=== PATIENT | male | born 1970 | race Caucasian/White ===

== ENCOUNTER 2023-12-14 10:17 | Emergency (ER) | payer SELFPAY ==
[2023-12-14 10:17] VITALS: BP 124/81; PULSE 118; RESP 18; TEMP 36.6; O2SAT 98; BMI 28.1
--- NOTE | 2023-12-14 11:28 | EDS_ITS ---
HPI <CLARKE Leonard - Last Filed: 12/14/23 13:28> History of Present Illness Chief Complaint: Upper Extremity Injury Narrative Narrative: Patient presenting today with pain to his right scapula/right upper back that he has had for the past 3 weeks. He reports that he had a mechanical fall about 3 weeks ago when he was going up the steps and went to reach for the railing but missed and landed on an outstretched right arm. He saw his PCP after this who obtained an x-ray of his tailbone and right shoulder, both of which were unremarkable. He reports that he has not really been taking anything for his pain, he tried taking Aleve once and has been using Biofreeze intermittently with minimal relief. He reports that his pain is worsened with movement of his upper torso/RUE and improved with rest. [facility] <CLARKE Leonard - Last Filed: 12/14/23 13:28> [facility] Medical History Diabetes Hypertension Home Medications lisinopril 5 mg tablet 5 mg PO DAILY 11/02/16 [History Last Taken 12/13/23] lorazepam 0.5 mg tablet 0.5 mg PO DAILY PRN PRN Anxiety 11/02/16 [History Last Taken Unknown] metformin 500 mg tablet 1,000 mg PO BIDCM 11/02/16 [History Last Taken 12/13/23] Allergy/AdvReac Type Severity Reaction Status Date / Time No Known Allergies Allergy Verified 12/14/23 10:27 Social History Smoking Status: Never smoker ROS <CLARKE Leonard - Last Filed: 12/14/23 13:28> ROS ED Constitutional Constitutional ED: Denies chills or fever(s) Cardiovascular Cardiovascular: Denies chest pain or palpitations Respiratory/Chest Respiratory/Chest: Denies cough or dyspnea Gastrointestinal Gastrointestinal: Denies abdominal pain, nausea or vomiting Musculoskeletal Musculoskeletal: Reports arthralgias and myalgias Integumentary Denies rash Neurologic Neurologic: Denies paresthesias or weakness EXAM <CLARKE Leonard - Last Filed: 12/14/23 13:28> Physical Exam Const Vital Signs: 12/14/23 10:17 Temperature 98 F Temperature Source Temporal Pulse Rate 118 H Respiratory Rate 18 Blood Pressure 124/81 H Blood Pressure Mean 95 Pulse Ox 98 Oxygen Delivery Method Room Air Positive well nourished, well developed and no apparent distress General Appearance ED: well developed HEENT Reports normocephalic and head/scalp atraumatic Mouth ED: Yes moist mucous membranes normal Eyes PERRL and EOMs intact bilaterally Neck full ROM and supple Chest Wall inspection of chest normal Resp normal respiratory effort and clear to auscultation bilaterally Cardio regular rate and regular rhythm GI soft to palpation, non-tender, non-distended and no masses Back/Spine normal ROM and normal to inspection Extremity normal to inspection and full ROM Extremity Narrative: Pain to palpation to the right medial scapular border/right-sided rhomboids Right radial pulse 2+, good capillary refill, sensation intact. Full range of motion to the right shoulder, no pain to palpation to the right shoulder. Neuro oriented x3, CN's II-XII intact bilaterally, moves all extremities, no focal motor deficits and no sensory deficits noted Sensorium / Orientation: awake and alert Motor Exam: strength 5/5 throughout Psych mental status grossly normal and thought process normal Skin no rashes or lesions noted and no wounds [facility] <CLARKE Leonard - Last Filed: 12/14/23 13:28> [facility] Narrative Medical decision making narrative: Patient presenting today with pain along the medial scapular border and right- sided rhomboid muscles. Pain is reproducible to palpation. Patient does not have any pain to his right shoulder, full range of motion to the right shoulder. He already did have imaging of his right shoulder which was unremarkable. He has not really been taking anything for his pain, he would like to have a ibuprofen here. I do think pain is consistent with a muscular strain. 2 view chest x-ray was obtained and is unremarkable. I did recommend alternating Tylenol/ibuprofen for his pain and follow-up with his PCP if no improvement in the next week. He will be discharged home in stable condition and is comfortable with plan. I have personally performed a face to face assessment of the patient and have reviewed the [facility] Note. I performed a substantive portion of the visit including all aspects of the following. My atwood findings include: History is 53-year-old male fell about 3 weeks ago injuring his right posterior shoulder blade area. Had an x-ray done of his shoulder at the [facility] 1 to 2 weeks ago that was negative. He still having pain primarily between his right posterior medial shoulder blade and his upper thoracic spine but not the spine itself. Has full range of motion to his right arm. Exam is [well-appearing 53-year-old male. Vital signs stable afebrile. HEENT exam unremarkable atraumatic. Pupils round reactive light. C-spine, T-spine and L-spine completely nontender. Discomfort but not significant reproducible pain between the medial aspect of his right shoulder blade and the thoracic spine. Is primarily in the soft tissue. There is no ecchymosis or bruising. No bony deformity. Shoulder blade itself at this time is nontender. Lungs clear to auscultation. Heart regular rhythm. Chest wall and ribs nontender. Abdomen soft nontender. Pelvic girdle intact. Moving all 4 extremities. He has full flexion extension internal and external rotation of the right shoulder. He can lift his arm over his head. His rotator cuff mechanism is intact. He is 5 out of 5 can maker strength bilaterally. Dorsi plantarflexion intact. Neurologically he is awake and alert with no focal motor deficits. No reproducible tenderness to his extremities.] Medical Decision Making [x-ray of his anterior posterior chest to be obtained.] Other additions or changes: [None] <Dr. Luis Mensah MD - Last Filed: 12/14/23 22:34> [facility] Narrative Medical decision making narrative: Patient presenting today with pain along the medial scapular border and right- sided rhomboid muscles. Pain is reproducible to palpation. Patient does not have any pain to his right shoulder, full range of motion to the right shoulder. He already did have imaging of his right shoulder which was unremarkable. He has not really been taking anything for his pain, he would like to have a ibuprofen here. I do think pain is consistent with a muscular strain. I have personally performed a face to face assessment of the patient and have reviewed the [facility] Note. I performed a substantive portion of the visit including all aspects of the following. My atwood findings include: History is 53-year-old male fell about 3 weeks ago injuring his right posterior shoulder blade area. Had an x-ray done of his shoulder at the [facility] 1 to 2 weeks ago that was negative. He still having pain primarily between his right posterior medial shoulder blade and his upper thoracic spine but not the spine itself. Has full range of motion to his right arm. Exam is [well-appearing 53-year-old male. Vital signs stable afebrile. HEENT exam unremarkable atraumatic. Pupils round reactive light. C-spine, T-spine and L-spine completely nontender. Discomfort but not significant reproducible pain between the medial aspect of his right shoulder blade and the thoracic spine. Is primarily in the soft tissue. There is no ecchymosis or bruising. No bony deformity. Shoulder blade itself at this time is nontender. Lungs clear to auscultation. Heart regular rhythm. Chest wall and ribs nontender. Abdomen soft nontender. Pelvic girdle intact. Moving all 4 extremities. He has full flexion extension internal and external rotation of the right shoulder. He can lift his arm over his head. His rotator cuff mechanism is intact. He is 5 out of 5 can maker strength bilaterally. Dorsi plantarflexion intact. Neurologically he is awake and alert with no focal motor deficits. No reproducible tenderness to his extremities.] Medical Decision Making [x-ray of his anterior posterior chest to be obtained.] Other additions or changes: [None] History & Record Review Discussion w/independent historian: Patient Discharge Plan Triage Chief Complaint: Upper Extremity Injury ED Midlevel Provider: [place] ED Provider: Luis Mensah Dx/Rx/DC Orders Clinical Impression: Muscle strain of right upper back Instructions: ED Back Sprain/Strain Prescriptions: No Action metformin 500 MG tablet 1,000 mg PO BIDCM lorazepam 0.5 MG tablet 0.5 mg PO DAILY PRN PRN (Reason: Anxiety) lisinopril 5 MG tablet 5 mg PO DAILY Primary Care Provider: Reagan Perdomo PEDIATRIC DENTAL HYGIENIST Referrals: Marcelo Burton MD [Non-Staff] - 5-7 Days Activity Restrictions/Additional Instructions: You can alternate Tylenol and ibuprofen for your pain as needed. Please follow- up with your PCP. Disposition Disposition: Home, Self Care Discharge Date/Time: 12/14/23 13:17
[2023-12-14] MEDS: Ibuprofen 600 MG Tablet PO (11:35)
--- NOTE | 2023-12-14 12:29 | RAD_ITS ---
INDICATION: pain medial to right shoulder blade post fall EXAMINATION/TECHNIQUE: X-RAY - XR Chest 2 Views COMPARISON: FINDINGS: LINES/DEVICES: None. LUNGS: No consolidation, edema or effusion. No pneumothorax. MEDIASTINUM AND CARDIOVASCULAR STRUCTURES: Cardiac silhouette not enlarged. Central airways and mediastinal contour are unremarkable. BONES AND SOFT TISSUES: Unremarkable. RAD/Chest PA and Lateral IMPRESSION: No radiographic evidence of acute cardiopulmonary disease. Electronically Signed: Gómez Johnson MD at 13:20 EDT ,
[2023-12-14 13:15] VITALS: BP 115/72; PULSE 100; RESP 16; TEMP 36.9; O2SAT 99
== END 2023-12-14 13:17 | disposition home or self-care (01) ==
PROVIDERS: Emergency Provider Emergency Medicine; PCP Nurse Practitioner Family; Visit Provider Emergency Medicine
DX: S29.012A Strain of muscle and tendon of back wall of thorax, initial encounter (principal); E11.9 Type 2 diabetes mellitus without complications; W10.9XXA Fall (on) (from) unspecified stairs and steps, initial encounter; I10 Essential (primary) hypertension; Z79.84 Long term (current) use of oral hypoglycemic drugs; Z79.899 Other long term (current) drug therapy
CPT/HCPCS: 71046; 99282

== ENCOUNTER 2025-09-19 14:37 | Inpatient (IN) | payer SELFPAY ==
[2025-09-19 14:39] VITALS: BP 116/68; PULSE 114; RESP 16; TEMP 36.7; O2SAT 100; BMI 27.2
--- NOTE | 2025-09-19 15:04 | CT_ITS ---
PROCEDURE: BRAIN/HEAD WITHOUT CONTRAST 09/19/2025 REASON FOR EXAM: CONFUSION TECHNIQUE: Procedure Code: CTBR Modality: CT Procedure: BRAIN/HEAD WITHOUT CONTRAST Coronal and Sagittal reconstruction series were provided. One or more dose reduction techniques were used (e.g., Automated exposure control, adjustment of the mA and/or kV according to patient size, use of iterative reconstruction technique. COMPARISON: None available. FINDINGS: There is no extra-axial or intra-axial intracranial hemorrhage. No mass effect or midline shift is seen. The ventricles, sulci, and cisterns are normal in size and shape for the patient's age. There is normal hong-white matter differentiation. The posterior fossa is grossly unremarkable. The skull is unremarkable. Visualized paranasal sinuses are clear. The mastoid air cells show normal translucency. CT/Brain/Head without Contrast IMPRESSION: No intracranial hemorrhage. No mass effect or midline shift. Reading [facility]
--- NOTE | 2025-09-19 15:06 | EX.ED.DYSGE1 ---
HPI History of Present Illness Chief Complaint: General Illness Informant: patient Onset/Context/Timing Onset: Month(s) (1) Context: Gradual Onset Timing: Continuous Quality: Weakness Location: Generalized Worsened by: Nothing Relieved by: Nothing Narrative Narrative: Patient presents with polyuria, polydipsia, weakness, dizziness that has been constant for the past month. Patient states it came on gradually. Patient states he has been feeling weak. Patient states he is drinking a lot of water. Patient states he has been urinating more frequently. Sister reports that the patient had a 40 pound weight loss over the last month. Sister states patient has had episodes of confusion as well. Patient admits to some blurry vision. Patient admits to some subjective fevers and chills. Patient denies any dysuria or hematuria. [facility] Medical History Hypertension Diabetes Home Medications ?Medication ?Instructions ?Recorded ?Last Taken ?Type lisinopril 5 mg tablet 5 mg PO DAILY 11/02/16 12/13/23 History lorazepam 0.5 mg tablet 0.5 mg PO DAILY PRN PRN Anxiety 11/02/16 Unknown History metformin 500 mg tablet 1,000 mg PO BIDCM 11/02/16 12/13/23 History Allergy/AdvReac Type Severity Reaction Status Date / Time No Known Allergies Allergy Verified 09/19/25 14:43 Surgical History no surgical history no surgical history Social History Smoking Status: Never smoker ROS ROS ED Constitutional Constitutional ED: Reports chills, fever(s) and subjective Eyes Eyes: Reports blurry vision; Denies diplopia ENT ENT ED: Denies rhinorrhea or sore throat Cardiovascular Cardiovascular: Denies chest pain or palpitations Respiratory/Chest Respiratory/Chest: Reports cough; Denies dyspnea Gastrointestinal Gastrointestinal: Reports constipation, nausea and vomiting Genitourinary Genitourinary ED: Reports urinary frequency; Denies dysuria or hematuria Musculoskeletal Musculoskeletal: Denies back pain or neck pain Integumentary Denies abscess or rash Neurologic Neurologic: Reports weakness; Denies headache(s) Endocrine Endocrinology: Reports polydipsia and polyuria Allergic/Immunologic Allergic/Immunologic ED: Denies mouth swelling or urticaria EXAM Physical Exam Const Vital Signs: 09/19/25 14:39 09/19/25 14:52 09/19/25 16:40 Temperature 98.1 F Temperature Source Oral Pulse Rate 114 H 92 Respiratory Rate 16 16 Respiratory Pattern Normal Blood Pressure 116/68 110/63 Blood Pressure Mean 84 78 Pulse Ox 100 100 Oxygen Delivery Method Room Air 09/19/25 18:08 Temperature Temperature Source Pulse Rate 93 Respiratory Rate 15 Respiratory Pattern Blood Pressure Blood Pressure Mean Pulse Ox 97 Oxygen Delivery Method Room Air Positive well nourished and well developed Constitutional Narrative: BMI is 27.3. General Appearance ED: well developed and NAD HEENT Reports moist mucous membranes Neck supple and no JVD Resp normal respiratory effort and clear to auscultation bilaterally Cardio regular rhythm Rate: tachycardic GI non-tender and non-distended Palpation: soft Extremity normal to inspection General Extremety ED: Negative for edema or tenderness General Extremity: Negative for edema Neuro oriented x3, CN's II-XII intact bilaterally and no sensory deficits noted Sensorium / Orientation: alert Motor Exam: strength 5/5 throughout Psych mental status grossly normal MDM MDM MDM Narrative Medical decision making narrative: Differential diagnosis includes diabetic ketoacidosis, hyperosmolar hyperglycemic nonketotic state, uncontrolled diabetes, dehydration, electrolyte abnormality, occult malignancy, and viral illness. EKG will be obtained to assess for cardiac dysrhythmia and cardiac ischemia. CT scan of the brain will be obtained to assess for intracranial bleeding and mass. Chest x-ray will be obtained to assess for pneumonia and bronchitis. CBC will be obtained to assess for leukocytosis and anemia. Comprehensive metabolic profile will be obtained to assess for hepatic function, renal function, and electrolyte abnormality. Urinalysis will be obtained to assess for urinary tract infection, glucosuria, and hematuria. Lipase will be obtained to assess for pancreatitis. Beta hydroxybutyrate will be obtained to assess for any ketosis. Venous blood gas will be obtained to assess for acidosis. History & Record Review Additional record(s) reviewed:: Prior ED visit Lab Data Attestation: I reviewed the patient's lab results. Lab results narrative: CBC was reviewed. There is a mild anemia with hemoglobin of 12.7 hematocrit 33.9. Platelets are slightly low at 102. Comprehensive metabolic profile was reviewed. BUN was elevated at 51 and creatinine was slightly elevated at 1.66. Glucose was elevated at 495. Sodium was low at 128 and chloride was 89. AST was slightly elevated at 44. ALT was slightly elevated at 56. Alkaline phosphatase was slightly elevated to 63. Total bilirubin was elevated at 2.28. CO2 was normal at 21.7. Anion gap was normal at 17. Lipase was reviewed and was 189. Beta hydroxybutyrate was reviewed and was slightly elevated at 2.8. Urinalysis was reviewed. There is glucosuria of 1000. There is no evidence of urinary tract infection or hematuria. Labs: Laboratory Results - last 24 hr 09/19/25 09/19/25 09/19/25 14:45 15:20 16:21 WBC 9.4 RBC 3.68 L Hgb 12.7 L Hct 33.9 L MCV 92.1 MCH 34.5 H MCHC 37.5 H RDW Std Deviation 45.3 H RDW Coeff of Nelsy 13.3 Plt Count 102 L MPV 11.6 Immature Gran % (Auto) 1.100 H Neut % (Auto) 64.0 Lymph % (Auto) 19.1 [place] % (Auto) 9.3 Eos % (Auto) 5.4 H Baso % (Auto) 1.1 H Absolute Neuts (auto) 6.0 Absolute Lymphs (auto) 1.79 Nucleated RBC % 0 Sodium 128 L Potassium 4.2 Chloride 89 L Carbon Dioxide 21.7 Anion Gap 17 BUN 51 H Creatinine 1.66 H Estim Creat Clear Calc 51.92 Est GFR (MDRD) Non-Af 48 L BUN/Creatinine Ratio 30.8 H Glucose 495 H* Calcium 10.1 Total Bilirubin 2.28 H AST 44 H ALT 56 H Alkaline Phosphatase 263 H Total Protein 7.7 Albumin 3.7 Globulin 4.0 Albumin/Globulin Ratio 0.9 Lipase 189 H b-Hydroxybutyric mmol/L 2.8 H Urine Color Straw Urine Clarity Clear Urine pH 6.0 Ur Specific [place] 1.010 Urine Protein 15 H Urine Glucose (UA) 1000 H Urine Ketones 5 H Urine Occult Blood Negative Urine Nitrite Negative Urine Bilirubin Negative Urine Urobilinogen Normal Ur Leukocyte Esterase Negative Urine RBC 0-5 SEEN Urine WBC 0-5 SEEN Ur Squamous Epith Cells 0-5 SEEN Urine Bacteria RARE Urine Mucus 0 SEEN POC Glucose 419 H 09/19/25 17:59 WBC RBC Hgb Hct MCV MCH MCHC RDW Std Deviation RDW Coeff of Nelsy Plt Count MPV Immature Gran % (Auto) Neut % (Auto) Lymph % (Auto) [place] % (Auto) Eos % (Auto) Baso % (Auto) Absolute Neuts (auto) Absolute Lymphs (auto) Nucleated RBC % Sodium Potassium Chloride Carbon Dioxide Anion Gap BUN Creatinine Estim Creat Clear Calc Est GFR (MDRD) Non-Af BUN/Creatinine Ratio Glucose Calcium Total Bilirubin AST ALT Alkaline Phosphatase Total Protein Albumin Globulin Albumin/Globulin Ratio Lipase b-Hydroxybutyric mmol/L Urine Color Urine Clarity Urine pH Ur Specific [place] Urine Protein Urine Glucose (UA) Urine Ketones Urine Occult Blood Urine Nitrite Urine Bilirubin Urine Urobilinogen Ur Leukocyte Esterase Urine RBC Urine WBC Ur Squamous Epith Cells Urine Bacteria Urine Mucus POC Glucose 380 H ABG Data Attestation: I personally reviewed and interpreted this ABG as follows: Interpretation: Venous blood gas was obtained. pH was 7.42. pCO2 is 33.1. pO2 was 25.5, bicarb 9.4. This was a venous sample. ABG results: ABG 09/19/25 15:34 Specimen Type BRUCE Sample Site Not entered VBG pH 7.42 VBG pO2 26 VBG HCO3 21 L VBG Total CO2 22 L VBG O2 Sat (Calc) 49 L VBG Base Excess -3 L POC Mix VBG pCO2 Pt Tmp 33.1 L O2 Delivery Device Room Air Radiography Chest X-Ray - ED: 2 View, Read by ED Physician, Read by Radiologist and No Acute Disease Diagnostic Testing: Clinical Impression(s) from Imaging Studies Brain CT 09/19/25 15:04 IMPRESSION: No intracranial hemorrhage. No mass effect or midline shift. Reading Location: [facility] Chest X-Ray 09/19/25 15:40 IMPRESSION: No acute cardiopulmonary process. Reading Location: [facility] Abdomen/Pelvis CT 09/19/25 16:41 IMPRESSION: 1. Fecal retention in the colon consistent with constipation. 2. Mild hepatosplenomegaly with splenic varices concerning for portal hypertension. Clinical correlation is recommended. 3. Colonic diverticulosis without acute diverticulitis. Reading Location: [facility] PA and lateral chest x-ray was obtained. There are 2 views. On my independent interpretation, lung kim are clear. There is normal cardiac silhouette. Bony thorax is normal. There is no acute process noted. Radiologist also interpreted the x-ray and agrees. CT scan of the brain was obtained. There is no acute intracranial abnormality. This was interpreted by the radiologist. I also independently reviewed the images and did not see any evidence of intracranial bleeding or mass. PA and lateral chest x-ray was obtained. There are 2 views. On my independent interpretation, lung kim are clear. There is normal cardiac silhouette. Bony thorax is normal. There is no acute process noted. Radiologist also interpreted the x-ray and agrees. EKG Initial EKG: Attestation: I personally reviewed and interpreted this EKG as follows: Interpretation: Sinus Rhythm (With first-degree AV block with a rate of 95) and No Acute Injury Pattern Comments: EKG was obtained. On my independent interpretation, shows a sinus rhythm with a first-degree AV block with a rate of 95. MA interval was 220 ms. QRS interval was normal at 106 ms. QTc interval was normal at 339 ms. [place] was normal. There are no acute ST or T wave changes noted. Prior EKG tracings: not available for review Prior: No Prior Management Discussion w/another healthcare provider: Hospitalist Treatment and Re-Evaluation :: Patient was given IV fluids. Patient was given a dose of subcutaneous insulin. Patient was feeling better on reevaluation. Patient was advised of his findings. I recommended admission to the hospital. Patient is agreeable with this. Case was discussed with the hospitalist. He will evaluate patient and admit the patient to his service. Patient and sister understand and are agreeable with the plan. All questions were answered. Discharge Plan Dx/Rx/DC Orders Clinical Impression: Pancreatitis, Hyperglycemia, Acute kidney injury Disposition Disposition: [facility]
--- NOTE | 2025-09-19 15:15 | EKG12_ITS ---
Test Reason : Blood Pressure : */* mmHG Vent. Rate : 95 BPM Atrial Rate : 95 BPM P-R Int : 220 ms QRS Dur : 106 ms QT Int : 270 ms P-R-T Axes : 52 10 54 degrees QTcB Int : 339 ms Sinus rhythm with 1st degree A-V block Otherwise normal ECG Confirmed by Andrea Jon ([id number]), technical editor ANIRUDH FORRESTER ([id number]) on 09/25/2025 7:15:27 AM Referred By: Confirmed By: Andrea Jon
[2025-09-19 15:19] LABS: Mucous, Urine 0 SEEN /hpf (<or=2+)
[2025-09-19] MEDS: 0.9% Normal Saline (1000mL) 1,000 ML 999 ML IV ×2 (15:22→17:57)
[2025-09-19 15:26] LABS: Color, Urine Straw (Yellow); Glucose, Dipstick 1000 mg/dl (Normal); Ketone-Dipstick 5 mg/dl (Negative); Leukocyte Esterase-Dipstick Negative /ul (Negative); Nitrite-Dipstick Negative (Negative); Occult Blood-Urine Negative /ul (Negative); Protein-Dipstick 15 mg/dl (Negative); Specific Gravity, Urine 1.010 (1.002-1.030); Urine Bilirubin Dipstick Negative (Negative)
[2025-09-19 15:38] LABS: SITE Not entered; VBG BASE EXCESS -3 mmol/L (-1.0-3.5); VBG PO2 26 mmHg (25-40); VBG SO2 49 % (50-70); VBG TCO2 22 mmol/L (23-33)
--- OUTSIDE RECORDS SUMMARY | 2025-09-19 15:38 | XMS RPT_ITS | CCD ---
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 echocardiogram to assess for progression; advised patient to schedule once insurance is active. Reagan Garcia APRN.WATCH REPAIRER RTO in 6 months, sooner i (more content not included)... Normal [facility] Comprehensive metabolic 2000 panelon 07-08-2025 Albumin [Mass/Vol] 4.0 g/dL Normal 3.9-4.9 [facility] Comment on above: Order Comment: Speci men Type: BLOOD SPECIMENOrdering Facility: [facility] Address: [address] [place] [address] Performed By: #### 2 4323-8 ####[facility] LABCLIA [id number] [place] [address] [place] ALP [Catalytic activity/Vol] 97 U/L Normal 38-113 [facility] Comment on above: Order Comment: Speci men Type: BLOOD SPECIMENOrdering Facility: [facility] Address: [address] [place] [address] Performed By: #### 2 4323-8 ####[facility]CL[facility] [id number] [place] [address] [place] ALT [Catalytic activity/Vol] 45 U/L Normal 10-54 [facility] Comment on above: Order Comment: Speci men Type: BLOOD SPECIMENOrdering Facility: [facility] Address: [address] [place] [address] Performed By: #### 2 4323-8 ####[facility]CLIA [id number] [place] [address] [place] Anion gap [Moles/Vol] 14 mmol/L Normal 8-15 [facility] Comment on above: Order Comment: Speci men Type: BLOOD SPECIMENOrdering Facility: [facility] Address: [address] [place] [address] Performed By: #### 2 4323-8 ####[facility]CLIA [id number] [place] [address] [place] AST [Catalytic activity/Vol] 57 U/L High 14-40 [facility] Comment on above: Order Comment: Speci men Type: BLOOD SPECIMENOrdering Facility: [facility] Address: [address] [place] [address] Performed By: #### 2 4323-8 ####[facility]CLIA [id number] [place] [address] [place] Bilirubin [Mass/Vol] 1.9 mg/dL High 0.2-1.3 [facility] Comment on above: Order Comment: Speci men Type: BLOOD SPECIMENOrdering Facility: [facility] Address: [address] [place] [address] Performed By: #### 2 4323-8 ####[facility]CL[facility] [id number] [place] [address] [place] Calcium [Mass/Vol] 10.2 mg/dL Normal 8.5-10.2 [facility] Comment on above: Order Comment: Speci men Type: BLOOD SPECIMENOrdering Facility: [facility] Address: [address] [place] [address] Performed By: #### 2 4323-8 ####[facility]CL[facility] [id number] [place] [address] [place] Chloride [Moles/Vol] 104 mmol/L Normal 98-107 [facility] Comment on above: Order Comment: Speci men Type: BLOOD SPECIMENOrdering Facility: [facility] Address: [address] [place] [address] Performed By: #### 2 4323-8 ####[facility]CL[facility] [id number] [place] [address] [place] CO2 [Moles/Vol] 23 mmol/L Normal 22-30 [facility] Comment on above: Order Comment: Speci men Type: BLOOD SPECIMENOrdering Facility: [facility] Address: [address] [place] [address] Performed By: #### 2 4323-8 ####[facility] [id number] [place] [address] [place] Creatinine [Mass/Vol] 0.96 mg/dL Normal 0.73-1.22 [facility] Comment on above: Order Comment: Speci men Type: BLOOD SPECIMENOrdering Facility: [facility] Address: [address] [place] [address] Performed By: #### 2 4323-8 ####[facility]CL[facility] [id number] [place] [address] [place] eGFRcr SerPlBld CKD-EPI 2020 93 mL/min/1.73m??? Normal >=60 [facility] Comment on above: Order Comment: Speci men Type: BLOOD SPECIMENOrdering Facility: [facility] Address: [address] [place] [address] Result Comment: Flavia mated Glomerular Filtration Rate (eGFR) is calculated using the 2020 CKD-EPI creatinine equation. This equation utilizes serum creatinine, sex, and age as parameters. The creatinine assay has traceable calibration to isotope dilution-mass spectrometry. Refer to KDIGO guidelines for clinical interpretation. In patients with unstable renal function, e.g. those with acute kidney injury, the eGFR may not accurately reflect actual GFR. Performed By: #### 2 4323-8 ####[facility]CL[facility] [id number] [place] [address] [place] Glucose [Mass/Vol] 66 mg/dL Low 74-99 [facility] Comment on above: Order Comment: Speci men Type: BLOOD SPECIMENOrdering Facility: [facility] Address: [address] [place] [address] Result Comment: The [place] Diabetes Association (ADA) provides guidance for cutoff values for fasting glucose and random glucose. The ADA defines fasting as no caloric intake for at least 8 hours. Fasting plasma glucose results between 100 to 125 mg/dL indicate increased risk for diabetes (prediabetes). Fasting plasma glucose results greater than or equal to 126 mg/dL meet the criteria for diagnosis of diabetes. In the absence of unequivocal hyperglycemia, results should be confirmed by repeat testing. In a patient with classic symptoms of hyperglycemia or hyperglycemic crisis, random plasma glucose results greater than or equal to 200 mg/dL meet the criteria for diagnosis of diabetes. Reference: Standards of Medical Care in Diabetes 2016, [place] [employer] Association. Diabetes Care. 2016.39(Suppl 1). Performed By: #### 2 4323-8 ####[facility]CL[facility] [id number] [place] [address] [place] Potassium [Moles/Vol] 4.5 mmol/L Normal 3.7-5.1 [facility] Comment on above: Order Comment: Speci men Type: BLOOD SPECIMENOrdering Facility: [facility] Address: [address] [place] [address] Performed By: #### 2 4323-8 ####[facility]CL[facility] [id number] [place] [address] [place] Protein [Mass/Vol] 7.7 g/dL Normal 6.3-8.0 [facility] Comment on above: Order Comment: Speci men Type: BLOOD SPECIMENOrdering Facility: [facility] Address: [address] [place] [address] Performed By: #### 2 4323-8 ####[facility]CL[facility] [id number] [place] [address] [place] Sodium [Moles/Vol] 141 mmol/L Normal 136-144 [facility] Comment on above: Order Comment: Speci men Type: BLOOD SPECIMENOrdering Facility: [facility] Address: [address] [place] [address] Performed By: #### 2 4323-8 ####[facility]CL[facility] [id number] Urea nitrogen [Mass/Vol] 28 mg/dL High 9-24 [facility] Comment on above: Order Comment: Sarahi mccann Type: BLOOD SPECIMENOrdering Facility: [facility] Address: [address] [place] [address] Performed By: #### 2 4323-8 ####[facility]CL[facility] [id number] [address] HbA1c (Bld)on 07-08-2025 Average glucose Estimated from glycated hemoglobin (Bld) [Mass/Vol] 105 mg/dL Normal [facility] Comment on above: Order Comment: Sarahi mccann Type: BLOOD SPECIMENOrdering Facility: [facility] Address: [address] [place] [address] Result Comment: eAG: (Estimated average glucose) is a calculated value from HgbA1c and is route sales representative of the average blood glucose level in the last 2-3 month period. Performed By: #### 5 5454-3 ####[facility] LABIA [id number] [address] HbA1c (Bld) [Mass fraction] 5.3 % Normal 4.3-5.6 [facility] Comment on above: Order Comment: Sarahi mccann Type: BLOOD SPECIMENOrdering Facility: [facility] Address: [address] [place] [address] Result Comment: [place] Diabetes Association guidelines indicate that patients with HgbA1c in the range 5.7-6.4% are at increased risk for development of diabetes, and intervention by lifestyle modification may be beneficial. HgbA1c greater or equal to 6.5% is considered diagnostic of diabetes. Performed By: #### 5 5454-3 ####[facility] [id number] [address] [place] 03-05-2025 LUIS Telephone (GSTNOR) LUISA,DANE ([id number]) 1970 M Date Time Provider Department 03/05/25 GEORGIA AVILA During your visit today, we recorded the following information about you: Dejuan Red 03/05/2025 9:12 AM Signed LM for patient, the 03/05 office visit with CLARKE Avila, was denied for financial assistance. Dejuan Red 03/10/2025 3:00 PM Signed Patient came into the office and was made aware of the denial. The PFA was in contact with him and is working on financial assistance. Allergies As of Date: 03/05/2025 (No Known Allergies) Date Reviewed: 01/27/2025 Reviewed by: Margie Brooks MA - Fully Assessed Reason for Visit: Appointment [186] Cmt: cancel Prescriptions as of 03/10/2025 - lactulose 10 gram/15 mL solution Take 15 mL by mouth two times a day. Titrate to 2-3 soft bowel movements daily. - lisinopril-hydroCHLOROthiaz carlos (ZESTORETIC) 20-25 mg per tablet Take 1 tablet by mouth every morning. - metFORMIN (GLUCOPHAGE) 1,000 mg tablet Take 1 tablet by mouth two times a day with meals. - meloxicam (MOBIC) 15 mg tablet take one tablet by mouth every day - glyBURIDE 5 mg tablet Take 1 tablet by mouth daily with breakfast. - sildenafil (VIAGRA) 100 mg tablet Take 1 tablet by mouth once daily as needed. Take 30-60 minutes before sexual activity. - blood sugar diagnostic (BLOOD GLUCOSE TEST) test strip Test blood sugar(s) 1 times daily. Dx: Type 2 DM - Controlled E11.9 Insulin: No Problem List As Of Date 03/05/2025 Noted Resolved Essential hypertension, benign [I10] 02/06/2012 Elevated glucose [R73.09] 02/06/2012 Fatty liver [K76.0] 02/06/2012 Anxiety [F41.9] 08/19/2012 Diabetes mellitus type 2, controlled, without c*07/02/2013 Splenomegaly [R16.1] 01/10/2021 Aortic stenosis, mild [I35.0] 06/14/2023 Chronic scapular pain [M89.8X1, G89.29] 03/28/2024 Encounter Status:Closed by DEJUAN RED on 03/10/25 [facility] CNOVon 01-27-2025 CNOV Office Visit (FAMPWS ) DANE MORAN ([id number]) 1970 M Date Time Provider Department 01/27/25 10:00 AM WILLIE BURTON FAMPWS During your visit today, we recorded the following information about you: Pulse Respiration Blood pressure Weight 78/minute 16/minute 118/80 98.9 kg Willie Burton MD 01/27/2025 10:40 AM Signed Chief Complaint Patient presents with: Follow Up: -burn to foot HPI Dane Moran is a 54 year old male who presents here today for follow up. Pt was in the [facility] on 01/21/25 for burn to right foot. Was prescribed Doxycycline 100 mg and advised to continue with bandages and burn ointment and follow up with PCP in 1 week. Pt is diabetic. Has a 1.5 days worth of antibiotics to take. Has been applying silver cream to the burn. He still has a mild dull pain, occ pinching, sharp stabbing pain in the evening that lasts a short time. Foot is still swelling, will improve over night when off his feet, no changes in the swelling. Has been wearing crocs to avoid pressure on the foot. Denies any fevers. He spilled hot liquid on the foot a week and half ago. He is not filing workers comp. Chews tobacco. Not interested in quitting at this time. GI: He has stopped drinking alcohol completely 12/29/24 since having his abdominal US. He has fatty liver disease, now with cirrhotic changes to the liver. . He was given Lactulose to take to get his bowels moving but pt states he is not taking that as he has no problems with his bowels. Explained that he was put on the Lactulose to lower his ammonia levels. He is scheduled to see GI next month. Past medical history, appointments, medications, allergies reviewed. Previous Medical History PAST MEDICAL HISTORY Diagnosis Date Anxiety Diabetes (HCC) Fatty liver Hypertension Previous Surgical History PAST SURGICAL HISTORY Procedure Laterality Date ANESTHESIA KNEE, ARTHROSCOPIC 1983 right knee Family History FAMILY HISTORY Problem Relation Age of Onset Ischemic Heart Disease Father 50 at 51 Diabetes Mother Diabetes Maternal Grandfather Patient Allergies ALLERGIES No Known Allergies Current Medications Current Outpatient Medications on File Prior to Visit Medication Sig doxycycline monohydrate 100 mg tablet Take 1 tablet by mouth two times a day for 7 days. lactulose 10 gram/15 mL solution Take 15 mL by mouth two times a day. Titrate to 2-3 soft bowel movements daily. lisinopril-hydroCHLOROthiaz carlos (ZESTORETIC) 20-25 mg per tablet Take 1 tablet by mouth every morning. metFORMIN (GLUCOPHAGE) 1,000 mg tablet Take 1 tablet by mouth two times a day with meals. meloxicam (MOBIC) 15 mg tablet take one tablet by mouth every day (Patient not taking: Reported on 01/21/2025) glyBURIDE 5 mg tablet Take 1 tablet by mouth daily with breakfast. sildenafil (VIAGRA) 100 mg tablet Take 1 tablet by mouth once daily as needed. Take 30-60 minutes before sexual activity. blood sugar diagnostic (BLOOD GLUCOSE TEST) test strip Test blood sugar(s) 1 times daily. Dx: Type 2 DM - Controlled E11.9 Insulin: No No current facility-administered medications on file prior to visit. Social History Social History Tobacco Use Smoking status: Never Smokeless tobacco: Current Types: Chew Tobacco comments: 1/2 can a day Vaping Use Vaping status: Never Used Substance Use Topics Alcohol use: Yes Comment: 1-2 drinks per day Drug use: No EXAM: BP 118/80 Pulse 78 Resp 16 Wt 98.9 kg (218 lb 0.6 oz) BMI 31.28 kg/m? General Appearance: Well appearing, alert, in no acute distress, well-hydrated, well nourished. and Overweight. Foot: right; no infection, swelling of the foot; wounds scabbed over, slight swelling to foot, minimal erythema, no streaking, no drainage. Health Maintenance List Shingrix Vaccine(2 of 2) due on 01/04/2021 Colorectal Cancer Screening due on 01/30/2023 Dilated Retinal Exam due on 07/24/2023 BP Controlled (<130/80) due on 12/19/2023 Urine Albumin:Creatinine Ratio due on 12/02/2024 Covid-19 Vaccine(3 - 2023- season) due on 05/27/2025 Hepatitis B Vaccine(1 of 3 - 19+ 3-dose series) due on 12/15/2025 Pneumococcal Vaccine: 50+(1 of 2 - PCV) due on 12/15/2025 Diabetic Foot Exam due on 05/27/2025 Depression Screening due on 05/27/2025 HbA1C due on 06/17/2025 LDL Cholesterol due on 12/15/2025 Annual PCP Team Chronic Disease Visit due on 12/15/2025 Prostate Cancer Screening Discussion due on 12/15/2029 DTaP,Tdap,Td Vaccine(3 - Td or Tdap) due on 03/28/2032 Hepatitis C Screening Completed Influenza Vaccine Discontinued HIV Screening Discontinued Data reviewed None ASSESSMENT/PLAN: 1. Burn - ICD9: 949.0, ICD10: T30.0 (primary diagnosis) Improving Continue with Silver cream Finish antibiotic Call in next week with update on foot 2. Cirrhosis, Recommended follow with GI as deepti (more content not included)... Normal [facility] CNOVon 01-21-2025 CNOV Office Visit (UCWSTR ) DANE MORAN ([id number]) 1970 M Date Time Provider Department 01/21/25 5:00 PM ANNA DREW [facility] During your visit today, we recorded the following information about you: Temperature Pulse Respiration Blood pressure 98.1 degrees 83/minute 18/minute 140/80 Weight 99.4 kg Anna Drew APRN.CNP 01/21/2025 5:19 PM Signed [facility] Subjective HPI HPI Dane Moran is a 54 year old male who presents today for CC of right foot burn. This started 1 week ago, now swelling and increased pain. Has tried otc medication for relief. Symptoms are worsened by nothing. Risk factors patient diabetic. .Patient presents with: Burn: Right foot x 1 week, pain worsening PAST MEDICAL HISTORY Diagnosis Date Anxiety Diabetes (HCC) Fatty liver Hypertension PAST SURGICAL HISTORY Procedure Laterality Date ANESTHESIA KNEE, ARTHROSCOPIC 1983 right knee ALLERGIES Patient has no known allergies. MEDICATIONS lactulose 10 gram/15 mL solution Take 15 mL by mouth two times a day. Titrate to 2-3 soft bowel movements daily. lisinopril-hydroCHLOROthiaz carlos (ZESTORETIC) 20-25 mg per tablet Take 1 tablet by mouth every morning. metFORMIN (GLUCOPHAGE) 1,000 mg tablet Take 1 tablet by mouth two times a day with meals. glyBURIDE 5 mg tablet Take 1 tablet by mouth daily with breakfast. sildenafil (VIAGRA) 100 mg tablet Take 1 tablet by mouth once daily as needed. Take 30-60 minutes before sexual activity. blood sugar diagnostic (BLOOD GLUCOSE TEST) test strip Test blood sugar(s) 1 times daily. Dx: Type 2 DM - Controlled E11.9 Insulin: No doxycycline monohydrate 100 mg tablet Take 1 tablet by mouth two times a day for 7 days. meloxicam (MOBIC) 15 mg tablet take one tablet by mouth every day (Patient not taking: Reported on 01/21/2025) FAMILY HISTORY Problem Relation Age of Onset Ischemic Heart Disease Father 50 at 51 Diabetes Mother Diabetes Maternal Grandfather Social History Tobacco Use Smoking status: Never Smokeless tobacco: Current Types: Chew Tobacco comments: 1/2 can a day Vaping Use Vaping status: Never Used Substance Use Topics Alcohol use: Yes Comment: 1-2 drinks per day Drug use: No Review of Systems Constitutional: Negative for fever. Objective BP 140/80 Pulse 83 Temp 36.7 ?C (98.1 ?F) (Tympanic) Resp 18 Wt 99.4 kg (219 lb 2.2 oz) SpO2 97% BMI 31.44 kg/m? Physical Exam Constitutional: General: He is not in acute distress. Appearance: He is not toxic-appearing or diaphoretic. HENT: Head: Normocephalic and atraumatic. Pulmonary: Effort: Pulmonary effort is normal. No accessory muscle usage or respiratory distress. Musculoskeletal: Feet: Neurological: Mental Status: He is alert and oriented to person, place, and time. {ASSESSMENT/PLAN: 1. Secondary infection of skin - ICD9: 686.8, ICD10: L08.89 (primary diagnosis) -use medication as prescribed -follow up if symptoms persist, worsen, change Will schedule recheck with pcp next week. Urgent f/u for worsening s/s - DOXYCYCLINE MONOHYDRATE 100 MG TABLET 2. Skin burn - ICD9: 949.0, ICD10: T30.0 Continue bandages and burn ointment Anna Drew APRN.WATCH REPAIRER History and Record Review External record(s) reviewed: prior outpatient record. Findings from review of outpatient records: diabetic Disposition The patient was discharged. Procedures Allergies As of Date: 01/21/2025 (No Known Allergies) Date Reviewed: 01/21/2025 Reviewed by: Margie Brooks MA - Fully Assessed Reason for Visit: Burn [3988] Cmt: Right foot x 1 week, pain worsening Primary Visit Diagnosis:Secondary infection of skin [L08.89] Other Visit Diagnosis:Skin burn [T30.0] Order(s):doxycycline monohydrate 100 mg tabletTake 1 tablet by mouth two times a day for 7 days.Disp: 14 tabletRfl: 0 Prescriptions as of 01/21/2025 - doxycycline monohydrate 100 mg tablet Take 1 tablet by mouth two times a day for 7 days. - lactulose 10 gram/15 mL solution Take 15 mL by mouth two times a day. Titrate to 2-3 soft bowel movements daily. - lisinopril-hydroCHLOROthiaz carlos (ZESTORETIC) 20-25 mg per tablet Take 1 tablet by mouth every morning. - metFORMIN (GLUCOPHAGE) 1,000 mg tablet Take 1 tablet by mouth two times a day with meals. - meloxicam (MOBIC) 15 mg tablet take one tablet by mouth every day - glyBURIDE 5 mg tablet Take 1 tablet by mouth daily with breakfast. - sildenafil (VIAGRA) 100 mg tablet Take 1 tablet by mouth once daily as needed. Take 30-60 minutes before sexual activity. - blood sugar diagnostic (BLOOD GLUCOSE TEST) test strip Test blood sugar(s) 1 times daily. Dx: Type 2 DM - Controlled E11.9 Insulin: No Problem List As Of Date 01/21/2025 Noted Resolved Essential hypertension, benign [I10] 02/06/2012 Elevated glucose [R73.09] 02/06/2012 Fatty live (more content not included)... [facility] CHERIN Tele[facility] (FAMPWS) DANE MORAN ([id number]) 1970 M Date Time Provider Department 01/05/25 [facility] During your visit today, we recorded the following information about you: Reagan Garcia APRN.CNP 01/05/2025 7:27 AM Signed ----- Message from Georgia Avila PA-C sent at 01/02/2025 3:34 PM EDT ----- Regarding: RE: Patient question Manisha Topete for reach out! Personally my threshold to start on lactulose is low and I definitely would recommend getting him started on it ana lilia with ammonia elevations. Can start on low dose lactulose 10g oral BID with BM goal of 2-3 soft Bms per day. If he is unable to tolerate it we can always document that during our visit and try to get something like Xifaxan approved. You can recheck his ammonia levels again in 4 weeks to be on the safe side but I will take care of rest of lab workup when I see him in clinic Georgia Avila PA-C ----- Message ----- From: Reagan Garcia APRN.CNP Sent: 01/01/2025 1:41 PM EDT To: Georgia Avila PA-C Subject: Patient question Choco Ho, This patient is seeing you in February. New findings consistent with cirrhosis. I am covering for a provider that left [facility]. This patient's ammonia level is slight elevated. No documentation of any neurologic issues or complaints. Any suggestions on anything I need to do prior to him seeing you? Should I repeat at any interval? When do you guys pull the trigger for lactulose? GIFTY Roy Jesse, APRN.CNP 01/05/2025 7:32 AM Signed Please let the patient know that his labs show liver enzymes. Also elevated ammonia level. This is secondary to his liver. I would like for him to continue with the plan to follow up with gastroenterology as scheduled. I did reach out to gastroenterology for advice regarding his ammonia level. They recommended starting a medication to induce bowel movements and thus lower his ammonia level. The recommendation is to take twice daily to achieve 2-3 soft bowel movements daily. Repeat ammonia level in 1 month with follow up visit. Elevated ammonia levels that continue to increase can cause neurologic symptoms to manifest. If the patient has further questions, we can set up a virtual visit or office visit to discuss. The following approved medication requests have been transmitted electronically. Requested Prescriptions Signed Prescriptions Disp Refills lactulose 10 gram/15 mL solution 946 mL 2 Sig: Take 15 mL by mouth two times a day. Titrate to 2-3 soft bowel movements daily. Authorizing Provider: REAGAN GARCIA APRN.CNP Morris, Jacqueline, LPN 01/05/2025 10:39 AM Signed Patient notified. Verbalized understanding. Scheduled. Allergies As of Date: 01/05/2025 (No Known Allergies) Date Reviewed: 12/15/2024 Reviewed by: Pati Mg LPN - Fully Assessed Reason for Visit: Results [95] Primary Visit Diagnosis:Increased ammonia level [R79.89] Order(s):AMMONIA [SQNH3] Order #: [id number] FUTURE lactulose 10 gram/15 mL solutionTake 15 mL by mouth two times a day. Titrate to 2-3 soft bowel movements daily.Disp: 946 mLRfl: 2 Prescriptions as of 01/05/2025 - lactulose 10 gram/15 mL solution Take 15 mL by mouth two times a day. Titrate to 2-3 soft bowel movements daily. - lisinopril-hydroCHLOROthiaz carlos (ZESTORETIC) 20-25 mg per tablet Take 1 tablet by mouth every morning. - metFORMIN (GLUCOPHAGE) 1,000 mg tablet Take 1 tablet by mouth two times a day with meals. - meloxicam (MOBIC) 15 mg tablet take one tablet by mouth every day - glyBURIDE 5 mg tablet Take 1 tablet by mouth daily with breakfast. - sildenafil (VIAGRA) 100 mg tablet Take 1 tablet by mouth once daily as needed. Take 30-60 minutes before sexual activity. - blood sugar diagnostic (BLOOD GLUCOSE TEST) test strip Test blood sugar(s) 1 times daily. Dx: Type 2 DM - Controlled E11.9 Insulin: No Problem List As Of Date 01/05/2025 Noted Resolved Essential hypertension, benign [I10] 02/06/2012 Elevated glucose [R73.09] 02/06/2012 Fatty liver [K76.0] 02/06/2012 Anxiety [F41.9] 08/19/2012 Diabetes mellitus type 2, controlled, without c*07/02/2013 Splenomegaly [R16.1] 01/10/2021 Aortic stenosis, mild [I35.0] 06/14/2023 Chronic scapular pain [M89.8X1, G89.29] 03/28/2024 Prescriptions ordered this encounter Disp Refills Start End LACTULOSE 10 GRAM/15 ML ORAL SOLUTION 946 * 2 01/05/2025 Route: ORAL Sig: Take 15 mL by mouth two times a day. Titrate to 2-3 soft bowel movements daily. Disposition: Return in about 4 weeks (around 02/02/2025) for Elevated ammonia levels follow up . Follow-up and Disposition History for Encounter Date Provider Department Center 01/05/2025 [id number]-PCBVDREAGAN GARCIA [facility] Encounter Status:Closed by IRA GOODSON on 01/05/25 Normal [facility] ALKALINE PHOSPHATASE ISOENZY MES (P)on 12-29-2024 ALK PHOS BONE % 24.5 % Normal 10.7-68.3 [facility] Comment on above: Order Comment: Speci men Type: BLOOD SPECIMENOrdering Facility: [facility] Address: [address] [place] [address] Performed By: #### A LKISOP ####[facility] LABCLIA [id number] [place] [address] [place] ALK PHOS LIVER % 16.2 % Low 26.0-86.2 [facility] Comment on above: Order Comment: Speci men Type: BLOOD SPECIMENOrdering Facility: [facility] Address: [address] [place] [address] Performed By: #### A LKISOP ####[facility] LABCLIA [id number] [address], [facility]95 [facility] [place] BONE FRACTION 26.2 U/L Normal 12.9-52.6 [facility] Comment on above: Order Comment: Speci men Type: BLOOD SPECIMENOrdering Facility: [facility] Address: [address] [place] [address] Performed By: #### A LKISOP ####[facility] LABCLIA [id number] [address], [place] [address] [place] INTESTINE FRACTION 63.5 U/L High 0.0-16.3 [facility] Comment on above: Order Comment: Speci men Type: BLOOD SPECIMENOrdering Facility: [facility] Address: [address] [place] [address] Performed By: #### A LKISOP ####[facility] LABCLIA [id number] [address], [place] [address] [facility] [place] LIVER FRACTION 17.3 U/L Normal 16.0-69.3 [facility] Comment on above: Order Comment: Speci men Type: BLOOD SPECIMENOrdering Facility: [facility] Address: [address] [place] [address] Performed By: #### A LKISOP ####[facility] LABCLIA [id number] [address] [place] [address] [place] Neutrophils/100 WBC (Bld) 59.3 % High 0.0-24.2 [facility] Comment on above: Order Comment: Speci men Type: BLOOD SPECIMENOrdering Facility: [facility] Address: [address] [place] [address] Performed By: #### A LKISOP ####[facility] LABCLIA [id number] [place] [id number] [place] ALP SerPl-cCncon 12-29-2024 ALP [Catalytic activity/Vol] 107 U/L Normal 38-113 [facility] Comment on above: Order Comment: Speci men Type: BLOOD SPECIMENOrdering Facility: [facility] Address: [address] [place] [address] Performed By: #### 5 0190-8, 2324-2, 2276-4, 6768-6 ####[facility] LABCLIA [id number] [place] [address] [place] Ammonia Plas-sCncon 12-30-19 25 Ammonia (P) [Moles/Vol] 73 umol/L High 16-60 [facility] Comment on above: Order Comment: Speci men Type: BLOOD SPECIMENOrdering Facility: [facility] Address: [address] [place] [address] Performed By: #### 1 6362-6 ####[facility] LABCLIA [id number] [place] [address] [place] CBC W Auto Differential pane l (Bld)on 12-29-2024 Basophils (Bld) [#/Vol] 0.08 10*3/uL Normal <0.11 [facility] Comment on above: Order Comment: Speci men Type: BLOOD SPECIMEN [facility] Address: [address] [place] [address] Performed By: #### 5 7021-8 #### [facility] CLIA [id number] [address] [place] [address] [place] Basophils/100 WBC (Bld) 1.3 % Normal [facility] Comment on above: Order Comment: Speci men Type: BLOOD SPECIMEN [facility] Address: [address] [place] [address] Performed By: #### 5 7021-8 #### [facility] CLIA [id number] [address] [place] [address] [place] Differential cell count method Nom (Bld) Auto Normal [facility] Comment on above: Order Comment: Speci men Type: BLOOD SPECIMEN [facility] Address: [address] [place] [address] Performed By: #### 5 7021-8 #### [facility] CLIA [id number] [address] [place] [address] [place] Eosinophils (Bld) [#/Vol] 0.37 10*3/uL Normal <0.46 [facility] Comment on above: Order Comment: Speci men Type: BLOOD SPECIMEN [facility] Address: [address] [place] [address] Performed By: #### 5 7021-8 #### [facility] CLIA [id number] [address] [place] [address] [place] Eosinophils/100 WBC (Bld) 5.8 % Normal [facility] Comment on above: Order Comment: Speci men Type: BLOOD SPECIMEN [facility] Address: [address] [place] [address] Performed By: #### 5 7021-8 #### [facility] CLIA [id number] [address] [place] [address] [place] Erythrocyte distribution width (RBC) [Ratio] 14.6 % Normal 11.5-15.0 [facility] Comment on above: Order Comment: Speci men Type: BLOOD SPECIMEN [facility] Address: [address] [place] [address] Performed By: #### 5 7021-8 #### [facility] CLIA [id number] [address] [place] [address] [place] Hematocrit (Bld) [Volume fraction] 35.4 % Low 39.0-51.0 [facility] Comment on above: Order Comment: Speci men Type: BLOOD SPECIMEN [facility] Address: [address] [place] [address] Performed By: #### 5 7021-8 #### [facility] CLIA [id number] [address] [place] [address] [place] Hemoglobin (Bld) [Mass/Vol] 12.3 g/dL Low 13.0-17.0 [facility] Comment on above: Order Comment: Speci men Type: BLOOD SPECIMEN [facility] Address: [address] [place] [address] Performed By: #### 5 7021-8 #### [facility] CLIA [id number] [address] [place] [address] [place] Immature granulocytes (Bld) [#/Vol] 0.08 10*3/uL Normal <0.10 [facility] Comment on above: Order Comment: Speci men Type: BLOOD SPECIMEN [facility] Address: [address] [place] [address] Performed By: #### 5 7021-8 #### [facility] CLIA [id number] [address] [place] [address] [place] Immature granulocytes/100 WBC (Bld) 1.3 % Normal [facility] Comment on above: Order Comment: Speci men Type: BLOOD SPECIMEN [facility] Address: [address] [place] [address] Performed By: #### 5 7021-8 #### [facility] CLIA [id number] [address] [place] [address] [place] Lymphocytes (Bld) [#/Vol] 2.15 10*3/uL Normal 1.00-4.00 [facility] Comment on above: Order Comment: Speci men Type: BLOOD SPECIMEN [facility] Address: [address] [place] [address] Performed By: #### 5 7021-8 #### [facility] CLIA [id number] [address] [place] [address] [place] Lymphocytes/100 WBC (Bld) 33.7 % Normal [facility] Comment on above: Order Comment: Speci men Type: BLOOD SPECIMEN [facility] Address: [address] [place] [address] Performed By: #### 5 7021-8 #### [facility] CLIA [id number] [address] [place] [address] [place] MCH (RBC) [Entitic mass] 34.6 pg High 26.0-34.0 [facility] Comment on above: Order Comment: Speci men Type: BLOOD SPECIMEN [facility] Address: [address] [place] [address] Performed By: #### 5 7021-8 #### [facility] CLIA [id number] [address] [place] [address] [place] MCHC (RBC) [Mass/Vol] 34.7 g/dL Normal 30.5-36.0 [facility] Comment on above: Order Comment: Speci men Type: BLOOD SPECIMEN [facility] Address: [address] [place] [address] Performed By: #### 5 7021-8 #### [facility] CLIA [id number] [address] [place] [address] [place] MCV (RBC) [Entitic vol] 99.7 fL Normal 80.0-100.0 [facility] Comment on above: Order Comment: Speci men Type: BLOOD SPECIMEN [facility] Address: [address] [place] [address] Performed By: #### 5 7021-8 #### [facility] CLIA [id number] [address] [place] [address] [place] Monocytes (Bld) [#/Vol] 0.74 10*3/uL Normal <0.87 [facility] Comment on above: Order Comment: Speci men Type: BLOOD SPECIMEN [facility] Address: [address] [place] [address] Performed By: #### 5 7021-8 #### [facility] CLIA [id number] [address] [place] [address] [place] Monocytes/100 WBC (Bld) 11.6 % Normal [facility] Comment on above: Order Comment: Speci men Type: BLOOD SPECIMEN [facility] Address: [address] [place] [address] Performed By: #### 5 7021-8 #### [facility] CLIA [id number] [address] [place] [address] [place] Neutrophils (Bld) [#/Vol] 2.96 10*3/uL Normal 1.45-7.50 [facility] Comment on above: Order Comment: Speci men Type: BLOOD SPECIMEN [facility] Address: [address] [place] [address] Performed By: #### 5 7021-8 #### [facility] CLIA [id number] [address] [place] [address] [place] Neutrophils/100 WBC (Bld) 46.3 % Normal [facility] Comment on above: Order Comment: Speci men Type: BLOOD SPECIMEN [facility] Address: [address] [place] [address] Performed By: #### 5 7021-8 #### [facility] CLIA [id number] [address] [place] [address] [place] Nucleated RBC (Bld) [#/Vol] 10*3/uL Normal <0.01 [facility] Comment on above: Order Comment: Speci men Type: BLOOD SPECIMEN [facility] Address: [address] [place] [address] Performed By: #### 5 7021-8 #### [facility] CLIA [id number] [address] [place] [address] [place] Nucleated RBC/100 WBC (Bld) [Ratio] 0.0 /100 WBC Normal [facility] Comment on above: Order Comment: Speci men Type: BLOOD SPECIMEN [facility] Address: [address] [place] [address] Performed By: #### 5 7021-8 #### [facility] CLIA [id number] [address] [place] [address] [place] Platelet mean volume (Bld) [Entitic vol] 10.2 fL Normal 9.0-12.7 [facility] Comment on above: Order Comment: Speci men Type: BLOOD SPECIMEN [facility] Address: [address] [place] [address] Performed By: #### 5 7021-8 #### [facility] CLIA [id number] [address] [place] [address] [place] Platelets (Bld) [#/Vol] 89 10*3/uL Low 150-400 [facility] Comment on above: Order Comment: Speci men Type: BLOOD SPECIMEN [facility] Address: [address] [place] [address] Result Comment: No c lot detected. Performed By: #### 5 7021-8 #### [facility] CLIA [id number] [address] [place] [address] [place] RBC (Bld) [#/Vol] 3.55 10*6/uL Low 4.20-6.00 [facility] Comment on above: Order Comment: Speci men Type: BLOOD SPECIMEN [facility] Address: [address] [place] [address] Performed By: #### 5 7021-8 #### [facility] CLIA [id number] [address] [place] [address] [place] WBC (Bld) [#/Vol] 6.38 10*3/uL Normal 3.70-11.00 [facility] Comment on above: Order Comment: Speci men Type: BLOOD SPECIMEN [facility] Address: [address] [place] [address] Performed By: #### 5 7021-8 #### [facility] CLIA [id number] [address] [place] [address] [place] Ferritin SerPl-mCncon 2024 Ferritin [Mass/Vol] 392.0 ng/mL Normal 30.3-565.7 [facility] Comment on above: Order Comment: Speci men Type: BLOOD SPECIMENOrdering Facility: [facility] Address: [address] [place] [address] Performed By: #### 5 0190-8, 2324-2, 2276-4, 6768-6 ####[facility] LABCLIA [id number] [place] [address] [place] GGT SerPl-cCncon 12-29-2024 Gamma glutamyl transferase [Catalytic activity/Vol] 304 U/L High 10-70 [facility] Comment on above: Order Comment: Speci men Type: BLOOD SPECIMENOrdering Facility: [facility] Address: [address] [place] [address] Performed By: #### 5 0190-8, 2324-2, 2276-4, 6768-6 ####[facility] LABCLIA [id number] [place] [address] [place] Iron and Iron binding capaci ty panelon 12-29-2024 Iron [Mass/Vol] 171 ug/dL Normal 41-186 [facility] Comment on above: Order Comment: Speci men Type: BLOOD SPECIMENOrdering Facility: [facility] Address: [address] [place] [address] Performed By: #### 5 0190-8, 2324-2, 2276-4, 6768-6 ####[facility] LABCLIA [id number] [address] [address] [place] Iron binding capacity [Mass/Vol] 274 ug/dL Normal 232-386 [facility] Comment on above: Order Comment: Speci men Type: BLOOD SPECIMENOrdering Facility: [facility] Address: [address] [place] [address] Performed By: #### 5 0190-8, 2324-2, 2276-4, 6768-6 ####[facility] LABIA [id number] [place] [id number] [place] Iron/TIBC [Molar ratio] 62.4 % High 15.0-57.0 [facility] Comment on above: Order Comment: Speci men Type: BLOOD SPECIMENOrdering Facility: [facility] Address: [address] [place] [address] Performed By: #### 5 0190-8, 2324-2, 2276-4, 6768-6 ####[facility] LABIA [id number] [place] [id number] [facility] No Panel Informationon 12-29 IMPRESSION: 1. Hepatic steatosis with cirrhotic liver morphology. 2. Mild splenomegaly Behavioral Health Specialist: PRICE Transcribe Date/Time: Dec 29 2024 10:41A Dictated by : SARAH JULIAN MD This examination was interpreted and the report reviewed and electronically signed by: SARAH JULIAN MD on Dec 29 2024 10:46AM [facility] DIVISION OF RADIOLOGY No Panel InformationOrdered By: Ccf Provider on 12-29-[address] [facility] US ABD RIGHT UPPER QUADRANTo n 12-29-2024 US ABD RIGHT UPPER QUADRANT * * *Final Report* * * DATE OF EXAM: Dec 29 2024 9:34AM [facility]U 1032 - US ABD RIGHT UPPER QUADRANT / PROCEDURE REASON: Elevated LFTs * * * * Physician Interpretation * * * * EXAMINATION: RIGHT UPPER QUADRANT AND SPLEEN ULTRASOUND CLINICAL HISTORY: Elevated liver function tests TECHNIQUE: Sonography of the right upper quadrant and spleen was performed. Images were obtained and stored in a permanent archive and interpreted remotely. MQ: URUQ_2 COMPARISON: Ultrasound dated 03/21/2021 RESULT: Pancreas: Normal sonographic appearance. Portions obscured: tail Liver: Echotexture: Coarse Echogenicity: Increased Surface contour: Nodular Lesions: None. Biliary: No intrahepatic biliary duct dilation. CBD: 0.3 cm at the hilum. Gallbladder: Normal caliber -Contents: No cholelithiasis -Wall: Normal -Other: No pericholecystic fluid. Bilateral kidneys: Normal cortical echogenicity. No hydronephrosis. Spleen: Mild splenomegaly with the spleen measuring 16 cm in craniocaudad dimension. No sonographic evidence of focal splenic lesion. Ascites: None. IMPRESSION: 1. Hepatic steatosis with cirrhotic liver morphology. 2. Mild splenomegaly Behavioral Health Specialist: [facility] Transcribe Date/Time: Dec 29 2024 10:41A Dictated by : SARAH JULIAN MD This examination was interpreted and the report reviewed and electronically signed by: SARAH JULIAN MD on Dec 29 2024 10:46AM EST [id number] Normal [facility] US ABD SPLEEN - NBon 025 * * *Final Report* * * DATE OF EXAM: Dec 29 2024 9:34AM WRU 1232 - US ABD SPLEEN -NB / PROCEDURE REASON: Elevated LFTs * * * * Physician Interpretation * * * * EXAMINATION: RIGHT UPPER QUADRANT AND SPLEEN ULTRASOUND CLINICAL HISTORY: Elevated liver function tests TECHNIQUE: Sonography of the right upper quadrant and spleen was performed. Images were obtained and stored in a permanent archive and interpreted remotely. MQ: URUQ_2 COMPARISON: Ultrasound dated 03/21/2021 RESULT: Pancreas: Normal sonographic appearance. Portions obscured: tail Liver: Echotexture: Coarse Echogenicity: Increased Surface contour: Nodular Lesions: None. Biliary: No intrahepatic biliary duct dilation. CBD: 0.3 cm at the hilum. Gallbladder: Normal caliber -Contents: No cholelithiasis -Wall: Normal -Other: No pericholecystic fluid. Bilateral kidneys: Normal cortical echogenicity. No hydronephrosis. Spleen: Mild splenomegaly with the spleen measuring 16 cm in craniocaudad dimension. No sonographic evidence of focal splenic lesion. Ascites: None. DIVISION OF RADIOLOGY Provider, [facility] - 12/29/2024 * * *Final Report* * * DATE OF EXAM: Dec 29 2024 9:34AM U 1232 - US ABD SPLEEN -NB / PROCEDURE REASON: Elevated LFTs * * * * Physician Interpretation * * * * EXAMINATION: RIGHT UPPER QUADRANT AND SPLEEN ULTRASOUND CLINICAL HISTORY: Elevated liver function tests TECHNIQUE: Sonography of the right upper quadrant and spleen was performed. Images were obtained and stored in a permanent archive and interpreted remotely. MQ: URUQ_2 COMPARISON: Ultrasound dated 03/21/2021 RESULT: Pancreas: Normal sonographic appearance. Portions obscured: tail Liver: Echotexture: Coarse Echogenicity: Increased Surface contour: Nodular Lesions: None. Biliary: No intrahepatic biliary duct dilation. CBD: 0.3 cm at the hilum. Gallbladder: Normal caliber -Contents: No cholelithiasis -Wall: Normal -Other: No pericholecystic fluid. Bilateral kidneys: Normal cortical echogenicity. No hydronephrosis. Spleen: Mild splenomegaly with the spleen measuring 16 cm in craniocaudad dimension. No sonographic evidence of focal splenic lesion. Ascites: None. IMPRESSION IMPRESSION: 1. Hepatic steatosis with cirrhotic liver morphology. 2. Mild splenomegaly Behavioral Health Specialist: [facility] Transcribe Date/Time: Dec 29 2024 10:41A Dictated by : SARAH JULIAN MD This examination was interpreted and the report reviewed and electronically signed by: SARAH JULIAN MD on Dec 29 2024 10:46AM EST [facility] Radiology Study observation (narrative) [facility] US ABD SPLEEN -NBon 12-30-19 25 US ABD SPLEEN -NB * * *Final Report* * * DATE OF EXAM: Dec 29 2024 9:34AM U 1232 - US ABD SPLEEN -NB / PROCEDURE REASON: Elevated LFTs * * * * Physician Interpretation * * * * EXAMINATION: RIGHT UPPER QUADRANT AND SPLEEN ULTRASOUND CLINICAL HISTORY: Elevated liver function tests TECHNIQUE: Sonography of the right upper quadrant and spleen was performed. Images were obtained and stored in a permanent archive and interpreted remotely. MQ: URUQ_2 COMPARISON: Ultrasound dated 03/21/2021 RESULT: Pancreas: Normal sonographic appearance. Portions obscured: tail Liver: Echotexture: Coarse Echogenicity: Increased Surface contour: Nodular Lesions: None. Biliary: No intrahepatic biliary duct dilation. CBD: 0.3 cm at the hilum. Gallbladder: Normal caliber -Contents: No cholelithiasis -Wall: Normal -Other: No pericholecystic fluid. Bilateral kidneys: Normal cortical echogenicity. No hydronephrosis. Spleen: Mild splenomegaly with the spleen measuring 16 cm in craniocaudad dimension. No sonographic evidence of focal splenic lesion. Ascites: None. IMPRESSION: 1. Hepatic steatosis with cirrhotic liver morphology. 2. Mild splenomegaly Behavioral Health Specialist: PRICE Transcribe Date/Time: Dec 29 2024 10:41A Dictated by : SARAH JULIAN MD This examination was interpreted and the report reviewed and electronically signed by: SARAH JULIAN MD on Dec 29 2024 10:46AM EST [id number] Normal [facility] US Abdomen RUQon 12-29-2024 * * *Final Report* * * DATE OF EXAM: Dec 29 2024 9:34AM WRU 1032 - US ABD RIGHT UPPER QUADRANT / PROCEDURE REASON: Elevated LFTs * * * * Physician Interpretation * * * * EXAMINATION: RIGHT UPPER QUADRANT AND SPLEEN ULTRASOUND CLINICAL HISTORY: Elevated liver function tests TECHNIQUE: Sonography of the right upper quadrant and spleen was performed. Images were obtained and stored in a permanent archive and interpreted remotely. MQ: URUQ_2 COMPARISON: Ultrasound dated 03/21/2021 RESULT: Pancreas: Normal sonographic appearance. Portions obscured: tail Liver: Echotexture: Coarse Echogenicity: Increased Surface contour: Nodular Lesions: None. Biliary: No intrahepatic biliary duct dilation. CBD: 0.3 cm at the hilum. Gallbladder: Normal caliber -Contents: No cholelithiasis -Wall: Normal -Other: No pericholecystic fluid. Bilateral kidneys: Normal cortical echogenicity. No hydronephrosis. Spleen: Mild splenomegaly with the spleen measuring 16 cm in craniocaudad dimension. No sonographic evidence of focal splenic lesion. Ascites: None. DIVISION OF RADIOLOGY Provider, [facility] - 12/29/2024 * * *Final Report* * * DATE OF EXAM: Dec 29 2024 9:34AM WRU 1032 - US ABD RIGHT UPPER QUADRANT / PROCEDURE REASON: Elevated LFTs * * * * Physician Interpretation * * * * EXAMINATION: RIGHT UPPER QUADRANT AND SPLEEN ULTRASOUND CLINICAL HISTORY: Elevated liver function tests TECHNIQUE: Sonography of the right upper quadrant and spleen was performed. Images were obtained and stored in a permanent archive and interpreted remotely. MQ: URUQ_2 COMPARISON: Ultrasound dated 03/21/2021 RESULT: Pancreas: Normal sonographic appearance. Portions obscured: tail Liver: Echotexture: Coarse Echogenicity: Increased Surface contour: Nodular Lesions: None. Biliary: No intrahepatic biliary duct dilation. CBD: 0.3 cm at the hilum. Gallbladder: Normal caliber -Contents: No cholelithiasis -Wall: Normal -Other: No pericholecystic fluid. Bilateral kidneys: Normal cortical echogenicity. No hydronephrosis. Spleen: Mild splenomegaly with the spleen measuring 16 cm in craniocaudad dimension. No sonographic evidence of focal splenic lesion. Ascites: None. IMPRESSION IMPRESSION: 1. Hepatic steatosis with cirrhotic liver morphology. 2. Mild splenomegaly Behavioral Health Specialist: PRICE Transcribe Date/Time: Dec 29 2024 10:41A Dictated by : SARAH JULIAN MD This examination was interpreted and the report reviewed and electronically signed by: SARAH JULIAN MD on Dec 29 2024 10:46AM EST [facility] Radiology Study observation (narrative) [facility] CBC W Auto Differential pane l (Bld)on 12-15-2024 Basophils (Bld) [#/Vol] 0.07 10*3/uL Normal <0.11 [facility] Comment on above: Order Comment: Speci men Type: BLOOD SPECIMENOrdering Facility: [facility] Address: [address] [place] [address] Performed By: #### 5 7021-8 ####[facility] [id number] [place] [address] [place] Basophils/100 WBC (Bld) 1.4 % Normal [facility] Comment on above: Order Comment: Speci men Type: BLOOD SPECIMENOrdering Facility: [facility] Address: [address] [place] [address] Performed By: #### 5 7021-8 ####[facility] LABCLIA [id number] [address], [place] [address] [place] Differential cell count method Nom (Bld) Auto Normal [facility] Comment on above: Order Comment: Speci men Type: BLOOD SPECIMENOrdering Facility: [facility] Address: [address] [place] [address] Performed By: #### 5 7021-8 ####[facility] LABCLIA [id number] [address], [place] [address] [place] Eosinophils (Bld) [#/Vol] 0.41 10*3/uL Normal <0.46 [facility] Comment on above: Order Comment: Speci men Type: BLOOD SPECIMENOrdering Facility: [facility] Address: [address] [place] [address] Performed By: #### 5 7021-8 ####[facility] LABCLIA [id number] [place] [address] [place] Eosinophils/100 WBC (Bld) 8.1 % Normal [facility] Comment on above: Order Comment: Speci men Type: BLOOD SPECIMENOrdering Facility: [facility] Address: [address] [place] [address] Performed By: #### 5 7021-8 ####[facility] LABCLIA [id number] [place] [address] [place] Erythrocyte distribution width (RBC) [Ratio] 15.1 % High 11.5-15.0 [facility] Comment on above: Order Comment: Speci men Type: BLOOD SPECIMENOrdering Facility: [facility] Address: [address] [place] [address] Performed By: #### 5 7021-8 ####[facility] LABCLIA [id number] [place] [address] [place] Hematocrit (Bld) [Volume fraction] 35.9 % Low 39.0-51.0 [facility] Comment on above: Order Comment: Speci men Type: BLOOD SPECIMENOrdering Facility: [facility] Address: [address] [place] [address] Performed By: #### 5 7021-8 ####[facility] LABCLIA [id number] [place] [address] [place] Hemoglobin (Bld) [Mass/Vol] 12.6 g/dL Low 13.0-17.0 [facility] Comment on above: Order Comment: Speci men Type: BLOOD SPECIMENOrdering Facility: [facility] Address: [address] [place] [address] Performed By: #### 5 7021-8 ####[facility] LABIA [id number] [address], [place] [address] [place] Immature granulocytes (Bld) [#/Vol] 0.05 10*3/uL Normal <0.10 [facility] Comment on above: Order Comment: Speci men Type: BLOOD SPECIMENOrdering Facility: [facility] Address: [address] [place] [address] Performed By: #### 5 7021-8 ####[facility] LABIA [id number] [place] [address] [place] Immature granulocytes/100 WBC (Bld) 1.0 % Normal [facility] Comment on above: Order Comment: Speci men Type: BLOOD SPECIMENOrdering Facility: [facility] Address: [address] [place] [address] Performed By: #### 5 7021-8 ####[facility] LABCLIA [id number] [place] [id number] [place] Lymphocytes (Bld) [#/Vol] 1.67 10*3/uL Normal 1.00-4.00 [facility] Comment on above: Order Comment: Speci men Type: BLOOD SPECIMENOrdering Facility: [facility] Address: [address] [place] [address] Performed By: #### 5 7021-8 ####[facility] LABCLIA [id number] [place] [address] [place] Lymphocytes/100 WBC (Bld) 33.1 % Normal [facility] Comment on above: Order Comment: Speci men Type: BLOOD SPECIMENOrdering Facility: [facility] Address: [address] [place] [address] Performed By: #### 5 7021-8 ####[facility] LABIA [id number] [place] [address] [place] MCH (RBC) [Entitic mass] 34.8 pg High 26.0-34.0 [facility] Comment on above: Order Comment: Speci men Type: BLOOD SPECIMENOrdering Facility: [facility] Address: [address] [place] [address] Performed By: #### 5 7021-8 ####[facility] LABIA [id number] [place] [address] [place] MCHC (RBC) [Mass/Vol] 35.1 g/dL Normal 30.5-36.0 [facility] Comment on above: Order Comment: Speci men Type: BLOOD SPECIMENOrdering Facility: [facility] Address: [address] [place] [address] Performed By: #### 5 7021-8 ####[facility] LABIA [id number] [place] [address] [place] MCV (RBC) [Entitic vol] 99.2 fL Normal 80.0-100.0 [facility] Comment on above: Order Comment: Speci men Type: BLOOD SPECIMENOrdering Facility: [facility] Address: [address] [place] [address] Performed By: #### 5 7021-8 ####[facility] LABIA [id number] [place] [address] [place] Monocytes (Bld) [#/Vol] 0.59 10*3/uL Normal <0.87 [facility] Comment on above: Order Comment: Speci men Type: BLOOD SPECIMENOrdering Facility: [facility] Address: [address] [place] [address] Performed By: #### 5 7021-8 ####[facility] LABCLIA [id number] [place] [id number] [place] Monocytes/100 WBC (Bld) 11.7 % Normal [facility] Comment on above: Order Comment: Speci men Type: BLOOD SPECIMENOrdering Facility: [facility] Address: [address] [place] [address] Performed By: #### 5 7021-8 ####[facility] LABIA [id number] [place] [address] [place] Neutrophils (Bld) [#/Vol] 2.26 10*3/uL Normal 1.45-7.50 [facility] Comment on above: Order Comment: Speci men Type: BLOOD SPECIMENOrdering Facility: [facility] Address: [address] [place] [address] Performed By: #### 5 7021-8 ####[facility] LABCLIA [id number] [place] [address] [place] Neutrophils/100 WBC (Bld) 44.7 % Normal [facility] Comment on above: Order Comment: Speci men Type: BLOOD SPECIMENOrdering Facility: [facility] Address: [address] [place] [address] Performed By: #### 5 7021-8 ####[facility] LABCLIA [id number] [place] [id number] [place] Nucleated RBC (Bld) [#/Vol] 10*3/uL Normal <0.01 [facility] Comment on above: Order Comment: Speci men Type: BLOOD SPECIMENOrdering Facility: [facility] Address: [address] [place] [address] Performed By: #### 5 7021-8 ####[facility] LABCLIA [id number] [address] [place] [address] [place] Nucleated RBC/100 WBC (Bld) [Ratio] 0.0 /100 WBC Normal [facility] Comment on above: Order Comment: Speci men Type: BLOOD SPECIMENOrdering Facility: [facility] Address: [address] [place] [address] Performed By: #### 5 7021-8 ####[facility] LABCLIA [id number] [address] [place] [address] [place] Platelet mean volume (Bld) [Entitic vol] 11.1 fL Normal 9.0-12.7 [facility] Comment on above: Order Comment: Speci men Type: BLOOD SPECIMENOrdering Facility: [facility] Address: [address] [place] [address] Performed By: #### 5 7021-8 ####[facility] LABIA [id number] [place] [address] [place] Platelets (Bld) [#/Vol] 84 10*3/uL Low 150-400 [facility] Comment on above: Order Comment: Speci men Type: BLOOD SPECIMENOrdering Facility: [facility] Address: [address] [place] [address] Result Comment: No c lot detected. Performed By: #### 5 7021-8 ####[facility] LABIA [id number] [address], [place] [address] [place] RBC (Bld) [#/Vol] 3.62 10*6/uL Low 4.20-6.00 [facility] Comment on above: Order Comment: Speci men Type: BLOOD SPECIMENOrdering Facility: [facility] Address: [address] [place] [address] Performed By: #### 5 7021-8 ####[facility] LABIA [id number] [address] [id number] [place] WBC (Bld) [#/Vol] 5.05 10*3/uL Normal 3.70-11.00 [facility] Comment on above: Order Comment: Speci men Type: BLOOD SPECIMENOrdering Facility: [facility] Address: [address] [place] [address] Performed By: #### 5 7021-8 ####[facility] LABCLIA [id number] ALEXUSLorenzo GARCIA [place] [id number] [facility] [place] CNOVon 12-15-2024 CNOV Office Visit (FAMPWS ) LUISA,DANE ([id number]) 1970 M Date Time Provider Department 12/15/24 8:40 AM [facility] During your visit today, we recorded the following information about you: Pulse Respiration Blood pressure Weight 106/minute 16/minute 126/72 98.1 kg Cee Farias APRN.WATCH REPAIRER 12/15/2024 9:09 AM Signed This is a 53 year old male who presents today with: Patient presents with: 6 Month Exam HISTORY OF PRESENT ILLNESS: Dane Moran is a 53 year old male. Patient presents with: 6 Month Exam 6 brenda follow up Had a fall last Sunday, refers that he has noticed discomfort on sternum since fall, worse with certain movements, cough, or sneezing. No fifficulty breathing. Platelets low when labs were completed in May, recommended stopping the meloxicam and holding off from any other NSAIDs and repeat labs in 1 month, past due for repeat labs. HTN: Taking Zestoretic 20/25 mg daily. Not currently checking blood pressure at home. Denies chest pain, palpitations, dizziness, or edema. DM: Reports overall feeling well. Medication side effects: No. Home sugar checks: Not checking sugars unless feeling unwell Hypoglycemic spells: No. Watching diet: Sometimes, drinking 4 cokes per week Unexpected weight loss: No. Polyuria, polydipsia: No. Vision Changes: No. Foot lesions or numbness or pain: No. Taking glyburide 5 mg daily, metformin 1000 mg twice daily. A1c in 12.31. Due for vision exam, wearing glasses. ED: Taking Viagra 100 mg as needed. Colonoscopy: Has never had completed, willing to have cologuard. PAST MEDICAL HISTORY: PAST MEDICAL HISTORY Diagnosis Date Anxiety Diabetes (HCC) Fatty liver Hypertension PAST SURGICAL HISTORY Procedure Laterality Date ANESTHESIA KNEE, ARTHROSCOPIC 1984 right knee ALLERGIES Patient has no known allergies. MEDICATIONS Current Outpatient Medications Medication Sig lisinopril-hydroCHLOROthiaz carlos (ZESTORETIC) 20-25 mg per tablet Take 1 tablet by mouth every morning. metFORMIN (GLUCOPHAGE) 1,000 mg tablet Take 1 tablet by mouth two times a day with meals. meloxicam (MOBIC) 15 mg tablet take one tablet by mouth every day glyBURIDE 5 mg tablet Take 1 tablet by mouth daily with breakfast. sildenafil (VIAGRA) 100 mg tablet Take 1 tablet by mouth once daily as needed. Take 30-60 minutes before sexual activity. blood sugar diagnostic (BLOOD GLUCOSE TEST) test strip Test blood sugar(s) 1 times daily. Dx: Type 2 DM - Controlled E11.9 Insulin: No No current facility-administered medications for this visit. FAMILY HISTORY Problem Relation Age of Onset Ischemic Heart Disease Father 50 at 51 Diabetes Mother Diabetes Maternal Grandfather Social History Tobacco Use Smoking status: Never Smokeless tobacco: Current Types: Chew Tobacco comments: 1/2 can a day Vaping Use Vaping status: Never Used Substance Use Topics Alcohol use: Yes Comment: 1-2 drinks per day Drug use: No REVIEW OF SYSTEMS GENERAL: No weight loss, malaise or fevers/chills HEENT: Negative for frequent or significant headaches, No changes in hearing or vision. NECK: Negative for lumps, goiter, pain and significant neck swelling RESPIRATORY: Negative for cough, hemoptysis, wheezing, dyspnea or shortness of breath CARDIOVASCULAR: Negative for chest pain, leg swelling, orthopnea, or palpitations GI: No nausea, vomiting, or diarrhea/constipation. No hematochezia/melena. No heartburn or reflux symptoms. : No history of dysuria, frequency or incontinence MUSCULOSKELETAL: + Chest Wall Discomfort SKIN: Negative for lesions, rash, and itching ENDOCRINE: Negative for cold or heat intolerance, polyuria, polydipsia and goiter NEURO: No history of headaches, syncope, paralysis, seizures or tremors MOOD: Negative for depression, anxiety, or suicidal ideation. EXAM: BP 126/72 Pulse 106 Resp 16 Wt 98.1 kg (216 lb 4.3 oz) SpO2 95% BMI 31.03 kg/m? PHYSICAL EXAM: General Appearance: Well appearing, alert, in no acute distress, well-hydrated, well nourished. Skin: Skin color, texture, turgor normal, no suspicious rashes or lesions. Head: Normocephalic, no masses, lesions, tenderness or abnormalities. Eyes: Anicteric sclera. Extraocular movements are intact. Lungs: Lungs clear to auscultation. No wheezing, rhonchi, rales. Heart: RRR without murmur, gallop, or rubs. No ectopy. Extremities: No deformities, edema, skin discoloration, clubbing or cyanosis. Good capillary refill. Musculoskeletal: Sternum tender with palpation, no swelling or color change noted. Peripheral Pulses: Normal, Capillary refill <2secs, strong peripheral pulses, Pulses palpable. Neurologic: Gait normal. Sensation grossly intact. ASSESSMENT/PLAN: 1. Fall, initial encounter - ICD9: E888.9, ICD10: W19.XXXA (primary diagnosis) - Co (more content not included)... Normal [facility] Comprehensive metabolic 2000 panelon 12-15-2024 Albumin [Mass/Vol] 3.9 g/dL Normal 3.9-4.9 [facility] Comment on above: Order Comment: Speci men Type: BLOOD SPECIMENOrdering Facility: [facility] Address: [address] [place] [address] Performed By: #### 2 4323-8, LIPNF ####[facility] LABCLIA [id number] [place] [address] [place] ALP [Catalytic activity/Vol] 109 U/L Normal 38-113 [facility] Comment on above: Order Comment: Speci men Type: BLOOD SPECIMENOrdering Facility: [facility] Address: [address] [place] [address] Performed By: #### 2 4323-8, LIPNF ####[facility] LABCLIA [id number] [place] [address] [place] ALT [Catalytic activity/Vol] 39 U/L Normal 10-54 [facility] Comment on above: Order Comment: Speci men Type: BLOOD SPECIMENOrdering Facility: [facility] Address: [address] [place] [address] Performed By: #### 2 4323-8, LIPNF ####[facility] LABCLIA [id number] [place] [address] [place] Anion gap [Moles/Vol] 15 mmol/L Normal 8-15 [facility] Comment on above: Order Comment: Speci men Type: BLOOD SPECIMENOrdering Facility: [facility] Address: [address] [place] [address] Performed By: #### 2 4323-8, LIPNF ####[facility] LABCLIA [id number] [place] [address] [place] AST [Catalytic activity/Vol] 50 U/L High 14-40 [facility] Comment on above: Order Comment: Speci men Type: BLOOD SPECIMENOrdering Facility: [facility] Address: [address] [place] [address] Performed By: #### 2 4323-8, LIPNF ####[facility] LABCLIA [id number] [place] [address] [place] Bilirubin [Mass/Vol] 1.6 mg/dL High 0.2-1.3 [facility] Comment on above: Order Comment: Speci men Type: BLOOD SPECIMENOrdering Facility: [facility] Address: [address] [place] [address] Performed By: #### 2 4323-8, LIPNF ####[facility] LABCLIA [id number] [place] [address] [place] Calcium [Mass/Vol] 9.7 mg/dL Normal 8.5-10.2 [facility] Comment on above: Order Comment: Speci men Type: BLOOD SPECIMENOrdering Facility: [facility] Address: [address] [place] [address] Performed By: #### 2 4323-8, LIPNF ####[facility] LABCLIA [id number] [facility] [place] [address] [place] Chloride [Moles/Vol] 107 mmol/L Normal 98-107 [facility] Comment on above: Order Comment: Speci men Type: BLOOD SPECIMENOrdering Facility: [facility] Address: [address] [place] [address] Performed By: #### 2 4323-8, LIPNF ####[facility] LABCLIA [id number] [place] [address] [place] CO2 [Moles/Vol] 21 mmol/L Low 22-30 [facility] Comment on above: Order Comment: Speci men Type: BLOOD SPECIMENOrdering Facility: [facility] Address: [address] [place], [place] [id number] Performed By: #### 2 4323-8, LIPNF ####[facility] LABCLIA [id number] [place] [address] [place] Creatinine [Mass/Vol] 1.01 mg/dL Normal 0.73-1.22 [facility] Comment on above: Order Comment: Speci men Type: BLOOD SPECIMENOrdering Facility: [facility] Address: [address] [place] [address] Performed By: #### 2 4323-8, LIPNF ####[facility] LABCLIA [id number] [place] [address] [place] Creatinine and Glomerular filtration rate.predicted panel (S/P/Bld) 88 mL/min/1.73m??? Normal >=60 [facility] Comment on above: Order Comment: Speci men Type: BLOOD SPECIMENOrdering Facility: [facility] Address: [address] [place] [address] Result Comment: Flavia mated Glomerular Filtration Rate (eGFR) is calculated using the 2020 CKD-EPI creatinine equation. This equation utilizes serum creatinine, sex, and age as parameters. The creatinine assay has traceable calibration to isotope dilution-mass spectrometry. Refer to KDIGO guidelines for clinical interpretation. In patients with unstable renal function, e.g. those with acute kidney injury, the eGFR may not accurately reflect actual GFR. Performed By: #### 2 4323-8, LIPNF ####[facility] LABIA [id number] [place] [address] [place] Glucose [Mass/Vol] 95 mg/dL Normal 74-99 [facility] Comment on above: Order Comment: Sarahi mccann Type: BLOOD SPECIMENOrdering Facility: [facility] Address: [address] [place] [address] Result Comment: The [place] Diabetes Association (ADA) provides guidance for cutoff values for fasting glucose and random glucose. The ADA defines fasting as no caloric intake for at least 8 hours. Fasting plasma glucose results between 100 to 125 mg/dL indicate increased risk for diabetes (prediabetes). Fasting plasma glucose results greater than or equal to 126 mg/dL meet the criteria for diagnosis of diabetes. In the absence of unequivocal hyperglycemia, results should be confirmed by repeat testing. In a patient with classic symptoms of hyperglycemia or hyperglycemic crisis, random plasma glucose results greater than or equal to 200 mg/dL meet the criteria for diagnosis of diabetes. Reference: Standards of Medical Care in Diabetes 2016, [place] Diabetes Association. Diabetes Care. 2016.39(Suppl 1). Performed By: #### 2 4323-8, LIPNF ####[facility] LABIA [id number] [place] [id number] [place] Potassium [Moles/Vol] 4.2 mmol/L Normal 3.7-5.1 [facility] Comment on above: Order Comment: [facility]i [facility] Type: BLOOD SPECIMENOrdering Facility: [facility] Address: [address] [place] [address] Performed By: #### 2 4323-8, LIPNF ####[facility] LABCLIA [id number] [address] [address] [place] Protein [Mass/Vol] 7.4 g/dL Normal 6.3-8.0 [facility] Comment on above: Order Comment: Speci men Type: BLOOD SPECIMENOrdering Facility: [facility] Address: [address] [place] [address] Performed By: #### 2 4323-8, LIPNF ####[facility] LABCLIA [id number] [place] [address] [place] Sodium [Moles/Vol] 143 mmol/L Normal 136-144 [facility] Comment on above: Order Comment: Speci men Type: BLOOD SPECIMENOrdering Facility: [facility] Address: [address] [place] [address] Performed By: #### 2 4323-8, LIPNF ####[facility] LABIA [id number] [place] [address] [place] Urea nitrogen [Mass/Vol] 24 mg/dL Normal 9-24 [facility] Comment on above: Order Comment: Speci men Type: BLOOD SPECIMENOrdering Facility: [facility] Address: [address] [place] [address] Performed By: #### 2 4323-8, LIPNF ####[facility] LABIA [id number] [place] [address] [place] HbA1c (Bld)on 12-15-2024 Average glucose Estimated from glycated hemoglobin (Bld) [Mass/Vol] 88 mg/dL Normal [facility] Comment on above: Order Comment: Speci men Type: BLOOD SPECIMENOrdering Facility: [facility] Address: [address] [place] [address] Result Comment: eAG: (Estimated average glucose) is a calculated value from HgbA1c and is route sales representative of the average blood glucose level in the last 2-3 month period. Performed By: #### 5 5454-3 ####[facility] LABCLIA [id number] [place] [id number] [place] HbA1c (Bld) [Mass fraction] 4.7 % Normal 4.3-5.6 [facility] Comment on above: Order Comment: Speci men Type: BLOOD SPECIMENOrdering Facility: [facility] Address: [address] [place] [address] Result Comment: [place] Diabetes Association guidelines indicate that patients with HgbA1c in the range 5.7-6.4% are at increased risk for development of diabetes, and intervention by lifestyle modification may be beneficial. HgbA1c greater or equal to 6.5% is considered diagnostic of diabetes. Performed By: #### 5 5454-3 ####[facility] LABCLIA [id number] [place] [address] [place] LIPID PANEL, NONFASTINGon Cholesterol [Mass/Vol] 168 mg/dL Normal <200 [facility] Comment on above: Order Comment: Speci men Type: BLOOD SPECIMENOrdering Facility: [facility] Address: [address] [place] [address] Result Comment: <200 mg/dL, Desirable 200-239 mg/dL, Borderline high >239 mg/dL, High Performed By: #### 2 4323-8, LIPNF ####[facility] LABCLIA [id number] [address] [place] HDL CHOLESTEROL, NF 101 mg/dL Normal >39 [facility] Comment on above: Order Comment: Speci men Type: BLOOD SPECIMENOrdering Facility: [facility] Address: [address] [place] [address] Result Comment: 40-5 9 mg/dL, Acceptable >59 mg/dL, High: Negative risk factor for coronary heart disease <40 mg/dL, Low: Positive risk factor for coronary heart disease Performed By: #### 2 4323-8, LIPNF ####[facility] LABCLIA [id number] OF [facility] LDL CHOLESTEROL, NF 55 mg/dL Normal <100 [facility] Comment on above: Order Comment: Sarahi mccann Type: BLOOD SPECIMENOrdering Facility: [facility] Address: [address] [place] [address] Result Comment: <100 mg/dL, Optimal 100-129 mg/dL, Near optimal/above optimal 130-159 mg/dL, Borderline high 160-189 mg/dL, High >189 mg/dL, Very high Secondary prevention optimal LDL Cholesterol levels are recommended to be < 70 mg/dL Performed By: #### 2 4323-8, LIPNF ####[facility] LABCLIA [id number] [address] LDL/HDL RATIO, NF 0.54 mg/dL Normal <2.54 [facility] Comment on above: Order Comment: Sarahi mccann Type: BLOOD SPECIMENOrdering Facility: [facility] Address: [address] [place] [address] Result Comment: Refe rence: 1. National Cholesterol Education Program ATP III Guideline At-A-Glance Quick Desk Reference: National Heart, Lung, and Blood [place]. National Institutes of Health. 2001: NIH Publication No. 01-3305. 2. An International Atherosclerosis Society position paper: global recommendations for the management of dyslipidemia: executive summary, Atherosclerosis. 2014: 232(2):410-413. Performed By: #### 2 4323-8, LIPNF ####[facility] LABCLIA [id number] [address] OF [facility] NON HDL CHOL, NF 67 mg/dL Normal <130 [facility] Comment on above: Order Comment: Sarahi mccann Type: BLOOD SPECIMENOrdering Facility: [facility] Address: [address] [place] [address] Result Comment: <130 mg/dL, Optimal 130-159 mg/dL, Near optimal/above optimal 160-189 mg/dL, Borderline high 190-219 mg/dL, High >219 mg/dL, Very high Secondary prevention optimal non HDL Cholesterol levels are recommended to be <100 mg/dL Performed By: #### 2 4323-8, LIPNF ####[facility] LABCLIA [id number] [place] [address] [place] T CHOL/HDL RATIO NF 1.66 mg/dL Normal <5.10 [facility] Comment on above: Order Comment: Speci men Type: BLOOD SPECIMENOrdering Facility: [facility] Address: [address] [place] [address] Performed By: #### 2 4323-8, LIPNF ####[facility] LABCLIA [id number] [place] [address] [place] TRIGLYCERIDES, NF 58 mg/dL Normal <150 [facility] Comment on above: Order Comment: Speci men Type: BLOOD SPECIMENOrdering Facility: [facility] Address: [address] [place] [address] Result Comment: <150 mg/dL, Normal 150-199 mg/dL, Borderline high 200-499 mg/dL, High >499 mg/dL, Very high Performed By: #### 2 4323-8, LIPNF ####[facility] LABIA [id number] [place] [address] [place] VLDL CHOLESTEROL, NF 12 mg/dL Normal <30 [facility] Comment on above: Order Comment: Speci men Type: BLOOD SPECIMENOrdering Facility: [facility] Address: [address] [place] [address] Performed By: #### 2 4323-8, LIPNF ####[facility] LABIA [id number] [place] [id number] [place] PSA/PROSTATE SPECIFIC ANTIGE N SCREENINGon 12-15-2024 Prostate specific Ag [Mass/Vol] 0.35 ng/mL Normal <2.60 [facility] Comment on above: Order Comment: Speci men Type: BLOOD SPECIMENOrdering Facility: [facility] Address: [address] [place] [address] Result Comment: Tota l PSA test methodology used is the Electrochemiluminescence Immunoassay by [employer]. Total PSA values by differing methodologies cannot be interchanged. Performed By: #### P SAS1 ####[facility] LABCLIA [id number] [place] [id number] [place] MRI SHOULDER WO IVCON RTon 0 01-31-2024 MRI SHOULDER WO IVCON RT * * *Final Report* * * DATE OF EXAM: Jan 31 2024 7:48AM LDM 0240 - MRI SHOULDER WO IVCON RT / PROCEDURE REASON: multiple diagnoses * * * * Physician Interpretation * * * * MRI RIGHT SHOULDER CLINICAL INDICATION: Right shoulder pain COMPARISON: Radiographs right shoulder 07/13/2022 TECHNIQUE: Routine MRI right shoulder per protocol. FINDINGS: There is infraspinatus tendinosis with probable low-grade partial-thickness articular sided and interstitial tearing. Supraspinatus, subscapularis and teres minor tendons appear normal. No full-thickness rotator cuff tendon tear or muscular atrophy. Glenohumeral joint is maintained. No evidence of a labral tear. Long head biceps tendon is intact and appropriately positioned. Mild osteoarthritis of the acromioclavicular joint. 0.9 cm STIR hyperintense cystic focus is present within the distal clavicle consistent with intraosseous ganglion. Os acromion is noted. No fracture or pathologic marrow replacing lesion. IMPRESSION: 1. Tendinosis of the distal infraspinatus tendon with probable low-grade partial-thickness articular sided an interstitial tear. 2. Small intraosseous ganglion within the distal clavicle. 3. Os acromion. Behavioral Health Specialist: PSCB Transcribe Date/Time: Jan 31 2024 12:49P Dictated by : NHAN NUNEZ MD This examination was interpreted and the report reviewed and electronically signed by: NHAN NUNEZ MD on Jan 31 2024 12:54PM EST [id number] Normal [facility] Chest PA and Lateralon 12-13 Chest PA and Lateral [facility] Imaging Services [address] [place] [address] Chest PA and Lateral MR#: [id number] Acct: [id number] Name: DANE MORAN Rep #: [id number] : 1970 M 53 From: Gómez Ventura PCP: KRISTEN Roy Status: DEP ER Study: Chest PA and Lateral Date of Exam: 12/14/23 Exam# [id number] Ordering Dr: Luis Mensah MD [id number] INDICATION: pain medial to right shoulder blade post fall EXAMINATION/TECHNIQUE: X-RAY - XR Chest 2 Views COMPARISON: FINDINGS: LINES/DEVICES: None. LUNGS: No consolidation, edema or effusion. No pneumothorax. MEDIASTINUM AND CARDIOVASCULAR STRUCTURES: Cardiac silhouette not enlarged. Central airways and mediastinal contour are unremarkable. BONES AND SOFT TISSUES: Unremarkable. RAD/Chest PA and Lateral IMPRESSION: No radiographic evidence of acute cardiopulmonary disease. Electronically Signed: Gómez Johnson MD at 13:20 EDT , CC: KRISTEN Garcia; Dr. Luis Mensah MD Behavioral Health Specialist: Signed Normal [facility] Emergency Department Summary on 12-14-[address] [facility] Medical Records Department [address] [place] [id number] Emergency Department Summary 12/14/23 MR#: [id number] Acct: [id number] Name: DANE MORAN Rep #: [id number] : 1970 53 From: Mary MIR PCP: KRISTEN Roy Status:DEP ER Location: ED HPI History of Present Illness Chief Complaint: Upper Extremity Injury Narrative Narrative: Patient presenting today with pain to his right scapula/right upper back that he has had for the past 3 weeks. He reports that he had a mechanical fall about 3 weeks ago when he was going up the steps and went to reach for the railing but missed and landed on an outstretched right arm. He saw his PCP after this who obtained an x-ray of his tailbone and right shoulder, both of which were unremarkable. He reports that he has not really been taking anything for his pain, he tried taking Aleve once and has been using Biofreeze intermittently with minimal relief. He reports that his pain is worsened with movement of his upper torso/RUE and improved with rest. [facility] Medical History Diabetes Hypertension Home Medications lisinopril 5 mg tablet 5 mg PO DAILY 11/02/16 [History Last Taken 12/13/23] lorazepam 0.5 mg tablet 0.5 mg PO DAILY PRN PRN Anxiety 11/02/16 [History Last Taken Unknown] metformin 500 mg tablet 1,000 mg PO BIDCM 11/02/16 [History Last Taken 12/13/23] Allergy/AdvReac Type Severity Reaction Status Date / Time No Known Allergies Allergy Verified 12/14/23 10:27 Social History Smoking Status: Never smoker ROS ROS ED Constitutional Constitutional ED: Denies chills or fever(s) Cardiovascular Cardiovascular: Denies chest pain or palpitations Respiratory/Chest Respiratory/Chest: Denies cough or dyspnea Gastrointestinal Gastrointestinal: Denies abdominal pain, nausea or vomiting Musculoskeletal Musculoskeletal: Reports arthralgias and myalgias Integumentary Denies rash Neurologic Neurologic: Denies paresthesias or weakness EXAM Physical Exam Const Vital Signs: 12/14/23 10:17 Temperature 98 F Temperature Source Temporal Pulse Rate 118 H Respiratory Rate 18 Blood Pressure 124/81 H Blood Pressure Mean 95 Pulse Ox 98 Oxygen Delivery Method Room Air Positive well nourished, well developed and no apparent distress General Appearance ED: well developed HEENT Reports normocephalic and head/scalp atraumatic Mouth ED: Yes moist mucous membranes normal Eyes PERRL and EOMs intact bilaterally Neck full ROM and supple Chest Wall inspection of chest normal Resp normal respiratory effort and clear to auscultation bilaterally Cardio regular rate and regular rhythm GI soft to palpation, non-tender, non-distended and no masses Back/Spine normal ROM and normal to inspection Extremity normal to inspection and full ROM Extremity Narrative: Pain to palpation to the right medial scapular border/right-sided rhomboids Right radial pulse 2+, good capillary refill, sensation intact. Full range of motion to the right shoulder, no pain to palpation to the right shoulder. Neuro oriented x3, CN's II-XII intact bilaterally, moves all extremities, no focal motor deficits and no sensory deficits noted Sensorium / Orientation: awake and alert Motor Exam: strength 5/5 throughout Psych mental status grossly normal and thought process normal Skin no rashes or lesions noted and no wounds MDM MDM MDM Narrative Medical decision making narrative: Patient presenting today with pain along the medial scapular border and right-sided rhomboid muscles. Pain is reproducible to palpation. Patient does not have any pain to his right shoulder, full range of motion to the right shoulder. He already did have imaging of his right shoulder which was unremarkable. He has not really been taking anything for his pain, he would like to have a ibuprofen here. I do think pain is consistent with a muscular strain. 2 view chest x-ray was obtained and is unremarkable. I did recommend alternating Tylenol/ibuprofen for his pain and follow-up with his PCP if no improvement in the next week. He will be discharged home in stable condition and is comfortable with plan. I have personally performed a face to face assessment of the patient and have reviewed the [facility] Note. I performed a substantive portion of the visit including all aspects of the following. My [place] findings include: History is 53-year-old male fell about 3 weeks ago injuring his right posterior shoulder blade area. Had an x-ray done of his shoulder at the [facility] 1 to 2 weeks ago that was negative. He still having pain primarily between his right posterior medial should (more content not included)... [facility] No Panel Informationon 12-03 IMPRESSION: No acute abnormality Behavioral Health Specialist: PRICE Transcribe Date/Time: Dec 04 2023 11:03A Dictated by : DANE MOODY MD This examination was interpreted and the report reviewed and electronically signed by: DANE MOODY MD on Dec 04 2023 11:06AM [facility] DIVISION OF RADIOLOGY No Panel InformationOrdered By: Ccf Provider on 12-04-[address] [facility] XR Foot - right AP and Later al and obliqueon 12-04-2023 * * *Final Report* * * DATE OF EXAM: Dec 03 2023 9:29AM WOX 5337 - XR FOOT 3V AP/LAT/OBL RT / PROCEDURE REASON: Pain of right heel * * * * Physician Interpretation * * * * PROCEDURE: Right scapula, right foot and sacrum/coccyx INDICATION: Pain of right scapula .Mid scapula pain following a fall x 2 weeks ago (accession [id number]), Coccyx pain following a fall x 2 weeks ago (accession [id number]), Right heel pain x 1 month. Stands on concrete for work (accession [id number]) TECHNIQUE: XR SCAPULA 2V AP/LAT RT, XR SACRUM/COCCYX 3V AP/LAT, XR FOOT 3V AP/LAT/OBL RT COMPARISON: Right shoulder 07/21/2022 FINDINGS: Right scapula: No fracture or dislocation. No osseous lesion. Shoulder joints and acromiohumeral interval are maintained and. Right foot: No acute fracture or dislocation. Joint spaces are maintained. Vascular calcifications and apparent diffuse soft tissue swelling. No cortical destruction. Calcification in the distal Achilles tendon and small plantar calcaneal spur. Sacrum and coccyx: No fractures or dislocations are seen. The sacroiliac joints are unremarkable. The soft tissues are within normal limits. DIVISION OF RADIOLOGY Provider, [facility] - 12/04/2023 * * *Final Report* * * DATE OF EXAM: Dec 03 2023 9:29AM WOX 5337 - XR FOOT 3V AP/LAT/OBL RT / PROCEDURE REASON: Pain of right heel * * * * Physician Interpretation * * * * PROCEDURE: Right scapula, right foot and sacrum/coccyx INDICATION: Pain of right scapula .Mid scapula pain following a fall x 2 weeks ago (accession [id number]), Coccyx pain following a fall x 2 weeks ago (accession [id number]), Right heel pain x 1 month. Stands on concrete for work (accession [id number]) TECHNIQUE: XR SCAPULA 2V AP/LAT RT, XR SACRUM/COCCYX 3V AP/LAT, XR FOOT 3V AP/LAT/OBL RT COMPARISON: Right shoulder 07/21/2022 FINDINGS: Right scapula: No fracture or dislocation. No osseous lesion. Shoulder joints and acromiohumeral interval are maintained and. Right foot: No acute fracture or dislocation. Joint spaces are maintained. Vascular calcifications and apparent diffuse soft tissue swelling. No cortical destruction. Calcification in the distal Achilles tendon and small plantar calcaneal spur. Sacrum and coccyx: No fractures or dislocations are seen. The sacroiliac joints are unremarkable. The soft tissues are within normal limits. IMPRESSION IMPRESSION: No acute abnormality Behavioral Health Specialist: PRICE Transcribe Date/Time: Dec 04 2023 11:03A Dictated by : DANE MOODY MD This examination was interpreted and the report reviewed and electronically signed by: DANE MOODY MD on Dec 04 2023 11:06AM [facility] XR Sacrum and Coccyx 3 Views on 12-04-2023 * * *Final Report* * * DATE OF EXAM: Dec 03 2023 9:29AM WOX 5246 - XR SACRUM/COCCYX 3V AP/LAT / PROCEDURE REASON: Injury of coccyx, initial encounter * * * * Physician Interpretation * * * * PROCEDURE: Right scapula, right foot and sacrum/coccyx INDICATION: Pain of right scapula .Mid scapula pain following a fall x 2 weeks ago (accession [id number]), Coccyx pain following a fall x 2 weeks ago (accession [id number]), Right heel pain x 1 month. Stands on concrete for work (accession [id number]) TECHNIQUE: XR SCAPULA 2V AP/LAT RT, XR SACRUM/COCCYX 3V AP/LAT, XR FOOT 3V AP/LAT/OBL RT COMPARISON: Right shoulder 07/21/2022 FINDINGS: Right scapula: No fracture or dislocation. No osseous lesion. Shoulder joints and acromiohumeral interval are maintained and. Right foot: No acute fracture or dislocation. Joint spaces are maintained. Vascular calcifications and apparent diffuse soft tissue swelling. No cortical destruction. Calcification in the distal Achilles tendon and small plantar calcaneal spur. Sacrum and coccyx: No fractures or dislocations are seen. The sacroiliac joints are unremarkable. The soft tissues are within normal limits. DIVISION OF RADIOLOGY Provider, [facility] - 12/04/2023 * * *Final Report* * * DATE OF EXAM: Dec 03 2023 9:29AM WOX 5246 - XR SACRUM/COCCYX 3V AP/LAT / PROCEDURE REASON: Injury of coccyx, initial encounter * * * * Physician Interpretation * * * * PROCEDURE: Right scapula, right foot and sacrum/coccyx INDICATION: Pain of right scapula .Mid scapula pain following a fall x 2 weeks ago (accession [id number]), Coccyx pain following a fall x 2 weeks ago (accession [id number]), Right heel pain x 1 month. Stands on concrete for work (accession [id number]) TECHNIQUE: XR SCAPULA 2V AP/LAT RT, XR SACRUM/COCCYX 3V AP/LAT, XR FOOT 3V AP/LAT/OBL RT COMPARISON: Right shoulder 07/21/2022 FINDINGS: Right scapula: No fracture or dislocation. No osseous lesion. Shoulder joints and acromiohumeral interval are maintained and. Right foot: No acute fracture or dislocation. Joint spaces are maintained. Vascular calcifications and apparent diffuse soft tissue swelling. No cortical destruction. Calcification in the distal Achilles tendon and small plantar calcaneal spur. Sacrum and coccyx: No fractures or dislocations are seen. The sacroiliac joints are unremarkable. The soft tissues are within normal limits. IMPRESSION IMPRESSION: No acute abnormality Behavioral Health Specialist: [facility] Transcribe Date/Time: Dec 04 2023 11:03A Dictated by : DANE MOODY MD This examination was interpreted and the report reviewed and electronically signed by: DANE MOODY MD on Dec 04 2023 11:06AM [facility] XR Scapula - right AP and La teralon 12-04-2023 * * *Final Report* * * DATE OF EXAM: Dec 03 2023 9:29AM WOX 5248 - XR SCAPULA 2V AP/LAT RT / PROCEDURE REASON: Pain of right scapula * * * * Physician Interpretation * * * * PROCEDURE: Right scapula, right foot and sacrum/coccyx INDICATION: Pain of right scapula .Mid scapula pain following a fall x 2 weeks ago (accession [id number]), Coccyx pain following a fall x 2 weeks ago (accession [id number]), Right heel pain x 1 month. Stands on concrete for work (accession [id number]) TECHNIQUE: XR SCAPULA 2V AP/LAT RT, XR SACRUM/COCCYX 3V AP/LAT, XR FOOT 3V AP/LAT/OBL RT COMPARISON: Right shoulder 07/21/2022 FINDINGS: Right scapula: No fracture or dislocation. No osseous lesion. Shoulder joints and acromiohumeral interval are maintained and. Right foot: No acute fracture or dislocation. Joint spaces are maintained. Vascular calcifications and apparent diffuse soft tissue swelling. No cortical destruction. Calcification in the distal Achilles tendon and small plantar calcaneal spur. Sacrum and coccyx: No fractures or dislocations are seen. The sacroiliac joints are unremarkable. The soft tissues are within normal limits. DIVISION OF RADIOLOGY Provider, [facility] - 12/04/2023 * * *Final Report* * * DATE OF EXAM: Dec 03 2023 9:29AM WOX 5248 - XR SCAPULA 2V AP/LAT RT / PROCEDURE REASON: Pain of right scapula * * * * Physician Interpretation * * * * PROCEDURE: Right scapula, right foot and sacrum/coccyx INDICATION: Pain of right scapula .Mid scapula pain following a fall x 2 weeks ago (accession [id number]), Coccyx pain following a fall x 2 weeks ago (accession [id number]), Right heel pain x 1 month. Stands on concrete for work (accession [id number]) TECHNIQUE: XR SCAPULA 2V AP/LAT RT, XR SACRUM/COCCYX 3V AP/LAT, XR FOOT 3V AP/LAT/OBL RT COMPARISON: Right shoulder 07/21/2022 FINDINGS: Right scapula: No fracture or dislocation. No osseous lesion. Shoulder joints and acromiohumeral interval are maintained and. Right foot: No acute fracture or dislocation. Joint spaces are maintained. Vascular calcifications and apparent diffuse soft tissue swelling. No cortical destruction. Calcification in the distal Achilles tendon and small plantar calcaneal spur. Sacrum and coccyx: No fractures or dislocations are seen. The sacroiliac joints are unremarkable. The soft tissues are within normal limits. IMPRESSION IMPRESSION: No acute abnormality Behavioral Health Specialist: PRICE Transcribe Date/Time: Dec 04 2023 11:03A Dictated by : DANE MOODY MD This examination was interpreted and the report reviewed and electronically signed by: DANE MOODY MD on Dec 04 2023 11:06AM EST [facility] No Panel Informationon 12-02 Radiology Study observation (narrative) [facility] XR SHOULDER GENERAL 3V OR MO RE AP/TRUE AP/OTHER RIGHTon 07-21-[address] [facility] XR Shoulder - right 3 Viewso n 07-21-2022 IMPRESSION: Findings are suggestive of degenerative changes in the acromioclavicular joint. Behavioral Health Specialist: PRICE Transcribe Date/Time: Jul 21 2022 10:16A Dictated by : SHAHRAM CRUZ MD This examination was interpreted and the report reviewed and electronically signed by: SHAHRAM CRUZ MD on Jul 21 2022 10:18AM EST DIVISION OF RADIOLOGY * * *Final Report* * * DATE OF EXAM: Jul 21 2022 10:00AM WOX 5253 - XR SHLDR >/=3V AP/BRIDGER AP/OTHR RT / PROCEDURE REASON: Acute pain of right shoulder * * * * Physician Interpretation * * * * EXAM TITLE: XR SHLDR >/=3V AP/BRIDGER AP/OTHR RT EXAM DATE/TIME: 07/21/2022 10:00 AM COMPARISON: None. CLINICAL INDICATION/HISTORY: Acute shoulder pain. TECHNIQUE: AP, true AP and axillary views of the right shoulder are presented FINDINGS: No acute fractures or subluxations are noted. There appears be mild acromioclavicular joint space narrowing, with associated osteophyte formation. The glenohumeral joint appears unremarkable. Normal acromiohumeral interval. The mineralization of the bones is normal. There is no significant soft tissue swelling. DIVISION OF RADIOLOGY Provider, [facility] - 07/21/2022 * * *Final Report* * * DATE OF EXAM: Jul 21 2022 10:00AM WOX 5253 - XR SHLDR >/=3V AP/BRIDGER AP/OTHR RT / PROCEDURE REASON: Acute pain of right shoulder * * * * Physician Interpretation * * * * EXAM TITLE: XR SHLDR >/=3V AP/BRIDGER AP/OTHR RT EXAM DATE/TIME: 07/21/2022 10:00 AM COMPARISON: None. CLINICAL INDICATION/HISTORY: Acute shoulder pain. TECHNIQUE: AP, true AP and axillary views of the right shoulder are presented FINDINGS: No acute fractures or subluxations are noted. There appears be mild acromioclavicular joint space narrowing, with associated osteophyte formation. The glenohumeral joint appears unremarkable. Normal acromiohumeral interval. The mineralization of the bones is normal. There is no significant soft tissue swelling. IMPRESSION IMPRESSION: Findings are suggestive of degenerative changes in the acromioclavicular joint. Behavioral Health Specialist: [facility] Transcribe Date/Time: Jul 21 2022 10:16A Dictated by : SHAHRAM CRUZ MD This examination was interpreted and the report reviewed and electronically signed by: SHAHRAM CRUZ MD on Jul 21 2022 10:18AM EST [facility] Radiology Study observation (narrative) [facility] XR Shoulder - right 3 ViewsO rdered By: Ccf Provider on 07-21-[address] [facility] XR Wrist - right 4 Viewson 0 05-02-2021 IMPRESSION: No acute osseous abnormality. Behavioral Health Specialist: [facility] Transcribe Date/Time: May 02 2021 4:38P Dictated by : DANE MOODY MD This examination was interpreted and the report reviewed and electronically signed by: DANE MOODY MD on May 02 2021 4:39PM EST DIVISION OF RADIOLOGY * * *Final Report* * * DATE OF EXAM: May 02 2021 4:34PM WOX 5273 - XR WRIST 4V PA/LAT/OBL/SCAPH RT / PROCEDURE REASON: Right wrist pain * * * * Physician Interpretation * * * * PROCEDURE: Right wrist INDICATION: Right wrist pain .pt states hit right wrists on a table 2 weeks ago then the next day could not pick anything up. Pain ulnar side TECHNIQUE: XR WRIST 4V PA/LAT/OBL/SCAPH RT COMPARISON: None FINDINGS: No acute fracture or dislocation. Joint spaces are maintained. No joint effusion or focal soft tissue swelling. Extensive vascular calcifications. DIVISION OF RADIOLOGY Provider, [facility] - 05/02/2021 * * *Final Report* * * DATE OF EXAM: May 02 2021 4:34PM WOX 5273 - XR WRIST 4V PA/LAT/OBL/SCAPH RT / PROCEDURE REASON: Right wrist pain * * * * Physician Interpretation * * * * PROCEDURE: Right wrist INDICATION: Right wrist pain .pt states hit right wrists on a table 2 weeks ago then the next day could not pick anything up. Pain ulnar side TECHNIQUE: XR WRIST 4V PA/LAT/OBL/SCAPH RT COMPARISON: None FINDINGS: No acute fracture or dislocation. Joint spaces are maintained. No joint effusion or focal soft tissue swelling. Extensive vascular calcifications. IMPRESSION IMPRESSION: No acute osseous abnormality. Behavioral Health Specialist: PSCB Transcribe Date/Time: May 02 2021 4:38P Dictated by : DANE MOODY MD This examination was interpreted and the report reviewed and electronically signed by: DANE MOODY MD on May 02 2021 4:39PM EST [facility] Radiology Study observation (narrative) [facility] XR Wrist - right 4 ViewsOrde red By: Ccf Provider on 05-02-[address] [facility] OCT OPTIC NERVE CIRRUS OU (B OTH EYES) [facility] Vital Signs Date Time Vital Sign Value Performing Clinician Facility 01-27-2025 09:43-0400 Body mass index (BMI) [Ratio] 31.28 kg/m2 Willie Burton MD Work Phone: [facility] 01-27-2025 09:43-0400 Body weight 98.9 kg Willie Burton MD Work Phone: [facility] 01-27-2025 09:43-0400 Diastolic blood pressure 80 mm[Hg] Willie Burton MD Work Phone: [facility] 01-27-2025 09:43-0400 Heart rate 78 /min Willie Burton MD Work Phone: [facility] 01-27-2025 09:43-0400 Respiratory rate 16 /min Willie Burton MD Work Phone: [facility] 01-27-2025 09:43-0400 Systolic blood pressure 118 mm[Hg] Willie Burton MD Work Phone: [facility] 01-21-2025 16:59-0400 Body mass index (BMI) [Ratio] 31.44 kg/m2 Anna Drew APRN.CNP Work Phone: [facility] 01-21-2025 16:59-0400 Body temperature 98.1 [degF] Anna Rajendra SENIOR ACCOUNTING SPECIALIST.WATCH REPAIRER Work Phone: [facility] 01-21-2025 16:59-0400 Body weight 99.4 kg Anna Drew SENIOR ACCOUNTING SPECIALIST.WATCH REPAIRER Work Phone: [facility] 01-21-2025 16:59-0400 Diastolic blood pressure 80 mm[Hg] Anna Rajendra SENIOR ACCOUNTING SPECIALIST.WATCH REPAIRER Work Phone: [facility] 01-21-2025 16:59-0400 Heart rate 83 /min Anna Rajendra SENIOR ACCOUNTING SPECIALIST.WATCH REPAIRER Work Phone: [facility] 01-21-2025 16:59-0400 Respiratory rate 18 /min Anna Rajendra SENIOR ACCOUNTING SPECIALIST.WATCH REPAIRER Work Phone: [facility] 01-21-2025 16:59-0400 SaO2% (BldA) [Mass fraction] 97 % Anna Drew SENIOR ACCOUNTING SPECIALIST.WATCH REPAIRER Work Phone: [facility] 01-21-2025 16:59-0400 Systolic blood pressure 140 mm[Hg] Anna Rajendra SENIOR ACCOUNTING SPECIALIST.WATCH REPAIRER Work Phone: [facility] 12-15-2024 08:28-0400 Body mass index (BMI) [Ratio] 31.03 kg/m2 Cee Farias SENIOR ACCOUNTING SPECIALIST.WATCH REPAIRER Work Phone: [facility] 12-15-2024 08:28-0400 Body weight 98.1 kg Cee Farias SENIOR ACCOUNTING SPECIALIST.WATCH REPAIRER Work Phone: [facility] 12-15-2024 08:28-0400 Diastolic blood pressure 72 mm[Hg] Cee Corleyf SENIOR ACCOUNTING SPECIALIST.WATCH REPAIRER Work Phone: [facility] 12-15-2024 08:28-0400 Heart rate 106 /min Cee Farias SENIOR ACCOUNTING SPECIALIST.WATCH REPAIRER Work Phone: [facility] 12-15-2024 08:28-0400 Respiratory rate 16 /min Cee Corleyf SENIOR ACCOUNTING SPECIALIST.WATCH REPAIRER Work Phone: [facility] 12-15-2024 08:28-0400 SaO2% (BldA) [Mass fraction] 95 % Cee Tannhof SENIOR ACCOUNTING SPECIALIST.WATCH REPAIRER Work Phone: [facility] 12-15-2024 08:28-0400 Systolic blood pressure 126 mm[Hg] Cee Tannhof SENIOR ACCOUNTING SPECIALIST.WATCH REPAIRER Work Phone: [facility] 05-27-2024 08:11-0400 Body mass index (BMI) [Ratio] 30.53 kg/m2 Cee Tannhof SENIOR ACCOUNTING SPECIALIST.WATCH REPAIRER Work Phone: [facility] 05-27-2024 08:11-0400 Body weight 96.5 kg Cee Tannhof SENIOR ACCOUNTING SPECIALIST.WATCH REPAIRER Work Phone: [facility] 05-27-2024 08:11-0400 Diastolic blood pressure 68 mm[Hg] Cee Tannhof SENIOR ACCOUNTING SPECIALIST.WATCH REPAIRER Work Phone: [facility] 05-27-2024 08:11-0400 Heart rate 98 /min Cee Tannhof SENIOR ACCOUNTING SPECIALIST.WATCH REPAIRER Work Phone: [facility] 05-27-2024 08:11-0400 Respiratory rate 16 /min Cee Tannhof SENIOR ACCOUNTING SPECIALIST.WATCH REPAIRER Work Phone: [facility] 05-27-2024 08:11-0400 SaO2% (BldA) [Mass fraction] 96 % Cee Tannhof SENIOR ACCOUNTING SPECIALIST.WATCH REPAIRER Work Phone: [facility] 05-27-2024 08:11-0400 Systolic blood pressure 112 mm[Hg] Cee Tannhof SENIOR ACCOUNTING SPECIALIST.WATCH REPAIRER Work Phone: [facility] 03-06-2024 09:19-0400 Body mass index (BMI) [Ratio] 28.7 kg/m2 Cee Tannhof SENIOR ACCOUNTING SPECIALIST.WATCH REPAIRER Work Phone: [facility] 03-06-2024 09:19-0400 Body weight 90.72 kg Cee Tannhof SENIOR ACCOUNTING SPECIALIST.WATCH REPAIRER Work Phone: [facility] 03-06-2024 09:19-0400 Diastolic blood pressure 60 mm[Hg] Cee Taylorhof SENIOR ACCOUNTING SPECIALIST.WATCH REPAIRER Work Phone: [facility] 03-06-2024 09:19-0400 Heart rate 98 /min Cee Brandonhof SENIOR ACCOUNTING SPECIALIST.WATCH REPAIRER Work Phone: [facility] 03-06-2024 09:19-0400 Respiratory rate 16 /min Cee Brandonhof SENIOR ACCOUNTING SPECIALIST.WATCH REPAIRER Work Phone: [facility] 03-06-2024 09:19-0400 SaO2% (BldA) [Mass fraction] 95 % Cee Taylorhof SENIOR ACCOUNTING SPECIALIST.WATCH REPAIRER Work Phone: [facility] 03-06-2024 09:19-0400 Systolic blood pressure 120 mm[Hg] Cee Taylorhof SENIOR ACCOUNTING SPECIALIST.WATCH REPAIRER Work Phone: [facility] 12-14-2023 13:15-0400 Body temperature 98.4 [degF] [facility] 12-14-2023 13:15-0400 Diastolic blood pressure 72 mm[Hg] [facility] 12-14-2023 13:15-0400 Heart rate 100 /min [facility] 12-14-2023 13:15-0400 Respiratory rate 16 /min [facility] 12-14-2023 13:15-0400 SaO2% (BldA) [Mass fraction] 99 % [facility] 12-14-2023 13:15-0400 Systolic blood pressure 115 mm[Hg] [facility] 12-14-2023 10:17-0400 Body height 177.8 cm [facility] 12-14-2023 10:17-0400 Body mass index (BMI) [Ratio] 28.1 kg/m2 [facility] 12-14-2023 10:17-0400 Body weight 89.08 kg [facility] 12-14-2023 09:47-0400 Body temperature 98.2 [degF] Daya Cook SENIOR ACCOUNTING SPECIALIST.WATCH REPAIRER Work Phone: [facility] 12-14-2023 09:47-0400 Body weight 87.9 kg Daya Cook SENIOR ACCOUNTING SPECIALIST.WATCH REPAIRER Work Phone: [facility] 12-14-2023 09:47-0400 Diastolic blood pressure 76 mm[Hg] Daya Cook SENIOR ACCOUNTING SPECIALIST.WATCH REPAIRER Work Phone: [facility] 12-14-2023 09:47-0400 Heart rate 116 /min Daya Cook SENIOR ACCOUNTING SPECIALIST.WATCH REPAIRER Work Phone: [facility] 12-14-2023 09:47-0400 Respiratory rate 18 /min Daya Cook SENIOR ACCOUNTING SPECIALIST.WATCH REPAIRER Work Phone: [facility] 12-14-2023 09:47-0400 SaO2% (BldA) [Mass fraction] 98 % Daya Cook SENIOR ACCOUNTING SPECIALIST.WATCH REPAIRER Work Phone: [facility] 12-14-2023 09:47-0400 Systolic blood pressure 127 mm[Hg] Daya Cook SENIOR ACCOUNTING SPECIALIST.WATCH REPAIRER Work Phone: [facility] 12-03-2023 08:08-0400 Body weight 91.63 kg Reagan Conor SENIOR ACCOUNTING SPECIALIST.WATCH REPAIRER Work Phone: [facility] 12-03-2023 08:08-0400 Diastolic blood pressure 73 mm[Hg] Reagan Conor SENIOR ACCOUNTING SPECIALIST.WATCH REPAIRER Work Phone: [facility] 12-03-2023 08:08-0400 Heart rate 98 /min Reagan Conor SENIOR ACCOUNTING SPECIALIST.WATCH REPAIRER Work Phone: [facility] 12-03-2023 08:08-0400 Respiratory rate 16 /min Reagan Conor SENIOR ACCOUNTING SPECIALIST.WATCH REPAIRER Work Phone: [facility] 12-03-2023 08:08-0400 SaO2% (BldA) [Mass fraction] 96 % Reagan Conor SENIOR ACCOUNTING SPECIALIST.WATCH REPAIRER Work Phone: [facility] 12-03-2023 08:08-0400 Systolic blood pressure 127 mm[Hg] Reagan Conor SENIOR ACCOUNTING SPECIALIST.WATCH REPAIRER Work Phone: [facility] 09-07-2023 15:22-0500 Body temperature 99 [degF] Inge Lilia SENIOR ACCOUNTING SPECIALIST.WATCH REPAIRER Work Phone: [facility] 09-07-2023 15:22-0500 Body weight 91.17 kg Inge Lilia SENIOR ACCOUNTING SPECIALIST.WATCH REPAIRER Work Phone: [facility] 09-07-2023 15:22-0500 Diastolic blood pressure 71 mm[Hg] Inge Lilia SENIOR ACCOUNTING SPECIALIST.WATCH REPAIRER Work Phone: [facility] 09-07-2023 15:22-0500 Heart rate 109 /min Inge Lilia SENIOR ACCOUNTING SPECIALIST.WATCH REPAIRER Work Phone: [facility] 09-07-2023 15:22-0500 Respiratory rate 18 /min Inge Lilia SENIOR ACCOUNTING SPECIALIST.WATCH REPAIRER Work Phone: [facility] 09-07-2023 15:22-0500 SaO2% (BldA) [Mass fraction] 99 % Inge Lilia SENIOR ACCOUNTING SPECIALIST.WATCH REPAIRER Work Phone: [facility] 09-07-2023 15:22-0500 Systolic blood pressure 144 mm[Hg] Inge Lilia SENIOR ACCOUNTING SPECIALIST.WATCH REPAIRER Work Phone: [facility] 05-30-2023 09:15-0400 Body temperature 98.4 [degF] Jonathan Isabel MD Work Phone: [facility] 05-30-2023 09:15-0400 Body weight 88.36 kg Jonathan Isabel MD Work Phone: [facility] 05-30-2023 09:15-0400 Diastolic blood pressure 82 mm[Hg] Jonathan Isabel MD Work Phone: [facility] 05-30-2023 09:15-0400 Heart rate 103 /min Jonathan Isabel MD Work Phone: [facility] 05-30-2023 09:15-0400 Respiratory rate 16 /min Jonathan Isabel MD Work Phone: [facility] 05-30-2023 09:15-0400 SaO2% (BldA) [Mass fraction] 96 % Jonathan Isabel MD Work Phone: [facility] 05-30-2023 09:15-0400 Systolic blood pressure 138 mm[Hg] Jonathan Isabel MD Work Phone: [facility] 03-27-2023 12:51-0400 Body temperature 99.3 [degF] Tara Athy PA-C Work Phone: [facility] 03-27-2023 12:51-0400 Body weight 86.55 kg Tara Athy PA-C Work Phone: [facility] 03-27-2023 12:51-0400 Diastolic blood pressure 78 mm[Hg] Tara Athy PA-C Work Phone: [facility] 03-27-2023 12:51-0400 Heart rate 124 /min Tara Athy PA-C Work Phone: [facility] 03-27-2023 12:51-0400 Respiratory rate 18 /min Tara Athy PA-C Work Phone: [facility] 03-27-2023 12:51-0400 SaO2% (BldA) [Mass fraction] 97 % Tara Athy PA-C Work Phone: [facility] 03-27-2023 12:51-0400 Systolic blood pressure 142 mm[Hg] Tara Athy PA-C Work Phone: [facility] 07-21-2022 09:31-0400 Body temperature 98.01 [degF] Daya Cook SENIOR ACCOUNTING SPECIALIST.WATCH REPAIRER Work Phone: [facility] 07-21-2022 09:31-0400 Body weight 95.71 kg Daya Cook SENIOR ACCOUNTING SPECIALIST.WATCH REPAIRER Work Phone: [facility] 07-21-2022 09:31-0400 Diastolic blood pressure 86 mm[Hg] Daya Cook SENIOR ACCOUNTING SPECIALIST.WATCH REPAIRER Work Phone: [facility] 07-21-2022 09:31-0400 Heart rate 109 /min Daya Cook SENIOR ACCOUNTING SPECIALIST.WATCH REPAIRER Work Phone: [facility] 07-21-2022 09:31-0400 Respiratory rate 18 /min Daya Cook SENIOR ACCOUNTING SPECIALIST.WATCH REPAIRER Work Phone: [facility] 07-21-2022 09:31-0400 SaO2% (BldA) [Mass fraction] 99 % Daya Cook SENIOR ACCOUNTING SPECIALIST.WATCH REPAIRER Work Phone: [facility] 07-21-2022 09:31-0400 Systolic blood pressure 159 mm[Hg] Daya Cook SENIOR ACCOUNTING SPECIALIST.WATCH REPAIRER Work Phone: [facility] 06-19-2022 09:41-0400 Body temperature 99.19 [degF] Reagan Conor SENIOR ACCOUNTING SPECIALIST.WATCH REPAIRER Work Phone: [facility] 06-19-2022 09:41-0400 Body weight 96.44 kg Reagan Conor SENIOR ACCOUNTING SPECIALIST.WATCH REPAIRER Work Phone: [facility] 06-19-2022 09:41-0400 Diastolic blood pressure 72 mm[Hg] Reagan Conor SENIOR ACCOUNTING SPECIALIST.WATCH REPAIRER Work Phone: [facility] 06-19-2022 09:41-0400 Heart rate 106 /min Reagan Conor SENIOR ACCOUNTING SPECIALIST.WATCH REPAIRER Work Phone: [facility] 06-19-2022 09:41-0400 Respiratory rate 16 /min Reagan Conor SENIOR ACCOUNTING SPECIALIST.WATCH REPAIRER Work Phone: [facility] 06-19-2022 09:41-0400 Systolic blood pressure 132 mm[Hg] Reagan Conor SENIOR ACCOUNTING SPECIALIST.WATCH REPAIRER Work Phone: [facility] Encounters Encounter Date Encounter Type Care Provider Facility Start: 07-08-2025 End: 07-08-2025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 presents with: 6 Month Exam HISTORY OF PRESENT ILLNESS: Dane Moran is a 53 year old male. Patient presents with: 6 Month Exam 6 brenda follow up Had a fall last Sunday, refers that he has noticed discomfort on sternum since fall, worse with certain movements, cough, or sneezing. No fifficulty breathing. Platelets low when labs were completed in May, recommended stopping the meloxicam and holding off from any other NSAIDs and repeat labs in 1 month, past due for repeat labs. HTN: Taking Zestoretic 20/25 mg daily. Not currently checking blood pressure at home. Denies chest pain, palpitations, dizziness, or edema. DM: Reports overall feeling well. Medication side effects: No. Home sugar checks: Not checking sugars unless feeling unwell Hypoglycemic spells: No. Watching diet: Sometimes, drinking 4 cokes per week Unexpected weight loss: No. Polyuria, polydipsia: No. Vision Changes: No. Foot lesions or numbness or pain: No. Taking glyburide 5 mg daily, metformin 1000 mg twice daily. A1c in 12.31. Due for vision exam, wearing glasses. ED: Taking Viagra 100 mg as needed. Colonoscopy: Has never had completed, willing to have cologuard. PAST MEDICAL HISTORY: PAST MEDICAL HISTORY Diagnosis Date Anxiety Diabetes (HCC) Fatty liver Hypertension PAST SURGICAL HISTORY Procedure Laterality Date ANESTHESIA KNEE, ARTHROSCOPIC 1983 right knee ALLERGIES Patient has no known allergies. MEDICATIONS Current Outpatient Medications Medication Sig lisinopril-hydroCHLOROthiazide (ZESTORETIC) 20-25 mg per tablet Take 1 tablet by mouth every morning. metFORMIN (GLUCOPHAGE) 1,000 mg tablet Take 1 tablet by mouth two times a day with meals. meloxicam (MOBIC) 15 mg tablet take one tablet by mouth every day glyBURIDE 5 mg tablet Take 1 tablet by mouth daily with breakfast. sildenafil (VIAGRA) 100 mg tablet Take 1 tablet by mouth once daily as needed. Take 30-60 minutes before sexual activity. blood sugar diagnostic (BLOOD GLUCOSE TEST) test strip Test blood sugar(s) 1 times daily. Dx: Type 2 DM - Controlled E11.9 Insulin: No No current facility-administered medications for this visit. FAMILY HISTORY Problem Relation Age of Onset Ischemic Heart Disease Father 50 at 51 Diabetes Mother Diabetes Maternal Grandfather Social History Tobacco Use Smoking status: Never Smokeless tobacco: Current Types: Chew Tobacco comments: 1/2 can a day Vaping Use Vaping status: Never Used Substance Use Topics Alcohol use: Yes Comment: 1-2 drinks per day Drug use: No REVIEW OF SYSTEMS GENERAL: No weight loss, malaise or fevers/chills HEENT: Negative for frequent or significant headaches, No changes in hearing or vision. NECK: Negative for lumps, goiter, pain and significant neck swelling RESPIRATORY: Negative for cough, hemoptysis, wheezing, dyspnea or shortness of breath CARDIOVASCULAR: Negative for chest pain, leg swelling, orthopnea, or palpitations GI: No nausea, vomiting, or diarrhea/constipation. No hematochezia/melena. No heartburn or reflux symptoms. : No history of dysuria, frequency or incontinence MUSCULOSKELETAL: + Chest Wall Discomfort SKIN: Negative for lesions, rash, and itching ENDOCRINE: Negative for cold or heat intolerance, polyuria, polydipsia and goiter NEURO: No history of headaches, syncope, paralysis, seizures or tremors MOOD: Negative for depression, anxiety, or suicidal ideation. EXAM: BP 126/72 Pulse 106 Resp 16 Wt 98.1 kg (216 lb 4.3 oz) SpO2 95% BMI 31.03 kg/m PHYSICAL EXAM: General Appearance: Well appearing, alert, in no acute distress, well-hydrated, well nourished. Skin: Skin color, texture, turgor normal, no suspicious rashes or lesions. Head: Normocephalic, no masses, lesions, tenderness or abnormalities. Eyes: Anicteric sclera. Extraocular movements are intact. Lungs: Lungs clear to auscultation. No wheezing, rhonchi, rales. Heart: RRR without murmur, gallop, or rubs. No ectopy. Extremities: No deformities, edema, skin discoloration, clubbing or cyanosis. Good capillary refill. Musculoskeletal: Sternum tender with palpation, no swelling or color change noted. Peripheral Pulses: Normal, Capillary refill <2secs, strong peripheral pulses, Pulses palpable. Neurologic: Gait normal. Sensation grossly intact. ASSESSMENT/PLAN: 1. Fall, initial encounter - ICD9: E888.9, ICD10: W19.XXXA (primary diagnosis) - Continue supportive care at home - May apply heat, ice to the area. - Recommend deep breaths several times per hour. - Instructed to get chest xray completed if no improvement or symptoms worsen. - XR CHEST 2V FRONTAL/LAT 2. Low platelet count (HCC) - ICD9: 287.5, ICD10: D69.6 - COMPLETE BLOOD COUNT AND DIFFERENTIAL 3. Discomfort of chest wall - ICD9: 786.52, ICD10: R07.89 - Same plan as #1. 4. Essential hypertension, benign - ICD9: 401.1, ICD10: I10 - Controlled - Continue current medications - Recommend home blood pressure monitoring, to bring results to next visit - Encouraged sodium restriction, DASH or Mediterranean diet - Recommend regular aerobic exercise - Discussed need for and benefit of weight loss. BMI 31.03 kg/(m^2) - COMPREHENSIVE METABOLIC PANEL - LIPID PANEL, NONFASTING 5. Aortic stenosis, mild - ICD9: 424.1, ICD10: I35.0 - Stable, continue to take current medication. 6. Controlled type 2 diabetes mellitus without complication, without long-term current use of insulin (HCC) - ICD9: 250.00, ICD10: E11.9 - Control undetermined, due for labs - Continue current medications - Counseled on healthy diet and regular exercise - Discussed need for and benefit of weight loss. BMI 31.03 kg/(m^2) - HEMOGLOBIN A1C 7. Screening for colon cancer - ICD9: V76.51, ICD10: Z12.11 - COLOGUARD 8. Screening for prostate cancer - ICD9: V76.44, ICD10: Z12.5 - PSA/PROSTATE SPECIFIC ANTIGEN SCREENING Follow-up in 6 months or sooner as needed Discussed treatment plan and patient voices understanding. Patient's questions answered appropriately. Medications and potential side effects were discussed and patient voices understanding. Cee Farias APRN.CNP This note was partially generated using [employer] voice recognition system. Note was reviewed for accuracy. There may be minor misspellings or grammar miscues with [employer] voice recognition. documented in this encounter [facility] 12-15-2024 Note HNO ID: [id number] Author: CEE FARIAS APRN.CNP Service: ? Author Type: Nurse Practitioner Type: Progress Notes Filed: 12/15/2024 09:09 Note Text: This is a 53 year old male who presents today with: Patient presents with: 6 Month Exam HISTORY OF PRESENT ILLNESS: Dane Moran is a 53 year old male. Patient presents with: 6 Month Exam 6 brenda follow up Had a fall last Sunday, refers that he has noticed discomfort on sternum since fall, worse with certain movements, cough, or sneezing. No fifficulty breathing. Platelets low when labs were completed in May, recommended stopping the meloxicam and holding off from any other NSAIDs and repeat labs in 1 month, past due for repeat labs. HTN: Taking Zestoretic 20/25 mg daily. Not currently checking blood pressure at home. Denies chest pain, palpitations, dizziness, or edema. DM: Reports overall feeling well. Medication side effects: No. Home sugar checks: Not checking sugars unless feeling unwell Hypoglycemic spells: No. Watching diet: Sometimes, drinking 4 cokes per week Unexpected weight loss: No. Polyuria, polydipsia: No. Vision Changes: No. Foot lesions or numbness or pain: No. Taking glyburide 5 mg daily, metformin 1000 mg twice daily. A1c in 12.31. Due for vision exam, wearing glasses. ED: Taking Viagra 100 mg as needed. Colonoscopy: Has never had completed, willing to have cologuard. PAST MEDICAL HISTORY: PAST MEDICAL HISTORY Diagnosis Date Anxiety Diabetes (HCC) Fatty liver Hypertension PAST SURGICAL HISTORY Procedure Laterality Date ANESTHESIA KNEE, ARTHROSCOPIC 1983 right knee ALLERGIES Patient has no known allergies. MEDICATIONS Current Outpatient Medications Medication Sig lisinopril-hydroCHLOROthiazide (ZESTORETIC) 20-25 mg per tablet Take 1 tablet by mouth every morning. metFORMIN (GLUCOPHAGE) 1,000 mg tablet Take 1 tablet by mouth two times a day with meals. meloxicam (MOBIC) 15 mg tablet take one tablet by mouth every day glyBURIDE 5 mg tablet Take 1 tablet by mouth daily with breakfast. sildenafil (VIAGRA) 100 mg tablet Take 1 tablet by mouth once daily as needed. Take 30-60 minutes before sexual activity. blood sugar diagnostic (BLOOD GLUCOSE TEST) test strip Test blood sugar(s) 1 times daily. Dx: Type 2 DM - Controlled E11.9 Insulin: No No current facility-administered medications for this visit. FAMILY HISTORY Problem Relation Age of Onset Ischemic Heart Disease Father 50 at 51 Diabetes Mother Diabetes Maternal Grandfather Social History Tobacco Use Smoking status: Never Smokeless tobacco: Current Types: Chew Tobacco comments: 1/2 can a day Vaping Use Vaping status: Never Used Substance Use Topics Alcohol use: Yes Comment: 1-2 drinks per day Drug use: No REVIEW OF SYSTEMS GENERAL: No weight loss, malaise or fevers/chills HEENT: Negative for frequent or significant headaches, No changes in hearing or vision. NECK: Negative for lumps, goiter, pain and significant neck swelling RESPIRATORY: Negative for cough, hemoptysis, wheezing, dyspnea or shortness of breath CARDIOVASCULAR: Negative for chest pain, leg swelling, orthopnea, or palpitations GI: No nausea, vomiting, or diarrhea/constipation. No hematochezia/melena. No heartburn or reflux symptoms. : No history of dysuria, frequency or incontinence MUSCULOSKELETAL: + Chest Wall Discomfort SKIN: Negative for lesions, rash, and itching ENDOCRINE: Negative for cold or heat intolerance, polyuria, polydipsia and goiter NEURO: No history of headaches, syncope, paralysis, seizures or tremors MOOD: Negative for depression, anxiety, or suicidal ideation. EXAM: BP 126/72 Pulse 106 Resp 16 Wt 98.1 kg (216 lb 4.3 oz) SpO2 95% BMI 31.03 kg/m? PHYSICAL EXAM: General Appearance: Well appearing, alert, in no acute distress, well-hydrated, well nourished. Skin: Skin color, texture, turgor normal, no suspicious rashes or lesions. Head: Normocephalic, no masses, lesions, tenderness or abnormalities. Eyes: Anicteric sclera. Extraocular movements are intact. Lungs: Lungs clear to auscultation. No wheezing, rhonchi, rales. Heart: RRR without murmur, gallop, or rubs. No ectopy. Extremities: No deformities, edema, skin discoloration, clubbing or cyanosis. Good capillary refill. Musculoskeletal: Sternum tender with palpation, no swelling or color change noted. Peripheral Pulses: Normal, Capillary refill <2secs, strong peripheral pulses, Pulses palpable. Neurologic: Gait normal. Sensation grossly intact. ASSESSMENT/PLAN: 1. Fall, initial encounter - ICD9: E888.9, ICD10: W19.XXXA (primary diagnosis) - Continue supportive care at home - May apply heat, ice to the area. - Recommend deep breaths several times per hour. - Instructed to get chest xray completed if no improvement or symptoms worsen. - XR CHEST 2V FRONTAL/LAT 2. Low platelet count (HCC) - ICD (more content not included)... [facility] 05-28-2024 Miscellaneous Notes Patient notified of results, verbalizes understanding of instructions. Pati Mg LPN Can you please call the patient and let him know that I reviewed his lab results. Cholesterol was normal. Liver enzyme just mildly elevated. I would recommend being mindful with alcohol use or Tylenol. Try to watch processed foods in the diet. A1c has come down drastically from 8.1 to 4.9. I would like him to keep track of his fasting sugars for the next 1 to 2 weeks to ensure that he is not running too low. If fasting sugars are less than 70 or having symptoms I would recommend that we stop the glyburide. Platelets were low on recent labs. I would recommend considering stopping the meloxicam and hold off from any other NSAIDs at this time and repeating labs in 1 month. Please let me know what he prefers. Thank you. Cee Farias APRN.WATCH REPAIRER documented in this encounter [facility] 05-28-2024 Telephone encounter Note Patient notified of results, verbalizes understanding of instructions. Pati Mg LPN [facility] 05-28-2024 Telephone encounter Note Can you please call the patient and let him know that I reviewed his lab results. Cholesterol was normal. Liver enzyme just mildly elevated. I would recommend being mindful with alcohol use or Tylenol. Try to watch processed foods in the diet. A1c has come down drastically from 8.1 to 4.9. I would like him to keep track of his fasting sugars for the next 1 to 2 weeks to ensure that he is not running too low. If fasting sugars are less than 70 or having symptoms I would recommend that we stop the glyburide. Platelets were low on recent labs. I would recommend considering stopping the meloxicam and hold off from any other NSAIDs at this time and repeating labs in 1 month. Please let me know what he prefers. Thank you. Cee Farias APRN.WATCH REPAIRER [facility] 05-27-2024 Instructions Cee Farias APRN.CNP - 05/27/2024 8:31 AM EDT Get labs completed today Continue to take all medication as prescribed Work on eating a low carb diet, lean protein, veggies, and get some form of exercise. Watch sugary drinks in the diet. Due for eye exam Follow up in 3 months or sooner pending test results. documented in this encounter [facility] 05-27-2024 History of Presen t illness Narrative This is a 53 year old male who presents today with: Patient presents with: 6 Month Exam HISTORY OF PRESENT ILLNESS: Dane Moran is a 53 year old male. Patient presents with: 6 Month Exam 6 month follow up HTN: Taking Zestoretic 20/25 mg daily. Not currently checking blood pressure at home. Denies chest pain, palpitations, dizziness, or edema. DM: Reports overall feeling well. Medication side effects: No. Home sugar checks: Not checking sugars unless feeling unwell, random at 600 non-fasting Hypoglycemic spells: No. Watching diet: Sometimes, drinking 4 cokes per week Unexpected weight loss: No. Polyuria, polydipsia: No. Vision Changes: No. Foot lesions or numbness or pain: No. Taking glyburide 5 mg daily, metformin 1000 mg twice daily. A1c in 04.24. Due for vision exam, wearing glasses. ED: Taking Viagra 100 mg as needed. Shoulder Pain: Taking Meloxicam 15 mg prn. PAST MEDICAL HISTORY: PAST MEDICAL HISTORY No date: Anxiety No date: Diabetes (HCC) No date: Fatty liver No date: Hypertension PAST SURGICAL HISTORY 1984: ANESTHESIA KNEE, ARTHROSCOPIC Comment: right knee ALLERGIES Patient has no known allergies. MEDICATIONS Current Outpatient Medications Medication Sig meloxicam (MOBIC) 15 mg tablet take one tablet by mouth every day glyBURIDE 5 mg tablet Take 1 tablet by mouth daily with breakfast. triamcinolone acetonide (KENALOG) 0.1 % ointment Apply to affected area two times a day. lisinopril-hydroCHLOROthiazide (ZESTORETIC) 20-25 mg per tablet Take 1 tablet by mouth every morning. metFORMIN (GLUCOPHAGE) 1,000 mg tablet Take 1 tablet by mouth two times a day with meals. sildenafil (VIAGRA) 100 mg tablet Take 1 tablet by mouth once daily as needed. Take 30-60 minutes before sexual activity. blood sugar diagnostic (BLOOD GLUCOSE TEST) test strip Test blood sugar(s) 1 times daily. Dx: Type 2 DM - Controlled E11.9 Insulin: No Current Facility-Administered Medications Medication Dose Route Frequency perflutren lipid microspheres 1.3 mL in NaCl (PF) 0.9% 10 mL injection (DEFINITY) INTRAVENOUS DIRECTED PRN sodium chloride 0.9 % (flush) 10 mL (BD POSIFLUSH) 10 mL INTRAVENOUS DIRECTED PRN FAMILY HISTORY Problem Relation Age of Onset Ischemic Heart Disease Father 50 at 51 Diabetes Mother Diabetes Maternal Grandfather Social History Tobacco Use Smoking status: Never Smokeless tobacco: Current Types: Chew Tobacco comments: 1/2 can a day Vaping Use Vaping status: Never Used Substance Use Topics Alcohol use: Yes Comment: 1-2 drinks per day Drug use: No REVIEW OF SYSTEMS GENERAL: No weight loss, malaise or fevers/chills HEENT: Negative for frequent or significant headaches, No changes in hearing or vision. NECK: Negative for lumps, goiter, pain and significant neck swelling RESPIRATORY: Negative for cough, hemoptysis, wheezing, dyspnea or shortness of breath CARDIOVASCULAR: Negative for chest pain, leg swelling, orthopnea, or palpitations GI: No nausea, vomiting, or diarrhea/constipation. No hematochezia/melena. No heartburn or reflux symptoms. : No history of dysuria, frequency or incontinence MUSCULOSKELETAL: Negative for joint pain or swelling. SKIN: Negative for lesions, rash, and itching ENDOCRINE: Negative for cold or heat intolerance, polyuria, polydipsia and goiter NEURO: No history of headaches, syncope, paralysis, seizures or tremors MOOD: Negative for depression, anxiety, or suicidal ideation. EXAM: BP 112/68 Pulse 98 Resp 16 Wt 96.5 kg (212 lb 11.9 oz) SpO2 96% BMI 30.53 kg/m PHYSICAL EXAM: General Appearance: Well appearing, alert, in no acute distress, well-hydrated, well nourished. Skin: Skin color, texture, turgor normal, no suspicious rashes or lesions. Head: Normocephalic, no masses, lesions, tenderness or abnormalities. Eyes: Anicteric sclera. Extraocular movements are intact. Lungs: Lungs clear to auscultation. No wheezing, rhonchi, rales. Heart: RRR without murmur, gallop, or rubs. No ectopy. Extremities: No deformities, edema, skin discoloration, clubbing or cyanosis. Good capillary refill. Peripheral Pulses: Normal, Capillary refill <2secs, strong peripheral pulses, Pulses palpable. Neurologic: Gait normal. Sensation grossly intact. Feet:Shoes and socks removed, No deformities, ulcers, calluses, normal distal pulses, and sensitive to 10 gm monofilament ASSESSMENT/PLAN: 1. Essential hypertension, benign - ICD9: 401.1, ICD10: I10 (primary diagnosis) - Controlled - Continue current medications - Recommend home blood pressure monitoring, to bring results to next visit - Encouraged sodium restriction, DASH or Mediterranean diet - Recommend regular aerobic exercise - Discussed need for and benefit of weight loss. BMI 30.53 kg/(m^2) - COMPREHENSIVE METABOLIC PANEL - LIPID PANEL BASIC 2. Controlled type 2 diabetes mellitus without complication, without long-term current use of insulin (HCC) - ICD9: 250.00, ICD10: E11.9 - Control undetermined, due for labs - Continue current medications - Counseled on healthy diet and regular exercise - Discussed need for and benefit of weight loss. BMI 30.53 kg/(m^2) - HEMOGLOBIN A1C - COMPLETE BLOOD COUNT AND DIFFERENTIAL 3. ED (erectile dysfunction) of organic origin - ICD9: 607.84, ICD10: N52.9 - Stable, continue to take current medication. 4. Screening for depression - ICD9: V79.0, ICD10: Z13.31 - DEPRESSION SCREENING Follow-up in 3 months or sooner pending test results. Discussed treatment plan and patient voices understanding. Patient's questions answered appropriately. Medications and potential side effects were discussed and patient voices understanding. Cee Farias APRN.WATCH REPAIRER This note was partially generated using Dragon voice recognition system. Note was reviewed for accuracy. There may be minor misspellings or grammar miscues with [employer] voice recognition. documented in this encounter [facility] 05-20-2024 History of Presen t illness Narrative Episode Visit Count: 7 Therapist That Will Accept/Oversee The Plan Of Care: Robert Suggs Start of Care Date: 03/24/24 Onset Date: 12/14/23 [facility]ABIL[facility]ATION AND SPORTS THERAPY PHYSICAL THERAPY DISCONTINUANCE OF CARE PLAN OF CARE UPDATE: Assessment: Dane Moran is discontinued from Physical Therapy services due to goal achievement and maximal benefit.. Patient was seen for 7 visits from Start of Care Date: 03/24/24 to 05/20/2024 and treatment included: Therapeutic exercise and Manual therapy. Goals updated on 05/20/2024. Goals for Episode of Care: created on 03/24/24 through 05/29/24 [place] in home exercise program. Met Patient will decrease pain rating by 2 points to meet minimal clinical important difference for numeric pain rating scale. Met Patient will increase active ROM of R shoulder to = L to allow pt to to improve performance of ADLs and decrease pain. Met Patient will demonstrate increase in R shoulder strength to 4+/5 during manual muscle testing in order to improve function for moderate to heavy functional tasks, prior functional tasks, and work tasks. Met Perform work tasks, reaching, lifting, carrying with decreased report of symptoms/pain in 6-8 weeks. Met Perform self care and light functional tasks without pain. Met Patient Goals: Get back to PLOF SUBJECTIVE: Patient has been doing really well since being dry needled. Notes that he has had some low level pain when lifting heavy, but that's it. Heat and self massage with a ball against the wall have seemed to take care of that. He reports no limitations and feels confident in his ability to self manage symptoms. Pain: Pain Pain Level: 0 (1-2/10 at worst after lifting something heavy) Description: Dull, Aching Frequency: Intermittent PROMIS Scales 05/07/2024 Higher is Better Phys Func - Score 54 (within normal limits) Phys Func - Percentile 66 Self-Eff Symptom - Score 54 (Average) Self-Eff Symptom - Percentile 66 T-scores: mean of general population = 50. 5 points is clinically meaningfully difference Percentiles provide an indication of how the patient's score ranks in relation to the general population. Higher percentile rankings indicate better function/quality of life. 50th percentile is the average of the general population and indicates half of respondents had a worse score. OBJECTIVE MEASURES WITH LEVEL OF FUNCTION: UE AROM R UE AROM: WNL L UE AROM: WNL UE and Cervical Strength R UE Strength: 5/5 L UE Strength: 5/5 TREATMENT: Therapeutic Exercise: 1: Reviewed HEP for correct form, compliance, and progression 2: Objective measures obtained Skilled Intervention: Patient was educated in proper exercise technique and purpose for exercises. Skilled judgment was used in selection of appropriate interventions. Provided written instruction for home exercise program to facilitate proper performance and compliance. Correct performance of therapeutic exercises was facilitated with verbal, visual, and tactile cuing. Manual Therapy: 1: STM, CFM, and TrPr to R rhomboids, thoracic paraspinals with push to tolerance Skilled Intervention: Manual skills to improve joint mobility, ROM, and decrease pain. Utilized anatomy knowledge of the therapist, and assessment of patient's response to intervention. Billing Therapeutic Exercise Treatment Minutes: 15 Manual TherapyTreatment Minutes: 25 Skilled Treatment Time Minutes (timed and untimed codes): 40 Total Session Time (minutes): 40 Session Start Time : 1315 Session Stop Time : 1355 Robert Suggs PT documented in this encounter [facility] 05-13-2024 History of Presen t illness Narrative Episode Visit Count: 6 Therapist That Will Accept/Oversee The Plan Of Care: Robert Suggs Start of Care Date: 03/24/24 Onset Date: 12/14/23 REHABILITATION AND SPORTS THERAPY PHYSICAL THERAPY TREATMENT NOTE ASSESSMENT: Dane Moran tolerated the session with decreased symptoms and expected muscle soreness. He demonstrated improvements in thoracic pain post needling. The patient will continue to benefit from ongoing skilled physical therapy for reassessment by supervising therapist. PLAN FOR NEXT VISIT: [place] SUBJECTIVE: Patient's symptoms have remained steady the last few weeks. Notes that he has a sharp pain near the middle of his back off to the right of the spine that won't alleviate. Pain: Pain Pain Level: 4 Pain Location: Thoracic Spine - Right Description: Sharp Frequency: Intermittent OBJECTIVE MEASURES WITH LEVEL OF FUNCTION: Pain reproduced over R rhomboids TREATMENT: Manual Therapy: 1: STM, CFM, and TrPr to R rhomboids, thoracic paraspinals with push to tolerance Dry Needling: (2) 30 mm needles to R rhomboids with pistoning and fanning (2 needles in 2 needles out. Patient consent gained after explaining risks, benefits, and after care to intervention. Split finger block over intercostal space with technique today) Skilled Intervention: Manual skills to improve joint mobility, ROM, and decrease pain. Utilized anatomy knowledge of the therapist, and assessment of patient's response to intervention. Billing Manual TherapyTreatment Minutes: 39 Skilled Treatment Time Minutes (timed and untimed codes): 39 Total Session Time (minutes): 39 Session Start Time : 1000 Session Stop Time : 1039 Robert Suggs PT documented in this encounter [facility] 05-07-2024 History of Presen t illness Narrative Episode Visit Count: 5 Therapist That Will Accept/Oversee The Plan Of Care: Robert Suggs Start of Care Date: 03/24/24 Onset Date: 12/14/23 Patient Identified by Name and Date of : Yes REHABILITATION AND SPORTS THERAPY PHYSICAL THERAPY TREATMENT NOTE ASSESSMENT: Dane Moran tolerated the session with fatigue, decreased symptoms, and expected muscle soreness. He demonstrated improvements in tightness of R thoracic paraspinals after manual therapy. The patient will continue to benefit from ongoing skilled physical therapy to progress toward set goals. PLAN FOR NEXT VISIT: [place] SUBJECTIVE: Pt reports that the R side portion of the R shoulder blade is fine, but towards the spine is where the issue is. Took some Advil and doesn't seem to have much pain now. 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 Pt states he was not able to do as many exercises lately due to work. Pain: Pain Pain Level: 0 (can increase to 5/10.) Pain Location: Shoulder - Right Frequency: Intermittent Post Treatment Pain Post Treatment Pain Level: No Change Post Treatment Pain Location: Shoulder - Right OBJECTIVE MEASURES WITH LEVEL OF FUNCTION: Soft tissue restriction felt at T3-T4 paraspinals TREATMENT: Therapeutic Exercise: 1: UBE no resistance x2 minutes fwd and bwd 2: W's BTB 2x15 3: GTB horizontal abduction 2x15 4: GTB rows 2x15 (verbal and actile cueing for proper technique) 5: Full can 3# 2x10 Skilled Intervention: Patient was educated in proper exercise technique and purpose for exercises. Skilled judgment was used in selection of appropriate interventions. Correct performance of therapeutic exercises was facilitated with verbal and visual cuing. Manual Therapy: 1: STM, CFM, and TrPr to R rhomboids, thoracic paraspinals with push to tolerance Skilled Intervention: Manual skills to improve joint mobility, ROM, and decrease pain. Utilized anatomy knowledge of the therapist, and assessment of patient's response to intervention. Billing Therapeutic Exercise Treatment Minutes: 28 Manual TherapyTreatment Minutes: 12 Total Session Time (minutes): 40 Session Start Time : 1444 Session Stop Time : 1524 STEPHANIA Hope PT documented in this encounter [facility] 04-22-2024 History of Presen t illness Narrative Episode Visit Count: 4 Therapist That Will Accept/Oversee The Plan Of Care: Robert Suggs Start of Care Date: 03/24/24 Onset Date: 12/14/23 REHABILITATION AND SPORTS THERAPY PHYSICAL THERAPY PROGRESS REPORT PLAN OF CARE UPDATE: Assessment: Dane Moran demonstrates moderate improvement in heavy exertion, lifting, physical activities, and working. He has progressed toward goals. Patient continues to present with impairments in overall function, strength, symptom management, and tissue tenderness that interfere with heavy exertion, working, lifting . Current prognosis is Good due to: current objective clinical presentation, good overall health status, good support system/ coping skills . He will benefit from continued skilled therapy services to meet the updated goals for this plan of care as noted below. Goals updated on 04/22/2024. Goals for Episode of Care: created on 03/24/24 through 05/29/24 [place] in home exercise program. Met Patient will decrease pain rating by 2 points to meet minimal clinical important difference for numeric pain rating scale. Partially met Patient will increase active ROM of R shoulder to = L to allow pt to to improve performance of ADLs and decrease pain. Met Patient will demonstrate increase in R shoulder strength to 4+/5 during manual muscle testing in order to improve function for moderate to heavy functional tasks, prior functional tasks, and work tasks. Progressing towards Perform work tasks, reaching, lifting, carrying with decreased report of symptoms/pain in 6-8 weeks. Progressing towards Perform self care and light functional tasks without pain. Met Patient Goals: Get back to PLOF Planned Interventions, Frequency, and Duration: 1x/week, 4 weeks Total Number of Visits Planned: 4 Patient to be seen for Therapeutic exercise ([id number]), Neuromuscular re-education ([id number]), Manual therapy (55132), Therapeutic activities ([id number]), Self-senior care management ([id number]), Body Mechanics Training, Patient/Family/Caregiver Education PLAN FOR NEXT VISIT: Continue manual, progress exercises per tolerance SUBJECTIVE: Patient has been doing better, but he got sick last week with a lot of coughing, This flared up his mid back and he could feel it into his R lat.Only heavy lifting heavy objects 50# or more cause issues at work.. Functional Limitations: heavy exertion, working, lifting Pain: Pain Pain Level: 3 (-8 yesterday) Pain Location: Shoulder - Right Description: Sore Frequency: Intermittent PROMIS Scales T-scores: mean of general population = 50. 5 points is clinically meaningfully difference Percentiles provide an indication of how the patient's score ranks in relation to the general population. Higher percentile rankings indicate better function/quality of life. 50th percentile is the average of the general population and indicates half of respondents had a worse score. OBJECTIVE MEASURES WITH LEVEL OF FUNCTION: UE AROM R UE AROM: WNL = L L UE AROM: WNL UE and Cervical Strength R Shoulder Flexion: 4+/5 R Shoulder External Rotation: 4+/5 R Middle Trapezius: 4+/5 R Lower Trapezius: 4/5 R Rhomboid: 4/5 TREATMENT: Therapeutic Exercise: 1: *BTB atericks exercise 3x10 (pull aparts, then diagonals both ways) 2: *GTB row, rotation, press 3x10 3: Reviewed HEP Skilled Intervention: Patient was educated in proper exercise technique and purpose for exercises. Skilled judgment was used in selection of appropriate interventions. Provided written instruction for home exercise program to facilitate proper performance and compliance. Correct performance of therapeutic exercises was facilitated with verbal, visual, and tactile cuing. Manual Therapy: 1: STM, CFM, and TrPr to R rhomboids, thoracic paraspinals with push to tolerance Skilled Intervention: Manual skills to improve joint mobility, ROM, and decrease pain. Utilized anatomy knowledge of the therapist, and assessment of patient's response to intervention. Billing Therapeutic Exercise Treatment Minutes: 9 Manual TherapyTreatment Minutes: 30 Skilled Treatment Time Minutes (timed and untimed codes): 39 Total Session Time (minutes): 39 Session Start Time : 1234 Session Stop Time : 1313 Robert Suggs PT Program_ID:[id number] Access Code: [email or web address] URL: [email or web address] Date: 04-22-2024 Prepared By: Robert Suggs Program Notes Exercises - Scaption with Dumbbells - 1 x daily - 7 x weekly - 3 sets - 10 reps - Shoulder extension with resistance - Neutral - 1 x daily - 7 x weekly - 3 sets - 10 reps - Prone Single Arm Shoulder Y - 1 x daily - 7 x weekly - 3 sets - 10 reps - Prone Shoulder Horizontal Abduction - 1 x daily - 7 x weekly - 3 sets - 10 reps - Prone Shoulder Flexion - 1 x daily - 7 x weekly - 3 sets - 10 reps - Sidelying Shoulder ER with Towel and Dumbbell - 1 x daily - 7 x weekly - 3 sets - 10 reps - Standing Shoulder Horizontal Abduction with Resistance - 1 x daily - 7 x weekly - 3 sets - 10 reps - Standing Shoulder Diagonal Horizontal Abduction 60/120 Degrees with Resistance - 1 x daily - 7 x weekly - 3 sets - 10 reps - Standing Single Arm Shoulder External Rotation in Abduction with Anchored Resistance - 1 x daily - 7 x weekly - 3 sets - 10 reps documented in this encounter [facility] 04-09-2024 History of Presen t illness Narrative Episode Visit Count: 3 Therapist That Will Accept/Oversee The Plan Of Care: Robert Suggs Start of Care Date: 03/24/24 Onset Date: 12/14/23 REHABILITATION AND SPORTS THERAPY PHYSICAL THERAPY TREATMENT NOTE ASSESSMENT: Dane Moran tolerated the session with decreased symptoms and no issues. He demonstrated improvements in shoulder pain. The patient will continue to benefit from ongoing skilled physical therapy to progress toward set goals. PLAN FOR NEXT VISIT: Could try needling if plateau or flare up is seen. Otherwise continue strength and manual as is SUBJECTIVE: Patient states the W's hurt the ant shoulder, but overall he is doing much better. Less frequent and intense pain as long as he stays away from any heavy lifting Pain: Pain Pain Level: 1 Pain Location: Shoulder - Right Description: Sore Frequency: Intermittent OBJECTIVE MEASURES WITH LEVEL OF FUNCTION: TREATMENT: Therapeutic Exercise: 1: UBE no resistance x2 minutes fwd and bwd 2: *W's BTB 2x15 3: *Prone I, T, Y 2x10 each direction 3# 4: *SL ER 2x10 3# 5: Full can 3# 2x10 Skilled Intervention: Patient was educated in proper exercise technique and purpose for exercises. Skilled judgment was used in selection of appropriate interventions. Provided written instruction for home exercise program to facilitate proper performance and compliance. Correct performance of therapeutic exercises was facilitated with verbal, visual, and tactile cuing. Manual Therapy: 1: STM, CFM, and TrPr to R rhomboids, infraspinatus, and teres minor with push to tolerance Skilled Intervention: Manual skills to improve joint mobility, ROM, and decrease pain. Utilized anatomy knowledge of the therapist, and assessment of patient's response to intervention. Billing Therapeutic Exercise Treatment Minutes: 30 Manual TherapyTreatment Minutes: 14 Skilled Treatment Time Minutes (timed and untimed codes): 44 Total Session Time (minutes): 44 Session Start Time : 1303 Session Stop Time : 1347 Robert Suggs PT Program_ID:[id number] Access Code: [email or web address] URL: [email or web address] Date: 04-09-2024 Prepared By: Robert Suggs Program Notes Exercises - Scaption with Dumbbells - 1 x daily - 7 x weekly - 3 sets - 10 reps - Shoulder External Rotation and Scapular Retraction with Resistance - 1 x daily - 7 x weekly - 3 sets - 10 reps - Shoulder extension with resistance - Neutral - 1 x daily - 7 x weekly - 3 sets - 10 reps - Prone Single Arm Shoulder Y - 1 x daily - 7 x weekly - 3 sets - 10 reps - Prone Shoulder Horizontal Abduction - 1 x daily - 7 x weekly - 3 sets - 10 reps - Prone Shoulder Flexion - 1 x daily - 7 x weekly - 3 sets - 10 reps - Sidelying Shoulder ER with Towel and Dumbbell - 1 x daily - 7 x weekly - 3 sets - 10 reps documented in this encounter [facility] 04-02-2024 History of Presen t illness Narrative Program_ID:[id number] Access Code: [email or web address] URL: [email or web address] Date: 04-02-2024 Prepared By: Robert Suggs Program Notes Exercises - Scaption with Dumbbells - 1 x daily - 7 x weekly - 3 sets - 10 reps - Shoulder External Rotation and Scapular Retraction with Resistance - 1 x daily - 7 x weekly - 3 sets - 10 reps - Shoulder extension with resistance - Neutral - 1 x daily - 7 x weekly - 3 sets - 10 reps - Prone Single Arm Shoulder Y - 1 x daily - 7 x weekly - 3 sets - 10 reps - Prone Shoulder Horizontal Abduction - 1 x daily - 7 x weekly - 3 sets - 10 reps - Prone Shoulder Flexion - 1 x daily - 7 x weekly - 3 sets - 10 reps Episode Visit Count: 2 Therapist That Will Accept/Oversee The Plan Of Care: Robert Suggs Start of Care Date: 03/24/24 Onset Date: 12/14/23 Patient Identified by Name and Date of : Yes REHABILITATION AND SPORTS THERAPY PHYSICAL THERAPY TREATMENT NOTE ASSESSMENT: Dane Moran tolerated the session with no issues. He demonstrated improper form with seated W's on HEP, verbal and visual cues provided for proper performance. Pain reduced with proper form during exercise. Difficulty recruiting navin-scapular muscles during shoulder extension and row verse band. The patient will continue to benefit from ongoing skilled physical therapy to progress toward set goals. PLAN FOR NEXT VISIT: Review HEP. Consider DN, navin-scapular strengthening, monitor scapular mobility SUBJECTIVE: Patient noting onset of anterior shoulder pain after previous PT session. Most pain with the W's exercise. Posterior shoulder pain improving. Pain: Pain Pain Level: 1 Pain Location: Shoulder - Right Post Treatment Pain Post Treatment Pain Level: No Change OBJECTIVE MEASURES WITH LEVEL OF FUNCTION: Shoulder Observations R Shoulder Palpation Tenderness Comments: (TTP at infraspinatus and teres minor) TREATMENT: Therapeutic Exercise: 1: UBE no resistance x2 minutes fwd and bwd (1:1 subjective collect) 2: *W's BTB 2x15 3: Prone I, T, Y 2x10 each direction 4: *Full can 2# 2x10 5: SA pull down verse BTB 3x10 6: Row verse BTB 3x10. VC and tactile cues for scap retraction 7: Rhymthic stabilization at wall with 1# plyo ball 2x20 cw/ccw Skilled Intervention: Patient was educated in proper exercise technique and purpose for exercises. Reviewed and educated patient on additions/changes for home exercise program as above (*). Skilled judgment was used in selection of appropriate interventions. Provided written instruction for home exercise program to facilitate proper performance and compliance. Correct performance of therapeutic exercises was facilitated with verbal and visual cuing. Manual Therapy: 1: STM and ischemic pressure to TrPs at infraspinatus, teres minor, and rhomboids for pain reduction, patient prone. Skilled Intervention: Manual skills to improve joint mobility, ROM, and decrease pain. Utilized anatomy knowledge of the therapist, and assessment of patient's response to intervention. Billing Therapeutic Exercise Treatment Minutes: 28 Manual TherapyTreatment Minutes: 10 Skilled Treatment Time Minutes (timed and untimed codes): 38 Total Session Time (minutes): 38 Session Start Time : 1031 Session Stop Time : 1109 Bharati Peralta PT, DPT documented in this encounter [facility] 03-28-2024 History of Presen t illness Narrative Episode Visit Count: 1 Therapist That Will Accept/Oversee The Plan Of Care: Robert Suggs Start of Care Date: 03/24/24 Onset Date: 12/14/23 Patient Identified by Name and Date of : Yes REHABILITATION AND SPORTS THERAPY PHYSICAL THERAPY EVALUATION PLAN OF CARE: Assessment: Dane Moran presents with chief complaint of R shoulder pain that interferes with heavy exertion, lifting, physical activities, recreational activities . He presents with impairments in ADL's, overall function, range of motion, strength, symptom management, and tissue tenderness. Patient did not complete the PROMIS (Patient Reported Outcome Measures Information System). Prognosis for therapy is Good due to: current objective clinical presentation, good overall health status, good support system/ coping skills . He will benefit from skilled therapy services to meet the goals established for this plan of care as noted below. Goals for Episode of Care: created on 03/24/24 through 05/29/24 [place] in home exercise program. Patient will decrease pain rating by 2 points to meet minimal clinical important difference for numeric pain rating scale. Patient will increase active ROM of R shoulder to = L to allow pt to to improve performance of ADLs and decrease pain. Patient will demonstrate increase in R shoulder strength to 4+/5 during manual muscle testing in order to improve function for moderate to heavy functional tasks, prior functional tasks, and work tasks. Perform work tasks, reaching, lifting, carrying with decreased report of symptoms/pain in 6-8 weeks. Perform self care and light functional tasks without pain. Patient Goals: Get back to PLOF Planned Interventions, Frequency, and Duration: Current Frequency: 1x/week Duration: 8 weeks Total Number of Visits Planned: 8 Planned Treatment Interventions: Therapeutic exercise (77328), Neuromuscular re-education (43260), Manual therapy (07046), Therapeutic activities (72021), Self-senior care management (81366), Patient/Family/Caregiver Education, Body Mechanics Training PLAN FOR NEXT VISIT: Assess carry over of HEP. Manual to trigger points; could be a needling candidate Patient demonstrates good understanding of plan of care and treatment. The above goals and plan of care were discussed and agreed upon by patient/family. SUBJECTIVE: R shoulder pain since 12/13 since patient fell down some stairs. Fell on his shoulder blade and it has hurt ever since. Notes lifting too heavy (100-150# for work) can flare it up. Relaxing hand over head, meloxicam, and a vibration/massage device have all helped. Patient Goals: Get back to PLOF Functional Limitations: heavy exertion, lifting, physical activities, recreational activities Intake Information: Prescription present Pain: Pain Pain Level: 3 Pain Location: Shoulder - Right Description: Stabbing, Sharp Frequency: Continuous PROMIS Scales T-scores: mean of general population = 50. 5 points is clinically meaningfully difference Percentiles provide an indication of how the patient's score ranks in relation to the general population. Higher percentile rankings indicate better function/quality of life. 50th percentile is the average of the general population and indicates half of respondents had a worse score. OBJECTIVE MEASURES WITH LEVEL OF FUNCTION: Shoulder Observations R Shoulder Palpation Tenderness: Medial scapula, Trapezius, Infraspinatus, Comments R Shoulder Palpation Tenderness Comments: Rhomboids UE AROM R UE AROM: WNL except moderate limitation in functional IR L UE AROM: WNL UE and Cervical Strength Strength Tested: Shoulder All L UE Strength: 5/5 R Shoulder Shrug (C4): 5/5 R Shoulder Flexion: 4/5 R Shoulder Abduction (C5): 5/5 R Shoulder Internal Rotation: 5/5 R Shoulder External Rotation: 4+/5 R Middle Trapezius: 4/5 R Lower Trapezius: 3+/5 R Rhomboid: 3+/5 R Elbow Extension (C7): 5/5 R Elbow Flexion (C6): 5/5 Special Tests - Shoulder Shoulder Special Tests: Apprehension, Biceps Load, Empty Can, Neer, Hasty Apprehension: Right Negative Biceps Load: Right Negative Empty Can: Right Negative Neer: Right Negative Hasty: Right Negative Education: Education Learning/educational needs: Home exercise program, Plan of Care, Changes in Plan of Care TREATMENT: PT Treatment Interventions: Therapeutic Exercise Evaluation Therapeutic Exercise: 1: *Full can 2# 3x10 2: *W's GTB 3x10 3: *Pulldowns GTB 3x10 Skilled Intervention: Patient was educated in proper exercise technique and purpose for exercises. Skilled judgment was used in selection of appropriate interventions. Provided written instruction for home exercise program to facilitate proper performance and compliance. Correct performance of therapeutic exercises was facilitated with verbal, visual, and tactile cuing. Billing * Evaluation Low Complexity: 1 Unit Therapeutic Exercise Treatment Minutes: 10 Skilled Treatment Time Minutes (timed and untimed codes): 39 Total Session Time (minutes): 39 Session Start Time : 909 Session Stop Time : 948 HERMINIO Rubyally signed by Robetr Suggs PT at 03/28/2024 12:43 PM EDT Program_ID:[id number] Access Code: [email or web address] URL: [email or web address] Date: 03-24-2024 Prepared By: Robert Suggs Program Notes Exercises - Scaption with Dumbbells - 1 x daily - 7 x weekly - 3 sets - 10 reps - Shoulder External Rotation and Scapular Retraction with Resistance - 1 x daily - 7 x weekly - 3 sets - 10 reps - Shoulder extension with resistance - Neutral - 1 x daily - 7 x weekly - 3 sets - 10 reps documented in this encounter [facility] 03-17-2024 History of Presen t illness Narrative Kosta Francisco MD Department of Orthopaedics Orthopaedics [address] [facility] [address] Dept: [phone] Dept March 17, 2024 CHIEF COMPLAINT: New and Pain of the Right Shoulder and Referred by Dr. Burton HPI Patient here for evaluation right shoulder pain. Patient states in November he fell down about 6-7 steps and landed on the cement on his basement on that shoulder. He had xray's done at on 12/14/23 and again at [facility] on 12/14/23. Mri done on 01/31/24. Patient states he pain is in his shoulder blade area. Patient is right hand dominant. 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 ASSESSMENT: M75.111 Incomplete rotator cuff tear or rupture of right shoulder, not specified as traumatic PLAN: The findings on his MRI looks to be a bit incidental as he is not really having any impingement or rotator cuff symptoms. I would like him to try an anti-inflammatory and get into some physical therapy to be working mostly on the periscapular muscles. If he continues to have trouble despite these interventions, we may consider more focused MRI of the scapula specifically. FOLLOW UP INSTRUCTIONS: 4 to 6 weeks or as needed Mr. Dane Moran was advised as to contrast therapies and/or to take analgesics/anti-inflammatories as needed and all contraindications were reviewed. OBJECTIVE: Mr. Dane Moran is a pleasant 53 year old in no apparent distress. Gen:There were no vitals taken for this visit. nl development, non obese, no deformities ENT: Normocephalic, normal hearing, moist mucosa CV: Pulses:Radial= 2+ and symmetric, capillary refill < 2 secs, no peripheral edema/varicosities Skin: no rash, bruising or lesions. Good turgor. Psych: cooperative and appropriate, alert and oriented x 3, good mood and affect. Musculoskeletal: Good range of motion of the shoulder without any deficits. Rotator cuff testing is intact. Negative Neer and Lockett impingement signs. He has tenderness over the medial border and superior border of the scapula. Some tenderness within the trap insertions may be somewhat in the muscle belly of the supraspinatus. No winging. IMAGING: * * *Final Report* * * DATE OF EXAM: Jan 31 2024 7:48AM LDM 0240 - MRI SHOULDER WO IVCON RT / PROCEDURE REASON: multiple diagnoses * * * * Physician Interpretation * * * * MRI RIGHT SHOULDER CLINICAL INDICATION: Right shoulder pain COMPARISON: Radiographs right shoulder 07/13/2022 TECHNIQUE: Routine MRI right shoulder per protocol. FINDINGS: There is infraspinatus tendinosis with probable low-grade partial-thickness articular sided and interstitial tearing. Supraspinatus, subscapularis and teres minor tendons appear normal. No full-thickness rotator cuff tendon tear or muscular atrophy. Glenohumeral joint is maintained. No evidence of a labral tear. Long head biceps tendon is intact and appropriately positioned. Mild osteoarthritis of the acromioclavicular joint. 0.9 cm STIR hyperintense cystic focus is present within the distal clavicle consistent with intraosseous ganglion. Os acromion is noted. No fracture or pathologic marrow replacing lesion. Supporting Subjective Information Below: Past Medical History: PAST MEDICAL HISTORY Diagnosis Date Anxiety Diabetes (HCC) Fatty liver Hypertension Past Surgical History: PAST SURGICAL HISTORY Procedure Laterality Date ANESTHESIA KNEE, ARTHROSCOPIC 1983 right knee Family History: FAMILY HISTORY Problem Relation Age of Onset Ischemic Heart Disease Father 50 at 51 Diabetes Mother Diabetes Maternal Grandfather Social History: Social History Tobacco Use Smoking status: Never Smokeless tobacco: Current Types: Chew Tobacco comments: 1/2 can a day Vaping Use Vaping Use: Never used Substance Use Topics Alcohol use: Yes Comment: 1-2 drinks per day Drug use: No Medications: Current Outpatient Medications Medication Sig glyBURIDE 5 mg tablet Take 1 tablet by mouth daily with breakfast. triamcinolone acetonide (KENALOG) 0.1 % ointment Apply to affected area two times a day. lisinopril-hydroCHLOROthiazide (ZESTORETIC) 20-25 mg per tablet Take 1 tablet by mouth every morning. metFORMIN (GLUCOPHAGE) 1,000 mg tablet Take 1 tablet by mouth two times a day with meals. sildenafil (VIAGRA) 100 mg tablet Take 1 tablet by mouth once daily as needed. Take 30-60 minutes before sexual activity. blood sugar diagnostic (BLOOD GLUCOSE TEST) test strip Test blood sugar(s) 1 times daily. Dx: Type 2 DM - Controlled E11.9 Insulin: No Current Facility-Administered Medications Medication Dose Route Frequency perflutren lipid microspheres 1.3 mL in NaCl (PF) 0.9% 10 mL injection (DEFINITY) INTRAVENOUS DIRECTED PRN sodium chloride 0.9 % (flush) 10 mL (BD POSIFLUSH) 10 mL INTRAVENOUS DIRECTED PRN Allergies: Patient has no known allergies. ROS: General (negative for fatigue, malaise, weight loss/gain) HEENT (negative for headache, earache, recent vision changes, sinus pain, sore throat) Respiratory (no recent shortness of breath, hemoptysis) CV (negative for chest tightness, palpitations) Musculoskeletal (see HPI) Psych (no depression, anxiety) REFERRING PHYSICIAN: Consultation requested by Dr. Burton for an opinion regarding shoulder pain. My final recommendations will be communicated back to the requesting physician by way of shared Medical record or letter to requesting physician via US mail. Willie Burton [address] [facility] [id number] Willie Burton MD [address] [facility] [address] Kosta Francisco MD documented in this encounter [facility] 03-10-2024 Telephone encounter Note Patient notified of results, verbalizes understanding of instructions. The following approved medication requests have been transmitted electronically. Requested Prescriptions Signed Prescriptions Disp Refills glyBURIDE 5 mg tablet 30 tablet 11 Sig: Take 1 tablet by mouth daily with breakfast. Authorizing Provider: REAGAN GARCIA MA [facility] 03-10-2024 Miscellaneous Notes Patient notified of results, verbalizes understanding of instructions. The following approved medication requests have been transmitted electronically. Requested Prescriptions Signed Prescriptions Disp Refills glyBURIDE 5 mg tablet 30 tablet 11 Sig: Take 1 tablet by mouth daily with breakfast. Authorizing Provider: REAGAN GARCIA MA Please let the patient know that his labs show that his Hgb A1c increased to 8.1%. Other labs were stable. I would like for him to restart his glyburide 5 mg once daily and recheck labs in 3 months prior to seeing me back in the office. Refill sent. The following approved medication requests have been transmitted electronically. Requested Prescriptions Signed Prescriptions Disp Refills glyBURIDE 5 mg tablet 30 tablet 11 Sig: Take 1 tablet by mouth daily with breakfast. Authorizing Provider: REAGAN GARCIA APRN.CNP documented in this encounter [facility] 03-10-2024 Telephone encounter Note Please let the patient know that his labs show that his Hgb A1c increased to 8.1%. Other labs were stable. I would like for him to restart his glyburide 5 mg once daily and recheck labs in 3 months prior to seeing me back in the office. Refill sent. The following approved medication requests have been transmitted electronically. Requested Prescriptions Signed Prescriptions Disp Refills glyBURIDE 5 mg tablet 30 tablet 11 Sig: Take 1 tablet by mouth daily with breakfast. Authorizing Provider: REAGAN GARCIA APRN.WATCH REPAIRER [facility] 03-06-2024 Instructions Cee Farias APRN.CNP - 03/06/2024 9:28 AM EDT Use steroid ointment as needed Keep skin clean and dry May use pepcid as needed for itching Follow up if no improvement. documented in this encounter [facility] 03-06-2024 History of Presen t illness Narrative This is a 53 year old male who presents today with: Patient presents with: Acute Visit: ? cellulits HISTORY OF PRESENT ILLNESS: Dane Moran is a 53 year old male. Patient presents with: Acute Visit: ? cellulits Here in the office for redness and itchting to right lower leg. Started about a month ago. Has been outside doing yard work. Denies fever or chills. PAST MEDICAL HISTORY: PAST MEDICAL HISTORY Diagnosis Date Anxiety Diabetes (HCC) Fatty liver Hypertension PAST SURGICAL HISTORY Procedure Laterality Date ANESTHESIA KNEE, ARTHROSCOPIC 1983 right knee ALLERGIES Patient has no known allergies. MEDICATIONS Current Outpatient Medications Medication Sig glyBURIDE 5 mg tablet Take 1 tablet by mouth daily with breakfast. lisinopril-hydroCHLOROthiazide (ZESTORETIC) 20-25 mg per tablet Take 1 tablet by mouth every morning. metFORMIN (GLUCOPHAGE) 1,000 mg tablet Take 1 tablet by mouth two times a day with meals. sildenafil (VIAGRA) 100 mg tablet Take 1 tablet by mouth once daily as needed. Take 30-60 minutes before sexual activity. blood sugar diagnostic (BLOOD GLUCOSE TEST) test strip Test blood sugar(s) 1 times daily. Dx: Type 2 DM - Controlled E11.9 Insulin: No Current Facility-Administered Medications Medication Dose Route Frequency perflutren lipid microspheres 1.3 mL in NaCl (PF) 0.9% 10 mL injection (DEFINITY) INTRAVENOUS DIRECTED PRN sodium chloride 0.9 % (flush) 10 mL (BD POSIFLUSH) 10 mL INTRAVENOUS DIRECTED PRN FAMILY HISTORY Problem Relation Age of Onset Ischemic Heart Disease Father 50 at 51 Diabetes Mother Diabetes Maternal Grandfather Social History Tobacco Use Smoking status: Never Smokeless tobacco: Current Types: Chew Tobacco comments: 1/2 can a day Vaping Use Vaping Use: Never used Substance Use Topics Alcohol use: Yes Comment: 1-2 drinks per day Drug use: No REVIEW OF SYSTEMS GENERAL: No weight loss, malaise or fevers/chills HEENT: Negative for frequent or significant headaches, No changes in hearing or vision. NECK: Negative for lumps, goiter, pain and significant neck swelling RESPIRATORY: Negative for cough, hemoptysis, wheezing, dyspnea or shortness of breath CARDIOVASCULAR: Negative for chest pain, leg swelling, orthopnea, or palpitations GI: No nausea, vomiting, or diarrhea/constipation. No hematochezia/melena. No heartburn or reflux symptoms. : No history of dysuria, frequency or incontinence MUSCULOSKELETAL: Negative for joint pain or swelling. SKIN: + Right Leg Itching ENDOCRINE: Negative for cold or heat intolerance, polyuria, polydipsia and goiter NEURO: No history of headaches, syncope, paralysis, seizures or tremors MOOD: Negative for depression, anxiety, or suicidal ideation. EXAM: BP 120/60 Pulse 98 Resp 16 Wt 90.7 kg (200 lb) SpO2 95% BMI 28.70 kg/m PHYSICAL EXAM: General Appearance: Well appearing, alert, in no acute distress, well-hydrated, well nourished. Skin: Large dry, mild erythematic patches noted to right lower leg, no increased warmth, no seeping. Head: Normocephalic, no masses, lesions, tenderness or abnormalities. Eyes: Anicteric sclera. Pupils are equally round and reactive to light. Extraocular movements are intact. Extremities: No deformities, edema, skin discoloration, clubbing or cyanosis. Good capillary refill. Musculoskeletal: No joint swelling, deformity, or tenderness. Peripheral Pulses: Normal, Capillary refill <2secs, strong peripheral pulses, Pulses palpable. Neurologic: Gait normal. Reflexes normal and symmetric. Sensation grossly intact.. ASSESSMENT/PLAN: 1. Contact dermatitis, unspecified contact dermatitis type, unspecified trigger - ICD9: 692.9, ICD10: L25.9 - Topical steriod tx with Rx for steriod cream/ointment- see orders - discussed skin care of rash - follow up if symptoms persist or worsen. - TRIAMCINOLONE ACETONIDE 0.1 % TOPICAL OINTMENT Follow-up if no improvement. Discussed treatment plan and patient voices understanding. Patient's questions answered appropriately. Medications and potential side effects were discussed and patient voices understanding. Cee Farias APRN.CNP This note was partially generated using [employer] voice recognition system. Note was reviewed for accuracy. There may be minor misspellings or grammar miscues with Dragon voice recognition. documented in this encounter [facility] 01-30-2024 Note HNO ID: [id number] Author: CEE ARAIZA RT(R) Service: ? Author Type: Technologist Type: Progress Notes Filed: 01/30/2024 14:52 Note Text: Radiology Service Progress Note PATIENT NAME: Dane Moran DATE OF SERVICE: January 30, 2024 TIME: 2:52 PM PATIENT IDENTITY VERIFICATION COMPLETED USING TWO (2) IDENTIFIERS: Name and Date of confirmed by patient verbally. FALL SCREENING: Has the patient had 2 falls in the last year or 1 fall with injury or currently using an Ambulatory Assistive Device (Walker, Cane, Wheelchair, Crutches, etc.)? No PATIENT GENDER DATA: Male PATIENT RELEVANT IMPLANT DATA REVIEWED: Yes PATIENT PRESENTS WITH AN IMPLANTABLE OR ATTACHED CLINICAL SYSTEMS EDUCATOR: No RADIOLOGY DEPARTMENT: MR; Exam(s) Completed: Upper MSK: Shoulder, right PERIPHERAL IV DATA: Not applicable SIGNED BY: Cee Araiza RDMS, RVT- [facility] ([facility]) January 30, 2024 2:52 PM [facility] 01-30-2024 History of Presen t illness Narrative Radiology Service Progress Note PATIENT NAME: Dane Moran DATE OF SERVICE: January 30, 2024 TIME: 2:52 PM PATIENT IDENTITY VERIFICATION COMPLETED USING TWO (2) IDENTIFIERS: Name and Date of confirmed by patient verbally. FALL SCREENING: Has the patient had 2 falls in the last year or 1 fall with injury or currently using an Ambulatory Assistive Device (Walker, Cane, Wheelchair, Crutches, etc.)? No PATIENT GENDER DATA: Male PATIENT RELEVANT IMPLANT DATA REVIEWED: Yes PATIENT PRESENTS WITH AN IMPLANTABLE OR ATTACHED CLINICAL SYSTEMS EDUCATOR: No RADIOLOGY DEPARTMENT: MR; Exam(s) Completed: Upper MSK: Shoulder, right PERIPHERAL IV DATA: Not applicable SIGNED BY: Cee Araiza RDMS, RVT- Sheila ([facility]) January 30, 2024 2:52 PM documented in this encounter [facility] 01-15-2024 Telephone encounter Note Patient returned call and aware order in place in computer. Assisted with transfer to supervisor continuous [employer] pipe [employer] to get MRI appt set up. [facility] 01-15-2024 Miscellaneous Notes Patient returned call and aware order in place in computer. Assisted with transfer to supervisor continuous [employer] to get MRI appt set up. Called and left message on patients voicemail to return call to the office and ask to speak with a FM triage nurse. Aminata Black MA MRI ordered Willie Burton MD Does not look like pt has done any PT for shoulder. He did see Ortho Jul [address]22 Dr. Francisco. Margie Brooks MA Pt called in requesting MRI for right shoulder. Chiropractor not doing any good. Please advise documented in this encounter [facility] 01-15-2024 Telephone encounter Note Called and left message on patients voicemail to return call to the office and ask to speak with a FM triage nurse. Aminata Black MA [facility] 01-15-2024 Telephone encounter Note MRI ordered Willie Burton MD [facility] 01-15-2024 Telephone encounter Note Does not look like pt has done any PT for shoulder. He did see Ortho Jul [address]22 Dr[address] Francisco. Margie Brooks MA [facility] 01-15-2024 Telephone encounter Note Pt called in requesting MRI for right shoulder. Chiropractor not doing any good. Please advise [facility] 12-14-2023 History of Presen t illness Narrative This note was created using [employer]. Subjective Dane Moran is a 53 year old male. 53 year old male with PMH of DM and HTN presents with acute onset right shoulder pain. He states he fell 3 weeks ago hitting his head, shoulder and back. He saw his PCP one week ago and got x-rays. States the pain has only been getting worse since. Currently reports 9/10 pain and is visibly uncomfortable. Aggravating factors include sitting up and standing. Pain only relieved with laying down and laying on his side. Right hand dominant and is able to use right arm, denies weakness or pain worsening with movement. Pertinent negatives include numbness, tingling, weakness, abdominal pain, and chest pain. Pertinent positives include dizziness. Referred to ED for further work-up and management The history is provided by the patient. Pain (Shoulder Pain) This is a new problem. The current episode started 1 to 4 weeks ago. The problem occurs constantly. The problem has been rapidly worsening. Associated symptoms include vertigo. Pertinent negatives include no abdominal pain, chest pain, chills, fever, headaches, joint swelling, nausea, neck pain, numbness, rash or weakness. The symptoms are aggravated by standing (sitting). He has tried rest, position changes, lying down and heat (TENs unit) for the symptoms. The treatment provided no relief. PAST MEDICAL HISTORY Diagnosis Date Anxiety Diabetes (HCC) Fatty liver Hypertension PAST SURGICAL HISTORY Procedure Laterality Date ANESTHESIA KNEE, ARTHROSCOPIC 1983 right knee ALLERGIES Patient has no known allergies. MEDICATIONS glyBURIDE 5 mg tablet^Take 1 tablet by mouth daily with breakfast.^Disp: 30 tablet^Rfl: 11 lisinopril-hydroCHLOROthiazide (ZESTORETIC) 20-25 mg per tablet^Take 1 tablet by mouth every morning.^Disp: 30 tablet^Rfl: 11 metFORMIN (GLUCOPHAGE) 1,000 mg tablet^Take 1 tablet by mouth two times a day with meals.^Disp: 60 tablet^Rfl: 11 sildenafil (VIAGRA) 100 mg tablet^Take 1 tablet by mouth once daily as needed. Take 30-60 minutes before sexual activity.^Disp: 6 tablet^Rfl: 4 blood sugar diagnostic (BLOOD GLUCOSE TEST) test strip^Test blood sugar(s) 1 times daily. Dx: Type 2 DM - Controlled E11.9 Insulin: No^Disp: 50 Strip^Rfl: 11 FAMILY HISTORY Problem Relation Age of Onset Ischemic Heart Disease Father 50 at 51 Diabetes Mother Diabetes Maternal Grandfather Social History Tobacco Use Smoking status: Never Smokeless tobacco: Current Types: Chew Tobacco comments: 1/2 can a day Vaping Use Vaping Use: Never used Substance Use Topics Alcohol use: Yes Comment: 1-2 drinks per day Drug use: No Review of Systems Constitutional: Negative for chills and fever. Respiratory: Negative for chest tightness and shortness of breath. Cardiovascular: Negative for chest pain. Gastrointestinal: Negative for abdominal pain and nausea. Musculoskeletal: Negative for joint swelling, neck pain and neck stiffness. Skin: Negative for rash. Neurological: Positive for dizziness and vertigo. Negative for weakness, light-headedness, numbness and headaches. Objective BP 127/76 Pulse 116 Temp 36.8 C (98.2 F) Resp 18 Wt 87.9 kg (193 lb 12.6 oz) SpO2 98% BMI 27.81 kg/m Physical Exam Vitals (Appears uncomfortable.) reviewed. Constitutional: General: He is awake. He is in acute distress. Appearance: He is obese. He is not ill-appearing, toxic-appearing or diaphoretic. Comments: Flushed and appears uncomfortable Neck: Vascular: No carotid bruit. Comments: Pain with neck flexion. Cardiovascular: Rate and Rhythm: Regular rhythm. Tachycardia present. Chest Wall: No thrill. Heart sounds: S2 normal. Heart sounds not distant. Murmur heard. Systolic murmur is present with a grade of 3/6. No S3 or S4 sounds. Pulmonary: Effort: Pulmonary effort is normal. No tachypnea, bradypnea, accessory muscle usage, prolonged expiration, respiratory distress or retractions. Breath sounds: No stridor or decreased air movement. Rhonchi present. No decreased breath sounds, wheezing or rales. Chest: Chest wall: No tenderness. Abdominal: General: There is no distension. Palpations: Abdomen is soft. Tenderness: There is no abdominal tenderness. There is no right CVA tenderness, left CVA tenderness, guarding or rebound. Musculoskeletal: General: Tenderness present. No swelling, deformity or signs of injury. Normal range of motion. Right shoulder: Tenderness and bony tenderness present. No swelling, deformity, effusion, laceration or crepitus. Normal range of motion. Normal strength. Normal pulse. Left shoulder: Normal. No swelling, deformity, effusion, laceration, tenderness, bony tenderness or crepitus. Normal range of motion. Normal strength. Normal pulse. Right upper arm: Normal. No swelling, edema, deformity, lacerations, tenderness or bony tenderness. Left upper arm: Normal. No swelling, edema, deformity, lacerations, tenderness or bony tenderness. Right elbow: Normal. No swelling, deformity, effusion or lacerations. Normal range of motion. No tenderness. Left elbow: Normal. No swelling, deformity, effusion or lacerations. Normal range of motion. No tenderness. Right forearm: Normal. No swelling, edema, deformity, lacerations, tenderness or bony tenderness. Left forearm: Normal. No swelling, edema, deformity, lacerations, tenderness or bony tenderness. Right wrist: Normal. No swelling, deformity, effusion, lacerations, tenderness, bony tenderness, snuff box tenderness or crepitus. Normal range of motion. Normal pulse. Left wrist: Normal. No swelling, deformity, effusion, lacerations, tenderness, bony tenderness, snuff box tenderness or crepitus. Normal range of motion. Normal pulse. Right hand: Normal. No swelling, deformity, lacerations, tenderness or bony tenderness. Normal range of motion. Normal strength. Normal sensation. Normal capillary refill. Normal pulse. Left hand: Normal. No swelling, deformity, lacerations, tenderness or bony tenderness. Normal range of motion. Normal strength. Normal sensation. Normal capillary refill. Normal pulse. Cervical back: Normal and neck supple. No swelling, edema, deformity, erythema, signs of trauma, lacerations, rigidity, spasms, torticollis, tenderness, bony tenderness or crepitus. No pain with movement. Normal range of motion. Thoracic back: Normal. Lumbar back: Normal. Comments: Tenderness to palpation on medial side of scapula. Unable to reproduce pain on exam. Negative horn blower, lift off, and empty can. Lymphadenopathy: Cervical: No cervical adenopathy. Skin: General: Skin is warm and dry. Capillary Refill: Capillary refill takes less than 2 seconds. Coloration: Skin is not jaundiced or pale. Findings: Erythema present. No bruising, lesion or rash. Comments: Face is flushed. Neurological: General: No focal deficit present. Mental Status: He is alert and oriented to person, place, and time. Cranial Nerves: No dysarthria. Sensory: Sensation is intact. No sensory deficit. Motor: No weakness. Coordination: Coordination normal. Gait: Gait normal. Psychiatric: Mood and Affect: Mood normal. Behavior: Behavior normal. Behavior is cooperative. Thought Content: Thought content normal. Judgment: Judgment normal. Assessment and Plan ASSESSMENT/PLAN: 1. Acute pain of right shoulder - ICD9: 719.41, ICD10: M25.511 - Acute onset 3 weeks ago after a fall at home and rapidly worsening. Did hit his head during fall. - Saw PCP last week where x-rays were obtained and negative. - Reports intermittent dizziness. - ROM and strength of right shoulder intact. Negative left off, horn-blower and empty can test. Tenderness to palpation on medial side of scapula. Unable to reproduce pain on exam, but patient visibly uncomfortable. Tachycardic, pulse 116 with grade 3 systolic murmur. - Referred to ED for further work-up and management 2. Dizzy - ICD9: 780.4, ICD10: R42 3. Tachycardia - ICD9: 785.0, ICD10: R00.0 Apical 116 Given pain worsening and out of proportion with negative xrays 3 weeks ago, Concerns for need for higher imaging and needs to address severe 9/10 pain Cata Capellan TEACHING PROVIDER (Physician/PA/SENIOR ACCOUNTING SPECIALIST) NOTE OF PERSONAL INVOLVEMENT IN CARE: I have personally seen and examined the patient and performed the medical decision-making components. I have reviewed the Advanced Practice Registered Nurse (SENIOR ACCOUNTING SPECIALIST) Student's documentation and verified the findings in the note as written. Any additions or changes are noted in bold/italics. Signature: Daya Cook Date: 12/14/2023 Time: 11:09 AM documented in this encounter [facility] 12-04-2023 Miscellaneous Notes Phoned patient and given provider's message below with verbalized understanding. Pt agreeable. Please let the patient know that his blood work and x-ray results are in. X-ray is showing normal scapula, normal coccyx. X-ray of the right heel shows some inflammation, soft tissue swelling, heel spur. Again if you would like to continue with wearing a supportive shoe with insoles, this would be the starting treatment. If this is not helping and pain is continuing, we can get him to podiatry. In regards to his blood work, his hemoglobin A1c has worsened to 7.8%. It was previously 5.7%. I would like for him to restart his glyburide 5 mg once daily. Repeat hemoglobin A1c in 3 months. Cholesterol panel looked okay. Urine sample was okay. A few liver enzymes were mildly elevated. I would like to also recheck this in 3 months. The following approved medication requests have been transmitted electronically. Requested Prescriptions Signed Prescriptions Disp Refills glyBURIDE 5 mg tablet 30 tablet 11 Sig: Take 1 tablet by mouth daily with breakfast. Authorizing Provider: REAGAN GARCIA APRN.CNP documented in this encounter [facility] 12-03-2023 Miscellaneous Notes Patient has tried Cialis in the past. Wants to try something different. The following approved medication requests have been transmitted electronically. Requested Prescriptions Signed Prescriptions Disp Refills sildenafil (VIAGRA) 100 mg tablet 6 tablet 4 Sig: Take 1 tablet by mouth once daily as needed. Take 30-60 minutes before sexual activity. Authorizing Provider: REAGAN GARCIA APRN.CNP Patient stopped back at office to update provider he's concerned about ED. Pharmacy verified: [facility]. Zoya Decker MA documented in this encounter [facility] 12-03-2023 Miscellaneous Notes Addended by: REAGAN GARCIA on: 12/03/2023 09:16 AM Modules accepted: Orders documented in this encounter [facility] 12-03-2023 History of Presen t illness Narrative Radiology Service Progress Note PATIENT NAME: Dane Moran DATE OF SERVICE: December 03, 2023 TIME: 9:05 AM PATIENT IDENTITY VERIFICATION COMPLETED USING TWO (2) IDENTIFIERS: Name and Date of confirmed by patient verbally. FALL SCREENING: Has the patient had 2 falls in the last year or 1 fall with injury or currently using an Ambulatory Assistive Device (Walker, Cane, Wheelchair, Crutches, etc.)? No PATIENT GENDER DATA: Male PATIENT RELEVANT IMPLANT DATA REVIEWED: Yes PATIENT PRESENTS WITH AN IMPLANTABLE OR ATTACHED CLINICAL SYSTEMS EDUCATOR: No RADIOLOGY DEPARTMENT: General X-ray: Exam(s) Completed: Spine X-Ray(s): Sacrum/Coccyx Lower Extremity X-Ray(s): Foot, Right and Wt. Bearing Upper Extremity X-Ray(s): Scapula, right PERIPHERAL IV DATA: Not applicable SIGNED BY: RT Patricia(R) December 03, 2023 9:05 AM documented in this encounter [facility] 12-03-2023 History of Presen t illness Narrative Chief Complaint Patient presents with: F/U 6 Month HPI Dane Moran is a 52 year old male who presents here today for Chronic Medical Conditions. HTN: Patient is compliant with meds Yes Monitors bp at home: No. Denies side effects: Yes. Chest pain: No. Dyspnea: No. Edema: No. Palpitations: No. Syncope: No. Headache: No. Dizziness: No. DM: Reports overall feeling well. Medication side effects: No. Home sugar checks: No Hypoglycemic spells: No. Watching diet: Yes. Unexpected weight loss: No. Polyuria, polydipsia: No. Vision Changes: No. Foot lesions or numbness or pain: No. Complaints of right shoulder pain. Ongoing for about 2 weeks. Came after the below fall. Pain in the scapular area. No restriction in ROM. Pain can radiate to front. Fell on his tailbone 2 weeks ago. Fell on concrete. Fell off of some steps. Hit head, some dizziness occasionally. Bending over causing his pain. Took some aleve, not really taking edge off. Right heel is also hurting, ongoing for about a month. Does not really hurt with every step. Comes and goes. On feet all the time. Worse in the evening. Did notice increase in pain with wearing of shoes. Did notice some improvement with new soles/inserts. Past medical history, appointments, medications, allergies reviewed. EXAM: BP 127/73 Pulse 98 Resp 16 Wt 91.6 kg (202 lb) SpO2 96% BMI 28.98 kg/m General Appearance: Well appearing, alert, in no acute distress, well-hydrated, well nourished.. Lungs: Lungs clear to auscultation. No wheezing, rhonchi, rales.. Heart: Positive findings: murmur: 2/6 mid systolic low pitched soft murmur URSB and ULSB Extremities: right foot: No tenderness of the plantar fascia. Moderate tenderness of the right feel. Musculoskeletal: Shoulder: Location: Right Redness: No. Warmth: No. Tenderness to palpation: Yes. Scapular. Swelling: No. Range of motion: intact, painful with behind the head Empty can test: negative [place]: negative Back: Mild tenderness in the sacrum. Bending over at waist increases pain ASSESSMENT/PLAN: 1. Controlled type 2 diabetes mellitus without complication, without long-term current use of insulin (HCC) - ICD9: 250.00, ICD10: E11.9 (primary diagnosis) - Control undetermined, due for labs - Continue current medications - LIPID PANEL BASIC - ALBUMIN/CREAT RATIO RND UR - HGB A1C - METFORMIN 1,000 MG TABLET 2. Essential hypertension, benign - ICD9: 401.1, ICD10: I10 - Controlled - Continue current medications - Recommend home blood pressure monitoring, to bring results to next visit - Encouraged sodium restriction, DASH or Mediterranean diet - Recommend regular aerobic exercise - COMP METABOLIC PANEL - LISINOPRIL 20 MG-HYDROCHLOROTHIAZIDE 25 MG TABLET 3. Pain of right heel - ICD9: 729.5, ICD10: M79.671 -Not really following plantar fasciitis. Possible heel spur. Discussed orthotics or [id number] inserts. Patient wanted x-ray of the foot. - XR FOOT GENERAL 3V AP/LAT/OBL RIGHT 4. Pain of right scapula - ICD9: 733.90, ICD10: M89.8X1 -Occurred after his fall but patient states that this was not associated with the fall. On exam it appears that his pain is more related to musculoskeletal. I recommended prednisone taper to see if we can get improvement and hold off on x-ray. Patient elected to want an x-ray to further assess. - XR SCAPULA 2V AP/LAT RIGHT - PREDNISONE 10 MG TABLET 5. Injury of coccyx, initial encounter - ICD9: 959.19, ICD10: S39.92XA -Patient had trauma with fall. Has continued pain. Different positions increases pain. Would like to get an x-ray. - XR SACROILIAC JOINTS 2V AP PELVIS/FERGUESON - PREDNISONE 10 MG TABLET 6. Screening for colon cancer - ICD9: V76.51, ICD10: Z12.11 - FECAL OCCULT BLOOD TEST Reagan Garcia APRN.CNP RTO in 6 months, sooner if needed. This note was partly generated using [employer] voice recognition dictation and may contain some misspelled or inaccurate words missed on review. documented in this encounter [facility] 09-07-2023 Instructions Inge Rodrigues APRN.CNP - 09/07/2023 3:40 PM EST Rest, stretches, strengthening Naproxen one tablet twice a day with food for 2 weeks Flexeril at bedtimes Ice/Heat Report immediately to ER for foot drop, bowel or bladder loss, numbness or tingling of legs/feet or any new or worsening concerns if unable to get into PMD documented in this encounter [facility] 09-07-2023 History of Presen t illness Narrative Images from the original note were not included. Subjective The history is provided by the patient. No staff interpreter was used. HPI Dane Moran is a 52 year old male who presents today for CC of lower back pain, worse on right. He has used ice and heat without relief. BP 144/71 Pulse 109 Temp 37.2 C (99 F) Resp 18 Wt 91.2 kg (201 lb) SpO2 99% BMI 28.84 kg/m Social History Tobacco Use Smoking status: Never Smokeless tobacco: Current Types: Chew Tobacco comments: 1/2 can a day Vaping Use Vaping Use: Never used Substance Use Topics Alcohol use: Yes Comment: 1-2 drinks per day Drug use: No PAST MEDICAL HISTORY Diagnosis Date Anxiety Diabetes (HCC) Fatty liver Hypertension I have confirmed and edited as necessary, the [facility] Review of Systems Constitutional: Negative for chills and fever. Musculoskeletal: Positive for back pain. Negative for joint pain and myalgias. Skin: Negative for itching and rash. All other systems reviewed and are negative. Objective Physical Exam Vitals and nursing note reviewed. Cardiovascular: Pulses: Dorsalis pedis pulses are 2+ on the right side and 2+ on the left side. Posterior tibial pulses are 2+ on the left side. Pulmonary: Effort: Pulmonary effort is normal. Musculoskeletal: Cervical back: Normal. Thoracic back: Normal. Lumbar back: Tenderness present. No swelling, edema, deformity, signs of trauma, lacerations, spasms or bony tenderness. Decreased range of motion. Negative right straight leg raise test and negative left straight leg raise test. No scoliosis. Back: Skin: General: Skin is warm and dry. Neurological: Mental Status: He is alert and oriented to person, place, and time. Sensory: Sensation is intact. Motor: Motor function is intact. Coordination: Coordination is intact. Deep Tendon Reflexes: Reflexes are normal and symmetric. Psychiatric: Mood and Affect: Affect normal. ASSESSMENT/PLAN: 1. Acute right-sided low back pain without sciatica - ICD9: 724.2, ICD10: M54.50 Appears to be muscle strain Rest, stretches, strengthening Naproxen one tablet twice a day with food for 2 weeks Flexeril at bedtime Ice/Heat Red flags given Diagnosis and treatment plan were discussed and questions were answered to the patient's satisfaction. Pt acknowledged understanding of concepts and follow up plan. Specific signs and symptoms that would indicate the need for higher level of care were discussed in detail warranting prompt ER evaluation. Inge Rodrigues APRN.WATCH REPAIRER documented in this encounter [facility] 05-30-2023 History of Presen t illness Narrative Patient presents with: Ear Pain: Right ear pain x 2 days HPI: Right ear pain: Duration: 2 days Location: right ear Character: clogged, pain Associated: decreased hearing Pertinent negatives: Denies otorrhea Positive symptoms: Nasal Congestion, Negative symptoms: Cough, Sore throat, Sinus pressure, Fever, tinnitus, dizziness, OTC: OTC ear wax drops MEDICATIONS: Current Outpatient Medications Medication Sig lisinopril-hydroCHLOROthiazide (ZESTORETIC) 20-25 mg per tablet Take 1 tablet by mouth every morning. metFORMIN (GLUCOPHAGE) 1,000 mg tablet Take 1 tablet by mouth twice daily with meals. blood sugar diagnostic (BLOOD GLUCOSE TEST) test strip Test blood sugar(s) 1 times daily. Dx: Type 2 DM - Controlled E11.9 Insulin: No No current facility-administered medications for this visit. ALLERGIES: ALLERGIES No Known Allergies VITALS: BP 138/82 Pulse 103 Temp 36.9 C (98.4 F) (Tympanic) Resp 16 Wt 88.4 kg (194 lb 12.8 oz) SpO2 96% BMI 27.95 kg/m PHYSICAL EXAM: GEN: Pleasant, in no acute distress. HEENT: PERRL, EOMI, conjunctiva clear Ears: canals occluded by cerumen. LTM without erythema, bulge, or effusion after lavage. The superior RTM has erythema and irregularity; inferior TM shows no effusion or erythema. Sinuses: non-tender frontal sinus, non-tender maxillary sinuses Throat: moist mucous membranes, no erythema, no exudate Neck: supple, no thyromegaly, no lymphadenopathy HEART: regular rate and rhythm, 2/6 systolic murmurs left and right upper sternal borders and apex. LUNGS: clear to auscultation, no wheezes or crackles, no increased WOB ASSESSMENT/PLAN: 1. Bilateral impacted cerumen - ICD9: 380.4, ICD10: H61.23 (primary diagnosis) - AMBULATORY EAR LAVAGE/IRRIGATION successful removal of cerumen by staff irrigation. Upper right tympanic membrane irritation may be from mechanical trauma from impaction or irritation from trapped OTC wax drops. Start - [id number] 3.5 MG-10,000 UNIT/ML-1 % EAR DROPS,SUSP while healing. Follow up if symptoms persist. 2. Heart murmur - ICD9: 785.2, ICD10: R01.1 No known past diagnosis of heart murmur. He is due for 6 month PCP follow up. Advised he schedule an appointment. FYI to primary care team. Jonathan Isabel MD documented in this encounter [facility] 03-27-2023 History of Presen t illness Narrative Images from the original note were not included. This note was created using [employer]. Subjective Dane Moran is a 52 year old male. HPI Patient presents with left lower eyelid swelling and redness over the past 3 days. He has had some watering of his eye over the past month but really no irritation or drainage. No fever. No pain with extraocular movements. He does not wear contacts, does wear glasses. No drainage from his eye. Does not think he had anything in his eye. Review of Systems HENT: Negative. Eyes: Positive for pain and redness. Negative for photophobia, itching and visual disturbance. Respiratory: Negative. Cardiovascular: Negative. Gastrointestinal: Negative. All other systems reviewed and are negative. PAST MEDICAL HISTORY Diagnosis Date Anxiety Diabetes (HCC) Fatty liver Hypertension Current Outpatient Medications Medication Sig Dispense Refill lisinopril-hydroCHLOROthiazide (ZESTORETIC) 20-25 mg per tablet Take 1 tablet by mouth every morning. 30 tablet 11 metFORMIN (GLUCOPHAGE) 1,000 mg tablet Take 1 tablet by mouth twice daily with meals. 60 tablet 11 blood sugar diagnostic (BLOOD GLUCOSE TEST) test strip Test blood sugar(s) 1 times daily. Dx: Type 2 DM - Controlled E11.9 Insulin: No 50 Strip 11 erythromycin (ROMYCIN) 5 mg/gram (0.5 %) ophthalmic ointment Use 1 application in the left eye four times daily for 7 days. 1 g 0 No current facility-administered medications for this visit. PAST SURGICAL HISTORY Procedure Laterality Date ANESTHESIA KNEE, ARTHROSCOPIC 1983 right knee FAMILY HISTORY Problem Relation Age of Onset Ischemic Heart Disease Father 50 at 51 Diabetes Mother Diabetes Maternal Grandfather Social History Tobacco Use Smoking status: Never Smokeless tobacco: Current Types: Chew Tobacco comments: 1/2 can a day Vaping Use Vaping Use: Never used Substance Use Topics Alcohol use: Yes Alcohol/week: 0.0 standard drinks Comment: 1-2 drinks per day Drug use: No Objective BP 142/78 Pulse (!) 124 Temp 37.4 C (99.3 F) (Tympanic) Resp 18 Wt 86.5 kg (190 lb 12.8 oz) SpO2 97% BMI 27.38 kg/m Physical Exam Vitals reviewed. Constitutional: Appearance: Normal appearance. HENT: Head: Normocephalic and atraumatic. Eyes: General: Vision grossly intact. Gaze aligned appropriately. Extraocular Movements: Extraocular movements intact. Pupils: Pupils are equal, round, and reactive to light. Comments: Patient has erythema and swelling with a small stye to the left lower eyelid. No surrounding erythema or sign of periorbital or orbital cellulitis. No injection of the sclera. No fb or drainage. Neurological: Mental Status: He is alert. Assessment and Plan ASSESSMENT/PLAN: 1. Hordeolum externum of left lower eyelid - ICD9: 373.11, ICD10: H00.015 Given erythromycin eye ointment. Discussed warm compresses several times a day. Discussed red flags to be seen again at ophthalmology. Patient agreeable. - CONSULT TO OPHTHALMOLOGY Tara Bautista PA-C documented in this encounter [facility] 01-15-2023 Miscellaneous Notes Pharmacy request, pt needs to contact office. Ольга Fink MA documented in this encounter [facility] 12-19-2022 Miscellaneous Notes Letter mailed to pt notifying him of normal results and recommendation from Provider. Attached copy of lab results. If questions to contact the office. Aminata Black Ma Please let patient know that his labs look good. Hgb A1c 6.1%. No changes to medications. Return in 6 months, with labs prior. Reagan Garcia APRN.WATCH REPAIRER documented in this encounter [facility] 09-11-2022 Miscellaneous Notes OK to refill as ordered Willie Burton MD Patient has been identified by name and date of : Yes Requested Prescriptions Pending Prescriptions Disp Refills metFORMIN (GLUCOPHAGE) 1,000 mg tablet 60 tablet 11 Sig: Take 1 tablet by mouth twice daily with meals. RX INSTRUCTIONS: Patient aware RX will be sent to pharmacy. No need to notify patient. Hanny Mackey Pss documented in this encounter [facility] 07-31-2022 History of Presen t illness Narrative Kosta Francisco MD Department of Orthopaedics Orth[facility] [address] [place] [address] Dept: [phone] Dept July 31, 2022 CHIEF COMPLAINT: New and Pain of the Right Shoulder (Xray 07/21/22) HPI Patient is here today for right shoulder pain that started a couple weeks ago; patient unaware of any trigger event that may have caused it. Patient went to Urgent Care and was given a steroid and flexeril. Patient finished steroid and taking flexeril as needed. Patient states loss of ROM in the shoulder/arm and pain so severe at times it is making him nauseous. Xrays 07/21/22. ASSESSMENT: M75.41 Impingement syndrome of right shoulder (primary encounter diagnosis) M25.511 Acute pain of right shoulder PLAN: He is actually completely pain-free as his oral steroid is calm things down quite a bit. He expresses no further need for any intervention or treatment. FOLLOW UP INSTRUCTIONS: As needed OBJECTIVE: Mr. Dane Moran is a pleasant 51 year old in no apparent distress. Gen:There were no vitals taken for this visit. nl development, non obese, no deformities ENT: Normocephalic, normal hearing, moist mucosa CV: Pulses:Radial= 2+ and symmetric, capillary refill < 2 secs, no peripheral edema/varicosities Skin: no rash, bruising or lesions. Good turgor. Psych: cooperative and appropriate, alert and oriented x 3, good mood and affect. Musculoskeletal: Normal range of motion of the right shoulder. No pain. Rotator cuff testing intact. IMAGING: IMPRESSION: Findings are suggestive of degenerative changes in the acromioclavicular joint. Behavioral Health Specialist: PSCB Transcribe Date/Time: Jul 21 2022 10:16A Dictated by : SHAHRAM CRUZ MD This examination was interpreted and the report reviewed and electronically signed by: SHAHRAM CRUZ MD on Jul 21 2022 10:18AM EST Results-Findings * * *Final Report* * * DATE OF EXAM: Jul 21 2022 10:00AM WOX [id number] - XR SHLDR >/=3V AP/BRIDGER AP/OTHR RT / PROCEDURE REASON: Acute pain of right shoulder * * * * Physician Interpretation * * * * EXAM TITLE: XR SHLDR >/=3V AP/BRIDGER AP/OTHR RT EXAM DATE/TIME: 07/21/2022 10:00 AM COMPARISON: None. CLINICAL INDICATION/HISTORY: Acute shoulder pain. TECHNIQUE: AP, true AP and axillary views of the right shoulder are presented FINDINGS: No acute fractures or subluxations are noted. There appears be mild acromioclavicular joint space narrowing, with associated osteophyte formation. The glenohumeral joint appears unremarkable. Normal acromiohumeral interval. The mineralization of the bones is normal. There is no significant soft tissue swelling. Supporting Subjective Information Below: Past Medical History: PAST MEDICAL HISTORY Diagnosis Date Anxiety Diabetes (HCC) Fatty liver Hypertension Past Surgical History: PAST SURGICAL HISTORY Procedure Laterality Date ANESTHESIA KNEE, ARTHROSCOPIC 1983 right knee Family History: FAMILY HISTORY Problem Relation Age of Onset Ischemic Heart Disease Father 50 at 51 Diabetes Mother Diabetes Maternal Grandfather Social History: Social History Tobacco Use Smoking status: Never Smokeless tobacco: Current Types: Chew Tobacco comments: 1/2 can a day Vaping Use Vaping Use: Never used Substance Use Topics Alcohol use: Yes Alcohol/week: 0.0 standard drinks Comment: 1-2 drinks per day Drug use: No Medications: Current Outpatient Medications Medication Sig cyclobenzaprine (FLEXERIL) 10 mg tablet Take 1 tablet by mouth three times daily as needed for muscle spasm. LORazepam (ATIVAN) 0.5 mg Take 1 tablet by mouth three times daily as needed (anxiety) for up to 30 days. lisinopril-hydroCHLOROthiazide (PRINZIDE, ZESTORETIC) 20-25 mg per tablet Take 1 tablet by mouth every morning. metFORMIN (GLUCOPHAGE) 1,000 mg tablet Take 1 tablet by mouth twice daily with meals. blood sugar diagnostic (BLOOD GLUCOSE TEST) test strip Test blood sugar(s) 1 times daily. Dx: Type 2 DM - Controlled E11.9 Insulin: No No current facility-administered medications for this visit. Allergies: Patient has no known allergies. ROS: General (negative for fatigue, malaise, weight loss/gain) HEENT (negative for headache, earache, recent vision changes, sinus pain, sore throat) Respiratory (no recent shortness of breath, hemoptysis) CV (negative for chest tightness, palpitations) Musculoskeletal (see HPI) Psych (no depression, anxiety) REFERRING PHYSICIAN: Mr. Dane Moran was referred to me for consultation by the following physician. This consultation note will be sent to the following physician by either mail or electronic medical record. Daya Cook [address] [facility] [id number] Willie Burton MD [address] [facility] [id number] Kosta Francisco MD documented in this encounter [facility] 07-24-2022 History of Presen t illness Narrative 1. Type 2 diabetes mellitus without retinopathy (HCC) Risk of diabetic changes and vision loss can be minimized by tight control of blood sugar, blood pressure, and cholesterol levels. Educated patient to continue care with primary care doctor and/or medical imaging technician to maintain optimum levels as they are important to avoid ocular complications. Encouraged patient to call the office immediately with any changes to vision or visual concerns. Advised to not wait until the next scheduled exam. 2. Glaucoma suspect of both eyes OCT nerve 07/24/22: superior and inferior loss both eyes IOP: 12/13 Mild nerve asymmetry OS>OD Follow-up in 1 month for 24-2/IOP check 3. Myopia, bilateral 4. Regular astigmatism of both eyes 5. Presbyopia Finalized spec rx 6. Combined cataracts Mild- monitor Follow-up in 1 month for 24-2/IOP check Natali Melchor, OD July 24, 2022 2:09 PM documented in this encounter [facility] 07-21-2022 Instructions Daya Cook APRN.WATCH REPAIRER - 07/21/2022 10:26 AM EDT R.I.C.E. The general care of your injury includes the following: Resting, Icing, Compressing and Elevating the injured area. Remember this as RICE. REST: Limit the use of the injured body part. ICE: By applying ice to the affected area, swelling and pain can be reduced. Place some ice cubes in a re-sealable (Ziploc) bag and add some water. Put a thin washcloth between the bag and your skin. Apply the ice bag to the area for at least 20 minutes. Do this at least 4 times per day. Using the ice for longer times and more frequently is OK. NEVER APPLY ICE DIRECTLY TO THE SKIN. COMPRESS: Compression means to apply pressure around the injured area such as with a splint, cast or an virginia bandage. Compression decreases swelling and improves comfort. Compression should be tight enough to relieve swelling but not so tight as to decrease circulation. Increasing pain, numbness, tingling, or change in skin color, are all signs of decreased circulation. ELEVATE: Elevate the injured part. For example, elevate your foot by placing it on a chair while sitting, or propping it up on pillows when lying down. documented in this encounter [facility] 07-21-2022 History of Presen t illness Narrative Radiology Service Progress Note PATIENT NAME: Dane Moran DATE OF SERVICE: July 21, 2022 TIME: 9:52 AM PATIENT IDENTITY VERIFICATION COMPLETED USING TWO (2) IDENTIFIERS: Name and Date of confirmed by patient verbally. FALL SCREENING: Has the patient had 2 falls in the last year or 1 fall with injury or currently using an Ambulatory Assistive Device (Walker, Cane, Wheelchair, Crutches, etc.)? No PATIENT GENDER DATA: Male PATIENT RELEVANT IMPLANT DATA REVIEWED: Not Applicable RADIOLOGY DEPARTMENT: General X-ray: Exam(s) Completed: Upper Extremity X-Ray(s): Shoulder, AP / TRUE AP / AXILLARY right PERIPHERAL IV DATA: Not applicable SIGNED BY: RT Stacey(R) July 21, 2022 9:52 AM documented in this encounter [facility] 07-21-2022 History of Presen t illness Narrative This note was created using NoteWriter. Subjective Dane Moran is a 51 year old male. 51 year old male with PMH HTN and DM presents for right shoulder Acute onset this morning upon awakening. Right shoulder States that it was a small twinge of pain initially, Thought slept wrong But endorses pain has progressively increased over the morning to where he has limited and painful movement. Denies known trauma or injury. Denies fever or chills. Denies numbness, tingling, or weakness Right hand dominant. States he has had shoulder pain in past but nothing like this Utilized OTC analgesics this morning when he woke up. The history is provided by the patient. No staff interpreter was used. Shoulder Injury The incident occurred 3 to 5 hours ago. The incident occurred at home. There was no injury mechanism. The right shoulder is affected. The pain is at a severity of 8/10. The pain is moderate. The pain has been Constant since onset. The pain Does not radiate. There is A history of shoulder injury. He has No other injuries. There is No history of shoulder surgery. Pertinent negatives include no numbness, no muscle weakness and no tingling. He reports no foreign bodies present. PAST MEDICAL HISTORY Diagnosis Date Anxiety Diabetes (HCC) Fatty liver Hypertension PAST SURGICAL HISTORY Procedure Laterality Date ANESTHESIA KNEE, ARTHROSCOPIC 1983 right knee ALLERGIES Patient has no known allergies. MEDICATIONS LORazepam (ATIVAN) 0.5 mg Take 1 tablet by mouth three times daily as needed (anxiety) for up to 30 days. lisinopril-hydroCHLOROthiazide (PRINZIDE, ZESTORETIC) 20-25 mg per tablet Take 1 tablet by mouth every morning. metFORMIN (GLUCOPHAGE) 1,000 mg tablet Take 1 tablet by mouth twice daily with meals. blood sugar diagnostic (BLOOD GLUCOSE TEST) test strip Test blood sugar(s) 1 times daily. Dx: Type 2 DM - Controlled E11.9 Insulin: No methylPREDNISolone (MEDROL, STACEY,) 4 mg Dose-Pack Follow dosing instructions, take with food. cyclobenzaprine (FLEXERIL) 10 mg tablet Take 1 tablet by mouth three times daily as needed for muscle spasm. FAMILY HISTORY Problem Relation Age of Onset Ischemic Heart Disease Father 50 at 51 Diabetes Mother Diabetes Maternal Grandfather Social History Tobacco Use Smoking status: Never Smokeless tobacco: Current Types: Chew Tobacco comments: 1/2 can a day Substance Use Topics Alcohol use: Yes Alcohol/week: 0.0 standard drinks Comment: 1-2 drinks per day Drug use: No Review of Systems Constitutional: Negative for activity change, appetite change, chills, fatigue and fever. Eyes: Negative for pain, discharge and itching. Respiratory: Negative for apnea, cough, choking and chest tightness. Cardiovascular: Negative for chest pain, palpitations and leg swelling. Gastrointestinal: Negative for abdominal pain, diarrhea, nausea and vomiting. Musculoskeletal: Negative for arthralgias. Right shoulder pain Skin: Negative for color change, pallor, rash and wound. Allergic/Immunologic: Negative for environmental allergies, food allergies and immunocompromised state. Neurological: Negative for dizziness, tingling, facial asymmetry, numbness and headaches. Hematological: Negative for adenopathy. Does not bruise/bleed easily. Psychiatric/Behavioral: Negative for agitation and behavioral problems. Objective BP 159/86 Pulse 109 Temp 36.7 C (98 F) Resp 18 Wt 95.7 kg (211 lb) SpO2 99% BMI 30.28 kg/m Physical Exam Vitals and nursing note reviewed. Constitutional: General: He is not in acute distress. Appearance: Normal appearance. He is not ill-appearing, toxic-appearing or diaphoretic. HENT: Head: Normocephalic and atraumatic. Right Ear: External ear normal. Left Ear: External ear normal. Nose: Nose normal. No congestion or rhinorrhea. Mouth/Throat: Mouth: Mucous membranes are moist. Pharynx: Oropharynx is clear. No oropharyngeal exudate or posterior oropharyngeal erythema. Eyes: General: Right eye: No discharge. Left eye: No discharge. Extraocular Movements: Extraocular movements intact. Conjunctiva/sclera: Conjunctivae normal. Pupils: Pupils are equal, round, and reactive to light. Cardiovascular: Rate and Rhythm: Normal rate and regular rhythm. Pulses: Normal pulses. Heart sounds: Normal heart sounds. No murmur heard. No friction rub. No gallop. Pulmonary: Effort: Pulmonary effort is normal. No respiratory distress. Breath sounds: Normal breath sounds. No stridor. No wheezing, rhonchi or rales. Chest: Chest wall: No tenderness. Abdominal: General: Abdomen is flat. There is no distension. Palpations: Abdomen is soft. There is no mass. Tenderness: There is no abdominal tenderness. There is no guarding or rebound. Hernia: No hernia is present. Musculoskeletal: General: No swelling, deformity or signs of injury. Right shoulder: Tenderness present. No deformity, effusion or laceration. Decreased range of motion (unable to fully extend right shoulder). Normal strength. Normal pulse. Left shoulder: Deformity: +TTP anterior and posterior. Cervical back: Normal range of motion and neck supple. No rigidity or tenderness. Right lower leg: No edema. Left lower leg: No edema. Lymphadenopathy: Cervical: No cervical adenopathy. Skin: General: Skin is warm and dry. Capillary Refill: Capillary refill takes less than 2 seconds. Coloration: Skin is not jaundiced or pale. Findings: No bruising, lesion or rash. Neurological: General: No focal deficit present. Mental Status: He is alert and oriented to person, place, and time. Cranial Nerves: No cranial nerve deficit. Sensory: No sensory deficit. Motor: No weakness. Coordination: Coordination normal. Gait: Gait normal. Deep Tendon Reflexes: Reflexes normal. Psychiatric: Mood and Affect: Mood normal. Behavior: Behavior normal. Thought Content: Thought content normal.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 Only (Urgent) - Closed Specialty Diagnoses / Procedures Referred By Contac t Referred To Contact XR IMAGING Diagnoses Right wrist pain Procedures XR WRIST INJURY 4V PA/LAT/OBL/SCAPH RT X-RAY WRIST COMPLET MIN 3 VIEWS Seymour Sanhcez APRN.WATCH REPAIRER [address] [place] [address] [place] [address] Referral ID Status Reason Start Date Expiration Date V isits Requested Visits Authorized [id number] Closed Auto-Generate d Referral 05/02/2021 06/01/2022 1 1 [facility] for visit Narrative* Diagnostic Procedure Only (Routine) - Pending Review Specialty Diagnoses / Procedures Referred By Contac t Referred To Contact XR IMAGING Diagnoses Pain of right scapula Procedures XR SCAPULA 2V AP/LAT RIGHT RADEX SCAPULA COMPLETE Reagan Garcia SENIOR ACCOUNTING SPECIALIST.WATCH REPAIRER [address] [place] [address] [place] [address] Referral ID Status Reason Start Date Expiration Date Visits Requested Visits Authorized [id number] Pending Review Auto-Generat ed Referral 12/03/2023 01/01/2025 1 1 [facility] for visit Narrative* Diagnostic Procedure Only (Urgent) - Closed Specialty Diagnoses / Procedures Referred By Contac t Referred To Contact XR IMAGING Diagnoses Acute pain of right shoulder Procedures XR SHOULDER GENERAL 3V OR MORE AP/TRUE AP/OTHER RIGHT RADEX SHOULDER COMPLETE MINIMUM 2 VIEWS Daya Cook SENIOR ACCOUNTING SPECIALIST.WATCH REPAIRER [address] [place] [address] [place] [address] Referral ID Status Reason Start Date Expiration Date V isits Requested Visits Authorized [id number] Closed Auto-Generate d Referral 07/21/2022 08/20/2023 1 1 [facility] for visit Narrative* Diagnostic Procedure Only (Urgent) - Closed Specialty Diagnoses / Procedures Referred By Contac t Referred To Contact XR IMAGING Diagnoses Right wrist pain Procedures XR WRIST INJURY 4V PA/LAT/OBL/SCAPH RT X-RAY WRIST COMPLET MIN 3 VIEWS Seymour Sanchez, PATRICIA.WATCH REPAIRER [address] [place] [address] [place] [address] Referral ID Status Reason Start Date Expiration Date V isits Requested Visits Authorized [id number] Closed Auto-Generate d Referral 05/02/2021 06/01/[address] [facility] Reason for Referral Specialty Diagnoses / Procedures Referred By Contac t Referred To Contact Ophthalmology Diagnoses Screening for diabetic retinopathy Procedures CONSULT TO OPHTHALMOLOGY OFFICE/OUTPATIENT [facility] 60-74 MINUTES Reagan Garcia APRN.WATCH REPAIRER [address] [place] [address] Referral ID Status Reason Start Date Expiration Date Visits Requested Visits Authorized [id number] Pending Review PCP Requested Referral 06/19/2022 06/19/2023 1 1 Specialty Diagnoses / Procedures Referred By Contac t Referred To Contact Orthopedics Diagnoses Acute pain of right shoulder Procedures CONSULT TO ORTHOPAEDICS OFFICE/OUTPATIENT [facility] 60-74 MINUTES Daya Cook, SENIOR ACCOUNTING SPECIALIST.WATCH REPAIRER [address] [place] [address] Referral ID Status Reason Start Date Expiration Date Visits Requested Visits Authorized [id number] Pending Review PCP Requested Referral 07/21/2023 1 1 Specialty Diagnoses / Procedures Referred By Contac t Referred To Contact XR IMAGING Diagnoses Acute pain of right shoulder Procedures XR SHOULDER GENERAL 3V OR MORE AP/TRUE AP/OTHER RIGHT RADEX SHOULDER COMPLETE MINIMUM 2 VIEWS Daya Cook, SENIOR ACCOUNTING SPECIALIST.WATCH REPAIRER [address] [place] [address] Xr Imaging Referral ID Status Reason Start Date Expiration Date Visits Requested Visits Authorized [id number] Pending Review Auto-Generat ed Referral 08/20/2023 1 1 Specialty Diagnoses / Procedures Referred By Contac t Referred To Contact Ophthalmology Diagnoses Hordeolum externum of left lower eyelid Procedures CONSULT TO OPHTHALMOLOGY OFFICE/OUTPATIENT [facility] 60-74 MINUTES Tara Bautista PA-C [address] [place] [address] Referral ID Status Reason Start Date Expiration Date Visits Requested Visits Authorized [id number] Pending Review PCP Requested Referral 03/27/2023 03/26/2024 1 1 Specialty Diagnoses / Procedures Referred By Contac t Referred To Contact MR IMAGING Diagnoses Acute pain of right shoulder due to trauma Procedures MRI SHOULDER WO IVCON RIGHT MRI ANY JT UPPER EXTREMITY W/O CONTRAST Willie Steiner MD [address] [place] [address] [place] [address] Referral ID Status Reason Start Date Expiration Date Visits Requested Visits Authorized [id number] Pending Review Auto-Generat ed Referral 01/15/2024 02/13/2025 1 1 Specialty Diagnoses / Procedures Referred By Contac t Referred To Contact [facility] Diagnoses Chronic scapular pain Procedures CONSULT TO PHYSICAL THERAPY PHYSICAL THERAPY EVALUATION HIGH COMPLEX 45 MINS Kosta Francisco MD [address] [place] [address] [facility] [place] [address] [place] [address] Referral ID Status Reason Start Date Expiration Date Visits Requested Visits Authorized [id number] Authorized Auto-Generat ed Referral 02/23/2024 09/23/2024 10 10 Specialty Diagnoses / Procedures Referred By Marquis t Referred To Contact Kosta Francisco MD [address] [place] [address] Referral ID Status Reason Start Date Expiration Date Visits Re quested Visits Authorized [id number] Closed 1 1 Medications Administered Section Inactive Administered Medications - up to 3 most recent administrations Medication Order MAR Action Action Date Dose Rate Site keTORolac 60 mg injection (TORADOL) 60 mg, INTRAMUSCULAR, ONCE, 1 dose, On Sun07/21/22 at 1000, Ketorolac (Toradol) is indicated for the short-term (up to 5 days) management of moderately severe acute pain. Continuation of ketorolac (Toradol) beyond 5 days increases the risk of developing serious adverse events. Please verify the duration of therapy for ketorolac (Toradol)., If ordered PRN for pain, patient/guardian may elect to receive this medication for higher pain levels INSTEAD of the opioid, if preferred: Yes Given 07/21/2022 9:55 AM EDT 60 mg Buttocks, Right Active Administered Medications - up to 3 most recent administrations Medication Order MAR Action Action Date Dose Rate Site fluorescein-benoxinate 0.25-0.4 % 1 Drop (FLURESS) 1 Drop, BOTH EYES, DIRECTED, Starting on Sun07/24/22 at 1230, Until Sun07/25/22 at 0029, Administer for applanation tonometry. In the event of a Fluress shortage, administer [place]-Fluor 1 drop into both eyes as directed for applanation tonometry Given 07/24/2022 12:30 PM EDT 1 Drop PHENYLephrine 2.5 % 1 Drop (AK-DILATE, NORMA-SYNEPHRINE) 1 Drop, BOTH EYES, DIRECTED, Starting on Sun07/24/22 at 1230, Until Sun07/25/22 at 0029, Administer for dilation PROTECT FROM LIGHT Given 07/24/2022 12:30 PM EDT 1 Drop proparacaine 0.5 % 1 Drop (ALCAINE) 1 Drop, BOTH EYES, DIRECTED, Starting on Sun07/24/22 at 1230, Until Sun07/25/22 at 0029, Administer for pneumo tonometry, tonopen tonometry, or pachymetry. In the event of a proparacaine shortage, administer tetracaine 0.5% ophthalmic drops 1 drop in the left eye as directed for pneumo tonometry, tonopen tonometry, or pachymetry Given 07/24/2022 12:30 PM EDT 1 Drop tropicamide 1 % 1 Drop (MYDRIACYL) 1 Drop, BOTH EYES, DIRECTED, Starting on Sun07/24/22 at 1230, Until Sun07/25/22 at 0029, Administer for dilation Given 07/24/2022 12:30 PM EDT 1 Drop Chief Complaint and Reason for Visit Chief Complaint SHOULDER PAIN Advance Directives No Advanced Directives Records Found Advance Directive Response Recorded Date/ Time Living Will Yes December 14, 2023 10:29am Power of Human Resources Benefits Manager No December 13 10:29am Summary Purpose Family History No Family History Records FoundNo Family History Records FoundNo Family History Records Found Additional Source Comments Source Comments (unrecognize d section and content) In the event this informatio n is protected by the Federal Confidentiality of Alcohol and Drug Abuse Patient Records regulations: The Federal rules restrict any use of the information to criminally investigate or prosecute any alcohol or drug abuse patient.[facility] HospitalIn the event this information is protected by the Federal Confidentiality of Alcohol and Drug Abuse Patient Records regulations: The Federal rules restrict any use of the information to criminally investigate or prosecute any alcohol or drug abuse patient.[facility] HospitalIn the event this information is protected by the Federal Confidentiality of Alcohol and Drug Abuse Patient Records regulations: The Federal rules restrict any use of the information to criminally investigate or prosecute any alcohol or drug abuse patient.[facility] HospitalIn the event this information is protected by the Federal Confidentiality of Alcohol and Drug Abuse Patient Records regulations: The Federal rules restrict any use of the information to criminally investigate or prosecute any alcohol or drug abuse patient.[facility] HospitalIn the event this information is protected by the Federal Confidentiality of Alcohol and Drug Abuse Patient Records regulations: The Federal rules restrict any use of the information to criminally investigate or prosecute any alcohol or drug abuse patient.[facility] HospitalIn the event this information is protected by the Federal Confidentiality of Alcohol and Drug Abuse Patient Records regulations: The Federal rules restrict any use of the information to criminally investigate or prosecute any alcohol or drug abuse patient.[facility] HospitalIn the event this information is protected by the Federal Confidentiality of Alcohol and Drug Abuse Patient Records regulations: The Federal rules restrict any use of the information to criminally investigate or prosecute any alcohol or drug abuse patient.[facility] HospitalIn the event this information is protected by the Federal Confidentiality of Alcohol and Drug Abuse Patient Records regulations: The Federal rules restrict any use of the information to criminally investigate or prosecute any alcohol or drug abuse patient.[facility] HospitalIn the event this information is protected by the Federal Confidentiality of Alcohol and Drug Abuse Patient Records regulations: The Federal rules restrict any use of the information to criminally investigate or prosecute any alcohol or drug abuse patient.[facility] HospitalIn the event this information is protected by the Federal Confidentiality of Alcohol and Drug Abuse Patient Records regulations: The Federal rules restrict any use of the information to criminally investigate or prosecute any alcohol or drug abuse patient.[facility] HospitalIn the event this information is protected by the Federal Confidentiality of Alcohol and Drug Abuse Patient Records regulations: The Federal rules restrict any use of the information to criminally investigate or prosecute any alcohol or drug abuse patient.[facility] HospitalIn the event this information is protected by the Federal Confidentiality of Alcohol and Drug Abuse Patient Records regulations: The Federal rules restrict any use of the information to criminally investigate or prosecute any alcohol or drug abuse patient.[facility] HospitalIn the event this information is protected by the Federal Confidentiality of Alcohol and Drug Abuse Patient Records regulations: The Federal rules restrict any use of the information to criminally investigate or prosecute any alcohol or drug abuse patient.[facility] HospitalIn the event this information is protected by the Federal Confidentiality of Alcohol and Drug Abuse Patient Records regulations: The Federal rules restrict any use of the information to criminally investigate or prosecute any alcohol or drug abuse patient.[facility] HospitalIn the event this information is protected by the Federal Confidentiality of Alcohol and Drug Abuse Patient Records regulations: The Federal rules restrict any use of the information to criminally investigate or prosecute any alcohol or drug abuse patient.[facility] HospitalIn the event this information is protected by the Federal Confidentiality of Alcohol and Drug Abuse Patient Records regulations: The Federal rules restrict any use of the information to criminally investigate or prosecute any alcohol or drug abuse patient.[facility] HospitalIn the event this information is protected by the Federal Confidentiality of Alcohol and Drug Abuse Patient Records regulations: The Federal rules restrict any use of the information to criminally investigate or prosecute any alcohol or drug abuse patient.[facility] HospitalIn the event this information is protected by the Federal Confidentiality of Alcohol and Drug Abuse Patient Records regulations: The Federal rules restrict any use of the information to criminally investigate or prosecute any alcohol or drug abuse patient.[facility] HospitalIn the event this information is protected by the Federal Confidentiality of Alcohol and Drug Abuse Patient Records regulations: The Federal rules restrict any use of the information to criminally investigate or prosecute any alcohol or drug abuse patient.[facility] HospitalIn the event this information is protected by the Federal Confidentiality of Alcohol and Drug Abuse Patient Records regulations: The Federal rules restrict any use of the information to criminally investigate or prosecute any alcohol or drug abuse patient.[facility] HospitalIn the event this information is protected by the Federal Confidentiality of Alcohol and Drug Abuse Patient Records regulations: The Federal rules restrict any use of the information to criminally investigate or prosecute any alcohol or drug abuse patient.[facility] HospitalIn the event this information is protected by the Federal Confidentiality of Alcohol and Drug Abuse Patient Records regulations: The Federal rules restrict any use of the information to criminally investigate or prosecute any alcohol or drug abuse patient.[facility] HospitalIn the event this information is protected by the Federal Confidentiality of Alcohol and Drug Abuse Patient Records regulations: The Federal rules restrict any use of the information to criminally investigate or prosecute any alcohol or drug abuse patient.[facility] HospitalIn the event this information is protected by the Federal Confidentiality of Alcohol and Drug Abuse Patient Records regulations: The Federal rules restrict any use of the information to criminally investigate or prosecute any alcohol or drug abuse patient.[facility] HospitalIn the event this information is protected by the Federal Confidentiality of Alcohol and Drug Abuse Patient Records regulations: The Federal rules restrict any use of the information to criminally investigate or prosecute any alcohol or drug abuse patient.[facility] HospitalIn the event this information is protected by the Federal Confidentiality of Alcohol and Drug Abuse Patient Records regulations: The Federal rules restrict any use of the information to criminally investigate or prosecute any alcohol or drug abuse patient.[facility] HospitalIn the event this information is protected by the Federal Confidentiality of Alcohol and Drug Abuse Patient Records regulations: The Federal rules restrict any use of the information to criminally investigate or prosecute any alcohol or drug abuse patient.[facility] HospitalIn the event this information is protected by the Federal Confidentiality of Alcohol and Drug Abuse Patient Records regulations: The Federal rules restrict any use of the information to criminally investigate or prosecute any alcohol or drug abuse patient.[facility] HospitalIn the event this information is protected by the Federal Confidentiality of Alcohol and Drug Abuse Patient Records regulations: The Federal rules restrict any use of the information to criminally investigate or prosecute any alcohol or drug abuse patient.[facility] HospitalIn the event this information is protected by the Federal Confidentiality of Alcohol and Drug Abuse Patient Records regulations: The Federal rules restrict any use of the information to criminally investigate or prosecute any alcohol or drug abuse patient.[facility] HospitalIn the event this information is protected by the Federal Confidentiality of Alcohol and Drug Abuse Patient Records regulations: The Federal rules restrict any use of the information to criminally investigate or prosecute any alcohol or drug abuse patient.[facility] HospitalIn the event this information is protected by the Federal Confidentiality of Alcohol and Drug Abuse Patient Records regulations: The Federal rules restrict any use of the information to criminally investigate or prosecute any alcohol or drug abuse patient.[facility] HospitalIn the event this information is protected by the Federal Confidentiality of Alcohol and Drug Abuse Patient Records regulations: The Federal rules restrict any use of the information to criminally investigate or prosecute any alcohol or drug abuse patient.[facility] HospitalIn the event this information is protected by the Federal Confidentiality of Alcohol and Drug Abuse Patient Records regulations: The Federal rules restrict any use of the information to criminally investigate or prosecute any alcohol or drug abuse patient.[facility] HospitalIn the event this information is protected by the Federal Confidentiality of Alcohol and Drug Abuse Patient Records regulations: The Federal rules restrict any use of the information to criminally investigate or prosecute any alcohol or drug abuse patient.[facility] HospitalIn the event this information is protected by the Federal Confidentiality of Alcohol and Drug Abuse Patient Records regulations: The Federal rules restrict any use of the information to criminally investigate or prosecute any alcohol or drug abuse patient.[facility] HospitalIn the event this information is protected by the Federal Confidentiality of Alcohol and Drug Abuse Patient Records regulations: The Federal rules restrict any use of the information to criminally investigate or prosecute any alcohol or drug abuse patient.[facility] HospitalIn the event this information is protected by the Federal Confidentiality of Alcohol and Drug Abuse Patient Records regulations: The Federal rules restrict any use of the information to criminally investigate or prosecute any alcohol or drug abuse patient.[facility] HospitalIn the event this information is protected by the Federal Confidentiality of Alcohol and Drug Abuse Patient Records regulations: The Federal rules restrict any use of the information to criminally investigate or prosecute any alcohol or drug abuse patient.[facility] HospitalIn the event this information is protected by the Federal Confidentiality of Alcohol and Drug Abuse Patient Records regulations: The Federal rules restrict any use of the information to criminally investigate or prosecute any alcohol or drug abuse patient.[facility] HospitalIn the event this information is protected by the Federal Confidentiality of Alcohol and Drug Abuse Patient Records regulations: The Federal rules restrict any use of the information to criminally investigate or prosecute any alcohol or drug abuse patient.[facility] HospitalIn the event this information is protected by the Federal Confidentiality of Alcohol and Drug Abuse Patient Records regulations: The Federal rules restrict any use of the information to criminally investigate or prosecute any alcohol or drug abuse patient.[facility] HospitalIn the event this information is protected by the Federal Confidentiality of Alcohol and Drug Abuse Patient Records regulations: The Federal rules restrict any use of the information to criminally investigate or prosecute any alcohol or drug abuse patient.[facility] HospitalIn the event this information is protected by the Federal Confidentiality of Alcohol and Drug Abuse Patient Records regulations: The Federal rules restrict any use of the information to criminally investigate or prosecute any alcohol or drug abuse patient.[facility] HospitalIn the event this information is protected by the Federal Confidentiality of Alcohol and Drug Abuse Patient Records regulations: The Federal rules restrict any use of the information to criminally investigate or prosecute any alcohol or drug abuse patient.[facility] HospitalIn the event this information is protected by the Federal Confidentiality of Alcohol and Drug Abuse Patient Records regulations: The Federal rules restrict any use of the information to criminally investigate or prosecute any alcohol or drug abuse patient.[facility] HospitalIn the event this information is protected by the Federal Confidentiality of Alcohol and Drug Abuse Patient Records regulations: The Federal rules restrict any use of the information to criminally investigate or prosecute any alcohol or drug abuse patient.[facility] HospitalIn the event this information is protected by the Federal Confidentiality of Alcohol and Drug Abuse Patient Records regulations: The Federal rules restrict any use of the information to criminally investigate or prosecute any alcohol or drug abuse patient.[facility] HospitalIn the event this information is protected by the Federal Confidentiality of Alcohol and Drug Abuse Patient Records regulations: The Federal rules restrict any use of the information to criminally investigate or prosecute any alcohol or drug abuse patient.[facility] HospitalIn the event this information is protected by the Federal Confidentiality of Alcohol and Drug Abuse Patient Records regulations: The Federal rules restrict any use of the information to criminally investigate or prosecute any alcohol or drug abuse patient.[facility] Reason for Visit (unrecogniz ed section and content) Reason Comments PT Discharge Specialty Diagnoses / Procedures Referred By Marquis t Referred To Contact [facility] Diagnoses Chronic scapular pain Procedures CONSULT TO PHYSICAL THERAPY PHYSICAL THERAPY EVALUATION HIGH COMPLEX 45 MINS Kosta Francisco MD [address] [place] [address] [facility] [place] [address] [place] [address] Referral ID Status Reason Start Date Expiration Date Visits Requested Visits Authorized [id number] Authorized Auto-Generat ed Referral 02/23/2024 09/23/2024 10 10 Reason Comments Physical Therapy Reason Comments PT Progress Note Reason Comments Results Reason Comments Results stool test Reason Onset Date Comments Refill Request 03/28/2022 Reason Onset Date Comments Refill Request 04/26/2022 Reason Onset Date Comments Follow Up Immunizations 06/19/2022 Flu vaccination Reason Onset Date Comments Refill Request 06/21/2022 Reason Onset Date Comments Refill Request 07/12/2022 Reason Comments Medication Question Reason Comments Pain Right shoulder pain x today, more painful with movement Reason Comments type 2 diabetes Eye Burning Both Eyes Tearing Both Eyes Specialty Diagnoses / Procedures Referred By Marquis felix Referred To Contact Ophthalmology Diagnoses Screening for diabetic retinopathy Procedures CONSULT TO OPHTHALMOLOGY OFFICE/OUTPATIENT NEW HIGH MDM 60-74 MINUTES Reagan Garcia, PATRICIA.WATCH REPAIRER [address] [place] [address] Referral ID Status Reason Start Date Expiration Date Visits Requested Visits Authorized [id number] Pending Review PCP Requested Referral 06/19/2022 06/19/2023 1 1 Reason Comments New Xray 07/21/22 Pain Xray 07/21/22 Specialty Diagnoses / Procedures Referred By Marquis felix Referred To Contact OPHTHALMOLOGY Diagnoses OV Procedures 1 MTH F/U 24-2, IOP check and gonio Natali Melchor, OD [address] [place] [address] [facility] Jared [address] [facility] [place] [address] Referral ID Status Reason Start Date Expiration Date Visits Requested Visits Authorized [id number] Authorized Financial Clearance Required - Self Pay Patient Cleared - Qualified 100% FAS 06/16/2022 09/14/2022 99 99 Reason Comments Refill Request Reason Comments Eye Problem Left eye red, irrita salma and swelling x 3-4 days Reason Comments Ear Pain Right ear pain x 2 d ays Reason Comments Low Back Pain R sided low back sabine n x6 days, worse x4 days Reason Comments F/U 6 Month Specialty Diagnoses / Procedures Referred By Marquis felix Referred To Contact Diagnoses follow up Procedures FOLLOW-UP E-ASSESSMENT Reagan Garcia APRN.WATCH REPAIRER [address] [place] [address] [place] [address] Referral ID Status Reason Start Date Expiration Date V isits Requested Visits Authorized [id number] Closed Patient Cleared - Qualified 100% FAS 06/04/2023 09/02/2023 99 99 Reason Comments Medication Problem Reason Comments Pain (Shoulder Pain) R shoulder pain x1 week Specialty Diagnoses / Procedures Referred By Marquis felix Referred To Contact [facility] Diagnoses Right shoulder pain Procedures EST SAME DAY [facility] [address] [place] [address] Referral ID Status Reason Start Date Expiration Date Visits Requested Visits Authorized [id number] Pending Review Financial Clearance Required - Self Pay 12/14/2023 03/13/2024 1 1 Reason Comments Orders Specialty Diagnoses / Procedures Referred By Marquis felix Referred To Contact MR IMAGING Diagnoses Acute pain of right shoulder due to trauma Procedures MRI SHOULDER WO IVCON RIGHT MRI ANY JT UPPER EXTREMITY W/O CONTRAST MATRL Willie Burton MD [address] [place] [address] [place] [address] Referral ID Status Reason Start Date Expiration Date V isits Requested Visits Authorized [id number] Closed Auto-Generated Referral Patient Cleared - Qualified [id number] 01/16/2024 04/15/2024 1 1 Reason Comments Acute Visit ? cellulits Reason Comments New Pain Referred by Dr. Burton Specialty Diagnoses / Procedures Referred By Contact Referred To Contact [facility] Diagnoses new pt Procedures new pt Willie Burton MD [address] [place] [address] [facility] [address] [place] [address] Referral ID Status Reason Start Date Expiration Date V isits Requested Visits Authorized [id number] Closed Financial Clearance Required - Self Pay Patient Cleared - True Self-Pay required payment collected 02/01/2024 05/01/2024 1 1 Reason Comments PT Eval Reason Comments 6 Month Exam Reason Comments Results Labs Reason Onset Date Comments Results 12/18/2024 Reason Comments Radiology US Specialty Diagnoses / Procedures Referred By Marquis t Referred To Contact US IMAGING Diagnoses Elevated LFTs Procedures US ABD RIGHT UPPER QUADRANT US ABDOMINAL REAL TIME W/IMAGE LIMITED Cee Farias APRN.CNP [address] [place] [address] Phone: tel: fax: [place] [address] Referral ID Status Reason Start Date Expiration Date V isits Requested Visits Authorized [id number] Closed Auto-Generate d Referral 12/18/2024 01/17/2026 1 1 Reason Comments Burn Right foot x 1 week, pain worsening Reason Comments Follow Up UC-burn to foot Reason Onset Date Comments Results 12/29/2024 Reason Comments Appointment cancel Reason Onset Date Comments Refill Request 05/14/2025 Out of medicatio n Reason Comments Opened In Error Care Teams (unrecognized sec tion and content) Tipping Machine Operator Relationship Specialty Start Date End Date Willie Burton MD [address] [place] [address] PCP - General Family Practice 02/06/12 Tipping Machine Operator Relationship Specialty Start Date End Date Willie Burton MD [address] [place] [address] PCP - General Family Practice 02/06/12 Tipping Machine Operator Relationship Specialty Start Date End Date Willie Burton MD [address] [place] [address] PCP - General Family Practice 02/06/12 Tipping Machine Operator Relationship Specialty Start Date End Date Willie Burton MD [address] [place] [address] PCP - General Family Practice 02/06/12 Tipping Machine Operator Relationship Specialty Start Date End Date Willie Burton MD [address] [place] [address] PCP - General Family Medicine 02/06/12 Tipping Machine Operator Relationship Specialty Start Date End Date Willie Burton MD [address] [facility] [place] [address] PCP - General Family Medicine 02/06/12 Tipping Machine Operator Relationship Specialty Start Date End Date Willie Burton MD [address] [facility] [place] [address] PCP - General Family Medicine 02/06/12 Tipping Machine Operator Relationship Specialty Start Date End Date Willie Burton MD [address] [facility] [place] [address] PCP - General Family Medicine 02/06/12 Tipping Machine Operator Relationship Specialty Start Date End Date Willie Burton MD [address] [facility] [place] [address] PCP - General Family Medicine 02/06/12 Tipping Machine Operator Relationship Specialty Start Date End Date Willie Burton MD [address] [facility] [place] [address] PCP - General Family Medicine 02/06/12 Tipping Machine Operator Relationship Specialty Start Date End Date Willie Burton MD [address] [facility] [place] [address] PCP - General Family Medicine 02/06/12 Tipping Machine Operator Relationship Specialty Start Date End Date Willie Burton MD [address] [facility] [place] [address] PCP - General Family Medicine 02/06/12 Tipping Machine Operator Relationship Specialty Start Date End Date Willie Burton MD [address] [facility] [place] [address] PCP - General Family Medicine 02/06/12 Tipping Machine Operator Relationship Specialty Start Date End Date Willie Burton MD [address] [facility] [place] [id number] PCP - General Family Medicine 02/06/12 Tipping Machine Operator Relationship Specialty Start Date End Date Willie Burton MD [address] [place] [address] PCP - General Family Medicine 02/06/12 Tipping Machine Operator Relationship Specialty Start Date End Date Willie Burton MD [address] [place] [address] PCP - General Family Medicine 02/06/12 Tipping Machine Operator Relationship Specialty Start Date End Date Willie Burton MD [address] [place] [address] PCP - General Family Medicine 02/06/12 Tipping Machine Operator Relationship Specialty Start Date End Date Willie Burton MD [address] [place] [address] PCP - General Family Medicine 02/06/12 Tipping Machine Operator Relationship Specialty Start Date End Date Willie Burton MD [address] [place] [address] PCP - General Family Medicine 02/06/12 Team Status: Active Member Role Status Dates Dr. Willie Burton MD Family Provider Active Reagan Garcia CREW DISPATCHER, CREW DISPATCHER-C Primary Care Provider Active Team Status: Inactive Member Role Status Dates Dr. Luis Mensah MD Emergency Provider Active Reagan Garcia CREW DISPATCHER, CREW DISPATCHER-C Primary Care Provider Active Tipping Machine Operator Relationship Specialty Start Date End Date Willie Burton MD [address] [place] [address] PCP - General Family Medicine 02/06/12 Tipping Machine Operator Relationship Specialty Start Date End Date Willie Burton MD [address] [facility] [place] [address] PCP - General Family Medicine 02/06/12 Tipping Machine Operator Relationship Specialty Start Date End Date Willie Burton MD [address] [facility] [place] [address] PCP - General Family Medicine 02/06/12 Tipping Machine Operator Relationship Specialty Start Date End Date Willie Burton MD [address] [facility] [place] [address] PCP - General Family Medicine 02/06/12 Tipping Machine Operator Relationship Specialty Start Date End Date Willie Burton MD [address] [facility] [place] [address] PCP - General Family Medicine 02/06/12 Tipping Machine Operator Relationship Specialty Start Date End Date Willie Burton MD [address] [facility] [place] [address] PCP - General Family Medicine 02/06/12 Tipping Machine Operator Relationship Specialty Start Date End Date Willie Burton MD [address] [facility] [place] [address] PCP - General Family Medicine 02/06/12 Tipping Machine Operator Relationship Specialty Start Date End Date Willie Burton MD [address] [facility] [place] [address] PCP - General Family Medicine 02/06/12 Tipping Machine Operator Relationship Specialty Start Date End Date Willie Burton MD [address] [facility] [place] [address] PCP - General Family Medicine 02/06/12 Tipping Machine Operator Relationship Specialty Start Date End Date Willie Burton MD [address] [place] [address] PCP - General Family Medicine 02/06/12 Tipping Machine Operator Relationship Specialty Start Date End Date Willie Burton MD [address] [place] [address] PCP - General Family Medicine 02/06/12 Tipping Machine Operator Relationship Specialty Start Date End Date Willie Burton MD [address] [place] [address] PCP - General Family Medicine 02/06/12 Tipping Machine Operator Relationship Specialty Start Date End Date Willie Burton MD [address] [place] [address] PCP - General Family Medicine 02/06/12 Tipping Machine Operator Relationship Specialty Start Date End Date Willie Burton MD [address] [place] [address] PCP - General Family Medicine 02/06/12 Tipping Machine Operator Relationship Specialty Start Date End Date Willie Burton MD [address] [place] [address] PCP - General Family Medicine 02/06/12 Tipping Machine Operator Relationship Specialty Start Date End Date Willie Burton MD [address] [place] [address] PCP - General Family Medicine 02/06/12 Cee Farias APRN.CNP [address] [place] [address] Automated Manufacturing Instructor Family [facility] 08/31/24 Reagan Garcia APRN.WATCH REPAIRER [address] [facility] [place] [address] [facility] 09/[facility]24 Tipping Machine Operator Relationship Specialty Start Date End Date Willie Burton MD [address] [facility] [place] [address] PCP - General Family Medicine 02/06/12 Cee Farias APRN.WATCH REPAIRER [address] [place] [address] [facility] 08/31/24 Reagan Garcia APRN.WATCH REPAIRER [address] [place] [address] [facility] 09/09/24 Tipping Machine Operator Relationship Specialty Start Date End Date Willie Burton MD [address] [place] [address] PCP - General Family Medicine 02/06/12 Cee Farias APRN.WATCH REPAIRER [address] [place] [address] [facility] 08/31/24 Reagan Garcia APRN.WATCH REPAIRER [address] [facility] [place] [address] [facility] Medicine 09/09/24 Tipping Machine Operator Relationship Specialty Start Date End Date Willie Burton MD [address] [facility] [place] [address] PCP - General Family Medicine 02/06/12 Cee Farias APRN.WATCH REPAIRER [address] [facility] [place] [address] Automated Manufacturing Instructor Family Medicine 08/31/24 Reagan Garcia APRN.WATCH REPAIRER [address] [facility] [place] [address] Automated Manufacturing Instructor Family Medicine 09/09/24 Tipping Machine Operator Relationship Specialty Start Date End Date Willie Burton MD [address] [facility] [place] [address] PCP - General Family Medicine 02/06/12 Cee Farias APRN.WATCH REPAIRER [address] [facility] [place] [address] Automated Manufacturing Instructor Family Medicine 08/31/24 Reagan Garcia APRN.WATCH REPAIRER [address] [facility] [place] [address] Automated Manufacturing Instructor Family Medicine 09/09/24 Tipping Machine Operator Relationship Specialty Start Date End Date Willie Burton MD [address] [facility] [place] [address] PCP - General Family Medicine 02/06/12 Cee Farias APRN.WATCH REPAIRER [address] [facility] [place] [address] Automated Manufacturing Instructor Family Medicine 08/31/24 Reagan Garcia SENIOR ACCOUNTING SPECIALIST.WATCH REPAIRER [address] [facility] [place] [address] Automated Manufacturing Instructor Family Medicine 09/09/24 Tipping Machine Operator Relationship Specialty Start Date End Date Willie Burton MD [address] [facility] [place] [address] PCP - General Family Medicine 02/06/12 Cee Farias APRN.WATCH REPAIRER [address] [place] [address] Automated Manufacturing Instructor Family Medicine 08/31/24 02/04/25 Reagan Garcia APRN.WATCH REPAIRER [address] [place] [address] [facility] 09/09/24 Tipping Machine Operator Relationship Specialty Start Date End Date Willie Burton MD [address] [place] [address] PCP - General Family Medicine 02/06/12 Reagan Garcia APRN.WATCH REPAIRER [address] [place] [address] [facility] 09/09/24 Tipping Machine Operator Relationship Specialty Start Date End Date Willie Burton MD [address] [place] [address] PCP - General Family Medicine 02/06/12 Reagan Garcia, SENIOR ACCOUNTING SPECIALIST.WATCH REPAIRER [address] [place] [address] [facility] Medicine 09/09/24 Tipping Machine Operator Relationship Specialty Start Date End Date Willie Burton MD [address] [place] [address] PCP - General Family Medicine 02/06/12 Reagan Garcia, SENIOR ACCOUNTING SPECIALIST.WATCH REPAIRER [address] [place] [address] [facility] 12/17/24 Goals (unrecognized section and content) Goals may be documented in a n alternate section (unrecognized sect ion and content) No Status Records FoundNo Status Records FoundNo Status Records Found INFORMATION SOURCE (unrecogn ized section and content) DATE CREATED AUTHOR 12/17/2023 [facility] DATE CREATED AUTHOR AUTHOR'S ORGANIZ ATION 02/01/2024 [facility] DATE CREATED AUTHOR AUTHOR'S ORGANIZ ATION 07/09/2025 [facility] FOR RECORDS PERTAINING TO PATIENTS WHO ARE OR HAVE BEEN ENROLLED IN A CHEMICAL DEPENDENCY/SUBSTANCEABUSE PROGRAM, SOME INFORMATION MAY BE OMITTED. This clinical summary was aggregated from multiple sources. Caution should be exercised in using it in the provision of clinical care. This summary normalizes information from multiple sources, and as a consequence, information in this document may materially change the coding, format and clinical context of patient data. In addition, data may be omitted in some cases. CLINICAL DECISIONS SHOULD BE BASED ON THE PRIMARY CLINICAL RECORDS. [facility] [employer] [facility]. provides no warranty or guarantee of the accuracy or completeness of information in this document.
--- NOTE | 2025-09-19 15:40 | RAD_ITS ---
EXAM: XR Chest, 1 View CLINICAL INDICATION: COUGH TECHNIQUE: Frontal view of the chest. COMPARISON: XR Chest dated 12/14/2023 FINDINGS: LUNGS AND PLEURAL SPACES: Unremarkable. No consolidation. No pneumothorax. HEART: Unremarkable. No cardiomegaly. MEDIASTINUM: Unremarkable. Normal mediastinal contour. BONES/JOINTS: Unremarkable. No acute fracture. RAD/Chest PA and Lateral IMPRESSION: No acute cardiopulmonary process. Reading Location: [id number]
[2025-09-19 15:48] LABS: Hematocrit 33.9 % (40-54); Hemoglobin 12.7 g/dL (13.0-16.5); Immature Granulocytes Count 0.100 X10^3/uL (0.0-0.0); Mean Corp Hgb Conc 37.5 g/dL (32-36); Mean Corpuscular Volume 92.1 fL (80-94); Mean Platelet Vol. 11.6 fl (6.2-12.0); NRBC Flagged by Analyzer 0 % (0-5); Platelet Count 102 K/mm3 (150-450); RBC Distribution Width CV 13.3 % (11.6-14.6); RBC Distribution Width SD 45.3 fl (35.1-43.9); Red Blood Count 3.68 M/mm3 (4.6-6.2); White Blood Count 9.4 K/mm3 (4.4-11.0)
[2025-09-19 15:49] LABS: Red Blood Cells-Urine 0-5 SEEN /hpf (0-5); Squamous Epithelial Cells - UA 0-5 SEEN /hpf (0-5)
[2025-09-19 15:50] LABS: BETA-HYDROXYBUTYRATE 2.8 mmol/L (0.0-0.3); Lipase 189 U/L (13-75)
[2025-09-19 15:53] LABS: AST(SGOT) 44 U/L (<=37); Alanine Aminotransfer ALT/SGPT 56 U/L (<=46); Albumin, Serum 3.7 g/dL (3.5-5.0); Alkaline Phosphatase 263 U/L (40-129); Anion Gap 17 (7-18); BUN 51 mg/dL (4-19); BUN/Creat Ratio 30.8 RATIO (10-20); Calcium,Total 10.1 mg/dL (7.6-11.0); Carbon Dioxide 21.7 mmol/L (20.0-29.0); Chloride 89 mmol/L (96-106); Estimated Creatinine Clearance 51.92 ml/min (50-250); Globulin 4.0 g/dL (2.2-4.2); Glucose 495 mg/dL (70-99); Potassium 4.2 mmol/L (3.5-5.1)
[2025-09-19 16:40] VITALS: BP 110/63; PULSE 92; RESP 16; O2SAT 100
--- NOTE | 2025-09-19 16:41 | CT_ITS ---
EXAM: CT Abdomen and Pelvis With Intravenous Contrast CLINICAL INDICATION: TRANSAMINITIS TECHNIQUE: Axial computed tomography images of the abdomen and pelvis with intravenous contrast. This CT exam was performed using one or more of the following dose reduction techniques: automated exposure control, adjustment of the mA and/or kV according to patient size, and/or use of iterative reconstruction technique. CONTRAST: 100 cc Isovue 370 RADIATION DOSE: CTDIvol = 19 mGy, DLP = 1106 mGy-cm COMPARISON: No relevant prior studies available. FINDINGS: LUNG BASES: Unremarkable. No mass. No consolidation. ABDOMEN: LIVER: Mild hepatomegaly with fatty infiltration. GALLBLADDER AND BILE DUCTS: Unremarkable. No calcified stones. No ductal dilation. PANCREAS: Unremarkable. No mass. No ductal dilation. SPLEEN: Mild splenomegaly. ADRENALS: Unremarkable. No mass. KIDNEYS AND URETERS: Unremarkable. No solid mass. No hydronephrosis. STOMACH AND BOWEL: Fecal retention in the colon consistent with constipation. Colonic diverticulosis without acute diverticulitis. No obstruction. PELVIS: APPENDIX: No findings to suggest acute appendicitis. BLADDER: Unremarkable. No mass. REPRODUCTIVE: Unremarkable as visualized. ABDOMEN and PELVIS: INTRAPERITONEAL SPACE: Unremarkable. No free air. No significant fluid collection. BONES/JOINTS: No acute fracture. No dislocation. SOFT TISSUES: Unremarkable. VASCULATURE: Multiple splenic varices. No abdominal aortic aneurysm. LYMPH NODES: Unremarkable. No enlarged lymph nodes. CT/Abdomen/Pelvis W IV Cont ONLY IMPRESSION: 1. Fecal retention in the colon consistent with constipation. 2. Mild hepatosplenomegaly with splenic varices concerning for portal hyperten lex. Clinical correlation is recommended. 3. Colonic diverticulosis without acute diverticulitis. Reading Location: [id number]
[2025-09-19 18:08] VITALS: PULSE 93; RESP 15; O2SAT 97
[2025-09-19 19:33] VITALS: BP 120/74; PULSE 99; RESP 18; TEMP 36.6; O2SAT 97
[2025-09-19 20:00] VITALS: BP 110/75; PULSE 94; RESP 17; O2SAT 100
--- NOTE | 2025-09-19 20:20 | HP.PCM.HOS_ITS ---
[facility] - General General Date of Admission: 09/19/25 Chief Complaint: Generalized weakness HPI Narrative DANE MORAN, is a 54 M who presents frequent urination, polydipsia, weight loss, lethargy, intermittent confusion and generalized weakness. Patient has medical history of diabetes not on insulin, hypertension and heavy alcohol use until (last month). He has been on metformin but was taken off the glipizide 3 months ago because his sugars were normal or low. For more than a month now he has been frequently urinating, has been thirsty, has lost weight and feels tired, dizzy, lightheaded and lethargic. He never checked his blood sugars during these symptoms. He has been drinking alcohol every day for more than 25 years, he stopped last month after he was told he may develop cirrhosis after an ultrasound was done and showed some liver disease. He never had ascites or hematemesis but he describes episodes of altered sensorium where he has been occasionally acting weird at work or he forgets his way home while driving. No change in speech or sleep except that he wakes up to urinate. He was prescribed something to drink after his ammonia was checked as outpatient, it gave him too much gas, probably was lactulose. In the ED, he was in impending DKA his blood sugars was 495, beta- hydroxybutyrate was 2.8 (cutoff is 3 for DKA), anion gap 17 but normal bicarbonate of 21 possibly from vomiting. pH 7.42 on VBG, he had been vomiting which mixed his acid-base. A dramatic improvement in his hyperglycemia after couple of liters of normal saline and 10 units of insulin, his fingerstick glucose was 250 so he will not be managed as a full DKA protocol, will only manage with weight-based, both short and long-acting insulin regimen. He never had abdominal pain. CT abdomen done because of abnormal LFT showed splenic varices compatible with portal hypertension but no chuck cirrhosis no ascites ALT 56, AST 44, total bilirubin 2.28, alk phos 263, lipase 189 which is below 3 times the upper limit of normal. Creatinine 1.66 no baseline, BUN 51 [facility] Medical History (Updated 09/20/25 @ 00:[address] Zachary Zaragoza MD) Hypertension Diabetes Home Medications ?Medication ?Instructions ?Recorded ?Last Taken ?Type lisinopril 5 mg tablet 5 mg PO DAILY 11/02/1612/12 History metformin 500 mg tablet 1,000 mg PO BIDCM 11/02/16 0 12/13/23 History Allergy/AdvReac Type Severity Reaction Status Date / Time No Known Allergies Allergy Verified 09/19/25 14:43 Surgical History no surgical history Social History Smoking Status: Never smoker ROS Constitutional Constitutional: Reports poor appetite; Denies fever(s) Eyes Eyes: Reports blurry vision ENT HEENT: Reports none Cardiovascular Cardiovascular: Denies chest pain or dyspnea Respiratory/Chest Respiratory/Chest: Denies cough or wheezing Gastrointestinal Gastrointestinal: Denies abdominal pain or change in bowel habits Genitourinary Genitourinary: Reports urinary frequency; Denies change in urinary stream or dysuria Musculoskeletal Musculoskeletal: Denies arthralgias or myalgias Integumentary Integumentary: Reports none Neurologic Neurologic: Reports dizziness; Denies abnormal speech, focal weakness, loss of vision or numbness Hematologic/Lymphatic Hematologic/Lymphatic: Reports none Patient's Goals Of Care . What would you like to achieve or improve as a result of your hospital stay?: G et better Vital Signs Vital Signs Vital Signs: 09/19/25 14:39 09/19/25 14:52 09/19/25 16:40 Temperature 98.1 F Temperature Source Oral Pulse Rate 114 H 92 Respiratory Rate 16 16 Respiratory Pattern Normal Blood Pressure 116/68 110/63 Blood Pressure Mean 84 78 Pulse Ox 100 100 Oxygen Delivery Method Room Air 09/19/25 18:08 09/19/25 19:33 09/19/25 20:00 Temperature 97.8 F Temperature Source Pulse Rate 93 99 94 Respiratory Rate 15 18 17 Respiratory Pattern Blood Pressure 120/74 110/75 Blood Pressure Mean 89 86 Pulse Ox 97 97 100 Oxygen Delivery Method Room Air Room Air Weight Weight: 86.183 kg Body Mass Index (BMI) 27.2 Physical Exam Const alert and oriented x3 HEENT normocephalic and head/scalp atraumatic Eyes EOMs intact bilaterally; Negative for no scleral icterus Neck supple Resp normal respiratory effort and clear to auscultation bilaterally Cardio regular rate and regular rhythm Cardio Narrative: Ejection systolic murmur GI normal to inspection, nondistended, normoactive bowel sounds; Negative for non- tender no CVA tenderness Extremity no joint enlargement and no pedal edema Skin no rashes or lesions noted Neuro oriented x3 and moves all extremities Results Lab / Micro Data 09/19/25 15:20 09/19/25 15:20 Labs: Laboratory Results - last 24 hr 09/19/25 14:45: Urine Color Straw, Urine Clarity Clear, Urine pH 6.0, Ur Specific [place] 1.010, Urine Protein 15 H, Urine Glucose (UA) 1000 H, Urine Ketones 5 H, Urine Occult Blood Negative, Urine Nitrite Negative, Urine Bilirubin Negative, Urine Urobilinogen Normal, Ur Leukocyte Esterase Negative, Urine RBC 0-5 SEEN, Urine WBC 0-5 SEEN, Ur Squamous Epith Cells 0-5 SEEN, Urine Bacteria RARE, Urine Mucus 0 SEEN 09/19/25 15:20: WBC 9.4, RBC 3.68 L, Hgb 12.7 L, Hct 33.9 L, MCV 92.1, MCH 34.5 H, MCHC 37.5 H, RDW Std Deviation 45.3 H, RDW Coeff of Nelsy 13.3, Plt Count 102 L , MPV 11.6, Immature Gran % (Auto) 1.100 H, Neut % (Auto) 64.0, Lymph % (Auto) 19.1, [place] % (Auto) 9.3, Eos % (Auto) 5.4 H, Baso % (Auto) 1.1 H, Absolute Neuts (auto) 6.0, Absolute Lymphs (auto) 1.79, Nucleated RBC % 0, Sodium 128 L, Potassium 4.2, Chloride 89 L, Carbon Dioxide 21.7, Anion Gap 17, BUN 51 H, C reatinine 1.66 H, Estim Creat Clear Calc 51.92, Est GFR (MDRD) Non-Af 48 L, B UN/Creatinine Ratio 30.8 H, Glucose 495 H*, Calcium 10.1, Total Bilirubin 2.28 H , AST 44 H, ALT 56 H, Alkaline Phosphatase 263 H, Total Protein 7.7, Albumin 3.7, Globulin 4.0, Albumin/Globulin Ratio 0.9, Lipase 189 H, b-Hydroxybutyric mmol/L 2.8 H 09/19/25 16:21: POC Glucose 419 H 09/19/25 17:59: POC Glucose 380 H 09/19/25 19:22: POC Glucose 255 H ABG Data ABG results: ABG 09/19/25 15:34 Specimen Type BRUCE Sample Site Not entered VBG pH 7.42 VBG pO2 26 VBG HCO3 21 L VBG Total CO2 22 L VBG O2 Sat (Calc) 49 L VBG Base Excess -3 L POC Mix VBG pCO2 Pt Tmp 33.1 L O2 Delivery Device Room Air Imaging Radiology Impression Brain CT 09/19/25 15:04 IMPRESSION: No intracranial hemorrhage. No mass effect or midline shift. Reading Location: [facility] Chest X-Ray 09/19/25 15:40 IMPRESSION: No acute cardiopulmonary process. Reading Location: [facility] Abdomen/Pelvis CT 09/19/25 16:41 IMPRESSION: 1. Fecal retention in the colon consistent with constipation. 2. Mild hepatosplenomegaly with splenic varices concerning for portal hypertension. Clinical correlation is recommended. 3. Colonic diverticulosis without acute diverticulitis. Reading Location: [facility] Assessment & Plan Assessment/Plan (1) Type 2 diabetes mellitus with hyperglycemia: QUALIFIERS: Diabetes mellitus senior living insulin use: without continuous churn buttermaker use Qualified Code(s): E11.65 - Type 2 diabetes mellitus with hyperglycemia (2) Acute kidney injury: (3) Compensated liver disease: (4) Alcoholic cirrhosis of liver without ascites: (5) Hypertension: QUALIFIERS: Hypertension type: primary hypertension Qualified Code(s): I10 - Essential (primary) hypertension (6) Systolic murmur: PLAN: Plan Admission to [facility] Hyperglycemia: Impending DKA, rapidly recovered with fluids and 1 dose short acting insulin Weight-based regimen: 20 units Lantus and Premeal short acting based on sliding scale, adjust as needed. I told him there is a high chance he needs insulin on discharge given the severe symptomatic hyperglycemia with ketonemia particularly if A1c comes back above 9 Check A1c Repeat kidney function, hold lisinopril and metformin. Expect to improve with hydration. Unknown baseline he might have diabetic kidney disease which will be evaluated later on Liver disease: Check ammonia, INR and gamma GT Oral lactulose: He describes symptoms of hepatic encephalopathy, hard to tell with hyperglycemia Compensated liver disease: No ascites, varices but no hemorrhage. Ultrasound with portal and hepatic vein Doppler to evaluate for other etiologies of portal hypertension Elevated lipase but no pancreatitis (less than 3 times upper limit of normal, CT negative) Murmur: Outpatient echo for ejection systolic murmur. No cardiac symptoms at the moment Sepsis Attestation Sepsis Attestation: Sepsis Ruled Out Charges/Coding Visit Charges Inpatient E&M: 31273 Init Hosp L3
--- OUTSIDE RECORDS SUMMARY | 2025-09-19 20:33 | XMS RPT_ITS | CCD ---
Author Organization [facility] Care Team Providers Care Bean Dumper Name Role Phone Willie Burton MD Primary Care Provider Luis Mensah Attending Unavailable Conor INDUSTRIAL TRACTOR DRIVER, Reagan Primary Care Unavailable Willie Burton MD Primary Care Provider Willie Burton MD Primary Care Provider WILLIE BURTON Referring Unavailable WILLIE BURTON Primary Care Unavailable Tannhof FORGING MACHINE OPERATOR.Cee ALONZO Unavailable Conor FORGING MACHINE OPERATOR.ANNEALING OPERATORReagan Unavailable Tannhof FORGING MACHINE OPERATOR.ANNEALING OPERATORCee Unavailable Unavail able Tannhof FORGING MACHINE OPERATOR.CHERI Cee Unavailable Tannhof FORGING MACHINE OPERATOR.Cee ALONZO Unavailable WILLIE BURTON Primary Care Unavailable [...] / neomycin 3.5 mg/ml / polymyxin b [id number] unt/ml otic suspension (1 source) Aminoglycoside Antibacterial, [...] Test Name Value Interpretation Reference Range Facility [facility] 07-08-2025 CNOV Office Visit (FAMPWS ) DANE MORAN ([id number]) 1970 M Date Time Provider Department 07/08/25 9:00 AM [facility] During your visit today, we recorded the [...] for the past 1.5 months. Follows with [facility] for DM eye exams, seen this past year. Was referred to [facility] for possible glaucoma. Dane is a 54-year-old [...] previous reading of 8.1 one year ago. aDne also has a history of mild aortic [...] further evaluation and management; discussed options at [facility] and [facility]. - Discussed potential need for liver biopsy [...] schedule once insurance is active. Reagan Garcia APRN.ANNEALING OPERATOR RTO in 6 months, sooner i (more content not included)... Normal [facility] Comprehensive metabolic 2000 panelon 07-08-2025 Albumin [Mass/Vol] 4.0 g/dL Normal 3.9-4.9 [facility] Comment on above: Order Comment: Speci men Type: BLOOD SPECIMENOrdering Facility: [facility] Address: [address] [place] [address] Performed By: #### 2 4323-8 ####[facility] LABCLIA [id number] [place] [address] [place] ALP [Catalytic activity/Vol] 97 U/L Normal 38-113 [facility] Comment on above: Order Comment: Speci men Type: BLOOD SPECIMENOrdering Facility: [facility] Address: [address] [place] [address] Performed By: #### 2 4323-8 ####[facility] LABCLIA [id number] [place] [address] [place] ALT [Catalytic activity/Vol] 45 U/L Normal 10-54 [facility] Comment on above: Order Comment: Speci men Type: BLOOD SPECIMENOrdering Facility: [facility] Address: [address] [place] [address] Performed By: #### 2 4323-8 ####[facility] LABCLIA [id number] [place] [address] [place] Anion gap [Moles/Vol] 14 mmol/L Normal 8-15 [facility] Comment on above: Order Comment: Speci men Type: BLOOD SPECIMENOrdering Facility: [facility] Address: [address] [place] [address] Performed By: #### 2 4323-8 ####[facility] LABCLIA [id number] [place] [address] [place] AST [Catalytic activity/Vol] 57 U/L High 14-40 [facility] Comment on above: Order Comment: Speci men Type: BLOOD SPECIMENOrdering Facility: [facility] Address: [address] [place] [address] Performed By: #### 2 4323-8 ####[facility] LABCLIA [id number] [place] [address] [place] Bilirubin [Mass/Vol] 1.9 mg/dL High 0.2-1.3 [facility] Comment on above: Order Comment: Speci men Type: BLOOD SPECIMENOrdering Facility: [facility] Address: [address] [place] [address] Performed By: #### 2 4323-8 ####[facility] LABCLIA [id number] [place] [address] [place] Calcium [Mass/Vol] 10.2 mg/dL Normal 8.5-10.2 [facility] Comment on above: Order Comment: Speci men Type: BLOOD SPECIMENOrdering Facility: [facility] Address: [address] [place] [address] Performed By: #### 2 4323-8 ####[facility] LABCLIA [id number] [place] [address] [place] Chloride [Moles/Vol] 104 mmol/L Normal 98-107 [facility] Comment on above: Order Comment: Speci men Type: BLOOD SPECIMENOrdering Facility: [facility] Address: [address] [place] [address] Performed By: #### 2 4323-8 ####[facility] LABCLIA [id number] [place] [address] [place] CO2 [Moles/Vol] 23 mmol/L Normal 22-30 [facility] Comment on above: Order Comment: Speci men Type: BLOOD SPECIMENOrdering Facility: [facility] Address: [address] [place] [address] Performed By: #### 2 4323-8 ####[facility] LABCLIA [id number] [place] [address] [place] Creatinine [Mass/Vol] 0.96 mg/dL Normal 0.73-1.22 [facility] Comment on above: Order Comment: Speci men Type: BLOOD SPECIMENOrdering Facility: [facility] Address: [address] [place] [address] Performed By: #### 2 4323-8 ####[facility] LABCLIA [id number] [place] [address] [place] eGFRcr SerPlBld CKD-EPI 2020 93 mL/min/1.73m??? Normal >=60 [facility] Comment on above: Order Comment: Speci men Type: BLOOD SPECIMENOrdering Facility: [facility] Address: [address] [place] [address] Result Comment: Flavia mated Glomerular Filtration Rate [...] actual GFR. Performed By: #### 2 4323-8 ####[facility] LABCLIA [id number] [place] [address] [place] Glucose [Mass/Vol] 66 mg/dL Low 74-99 [facility] Comment on above: Order Comment: Speci men Type: BLOOD SPECIMENOrdering Facility: [facility] Address: [address] [place] [address] Result Comment: The [place] Diabetes Association (ADA) provides guidance for cutoff [...] Standards of Medical Care in Diabetes 2016, [place] Diabetes Association. Diabetes Care. 2016.39(Suppl 1). Performed By: #### 2 4323-8 ####[facility] LABCLIA [id number] [place] [address] [place] Potassium [Moles/Vol] 4.5 mmol/L Normal 3.7-5.1 [facility] Comment on above: Order Comment: Speci men Type: BLOOD SPECIMENOrdering Facility: [facility] Address: [address] [place] [address] Performed By: #### 2 4323-8 ####[facility] LABCLIA [id number] [place] [address] [place] Protein [Mass/Vol] 7.7 g/dL Normal 6.3-8.0 [facility] Comment on above: Order Comment: Speci men Type: BLOOD SPECIMENOrdering Facility: [facility] Address: [address] [place] [address] Performed By: #### 2 4323-8 ####[facility] LABCLIA [id number] [place] [address] [place] Sodium [Moles/Vol] 141 mmol/L Normal 136-144 [facility] Comment on above: Order Comment: Speci men Type: BLOOD SPECIMENOrdering Facility: [facility] Address: [address] [place] [address] Performed By: #### 2 4323-8 ####[facility] LABCLIA [id number] [address] Urea nitrogen [Mass/Vol] 28 mg/dL High 9-24 [facility] Comment on above: Order Comment: Sarahi mccann Type: BLOOD SPECIMENOrdering Facility: [facility] Address: [address] [place] [address] Performed By: #### 2 4323-8 ####[facility] LABCLIA [id number] [address] HbA1c (Bld)on 07-08-2025 Average glucose Estimated from glycated hemoglobin (Bld) [Mass/Vol] 105 mg/dL Normal [facility] Comment on above: Order Comment: Sarahi mccann Type: BLOOD SPECIMENOrdering Facility: [facility] Address: [address] [place] [address] Result Comment: eAG: (Estimated average glucose) is a calculated value from HgbA1c and is branch sales and service representative of the average blood glucose level in the last 2-3 month period. Performed By: #### 5 5454-3 ####[facility] LABIA [id number] [address] HbA1c (Bld) [Mass fraction] 5.3 % Normal 4.3-5.6 [facility] Comment on above: Order Comment: Sarahi mccann Type: BLOOD SPECIMENOrdering Facility: [facility] Address: [address] [place] [address] Result Comment: Amer [place] Diabetes Association guidelines indicate that patients with HgbA1c in the range 5.7-6.4% are at increased risk for development of diabetes, and intervention by lifestyle modification may be beneficial. HgbA1c greater or equal to 6.5% is considered diagnostic of diabetes. Performed By: #### 5 5454-3 ####[facility] LABCLIA [id number] [address] [place] 03-05-2025 LUIS Telephone (GSTNOR) LUISA,DANE ([id number]) 1970 M Date Time Provider Department 03/05/25 [...] Encounter Status:Closed by DEJUAN RED on 03/10/25 [facility] CNOVon 01-27-2025 CNOV Office Visit (FAMPWS ) DANE MORAN ([id number]) 1970 M Date Time Provider Department 01/27/25 [...] as deepti (more content not included)... Normal [facility] CNOVon 01-21-2025 CNOV Office Visit (UCWSTR ) DANE MORAN ([id number]) 1970 M Date Time Provider Department 01/21/25 5:00 PM ANNA DREW [facility] During your visit today, we recorded the [...] Continue bandages and burn ointment Anna Drew APRN.ANNEALING OPERATOR History and Record Review External record(s) reviewed: prior outpatient record. Findings from review of outpatient records: diabetic Disposition The patient was discharged. Procedures Allergies As of Date: 01/21/2025 (No Known Allergies) Date Reviewed: 01/21/2025 Reviewed by: Margie Brooks MA - Fully Assessed Reason for Visit: Burn [3498] Cmt: Right foot x 1 week, pain [...] Fatty live (more content not included)... [facility] CHERIN Telephone (FAMPWS) DANE MORAN ([id number]) 1970 M Date Time Provider Department 01/05/25 [facility] During your visit today, we recorded the [...] ammonia level [R79.89] Order(s):AMMONIA [SQNH3] Order #: [id number] FUTURE lactulose 10 gram/15 mL solutionTake 15 [...] for Encounter Date Provider Department Center 01/05/2025 [id number] GARCIA [facility] Encounter Status:Closed by IRA GOODSON on 01/05/25 Normal [facility] ALKALINE PHOSPHATASE ISOENZY MES (P)on 12-29-2024 ALK PHOS BONE % 24.5 % Normal 10.7-68.3 [facility] Comment on above: Order Comment: Speci men Type: BLOOD SPECIMENOrdering Facility: [facility] Address: [address] [place] [address] Performed By: #### A LKISOP ####[facility] LABCLIA [id number] [place] [address] [place] ALK PHOS LIVER % 16.2 % Low 26.0-86.2 [facility] Comment on above: Order Comment: Speci men Type: BLOOD SPECIMENOrdering Facility: [facility] Address: [address] [place] [address] Performed By: #### A LKISOP ####[facility] LABCLIA [id number] [address], [facility] [place] BONE FRACTION 26.2 U/L Normal 12.9-52.6 [facility] Comment on above: Order Comment: Speci men Type: BLOOD SPECIMENOrdering Facility: [facility] Address: [address] [place] [address] Performed By: #### A LKISOP ####[facility] LABCLIA [id number] [address], [place] [address] [place] INTESTINE FRACTION 63.5 U/L High 0.0-16.3 [facility] Comment on above: Order Comment: Speci men Type: BLOOD SPECIMENOrdering Facility: [facility] Address: [address] [place] [address] Performed By: #### A LKISOP ####[facility] LABCLIA [id number] [address], [place] [address] [facility] [place] LIVER FRACTION 17.3 U/L Normal 16.0-69.3 [facility] Comment on above: Order Comment: Speci men Type: BLOOD SPECIMENOrdering Facility: [facility] Address: [address] [place] [address] Performed By: #### A LKISOP ####[facility] LABCLIA [id number] [address] [place] [address] [place] Neutrophils/100 WBC (Bld) 59.3 % High 0.0-24.2 [facility] Comment on above: Order Comment: Speci men Type: BLOOD SPECIMENOrdering Facility: [facility] Address: [address] [place] [address] Performed By: #### A LKISOP ####[facility] LABCLIA [id number] [place] [address] [place] ALP SerPl-cCncon 12-29-2024 ALP [Catalytic activity/Vol] 107 U/L Normal 38-113 [facility] Comment on above: Order Comment: Speci men Type: BLOOD SPECIMENOrdering Facility: [facility] Address: [address] [place] [address] Performed By: #### 5 0190-8, 2324-2, 2276-4, 6768-6 ####[facility] LABCLIA [id number] [place] [address] [place] Ammonia Plas-sCncon 12-30-19 25 Ammonia (P) [Moles/Vol] 73 umol/L High 16-60 [facility] Comment on above: Order Comment: Speci men Type: BLOOD SPECIMENOrdering Facility: [facility] Address: [address] [place] [address] Performed By: #### 1 6362-6 ####[facility] LABCLIA [id number] [place] [address] [place] CBC W Auto Differential pane l (Bld)on 12-29-2024 Basophils (Bld) [#/Vol] 0.08 10*3/uL Normal <0.11 [facility] Comment on above: Order Comment: Speci men Type: BLOOD SPECIMEN [facility] Address: [address] [place] [address] Performed By: #### 5 7021-8 #### [facility] CLIA [id number] [address] [place] [address] [place] Basophils/100 WBC (Bld) 1.3 % Normal [facility] Comment on above: Order Comment: Speci men Type: BLOOD SPECIMEN [facility] Address: [address] [place] [address] Performed By: #### 5 7021-8 #### [facility] CLIA [id number] [address] [place] [address] [place] Differential cell count method Nom (Bld) Auto Normal [facility] Comment on above: Order Comment: Speci men Type: BLOOD SPECIMEN [facility] Address: [address] [place] [address] Performed By: #### 5 7021-8 #### [facility] CLIA [id number] [address] [place] [address] [place] Eosinophils (Bld) [#/Vol] 0.37 10*3/uL Normal <0.46 [facility] Comment on above: Order Comment: Speci men Type: BLOOD SPECIMEN [facility] Address: [address] [place] [address] Performed By: #### 5 7021-8 #### [facility] CLIA [id number] [address] [place] [address] [place] Eosinophils/100 WBC (Bld) 5.8 % Normal [facility] Comment on above: Order Comment: Speci men Type: BLOOD SPECIMEN [facility] Address: [address] [place] [address] Performed By: #### 5 7021-8 #### [facility] CLIA [id number] [address] [place] [address] [place] Erythrocyte distribution width (RBC) [Ratio] 14.6 % Normal 11.5-15.0 [facility] Comment on above: Order Comment: Speci men Type: BLOOD SPECIMEN [facility] Address: [address] [place] [address] Performed By: #### 5 7021-8 #### [facility] CLIA [id number] [address] [place] [address] [place] Hematocrit (Bld) [Volume fraction] 35.4 % Low 39.0-51.0 [facility] Comment on above: Order Comment: Speci men Type: BLOOD SPECIMEN [facility] Address: [address] [place] [address] Performed By: #### 5 7021-8 #### [facility] CLIA [id number] [address] [place] [address] [place] Hemoglobin (Bld) [Mass/Vol] 12.3 g/dL Low 13.0-17.0 [facility] Comment on above: Order Comment: Speci men Type: BLOOD SPECIMEN [facility] Address: [address] [place] [address] Performed By: #### 5 7021-8 #### [facility] CLIA [id number] [address] [place] [address] [place] Immature granulocytes (Bld) [#/Vol] 0.08 10*3/uL Normal <0.10 [facility] Comment on above: Order Comment: Speci men Type: BLOOD SPECIMEN [facility] Address: [address] [place] [address] Performed By: #### 5 7021-8 #### [facility] CLIA [id number] [address] [place] [address] [place] Immature granulocytes/100 WBC (Bld) 1.3 % Normal [facility] Comment on above: Order Comment: Speci men Type: BLOOD SPECIMEN [facility] Address: [address] [place] [address] Performed By: #### 5 7021-8 #### [facility] CLIA [id number] [address] [place] [address] [place] Lymphocytes (Bld) [#/Vol] 2.15 10*3/uL Normal 1.00-4.00 [facility] Comment on above: Order Comment: Speci men Type: BLOOD SPECIMEN [facility] Address: [address] [place] [address] Performed By: #### 5 7021-8 #### [facility] CLIA [id number] [address] [place] [address] [place] Lymphocytes/100 WBC (Bld) 33.7 % Normal [facility] Comment on above: Order Comment: Speci men Type: BLOOD SPECIMEN [facility] Address: [address] [place] [address] Performed By: #### 5 7021-8 #### [facility] CLIA [id number] [address] [place] [address] [place] MCH (RBC) [Entitic mass] 34.6 pg High 26.0-34.0 [facility] Comment on above: Order Comment: Speci men Type: BLOOD SPECIMEN [facility] Address: [address] [place] [address] Performed By: #### 5 7021-8 #### [facility] CLIA [id number] [address] [place] [address] [place] MCHC (RBC) [Mass/Vol] 34.7 g/dL Normal 30.5-36.0 [facility] Comment on above: Order Comment: Speci men Type: BLOOD SPECIMEN [facility] Address: [address] [place] [address] Performed By: #### 5 7021-8 #### [facility] CLIA [id number] [address] [place] [address] [place] MCV (RBC) [Entitic vol] 99.7 fL Normal 80.0-100.0 [facility] Comment on above: Order Comment: Speci men Type: BLOOD SPECIMEN [facility] Address: [address] [place] [address] Performed By: #### 5 7021-8 #### [facility] CLIA [id number] [address] [place] [address] [place] Monocytes (Bld) [#/Vol] 0.74 10*3/uL Normal <0.87 [facility] Comment on above: Order Comment: Speci men Type: BLOOD SPECIMEN [facility] Address: [address] [place] [address] Performed By: #### 5 7021-8 #### [facility] CLIA [id number] [address] [place] [address] [place] Monocytes/100 WBC (Bld) 11.6 % Normal [facility] Comment on above: Order Comment: Speci men Type: BLOOD SPECIMEN [facility] Address: [address] [place] [address] Performed By: #### 5 7021-8 #### [facility] CLIA [id number] [address] [place] [address] [place] Neutrophils (Bld) [#/Vol] 2.96 10*3/uL Normal 1.45-7.50 [facility] Comment on above: Order Comment: Speci men Type: BLOOD SPECIMEN [facility] Address: [address] [place] [address] Performed By: #### 5 7021-8 #### [facility] CLIA [id number] [address] [place] [address] [place] Neutrophils/100 WBC (Bld) 46.3 % Normal [facility] Comment on above: Order Comment: Speci men Type: BLOOD SPECIMEN [facility] Address: [address] [place] [address] Performed By: #### 5 7021-8 #### [facility] CLIA [id number] [address] [place] [address] [place] Nucleated RBC (Bld) [#/Vol] 10*3/uL Normal <0.01 [facility] Comment on above: Order Comment: Speci men Type: BLOOD SPECIMEN [facility] Address: [address] [place] [address] Performed By: #### 5 7021-8 #### [facility] CLIA [id number] [address] [place] [address] [place] Nucleated RBC/100 WBC (Bld) [Ratio] 0.0 /100 WBC Normal [facility] Comment on above: Order Comment: Speci men Type: BLOOD SPECIMEN [facility] Address: [address] [place] [address] Performed By: #### 5 7021-8 #### [facility] CLIA [id number] [address] [place] [address] [place] Platelet mean volume (Bld) [Entitic vol] 10.2 fL Normal 9.0-12.7 [facility] Comment on above: Order Comment: Speci men Type: BLOOD SPECIMEN [facility] Address: [address] [place] [address] Performed By: #### 5 7021-8 #### [facility] CLIA [id number] [address] [place] [address] [place] Platelets (Bld) [#/Vol] 89 10*3/uL Low 150-400 [facility] Comment on above: Order Comment: Speci men Type: BLOOD SPECIMEN [facility] Address: [address] [place] [address] Result Comment: No c lot detected. Performed By: #### 5 7021-8 #### [facility] CLIA [id number] [address] [place] [address] [place] RBC (Bld) [#/Vol] 3.55 10*6/uL Low 4.20-6.00 [facility] Comment on above: Order Comment: Speci men Type: BLOOD SPECIMEN [facility] Address: [address] [place] [address] Performed By: #### 5 7021-8 #### [facility] CLIA [id number] [address] [place] [address] [place] WBC (Bld) [#/Vol] 6.38 10*3/uL Normal 3.70-11.00 [facility] Comment on above: Order Comment: Speci men Type: BLOOD SPECIMEN [facility] Address: [address] [place] [address] Performed By: #### 5 7021-8 #### [facility] CLIA [id number] [address] [place] [address] [place] Ferritin SerPl-mCncon 2024 Ferritin [Mass/Vol] 392.0 ng/mL Normal 30.3-565.7 [facility] Comment on above: Order Comment: Speci men Type: BLOOD SPECIMENOrdering Facility: [facility] Address: [address] [place] [address] Performed By: #### 5 0190-8, 2324-2, 2276-4, 6768-6 ####[facility] LABCLIA [id number] [place] [address] [place] GGT SerPl-cCncon 12-29-2024 Gamma glutamyl transferase [Catalytic activity/Vol] 304 U/L High 10-70 [facility] Comment on above: Order Comment: Speci men Type: BLOOD SPECIMENOrdering Facility: [facility] Address: [address] [place] [address] Performed By: #### 5 0190-8, 2324-2, 2276-4, 6768-6 ####[facility] LABCLIA [id number] [place] [address] [place] Iron and Iron binding capaci ty panelon 12-29-2024 Iron [Mass/Vol] 171 ug/dL Normal 41-186 [facility] Comment on above: Order Comment: Speci men Type: BLOOD SPECIMENOrdering Facility: [facility] Address: [address] [place] [address] Performed By: #### 5 0190-8, 2324-2, 2276-4, 6768-6 ####[facility] LABCLIA [id number] [address] [address] [place] Iron binding capacity [Mass/Vol] 274 ug/dL Normal 232-386 [facility] Comment on above: Order Comment: Speci men Type: BLOOD SPECIMENOrdering Facility: [facility] Address: [address] [place] [address] Performed By: #### 5 0190-8, 2324-2, 2276-4, 6768-6 ####[facility] LABIA [id number] [place] [id number] [place] Iron/TIBC [Molar ratio] 62.4 % High 15.0-57.0 [facility] Comment on above: Order Comment: Speci men Type: BLOOD SPECIMENOrdering Facility: [facility] Address: [address] [place] [address] Performed By: #### 5 0190-8, 2324-2, 2276-4, 6768-6 ####[facility] LABIA [id number] [place] [id number] [facility] No Panel Informationon 12-29 IMPRESSION: 1. Hepatic steatosis with cirrhotic liver morphology. 2. Mild splenomegaly Cabin Outfitter: PRICE Transcribe Date/Time: Dec 29 2024 10:41A Dictated by : SARAH JULIAN MD This examination was interpreted and the report reviewed and electronically signed by: SARAH JULIAN MD on Dec 29 2024 10:46AM [facility] DIVISION OF RADIOLOGY No Panel InformationOrdered By: Ccf Provider on 12-29-2024 [facility] US ABD RIGHT UPPER QUADRANTo n 12-29-2024 [...] with cirrhotic liver morphology. 2. Mild splenomegaly Cabin Outfitter: [facility] Transcribe Date/Time: Dec 29 2024 10:41A Dictated by : SARAH JULIAN MD This examination was interpreted and the report reviewed and electronically signed by: SARAH JULIAN MD on Dec 29 2024 10:46AM EST [id number] Normal [facility] US ABD SPLEEN - NBon 025 * [...] lesion. Ascites: None. DIVISION OF RADIOLOGY Provider, [facility] 12/29/2024 * * *Final Report* * [...] with cirrhotic liver morphology. 2. Mild splenomegaly Cabin Outfitter: PSCB Transcribe Date/Time: Dec 29 2024 10:41A Dictated by : SARAH JULIAN MD This examination was interpreted and the report reviewed and electronically signed by: SARAH JULIAN MD on Dec 29 2024 10:46AM EST [facility] Radiology Study observation (narrative) [facility] US ABD SPLEEN -NBon 12-30-19 25 US [...] with cirrhotic liver morphology. 2. Mild splenomegaly Cabin Outfitter: PRICE Transcribe Date/Time: Dec 29 2024 10:41A Dictated by : SARAH JULIAN MD This examination was interpreted and the report reviewed and electronically signed by: SARAH JULIAN MD on Dec 29 2024 10:46AM EST [id number] Normal [facility] US Abdomen RUQon 12-29-2024 * * *Final [...] lesion. Ascites: None. DIVISION OF RADIOLOGY Provider, [facility] - 12/29/2024 * * *Final Report* * [...] with cirrhotic liver morphology. 2. Mild splenomegaly Cabin Outfitter: PRICE Transcribe Date/Time: Dec 29 2024 10:41A Dictated by : SARAH JULIAN MD This examination was interpreted and the report reviewed and electronically signed by: SARAH JULIAN MD on Dec 29 2024 10:46AM EST [facility] Radiology Study observation (narrative) [facility] CBC W Auto Differential pane l (Bld)on 12-15-2024 Basophils (Bld) [#/Vol] 0.07 10*3/uL Normal <0.11 [facility] Comment on above: Order Comment: Speci men Type: BLOOD SPECIMENOrdering Facility: [facility] Address: [address] [place] [address] Performed By: #### 5 7021-8 ####[facility] LABCLIA [id number] [place] [address] [place] Basophils/100 WBC (Bld) 1.4 % Normal [facility] Comment on above: Order Comment: Speci men Type: BLOOD SPECIMENOrdering Facility: [facility] Address: [address] [place] [address] Performed By: #### 5 7021-8 ####[facility] LABCLIA [id number] [address], [place] [address] [place] Differential cell count method Nom (Bld) Auto Normal [facility] Comment on above: Order Comment: Speci men Type: BLOOD SPECIMENOrdering Facility: [facility] Address: [address] [place] [address] Performed By: #### 5 7021-8 ####[facility] LABCLIA [id number] [address], [place] [address] [place] Eosinophils (Bld) [#/Vol] 0.41 10*3/uL Normal <0.46 [facility] Comment on above: Order Comment: Speci men Type: BLOOD SPECIMENOrdering Facility: [facility] Address: [address] [place] [address] Performed By: #### 5 7021-8 ####[facility] LABCLIA [id number] [place] [address] [place] Eosinophils/100 WBC (Bld) 8.1 % Normal [facility] Comment on above: Order Comment: Speci men Type: BLOOD SPECIMENOrdering Facility: [facility] Address: [address] [place] [address] Performed By: #### 5 7021-8 ####[facility] LABCLIA [id number] [place] [address] [place] Erythrocyte distribution width (RBC) [Ratio] 15.1 % High 11.5-15.0 [facility] Comment on above: Order Comment: Speci men Type: BLOOD SPECIMENOrdering Facility: [facility] Address: [address] [place] [address] Performed By: #### 5 7021-8 ####[facility] LABCLIA [id number] [place] [address] [place] Hematocrit (Bld) [Volume fraction] 35.9 % Low 39.0-51.0 [facility] Comment on above: Order Comment: Speci men Type: BLOOD SPECIMENOrdering Facility: [facility] Address: [address] [place] [address] Performed By: #### 5 7021-8 ####[facility] LABCLIA [id number] [place] [address] [place] Hemoglobin (Bld) [Mass/Vol] 12.6 g/dL Low 13.0-17.0 [facility] Comment on above: Order Comment: Speci men Type: BLOOD SPECIMENOrdering Facility: [facility] Address: [address] [place] [address] Performed By: #### 5 7021-8 ####[facility] LABIA [id number] [address], [place] [address] [place] Immature granulocytes (Bld) [#/Vol] 0.05 10*3/uL Normal <0.10 [facility] Comment on above: Order Comment: Speci men Type: BLOOD SPECIMENOrdering Facility: [facility] Address: [address] [place] [address] Performed By: #### 5 7021-8 ####[facility] LABIA [id number] [place] [address] [place] Immature granulocytes/100 WBC (Bld) 1.0 % Normal [facility] Comment on above: Order Comment: Speci men Type: BLOOD SPECIMENOrdering Facility: [facility] Address: [address] [place] [address] Performed By: #### 5 7021-8 ####[facility] LABCLIA [id number] [place] [id number] [place] Lymphocytes (Bld) [#/Vol] 1.67 10*3/uL Normal 1.00-4.00 [facility] Comment on above: Order Comment: Speci men Type: BLOOD SPECIMENOrdering Facility: [facility] Address: [address] [place] [address] Performed By: #### 5 7021-8 ####[facility] LABCLIA [id number] [place] [address] [place] Lymphocytes/100 WBC (Bld) 33.1 % Normal [facility] Comment on above: Order Comment: Speci men Type: BLOOD SPECIMENOrdering Facility: [facility] Address: [address] [place] [address] Performed By: #### 5 7021-8 ####[facility] LABIA [id number] [place] [address] [place] MCH (RBC) [Entitic mass] 34.8 pg High 26.0-34.0 [facility] Comment on above: Order Comment: Speci men Type: BLOOD SPECIMENOrdering Facility: [facility] Address: [address] [place] [address] Performed By: #### 5 7021-8 ####[facility] LABIA [id number] [place] [address] [place] MCHC (RBC) [Mass/Vol] 35.1 g/dL Normal 30.5-36.0 [facility] Comment on above: Order Comment: Speci men Type: BLOOD SPECIMENOrdering Facility: [facility] Address: [address] [place] [address] Performed By: #### 5 7021-8 ####[facility] LABIA [id number] [place] [address] [place] MCV (RBC) [Entitic vol] 99.2 fL Normal 80.0-100.0 [facility] Comment on above: Order Comment: Speci men Type: BLOOD SPECIMENOrdering Facility: [facility] Address: [address] [place] [address] Performed By: #### 5 7021-8 ####[facility] LABIA [id number] [place] [address] [place] Monocytes (Bld) [#/Vol] 0.59 10*3/uL Normal <0.87 [facility] Comment on above: Order Comment: Speci men Type: BLOOD SPECIMENOrdering Facility: [facility] Address: [address] [place] [address] Performed By: #### 5 7021-8 ####[facility] LABCLIA [id number] [place] [id number] [place] Monocytes/100 WBC (Bld) 11.7 % Normal [facility] Comment on above: Order Comment: Speci men Type: BLOOD SPECIMENOrdering Facility: [facility] Address: [address] [place] [address] Performed By: #### 5 7021-8 ####[facility] LABIA [id number] [place] [address] [place] Neutrophils (Bld) [#/Vol] 2.26 10*3/uL Normal 1.45-7.50 [facility] Comment on above: Order Comment: Speci men Type: BLOOD SPECIMENOrdering Facility: [facility] Address: [address] [place] [address] Performed By: #### 5 7021-8 ####[facility] LABCLIA [id number] [place] [address] [place] Neutrophils/100 WBC (Bld) 44.7 % Normal [facility] Comment on above: Order Comment: Speci men Type: BLOOD SPECIMENOrdering Facility: [facility] Address: [address] [place] [address] Performed By: #### 5 7021-8 ####[facility] LABCLIA [id number] [place] [id number] [place] Nucleated RBC (Bld) [#/Vol] 10*3/uL Normal <0.01 [facility] Comment on above: Order Comment: Speci men Type: BLOOD SPECIMENOrdering Facility: [facility] Address: [address] [place] [address] Performed By: #### 5 7021-8 ####[facility] LABCLIA [id number] [address] [place] [address] [place] Nucleated RBC/100 WBC (Bld) [Ratio] 0.0 /100 WBC Normal [facility] Comment on above: Order Comment: Speci men Type: BLOOD SPECIMENOrdering Facility: [facility] Address: [address] [place] [address] Performed By: #### 5 7021-8 ####[facility] LABCLIA [id number] [address] [place] [address] [place] Platelet mean volume (Bld) [Entitic vol] 11.1 fL Normal 9.0-12.7 [facility] Comment on above: Order Comment: Speci men Type: BLOOD SPECIMENOrdering Facility: [facility] Address: [address] [place] [address] Performed By: #### 5 7021-8 ####[facility] LABIA [id number] [place] [address] [place] Platelets (Bld) [#/Vol] 84 10*3/uL Low 150-400 [facility] Comment on above: Order Comment: Speci men Type: BLOOD SPECIMENOrdering Facility: [facility] Address: [address] [place] [address] Result Comment: No c lot detected. Performed By: #### 5 7021-8 ####[facility] LABIA [id number] [address], [place] [address] [place] RBC (Bld) [#/Vol] 3.62 10*6/uL Low 4.20-6.00 [facility] Comment on above: Order Comment: Speci men Type: BLOOD SPECIMENOrdering Facility: [facility] Address: [address] [place] [address] Performed By: #### 5 7021-8 ####[facility] LABIA [id number] [address] [place] [id number] [place] WBC (Bld) [#/Vol] 5.05 10*3/uL Normal 3.70-11.00 [facility] Comment on above: Order Comment: Speci men Type: BLOOD SPECIMENOrdering Facility: [facility] Address: [address] [place] [address] Performed By: #### 5 7021-8 ####[facility] LABCLIA [id number] ALEXUSLorenzo [place] [id number] [facility] [place] CNOVon 12-15-2024 CNOV Office Visit (FAMPWS ) LUISA,DANE ([id number]) 1970 M Date Time Provider Department 12/15/24 8:40 AM [facility] During your visit today, we recorded the following information about you: Pulse Respiration Blood pressure Weight 106/minute 16/minute 126/72 98.1 kg Cee Farias APRN.ANNEALING OPERATOR 12/15/2024 9:09 AM Signed This is a [...] - Co (more content not included)... Normal [facility] Comprehensive metabolic 2000 panelon 12-15-2024 Albumin [Mass/Vol] 3.9 g/dL Normal 3.9-4.9 [facility] Comment on above: Order Comment: Speci men Type: BLOOD SPECIMENOrdering Facility: [facility] Address: [address] [place] [address] Performed By: #### 2 4323-8, LIPNF ####[facility] LABCLIA [id number] [place] [address] [place] ALP [Catalytic activity/Vol] 109 U/L Normal 38-113 [facility] Comment on above: Order Comment: Speci men Type: BLOOD SPECIMENOrdering Facility: [facility] Address: [address] [place] [address] Performed By: #### 2 4323-8, LIPNF ####[facility] LABCLIA [id number] [place] [address] [place] ALT [Catalytic activity/Vol] 39 U/L Normal 10-54 [facility] Comment on above: Order Comment: Speci men Type: BLOOD SPECIMENOrdering Facility: [facility] Address: [address] [place] [address] Performed By: #### 2 4323-8, LIPNF ####[facility] LABCLIA [id number] [place] [address] [place] Anion gap [Moles/Vol] 15 mmol/L Normal 8-15 [facility] Comment on above: Order Comment: Speci men Type: BLOOD SPECIMENOrdering Facility: [facility] Address: [address] [place] [address] Performed By: #### 2 4323-8, LIPNF ####[facility] LABCLIA [id number] [place] [address] [place] AST [Catalytic activity/Vol] 50 U/L High 14-40 [facility] Comment on above: Order Comment: Speci men Type: BLOOD SPECIMENOrdering Facility: [facility] Address: [address] [place] [address] Performed By: #### 2 4323-8, LIPNF ####[facility] LABCLIA [id number] [place] [address] [place] Bilirubin [Mass/Vol] 1.6 mg/dL High 0.2-1.3 [facility] Comment on above: Order Comment: Speci men Type: BLOOD SPECIMENOrdering Facility: [facility] Address: [address] [place] [address] Performed By: #### 2 4323-8, LIPNF ####[facility] LABCLIA [id number] [place] [address] [place] Calcium [Mass/Vol] 9.7 mg/dL Normal 8.5-10.2 [facility] Comment on above: Order Comment: Speci men Type: BLOOD SPECIMENOrdering Facility: [facility] Address: [address] [place] [address] Performed By: #### 2 4323-8, LIPNF ####[facility] LABCLIA [id number] [facility] [place] [address] [place] Chloride [Moles/Vol] 107 mmol/L Normal 98-107 [facility] Comment on above: Order Comment: Speci men Type: BLOOD SPECIMENOrdering Facility: [facility] Address: [address] [place] [address] Performed By: #### 2 4323-8, LIPNF ####[facility] LABCLIA [id number] [place] [address] [place] CO2 [Moles/Vol] 21 mmol/L Low 22-30 [facility] Comment on above: Order Comment: Speci men Type: BLOOD SPECIMENOrdering Facility: [facility] Address: [address] [place], [place] [address] Performed By: #### 2 4323-8, LIPNF ####[facility] LABCLIA [id number] [place] [address] [place] Creatinine [Mass/Vol] 1.01 mg/dL Normal 0.73-1.22 [facility] Comment on above: Order Comment: Speci men Type: BLOOD SPECIMENOrdering Facility: [facility] Address: [address] [place] [address] Performed By: #### 2 4323-8, LIPNF ####[facility] LABCLIA [id number] [place] [address] [place] Creatinine and Glomerular filtration rate.predicted panel (S/P/Bld) 88 mL/min/1.73m??? Normal >=60 [facility] Comment on above: Order Comment: Speci men Type: BLOOD SPECIMENOrdering Facility: [facility] Address: [address] [place] [address] Result Comment: Flavia mated Glomerular Filtration Rate [...] GFR. Performed By: #### 2 4323-8, LIPNF ####[facility] LABIA [id number] [place] [address] [place] Glucose [Mass/Vol] 95 mg/dL Normal 74-99 [facility] Comment on above: Order Comment: Sarahi mccann Type: BLOOD SPECIMENOrdering Facility: [facility] Address: [address] [place] [address] Result Comment: The [place] Diabetes Association (ADA) provides guidance for cutoff [...] Standards of Medical Care in Diabetes 2016, [place] Diabetes Association. Diabetes Care. 2016.39(Suppl 1). Performed By: #### 2 4323-8, LIPNF ####[facility] LABIA [id number] [place] [id number] [place] Potassium [Moles/Vol] 4.2 mmol/L Normal 3.7-5.1 [facility] Comment on above: Order Comment: Sarahi [facility] Type: BLOOD SPECIMENOrdering Facility: [facility] Address: [address] [place] [address] Performed By: #### 2 4323-8, LIPNF ####[facility] LABCLIA [id number] [address] [address] [place] Protein [Mass/Vol] 7.4 g/dL Normal 6.3-8.0 [facility] Comment on above: Order Comment: Speci men Type: BLOOD SPECIMENOrdering Facility: [facility] Address: [address] [place] [address] Performed By: #### 2 4323-8, LIPNF ####[facility] LABCLIA [id number] [place] [address] [place] Sodium [Moles/Vol] 143 mmol/L Normal 136-144 [facility] Comment on above: Order Comment: Speci men Type: BLOOD SPECIMENOrdering Facility: [facility] Address: [address] [place] [address] Performed By: #### 2 4323-8, LIPNF ####[facility] LABIA [id number] [place] [address] [place] Urea nitrogen [Mass/Vol] 24 mg/dL Normal 9-24 [facility] Comment on above: Order Comment: Speci men Type: BLOOD SPECIMENOrdering Facility: [facility] Address: [address] [place] [address] Performed By: #### 2 4323-8, LIPNF ####[facility] LABIA [id number] [place] [address] [place] HbA1c (Bld)on 12-15-2024 Average glucose Estimated from glycated hemoglobin (Bld) [Mass/Vol] 88 mg/dL Normal [facility] Comment on above: Order Comment: Speci men Type: BLOOD SPECIMENOrdering Facility: [facility] Address: [address] [place] [address] Result Comment: eAG: (Estimated average glucose) is a calculated value from HgbA1c and is branch sales and service representative of the average blood glucose level in the last 2-3 month period. Performed By: #### 5 5454-3 ####[facility] LABCLIA [id number] [place] [id number] [place] HbA1c (Bld) [Mass fraction] 4.7 % Normal 4.3-5.6 [facility] Comment on above: Order Comment: Speci men Type: BLOOD SPECIMENOrdering Facility: [facility] Address: [address] [place] [address] Result Comment: Amer [place] Diabetes Association guidelines indicate that patients with HgbA1c in the range 5.7-6.4% are at increased risk for development of diabetes, and intervention by lifestyle modification may be beneficial. HgbA1c greater or equal to 6.5% is considered diagnostic of diabetes. Performed By: #### 5 5454-3 ####[facility] LABCLIA [id number] [place] [address] [place] LIPID PANEL, NONFASTINGon Cholesterol [Mass/Vol] 168 mg/dL Normal <200 [facility] Comment on above: Order Comment: Speci men Type: BLOOD SPECIMENOrdering Facility: [facility] Address: [address] [place] [address] Result Comment: <200 mg/dL, Desirable 200-239 mg/dL, Borderline high >239 mg/dL, High Performed By: #### 2 4323-8, LIPNF ####[facility] LABCLIA [id number] [address] [place] HDL CHOLESTEROL, NF 101 mg/dL Normal >39 [facility] Comment on above: Order Comment: Speci men Type: BLOOD SPECIMENOrdering Facility: [facility] Address: [address] [place] [address] Result Comment: 40-5 9 mg/dL, Acceptable >59 mg/dL, High: Negative risk factor for coronary heart disease <40 mg/dL, Low: Positive risk factor for coronary heart disease Performed By: #### 2 4323-8, LIPNF ####[facility] LABCLIA [id number] OF [facility] LDL CHOLESTEROL, NF 55 mg/dL Normal <100 [facility] Comment on above: Order Comment: Sarahi mccann Type: BLOOD SPECIMENOrdering Facility: [facility] Address: [address] [place] [address] Result Comment: <100 mg/dL, Optimal 100-129 mg/dL, Near optimal/above optimal 130-159 mg/dL, Borderline high 160-189 mg/dL, High >189 mg/dL, Very high Secondary prevention optimal LDL Cholesterol levels are recommended to be < 70 mg/dL Performed By: #### 2 4323-8, LIPNF ####[facility] LABCLIA [id number] [address] LDL/HDL RATIO, NF 0.54 mg/dL Normal <2.54 [facility] Comment on above: Order Comment: Sarahi mccann Type: BLOOD SPECIMENOrdering Facility: [facility] Address: [address] [place] [address] Result Comment: Refe rence: 1. National Cholesterol Education Program ATP III Guideline At-A-Glance Quick Desk Reference: National Heart, Lung, and Blood [place]. National Institutes of Health. 2001: NIH Publication No. 01-3305. 2. An International Atherosclerosis Society position paper: global recommendations for the management of dyslipidemia: executive summary, Atherosclerosis. 2014: 232(2):410-413. Performed By: #### 2 4323-8, LIPNF ####[facility] LABCLIA [id number] [address] OF [facility] NON HDL CHOL, NF 67 mg/dL Normal <130 [facility] Comment on above: Order Comment: Sarahi mccann Type: BLOOD SPECIMENOrdering Facility: [facility] Address: [address] [place] [address] Result Comment: <130 mg/dL, Optimal 130-159 mg/dL, Near optimal/above optimal 160-189 mg/dL, Borderline high 190-219 mg/dL, High >219 mg/dL, Very high Secondary prevention optimal non HDL Cholesterol levels are recommended to be <100 mg/dL Performed By: #### 2 4323-8, LIPNF ####[facility] LABCLIA [id number] [place] [address] [place] T CHOL/HDL RATIO NF 1.66 mg/dL Normal <5.10 [facility] Comment on above: Order Comment: Speci men Type: BLOOD SPECIMENOrdering Facility: [facility] Address: [address] [place] [address] Performed By: #### 2 4323-8, LIPNF ####[facility] LABCLIA [id number] [place] [address] [place] TRIGLYCERIDES, NF 58 mg/dL Normal <150 [facility] Comment on above: Order Comment: Speci men Type: BLOOD SPECIMENOrdering Facility: [facility] Address: [address] [place] [address] Result Comment: <150 mg/dL, Normal 150-199 mg/dL, Borderline high 200-499 mg/dL, High >499 mg/dL, Very high Performed By: #### 2 4323-8, LIPNF ####[facility] LABIA [id number] [place] [address] [place] VLDL CHOLESTEROL, NF 12 mg/dL Normal <30 [facility] Comment on above: Order Comment: Speci men Type: BLOOD SPECIMENOrdering Facility: [facility] Address: [address] [place] [address] Performed By: #### 2 4323-8, LIPNF ####[facility] LABIA [id number] [place] [id number] [place] PSA/PROSTATE SPECIFIC ANTIGE N SCREENINGon 12-15-2024 Prostate specific Ag [Mass/Vol] 0.35 ng/mL Normal <2.60 [facility] Comment on above: Order Comment: Speci men Type: BLOOD SPECIMENOrdering Facility: [facility] Address: [address] [place] [address] Result Comment: Tota l PSA test methodology used is the Electrochemiluminescence Immunoassay by [employer]. Total PSA values by differing methodologies cannot be interchanged. Performed By: #### P SAS1 ####[facility] LABCLIA [id number] [place] [id number] [place] MRI SHOULDER WO IVCON [...] within the distal clavicle. 3. Os acromion. Cabin Outfitter: PSCB Transcribe Date/Time: Jan 31 2024 12:49P Dictated by : NHAN NUNEZ MD This examination was interpreted and the report reviewed and electronically signed by: NHAN NUNEZ MD on Jan 31 2024 12:54PM EST [id number] Normal [facility] Chest PA and Lateralon 12-13 Chest PA and Lateral [facility] Imaging Services [address] [place] [id number] Chest PA and Lateral MR#: [id number] Acct: [id number] Name: DANE MORAN Rep #: [id number] : 1970 M 53 From: Gó[place] PCP: KRISTEN Roy Status: DEP ER Study: Chest PA and Lateral Date of Exam: 12/14/23 Exam# [id number] Ordering Dr: Luis Mensah MD [id number] INDICATION: pain medial to right shoulder blade [...] CC: KRISTEN Garcia; Dr. Luis Mensah MD Cabin Outfitter: Signed Normal [facility] Emergency Department Summary on 12-14-2023 Emergency Department Summary [facility] Medical Records Department [address] [place] [id number] Emergency Department Summary 12/14/23 MR#: [id number] Acct: [id number] Name: DANE MORAN Rep #: [id number] : 1970 53 From: Mary MIR PCP: [...] his upper torso/RUE and improved with rest. [facility] Medical History Diabetes Hypertension Home Medications [...] [facility] 2 weeks ago that was negative. He still having pain primarily between his right posterior medial should (more content not included)... Normal [facility] No Panel Informationon 12-03 IMPRESSION: No acute abnormality Cabin Outfitter: PRICE Transcribe Date/Time: Dec 04 2023 11:03A Dictated by : DANE MOODY MD This examination was interpreted and the report reviewed and electronically signed by: DANE MOODY MD on Dec 04 2023 11:06AM [facility] DIVISION OF RADIOLOGY No Panel InformationOrdered By: Ccf Provider on 12-04-2023 [facility] XR Foot - right AP and Later [...] a fall x 2 weeks ago (accession [id number]), Coccyx pain following a fall x 2 weeks ago (accession [id number]), Right heel pain x 1 month. Stands on concrete for work (accession [id number]) TECHNIQUE: XR SCAPULA 2V AP/LAT RT, XR [...] within normal limits. DIVISION OF RADIOLOGY Provider, [facility] - 12/04/2023 * * *Final Report* * * DATE OF EXAM: Dec 03 2023 9:29AM [id number] - XR FOOT 3V AP/LAT/OBL RT / PROCEDURE REASON: Pain of right heel * * * * Physician Interpretation * * * * PROCEDURE: Right scapula, right foot and sacrum/coccyx INDICATION: Pain of right scapula .Mid scapula pain following a fall x 2 weeks ago (accession [id number]), Coccyx pain following a fall x 2 weeks ago (accession [id number]), Right heel pain x 1 month. Stands on concrete for work (accession [id number]) TECHNIQUE: XR SCAPULA 2V AP/LAT RT, XR [...] normal limits. IMPRESSION IMPRESSION: No acute abnormality Cabin Outfitter: PRICE Transcribe Date/Time: Dec 04 2023 11:03A Dictated by : DANE MOODY MD This examination was interpreted and the report reviewed and electronically signed by: DANE MOODY MD on Dec 04 2023 11:06AM [facility] XR Sacrum and Coccyx 3 Views on [...] a fall x 2 weeks ago (accession [id number]), Coccyx pain following a fall x 2 weeks ago (accession [id number]), Right heel pain x 1 month. Stands on concrete for work (accession [id number]) TECHNIQUE: XR SCAPULA 2V AP/LAT RT, XR [...] within normal limits. DIVISION OF RADIOLOGY Provider, [facility] - 12/04/2023 * * *Final Report* [...] a fall x 2 weeks ago (accession [id number]), Coccyx pain following a fall x 2 weeks ago (accession [id number]), Right heel pain x 1 month. Stands on concrete for work (accession [id number]) TECHNIQUE: XR SCAPULA 2V AP/LAT RT, XR [...] normal limits. IMPRESSION IMPRESSION: No acute abnormality [facility] Transcribe Date/Time: Dec 04 2023 11:03A Dictated by : DANE MOODY MD This examination was interpreted and the report reviewed and electronically signed by: DANE MOODY MD on Dec 04 2023 11:06AM [facility] XR Scapula - right AP and La [...] a fall x 2 weeks ago (accession [id number]), Coccyx pain following a fall x 2 weeks ago (accession [id number]), Right heel pain x 1 month. Stands on concrete for work (accession [id number]) TECHNIQUE: XR SCAPULA 2V AP/LAT RT, XR [...] within normal limits. DIVISION OF RADIOLOGY Provider, [facility] - 12/04/2023 * * *Final Report* * * DATE OF EXAM: Dec 03 2023 9:29AM [id number] - XR SCAPULA 2V AP/LAT RT / PROCEDURE REASON: Pain of right scapula * * * * Physician Interpretation * * * * PROCEDURE: Right scapula, right foot and sacrum/coccyx INDICATION: Pain of right scapula .Mid scapula pain following a fall x 2 weeks ago (accession [id number]), Coccyx pain following a fall x 2 weeks ago (accession [id number]), Right heel pain x 1 month. Stands on concrete for work (accession [id number]) TECHNIQUE: XR SCAPULA 2V AP/LAT RT, XR [...] normal limits. IMPRESSION IMPRESSION: No acute abnormality Cabin Outfitter: PRICE Transcribe Date/Time: Dec 04 2023 11:03A Dictated by : DANE MOODY MD This examination was interpreted and the report reviewed and electronically signed by: DANE MOODY MD on Dec 04 2023 11:06AM EST [facility] No Panel Informationon 12-02 Radiology Study observation (narrative) [facility] XR SHOULDER GENERAL 3V OR MO RE AP/TRUE AP/OTHER RIGHTon 07-21-2022 [facility] XR Shoulder - right 3 Viewso n 07-21-2022 IMPRESSION: Findings are suggestive of degenerative changes in the acromioclavicular joint. Cabin Outfitter: PRICE Transcribe Date/Time: Jul 21 2022 10:16A [...] soft tissue swelling. DIVISION OF RADIOLOGY Provider, [facility] * * *Final Report* * [...] of degenerative changes in the acromioclavicular joint. [facility]in Out[facility] Transcribe Date/Time: Jul 21 2022 10:16A Dictated by : SHAHRAM CRUZ MD This examination was interpreted and the report reviewed and electronically signed by: SHAHRAM CRUZ MD on Jul 21 2022 10:18AM EST [facility] Radiology Study observation (narrative) [facility] XR Shoulder - right 3 ViewsO rdered By: Ccf Provider on 07-21-2022 [facility] XR Wrist - right 4 Viewson 0 05-02-2021 IMPRESSION: No acute osseous abnormality. Cabin Outfitter: [facility] Transcribe Date/Time: May 02 2021 4:38P Dictated [...] calcifications. IMPRESSION IMPRESSION: No acute osseous abnormality. Cabin Outfitter: PSCB Transcribe Date/Time: May 02 2021 4:38P Dictated by : DANE MOODY MD This examination was interpreted and the report reviewed and electronically signed by: DANE MOODY MD on May 02 2021 4:39PM EST [facility] Radiology Study observation (narrative) [facility] XR Wrist - right 4 ViewsOrde red By: Ccf Provider on 05-02-2021 [facility] OCT OPTIC NERVE CIRRUS OU (B OTH EYES) [facility] Vital Signs Date Time Vital Sign Value Performing Clinician Facility 01-27-2025 09:43-0400 Body mass index (BMI) [Ratio] 31.28 kg/m2 Willie Burton MD Work Phone: [facility] 01-27-2025 09:43-0400 Body weight 98.9 kg Willie Burton MD Work Phone: [facility] 01-27-2025 09:43-0400 Diastolic blood pressure 80 mm[Hg] Willie Burton MD Work Phone: [facility] 01-27-2025 09:43-0400 Heart rate 78 /min Willie Burton MD Work Phone: [facility] 01-27-2025 09:43-0400 Respiratory rate 16 /min Willie Burton MD Work Phone: [facility] 01-27-2025 09:43-0400 Systolic blood pressure 118 mm[Hg] Willie Burton MD Work Phone: [facility] 01-21-2025 16:59-0400 Body mass index (BMI) [Ratio] 31.44 kg/m2 Anna Drew APRN.CNP Work Phone: [facility] 01-21-2025 16:59-0400 Body temperature 98.1 [degF] Anna Rajendra FORGING MACHINE OPERATOR.ANNEALING OPERATOR Work Phone: [facility] 01-21-2025 16:59-0400 Body weight 99.4 kg Anna Drew FORGING MACHINE OPERATOR.ANNEALING OPERATOR Work Phone: [facility] 01-21-2025 16:59-0400 Diastolic blood pressure 80 mm[Hg] Anna Rajendra FORGING MACHINE OPERATOR.ANNEALING OPERATOR Work Phone: [facility] 01-21-2025 16:59-0400 Heart rate 83 /min Anna Rajendra FORGING MACHINE OPERATOR.ANNEALING OPERATOR Work Phone: [facility] 01-21-2025 16:59-0400 Respiratory rate 18 /min Anna Rajendra FORGING MACHINE OPERATOR.ANNEALING OPERATOR Work Phone: [facility] 01-21-2025 16:59-0400 SaO2% (BldA) [Mass fraction] 97 % Anna Drew FORGING MACHINE OPERATOR.ANNEALING OPERATOR Work Phone: [facility] 01-21-2025 16:59-0400 Systolic blood pressure 140 mm[Hg] Anna Rajendra FORGING MACHINE OPERATOR.ANNEALING OPERATOR Work Phone: [facility] 12-15-2024 08:28-0400 Body mass index (BMI) [Ratio] 31.03 kg/m2 Cee Farias FORGING MACHINE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 12-15-2024 End: 03-16-2025 PSA/PROSTATE SPECIFIC ANTIGEN SCREENING [facility] Comment on above: Expected: 12/15/2024, Expires: Start: 12-13-2024 BP Controlled (<130/80) BP Controlled (<130/80) [facility] Start: 2024 Prostate specific antigen measurement Prostate Cancer Screening Discussion [facility] Start: 12-02-2024 Annual PCP Team Chronic Disease Visit Annual PCP Team Chronic Disease Visit [facility] Start: 12-02-2024 BP Controlled (<130/80) BP Controlled (<130/80) [facility] Start: 12-02-2024 Hepatitis B screening Urine Albumin:Creatinine Ratio [facility] Start: 12-02-2024 Hepatitis B surface antibody level LDL Cholesterol [facility] Start: 11-24-2024 Hemoglobin A1c measurement HbA1C [facility] Start: 09-23-2024 Behavioral Health Screening Behavioral Health Screening [facility] Comment on above: Postponed from 09/24/2023 (Insurance Cov erage) Start: 09-23-2024 Depression Assessment Depression Assessment [facility] Comment on above: Postponed from 09/24/2023 (Insurance Cov erage) Start: 08-25-2024 End: 08-25-2024 Patient encounter procedure 08/25/2024 10:20 AM EST Office Visit Family Medicine [facility] [address] [place], [place] [phone] Cee Farias APRN.ANNEALING OPERATOR [address] [place], [place] [address] 3 donavon follow up [facility] Comment on above: 3 donavon follow up Start: 06-10-2024 End: 09-09-2024 CBC W Auto Differential panel - Blood COMPLETE BLOOD COUNT AND DIFFERENTIAL Lab Routine Essential hypertension, benign Controlled type 2 diabetes mellitus without complication, without long-term current use of insulin (HCC) Expected: 06/10/2024 (Approximate), Expires: 09/09/2024 [facility] Comment on above: Expected: 06/10/2024 (Approximate), Expi res: 09/09/2024 Start: 06-10-2024 End: 09-09-2024 Comprehensive metabolic 2000 panel - Serum or Plasma COMPREHENSIVE METABOLIC PANEL Lab Routine Elevated alkaline phosphatase level Expected: 06/10/2024 (Approximate), Expires: 09/09/2024 [facility] Comment on above: Expected: 06/10/2024 (Approximate), Expi res: 09/09/2024 Start: 06-10-2024 End: 09-09-2024 Hemoglobin A1c in Blood HEMOGLOBIN A1C Lab Routine Essential hypertension, benign Controlled type 2 diabetes mellitus without complication, without long-term current use of insulin (HCC) Expected: 06/10/2024 (Approximate), Expires: 09/09/[address] [facility] Work Phone: Comment on above: Expected: 06/10/2024 (Approximate), Expi res: 09/09/2024 Start: 06-10-2024 End: 09-09-2024 Lipid 1996 panel - Serum or Plasma LIPID PANEL BASIC Lab Routine Controlled type 2 diabetes mellitus without complication, without long-term current use of insulin (HCC) Expected: 06/10/2024 (Approximate), Expires: 09/09/2024 [facility] Comment on above: Expected: 06/10/2024 (Approximate), Expi res: 09/09/2024 Start: 06-06-2024 Hemoglobin A1c measurement HbA1C [facility] Start: 06-04-2024 Annual PCP Team Chronic Disease Visit Annual PCP Team Chronic Disease Visit [facility] Start: 06-04-2024 Hemoglobin A1c measurement HbA1C [facility] Start: 05-27-2024 End: 08-26-2024 CBC W Auto Differential panel - Blood [facility] Comment on above: Expected: 05/27/2024, Expires: Start: 05-27-2024 End: 08-26-2024 Comprehensive metabolic 2000 panel - Serum or Plasma [facility] Comment on above: Expected: 05/27/2024, Expires: Start: 05-27-2024 End: 08-26-2024 Hemoglobin A1c in Blood [facility] Work Phone: Comment on above: Expected: 05/27/2024, Expires: Start: 05-27-2024 End: 08-26-2024 Lipid 1996 panel - Serum or Plasma [facility] Comment on above: Expected: 05/27/2024, Expires: Start: 05-27-2024 End: 05-27-2024 Patient encounter procedure 05/27/2024 1:00 PM EDT Office Visit [facility] [address] [place] [address] Reagan Garcia APRN.ANNEALING OPERATOR [address] [place] [address] 6 month f/u diabetes [facility] Comment on above: 6 month f/u diabetes Start: 05-25-2024 Influenza vaccination Influenza Vaccine (#1) [facility] Start: 05-20-2024 End: 05-20-2024 ambulatory 05/20/2024 1:15 PM EDT OT/PT/Speech Visit [facility] [address] [place] [address] Robert Suggs, PT Dx: Chronic scapular pain [M89.8X1, G89.29 (ICD-10-CM)] [facility] Comment on above: Dx: Chronic scapular pain [M89.8X1, G89. 29 (ICD-10-CM)] Start: 05-14-2024 End: 05-14-2024 ambulatory 05/14/2024 9:45 AM EDT OT/PT/Speech Visit [facility] [address] [place] [address] Robert Suggs, PT Dx: Chronic scapular pain [M89.8X1, G89.29 (ICD-10-CM)] [facility] Comment on above: Dx: Chronic scapular pain [M89.8X1, G89. 29 (ICD-10-CM)] Start: 05-07-2024 End: 05-07-2024 ambulatory 05/07/2024 2:45 PM EDT OT/PT/Speech Visit [facility] [address] [place] [address] Jessica Hodges, AGING ROOM HAND [address] [place] [address] Dx: Chronic scapular pain [M89.8X1, G89.29 (ICD-10-CM)] [facility] Comment on above: Dx: Chronic scapular pain [M89.8X1, G89. 29 (ICD-10-CM)] Start: 05-02-2024 End: 05-02-2024 ambulatory 05/02/2024 1:45 PM EDT OT/PT/Speech Visit [facility] [address] [place] [address] Robert Suggs PT Dx: Chronic scapular pain [M89.8X1, G89.29 (ICD-10-CM)] [facility] Comment on above: Dx: Chronic scapular pain [M89.8X1, G89. 29 (ICD-10-CM)] Start: 04-22-2024 End: 04-22-2024 ambulatory 04/22/2024 12:30 PM EDT OT/PT/Speech Visit [facility] [address] [place] [address] Robert Suggs, PT M89.8X1,G89.29 (ICD-10-CM) - Chronic scapular pain [facility] Comment on above: M89.8X1,G89.29 (ICD-10-CM) - Chronic sca pular pain Start: 04-16-2024 End: 04-16-2024 ambulatory 04/16/2024 1:00 PM EDT OT/PT/Speech Visit [facility] [address] [place] [address] Robert Suggs PT M89.8X1,G89.29 (ICD-10-CM) - Chronic scapular pain [facility] Comment on above: M89.8X1,G89.29 (ICD-10-CM) - Chronic sca pular pain Start: 04-09-2024 End: 04-09-2024 ambulatory 04/09/2024 1:00 PM EDT OT/PT/Speech Visit [facility] [address] [place] [address] Robert Suggs, PT M89.8X1,G89.29 (ICD-10-CM) - Chronic scapular pain [facility] Comment on above: M89.8X1,G89.29 (ICD-10-CM) - Chronic sca pular pain Start: 04-02-2024 End: 04-02-2024 ambulatory 04/02/2024 10:30 AM EDT OT/PT/Speech Visit [facility] [address] [place] [address] Bharati Peralta, PT, DPT M89.8X1,G89.29 (ICD-10-CM) - Chronic scapular pain [facility] Comment on above: M89.8X1,G89.29 (ICD-10-CM) - Chronic sca pular pain Start: 03-17-2024 End: 03-17-2024 Patient encounter procedure 03/17/2024 2:45 PM EDT Office Visit Orthopaedics [address] [place] [address] Kosta Francisco MD [address] [place] [address] Incomplete rotator cuff tear or rupture of [...] level Expected: 03/05/2024 (Approximate), Expires: 06/04/[address] [facility] Work Phone: Comment on above: Expected: 03/05/2024 (Approximate), Expi res: 06/04/2024 Start: 03-05-2024 End: 06-04-2024 Hemoglobin A1c in Blood HGB A1C Lab Routine Controlled type 2 diabetes mellitus without complication, without long-term current use of insulin (HCC) Expected: 03/05/2024 (Approximate), Expires: 06/04/[address] [facility] Work Phone: Comment on above: Expected: 03/05/2024 (Approximate), Expi res: 06/04/2024 Start: 01-16-2024 End: 01-16-2024 Patient encounter procedure 01/16/2024 2:00 PM EDT Office [place] [address] financial clearance for MRI shoulder [facility] Comment on above: financial clearance for MRI shoulder Start: 12-19-2023 ANNUAL PCP TEAM CHRONIC DISEASE VISIT ANNUAL PCP TEAM CHRONIC DISEASE VISIT [facility] Start: 12-19-2023 BP CONTROLLED (<130/80) BP CONTROLLED (<130/80) [facility] Start: 12-19-2023 Hepatitis B screening URINE ALBUMIN:CREATININE RATIO [facility] Start: 12-19-2023 Hepatitis B surface antibody level LDL CHOLESTEROL [facility] Start: 12-14-2023 [facility] Start: 12-14-2023 Plain chest X-ray Chest PA and Lateral [facility] Start: 12-14-2023 XR Chest PA and Lateral [facility] Start: 12-03-2023 End: 03-03-2024 ALBUMIN/CREAT RATIO RND UR [facility] Work Phone: Comment on above: Expected: 12/03/2023, Expires: Start: 12-03-2023 End: 03-03-2024 Comprehensive metabolic 2000 panel - Serum or Plasma [facility] Work Phone: Comment on above: Expected: 12/03/2023, Expires: 4 Start: 12-03-2023 End: 03-03-2024 Hemoglobin A1c in Blood [facility] Work Phone: Comment on above: Expected: 12/03/2023, Expires: 4 Start: 12-03-2023 Hemoglobin A1c measurement HbA1C [facility] Start: 12-03-2023 End: 03-03-2024 Lipid 1996 panel - Serum or Plasma [facility] Work Phone: Comment on above: Expected: 12/03/2023, Expires: Start: 07-24-2023 Glaucoma screening Dilated Retinal Exam [facility] Start: 07-24-2023 Hepatitis C antibody, confirmatory test DILATED RETINAL EXAM [facility] Start: 06-21-2023 End: 08-21-2023 Comprehensive metabolic 2000 panel - Serum or Plasma COMP METABOLIC PANEL Lab Routine Controlled type 2 diabetes mellitus without complication, without long-term current use of insulin (HCC) Expected: 06/21/2023 (Approximate), Expires: 08/21/[address] [facility] Work Phone: Comment on above: Expected: 06/21/2023 (Approximate), Expi res: 08/21/2023 Start: 06-21-2023 End: 08-21-2023 Hemoglobin A1c in Blood HGB A1C Lab Routine Controlled type 2 diabetes mellitus without complication, without long-term current use of insulin (HCC) Expected: 06/21/2023 (Approximate), Expires: 08/21/[address] [facility] Work Phone: Comment on above: Expected: 06/21/2023 (Approximate), Expi res: 08/21/2023 Start: 06-20-2023 Hemoglobin A1c/Hemoglobin.total in Blood HBA1C [facility] Start: 06-19-2023 ANNUAL PCP TEAM CHRONIC DISEASE VISIT ANNUAL PCP TEAM CHRONIC DISEASE VISIT [facility] Start: 05-25-2023 Covid-19 Vaccine ( season) Covid-19 Vaccine () [facility] Start: 05-25-2023 Influenza vaccination INFLUENZA (#1) [facility] Start: 01-30-2023 COLORECTAL CANCER SCREENING COLORECTAL CANCER SCREENING [facility] Start: 01-30-2023 FECAL OCCULT BLOOD FECAL OCCULT BLOOD [facility] Start: 01-30-2023 Screening for malignant neoplasm of colon [facility] Start: 01-27-2023 3 comp foot exam completed DIABETIC FOOT EXAM [facility] Start: 01-27-2023 Adult depression screening assessment DEPRESSION SCREENING [facility] Start: 01-27-2023 ANNUAL PCP TEAM CHRONIC DISEASE VISIT ANNUAL PCP TEAM CHRONIC DISEASE VISIT [facility] Start: 01-27-2023 Diabetic foot examination Diabetic Foot Exam [facility] Start: 01-27-2023 Hepatitis B screening URINE ALBUMIN:CREATININE RATIO [facility] Start: 12-17-2022 End: 02-16-2023 ALBUMIN/CREAT RATIO RND UR ALBUMIN/CREAT RATIO RND UR Lab Routine Controlled type 2 diabetes mellitus without complication, without long-term current use of insulin (HCC) Expected: 12/17/2022 (Approximate), Expires: 02/16/[address] [facility] Work Phone: Comment on above: Expected: 12/17/2022 (Approximate), Expi res: 02/16/2023 Start: 12-17-2022 End: 02-16-2023 Comprehensive metabolic 2000 panel - Serum or Plasma COMP METABOLIC PANEL Lab Routine Controlled type 2 diabetes mellitus without complication, without long-term current use of insulin (HCC) Essential hypertension, benign Expected: 12/17/2022, Expires: 02/16/[address] [facility] Work Phone: Comment on above: Expected: 12/17/2022, Expires: 3 Start: 12-17-2022 End: 02-16-2023 Hemoglobin A1c in Blood HGB A1C Lab Routine Controlled type 2 diabetes mellitus without complication, without long-term current use of insulin (HCC) Expected: 12/17/2022, Expires: 02/16/[address] [facility] Work Phone: Comment on above: Expected: 12/17/2022, Expires: 3 Start: 12-17-2022 End: 02-16-2023 Lipid 1996 panel - Serum or Plasma LIPID PANEL BASIC Lab Routine Controlled type 2 diabetes mellitus without complication, without long-term current use of insulin (HCC) Expected: 12/17/2022, Expires: 02/16/[address] [facility] Work Phone: Comment on above: Expected: 12/17/2022, Expires: 3 Start: 12-14-2022 Hemoglobin A1c/Hemoglobin.total in Blood HBA1C [facility] Start: 08-02-2022 End: 10-02-2022 Comprehensive metabolic 2000 panel - Serum or Plasma COMP METABOLIC PANEL Lab Routine Controlled type 2 diabetes mellitus without complication, without long-term current use of insulin (HCC) Expected: 08/02/2022 (Approximate), Expires: 10/02/[address] [facility] Work Phone: Comment on above: Expected: 08/02/2022 (Approximate), Expi res: 10/02/2022 Start: 08-02-2022 End: 10-02-2022 Hemoglobin A1c/Hemoglobin.total in Blood HGB A1C Lab Routine Controlled type 2 diabetes mellitus without complication, without long-term current use of insulin (HCC) Expected: 08/02/2022 (Approximate), Expires: 10/02/[address] [facility] Work Phone: Comment on above: Expected: 08/02/2022 (Approximate), Expi res: 10/02/2022 Start: 07-30-2022 Hemoglobin A1c/Hemoglobin.total in Blood HBA1C [facility] Start: 07-11-2022 BP CONTROLLED (<130/80) BP CONTROLLED (<130/80) [facility] Start: 07-11-2022 Hepatitis B surface antibody level LDL CHOLESTEROL [facility] Start: 06-21-2022 COVID-19 VACCINE (3 - Booster for Pfizer series) COVID-19 VACCINE (3 - Booster for Pfizer series) [facility] Start: 06-21-2022 COVID-19 VACCINE (3 - Pfizer series) COVID-19 VACCINE (3 - Pfizer series) [facility] Start: 05-25-2022 Influenza vaccination INFLUENZA (#1) [facility] Start: 02-05-2022 Urine microalbumin profile DTAP,TDAP,TD (2 - Td or Tdap) [facility] Start: 01-06-2022 Hepatitis C antibody, confirmatory test DILATED RETINAL EXAM [facility] Start: 10-20-2021 COLORECTAL CANCER SCREENING COLORECTAL CANCER SCREENING [facility] Start: 10-20-2021 FECAL OCCULT BLOOD FECAL OCCULT BLOOD [facility] Start: 09-24-2021 DEPRESSION ASSESSMENT DEPRESSION ASSESSMENT [facility] Start: 01-04-2021 SHINGRIX VACCINE (2 of 2) SHINGRIX VACCINE (2 of 2) [facility] Start: 2014 COLOGUARD (FIT-DNA) COLOGUARD (FIT-DNA) [facility] Start: 2014 Colonoscopy COLONOSCOPY [facility] Start: [address] COLONOGRAPHY [facility] Start: 2014 Screening for malignant neoplasm of colon [facility] Start: 2014 SIGMOIDOSCOPY SIGMOIDOSCOPY [facility] Start: 1988 Hepatitis A Vaccine (1 of 2 - Risk 2-dose series) Hepatitis A Vaccine (1 of 2 - Risk 2-dose series) [facility] Start: 1988 HEPATITIS B (1 of 3 - Risk 3-dose series) HEPATITIS B (1 of 3 - Risk 3-dose series) [facility] Start: 1988 Hepatitis B Vaccine (1 of 3 - 19+ 3-dose series) Hepatitis B Vaccine (1 of 3 - 19+ 3-dose series) [facility] Start: 12-13-1987 Depression Screening Depression Screening [facility] Start: 12-13-1975 PNEUMOCOCCAL (1 - PCV) PNEUMOCOCCAL (1 - PCV) [facility] Start: 12-13-1975 Pneumococcal vaccination Pneumococcal Vaccine (1 of 2 - PCV) [facility] Start: 1974 COVID-19 VACCINE (#1) COVID-19 VACCINE (#1) [facility] Start: 06-14-1970 COVID-19 VACCINE (#1) COVID-19 VACCINE (#1) [facility] Start: 1969 HEPATITIS B (1 of 3 - 3-dose series) HEPATITIS B (1 of 3 - 3-dose series) [facility] Start: 1969 Hepatitis B Vaccine (1 of 3 - 3-dose series) Hepatitis B Vaccine (1 of 3 - 3-dose series) [facility] COLOGUARD COLOGUARD Lab Ro utine Screening for colon cancer Ordered: 12/15/[address] [facility] Work Phone: Comment on above: Ordered: 12/15/2024 Hemoglobin.gastroint e stinal.lower [Presence] in Stool by Immunoassay FECAL OCCULT BLOOD TEST Lab Routine Screening for colon cancer Ordered: 12/03/[address] [facility] Work Phone: Comment on above: Ordered: 12/03/2023 End: 02-13-2025 MR Shoulder - right WO contrast MRI SHOULDER WO IVCON RIGHT Radiology Routine Acute pain of right shoulder due to trauma 1 Occurrences starting 01/15/2024 until 02/13/[address] [facility] Work Phone: Comment on above: 1 Occurrences starting 01/15/2024 until 02/13/2025 MR Shoulder - right WO contrast MRI SHOULDER WO IVCON RIGHT Radiology Routine Acute pain of right shoulder due to trauma 01/30/2024 2:50 PM EDT [facility] Work Phone: Patient Education ED Back Sprain/Strain [facility] Work Phone: Patient referral [facility] Work Phone: Removal impacted cerumen irrigation/lvg unilat AMBULATORY EAR LAVAGE/IRRIGATION Procedures Routine Bilateral impacted cerumen Ordered: 05/30/[address] [facility] Work Phone: Comment on above: Ordered: 05/30/2023 End: 01-17-2026 US Abdomen RUQ US ABD RIGHT UPPER QUADRANT Radiology Routine Elevated LFTs 1 Occurrences starting 12/18/2024 until 01/17/2026 [facility] Comment on above: 1 Occurrences starting 12/18/2024 until 01/17/2026 End: 01-14-2026 XR Chest PA and Lateral XR CHEST 2V FRONTAL/LAT Radiology STAT Fall, initial encounter Discomfort of chest wall 1 Occurrences starting 12/15/2024 until 01/14/2026 [facility] Comment on above: 1 Occurrences starting 12/15/2024 until 01/14/2026 End: 01-01-2025 XR Foot - right AP and Lateral and oblique XR FOOT GENERAL 3V AP/LAT/OBL RIGHT Radiology Routine Pain of right heel 1 Occurrences starting 12/03/2023 until 01/01/[address] [facility] Work Phone: Comment on above: 1 Occurrences starting 12/03/2023 until 01/01/2025 XR Foot - right AP and Lateral and oblique XR FOOT GENERAL 3V AP/LAT/OBL RIGHT Radiology Routine Pain of right heel 12/03/2023 9:29 AM EDT [facility] Work Phone: End: 01-01-2025 XR Sacrum and Coccyx 3 Views XR SACRUM/COCCYX 3V AP/LAT Radiology Routine Injury of coccyx, initial encounter 1 Occurrences starting 12/03/2023 until 01/01/[address] [facility] Work Phone: Comment on above: 1 Occurrences starting 12/03/2023 until 01/01/2025 XR Sacrum and Coccyx 3 Views XR SACRUM/COCCYX 3V AP/LAT Radiology Routine Injury of coccyx, initial encounter 12/03/2023 9:29 AM EDT [facility] Work Phone: End: 01-01-2025 XR Scapula - right AP and Lateral XR SCAPULA 2V AP/LAT RIGHT Radiology Routine Pain of right scapula 1 Occurrences starting 12/03/2023 until 01/01/[address] [facility] Work Phone: Comment on above: 1 Occurrences starting 12/03/2023 until 01/01/2025 XR Scapula - right A P and Lateral XR SCAPULA 2V AP/LAT RIGHT Radiology Routine Pain of right scapula 12/03/2023 9:29 AM EDT [facility] Work Phone: [facility] Immunizations Immunization Date Immunization Notes Care Provider [facility] 06-04-2023 influenza, injectabl e, quadrivalent, contains preservative Inge Rodrigues FORGING MACHINE OPERATOR.ANNEALING OPERATOR Work Phone: [facility] 06-04-2023 influenza virus vaccine, unspecified formulation Kosta Francisco MD Work Phone: [facility] 06-19-2022 influenza, injectabl e, quadrivalent, contains preservative Reagan Conor FORGING MACHINE OPERATOR.ANNEALING OPERATOR Work Phone: [facility] 03-28-2022 tetanus toxoid, redu elif diphtheria toxoid, and acellular pertussis vaccine, adsorbed Reagan Conor FORGING MACHINE OPERATOR.ANNEALING OPERATOR Work Phone: [facility] Work Phone: 07-11-2021 influenza, injectabl e, quadrivalent, contains preservative Reagan Conor FORGING MACHINE OPERATOR.ANNEALING OPERATOR Work Phone: [facility] 07-11-2021 influenza, injectabl e, quadrivalent, preservative free [facility] 11-09-2020 zoster vaccine recombinant Reagan Conor FORGING MACHINE OPERATOR.ANNEALING OPERATOR Work Phone: [facility] 07-05-2020 influenza, injectabl e, quadrivalent, contains preservative Reagan Conor FORGING MACHINE OPERATOR.ANNEALING OPERATOR Work Phone: [facility] 10-14-2019 influenza, injectabl e, quadrivalent, contains preservative Reagan Conor FORGING MACHINE OPERATOR.ANNEALING OPERATOR Work Phone: [facility] 07-17-2018 influenza, injectabl e, quadrivalent, contains preservative Reagan Conor FORGING MACHINE OPERATOR.ANNEALING OPERATOR Work Phone: [facility] 07-06-2016 influenza, injectabl e, quadrivalent, contains preservative Reagan Conor FORGING MACHINE OPERATOR.ANNEALING OPERATOR Work Phone: [facility] 07-13-2015 influenza, injectabl e, quadrivalent, contains preservative Reagan Conor FORGING MACHINE OPERATOR.ANNEALING OPERATOR Work Phone: [facility] 06-22-2014 influenza, seasonal, injectable Reagan Conor FORGING MACHINE OPERATOR.ANNEALING OPERATOR Work Phone: [facility] 07-02-2013 influenza virus vaccine, unspecified formulation Reagan Conor FORGING MACHINE OPERATOR.[facility] Work Phone: [facility] 02-06-2012 tetanus toxoid, redu elif diphtheria toxoid, and acellular pertussis vaccine, adsorbed Reagan Conor FORGING MACHINE OPERATOR.[facility] Work Phone: [facility] Work Phone: Payers Date Payer Category Payer Private Health Insurance MMO SUP [employer] PPO [id number] 2024 Unknown MMO MMO [employer] PPO [id number] 2024-Present [phone] [address] [place] [address] PPO [id number] 2024 Unknown [id number] 2023 Self-pay Self-pay SELF PAY INSURANCE [id number] Unknown [id number] Social History Date Type Detail Facility Start: 02-06-2012 End: 03-17-2024 Tobacco smoking status NHIS Never smoked tobacco [facility] Work Phone: Start: 02-06-2012 End: 03-17-2024 Tobacco use and exposure User of smokeless tobacco [facility] Work Phone: History of tobacco use Chews Tobacco [facility] Work Phone: Start: 01-27-2022 End: 01-27-2025 Alcohol intake Current drinker of alcohol (finding) [facility] Start: 01-27-2022 End: 12-03-2023 Alcohol intake [facility] Work Phone: Start: 12-13-2011 History SDOH Alcohol Comment 1-2 drinks per day [facility] Start: 1970 Sex Assigned At Not on file [facility] Start: 04-02-2021 End: 07-31-2022 Exposure to SARS-CoV-2 (event) Not sure [facility] History of tobacco use Cigarette Smoker C [facility] Start: 06-19-2022 Tobacco Comment 1/2 can a day [facility] Start: 05-30-2023 End: 12-03-2023 Tobacco use panel [facility] Work Phone: Start: 08-25-2012 Adult Depression Screening Assessment 0 [facility] Work Phone: Start: 12-14-2023 [facility] Start: 1970 Sex Assigned At Male [facility] Medical Equipment Procedure Code Equipment Code Equipment Origin al Text Equipment Identifier Dates Test blood sugar(s) 1 times daily. Dx: Type 2 DM - Controlled E11.9 Insulin: No [id number] Start: 07-12-2021 Comment on above: Test blood sugar(s) 1 times daily. Dx: Type 2 DM - Controlled E11.9 Insulin: No Functional Status Date Assessment Result Facility 04-12-2015 Are you deaf, or do you have serious difficulty hearing No 04/12/2015 10:40 AM Milvia Laurent LPN No [facility] 04-12-2015 Are you blind, or do you have serious difficulty seeing, even when wearing glasses No 04/12/2015 10:40 AM Milvia Laurent LPN [facility] 04-12-2015 Do you have serious difficulty walking or climbing stairs No 04/12/2015 10:40 AM Milvia Laurent LPN No [facility] 04-12-2015 Do you have difficul ty dressing or bathing No 04/12/2015 10:40 AM Milvia Laurent LPN No [facility] 04-12-2015 Because of a physica l, mental, or emotional condition, do you have difficulty doing errands alone such as visiting a physician's office or shopping No 04/12/2015 10:40 AM Milvia Laurent LPN No [facility] Mental Status Date Assessment Result Facility 04-12-2015 Because of a physica l, mental, or emotional condition, do you have serious difficulty concentrating, remembering, or making decisions No 04/12/2015 10:40 AM Milvia Laurent LPN No [facility] Clinical Notes 05-02-2021 to 07-08-2025 Telephone Encounter - Bonnie Bloom - 05/18/2025 3:37 PM EDTTelephone Encounter - Bonnie Bloom - 05/18/2025 3:37 PM Willie Ortiz MD - 01/27/2025 10:00 AM EDT Note Date & Type Note Facility 07-08-2025 Note HNO ID: [id number] Author: REAGAN GARCIA APRN.ANNEALING OPERATOR Service: ? Author Type: Nurse Practitioner Type: Progress Notes Filed: 07/08/2025 09:19 Note Text: Chief Complaint Patient presents with: F/U 6 Month HPI Dane Moran is a 54 year old male who presents here today for above reason. New issue of Left 5th finger tingling all the time. Ongoing for the past 1.5 months. Follows with [facility] for DM eye exams, seen this past year. Was referred to [facility] for possible glaucoma. Dane is a 54-year-old [...] further evaluation and management; discussed options at [facility] and [facility]. - Discussed potential need for liver biopsy [...] schedule once insurance is active. Reagan Garcia APRN.ANNEALING OPERATOR RTO in 6 months, sooner if needed. This note was partly generated using [employer] voice recognition dictation and may contain some misspelled or inaccurate words missed on review. Recording using [employer] software for draft documentation of the visit was discussed with the patie (more content not included)... [facility] 05-18-2025 Telephone encounter Note Opened in error [facility] 05-18-2025 Miscellaneous Notes Opened in error documented in this encounter [facility] 05-14-2025 Telephone encounter Note OK to refill as ordered Willie Burton MD [facility] 05-14-2025 Miscellaneous Notes OK to refill as [...] 2025 10:05 AM documented in this encounter [facility] 05-14-2025 Telephone encounter Note Prescription Refill Information [...] Olivia Melton May 14, 2025 10:05 AM [facility] 03-10-2025 Telephone encounter Note Patient came into the office and was made aware of the denial. The PFA was in contact with him and is working on financial assistance. [facility] 03-10-2025 Miscellaneous Notes Patient came into the office and was made aware of the denial. The PFA was in contact with him and is working on financial assistance. LM for patient, the 03/05 office visit with CLARKE Avila, was denied for financial assistance. documented in this encounter [facility] 03-05-2025 Telephone encounter Note LM for patient, the 03/05 office visit with CLARKE Avila, was denied for financial assistance. [facility] 01-27-2025 History of Presen t illness Narrative [...] Past Histories independently gathered by the clinical technical support specialist and the remaining scribed note accurately describes [...] Margie Brooks MA documented in this encounter [facility] 01-27-2025 Note HNO ID: [id number] Author: WILLIE BURTON MD Service: ? Author [...] Past Histories independently gathered by the clinical technical support specialist and the remaining scribed note accurately describes my personal service to the patient. Medical Decis[facility] (more content not included)... [facility] 01-21-2025 Note HNO ID: [id number] Author: ANNA DREW APRN.ANNEALING OPERATOR Service: ? Author Type: Nurse Practitioner Type: [...] Continue bandages and burn ointment Anna Drew APRN.ANNEALING OPERATOR History and Record Review External record(s) reviewed: prior outpatient record. Findings from review of outpatient records: diabetic Disposition The patient was discharged. Procedures [facility] 01-21-2025 History of Presen t illness Narrative [...] was discharged. Procedures documented in this encounter [facility] 01-05-2025 Telephone encounter Note Patient notified. Verbalized understanding. Scheduled. [facility] 01-05-2025 Miscellaneous Notes Patient notified. Verbalized understanding. [...] Provider: REAGAN GARCIA APRN.CNP ----- Message from Geogria Avila PA-C sent at 01/02/2025 3:34 PM [...] Reagan Garcia APRN.CNP documented in this encounter [facility] 01-05-2025 Telephone encounter Note Please let the [...] movements daily. Authorizing Provider: REAGAN GARCIA APRN.CNP [facility] 01-05-2025 Telephone encounter Note ----- Message from [...] PA-C ----- Message ----- From: Reagan Garcia APRN.ANNEALING OPERATOR Sent: 01/01/2025 1:41 PM EDT To: [place] [...] the trigger for lactulose? Reagan Garcia APRN.CNP [facility] 12-30-2024 Telephone encounter Note Patient needs scheduled for gastroenterology. Reagan Garcia APRN.CNP [facility] 12-30-2024 Miscellaneous Notes Patient needs scheduled for [...] Reagan Garcia APRN.CNP documented in this encounter [facility] 12-29-2024 Telephone encounter Note Patient notified. Verbalized understanding. Forwarding to clerical to schedule patient, patient aware. [facility] 12-29-2024 Telephone encounter Note Please let the patient know that his ultrasound of the liver is showing continued fatty liver appearance but now shows some findings that could suggest progression to cirrhosis of the liver. I have referred to gastroenterology for further evaluation. Covering for Cee Farias. Reagan Garcia APRN.CNP [facility] 12-29-2024 History of Presen t illness Narrative [...] PATIENT PRESENTS WITH AN IMPLANTABLE OR ATTACHED DEVIL TENDER: No RADIOLOGY DEPARTMENT: Ultrasound PERIPHERAL IV DATA: Not applicable SIGNED BY: Shelly Deng RDMS December 29, 2024 9:29 AM documented in this encounter [facility] 12-29-2024 Note HNO ID: [id number] Author: SHELLY DENG RDMS Service: ? Author Type: Still Operator Gin Type: Progress Notes Filed: 12/29/2024 09:30 Note [...] PATIENT PRESENTS WITH AN IMPLANTABLE OR ATTACHED DEVIL TENDER: No RADIOLOGY DEPARTMENT: Ultrasound PERIPHERAL IV DATA: Not applicable SIGNED BY: Shelly Deng RDMS December 29, 2024 9:29 AM [facility] 12-23-2024 Telephone encounter Note Pt notified of results and provider message. Pt voiced understanding. Lab appt scheduled for 12/29/24. Pt transferred to schedule US. Savannah Tamayo LPN [facility] 12-23-2024 Miscellaneous Notes Pt notified of results [...] has any questions. Thank you. Cee Farias APRN.ANNEALING OPERATOR documented in this encounter [facility] 12-18-2024 Telephone encounter Note TC to pt. LM to call office, ask for triage nurse to get results. Pati Mg LPN [facility] 12-18-2024 Telephone encounter Note Can you please [...] any questions. Thank you. Cee Farias APRN.CHERI [facility] 12-15-2024 Instructions Cee Farias APRN.CNP - 12/15/2024 [...] pending test results. documented in this encounter [facility] 12-15-2024 History of Presen t illness Narrative [...] APRN.CNP This note was partially generated using [employer] voice recognition system. Note was reviewed for accuracy. There may be minor misspellings or grammar miscues with [employer] voice recognition. documented in this encounter [facility] 12-15-2024 Note HNO ID: [id number] Author: CEE FARIAS APRN.CNP Service: ? Author [...] (HCC) - ICD (more content not included)... [facility] 05-28-2024 Miscellaneous Notes Patient notified of results, [...] what he prefers. Thank you. Cee Farias APRN.ANNEALING OPERATOR documented in this encounter [facility] 05-28-2024 Telephone encounter Note Patient notified of results, verbalizes understanding of instructions. Pati Mg LPN [facility] 05-28-2024 Telephone encounter Note Can you please [...] what he prefers. Thank you. Cee Farias APRN.ANNEALING OPERATOR [facility] 05-27-2024 Instructions Cee Farias APRN.CNP - 05/27/2024 8:31 AM EDT Get labs completed today Continue to take all medication as prescribed Work on eating a low carb diet, lean protein, veggies, and get some form of exercise. Watch sugary drinks in the diet. Due for eye exam Follow up in 3 months or sooner pending test results. documented in this encounter [facility] 05-27-2024 History of Presen t illness Narrative [...] discussed and patient voices understanding. Cee Farias APRN.ANNEALING OPERATOR This note was partially generated using Dragon voice recognition system. Note was reviewed for accuracy. There may be minor misspellings or grammar miscues with [employer] voice recognition. documented in this encounter [facility] 05-20-2024 History of Presen t illness Narrative [...] of Care: created on 03/24/24 through 05/29/24 [place] in home exercise program. Met Patient will [...] Robert Suggs PT documented in this encounter [facility] 05-13-2024 History of Presen t illness Narrative [...] by supervising therapist. PLAN FOR NEXT VISIT: NE SUBJECTIVE: Patient's symptoms have remained steady the [...] Robert Suggs PT documented in this encounter [facility] 05-07-2024 History of Presen t illness Narrative [...] toward set goals. PLAN FOR NEXT VISIT: NE SUBJECTIVE: Pt reports that the R side portion of the R shoulder blade is fine, but towards the spine is where the issue is. Took some Advil and doesn't seem to have much pain now. 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 Met Patient will [...] Patient to be seen for Therapeutic exercise (00321), Neuromuscular re-education (98221), Manual therapy (09372), Therapeutic activities (66034), Self-chcf management (86785), Body Mechanics Training, Patient/Family/Caregiver Education PLAN FOR [...] Stop Time : 1313 Robert Suggs PT Program_ID:[id number] Access Code: [email or web address] URL: [email or web address] Date: 04-22-2024 Prepared By: Robert Suggs Program [...] - 10 reps documented in this encounter [facility] 04-09-2024 History of Presen t illness Narrative [...] Stop Time : 1347 Robert Suggs PT Program_ID:[id number] Access Code: [email or web address] URL: [email or web address] Date: 04-09-2024 Prepared By: Robert Suggs Program [...] - 10 reps documented in this encounter [facility] 04-02-2024 History of Presen t illness Narrative Program_ID:[id number] Access Code: [email or web address] URL: [email or web address] Date: 04-02-2024 Prepared By: Robert Suggs Program [...] Peralta PT, DPT documented in this encounter [facility] 03-28-2024 History of Presen t illness Narrative [...] of Care: created on 03/24/24 through 05/29/24 [place] in home exercise program. Patient will decrease [...] Planned: 8 Planned Treatment Interventions: Therapeutic exercise (08485), Neuromuscular re-education (96422), Manual therapy (54785), Therapeutic activities (83634), Self-chcf management (21515), Patient/Family/Caregiver Education, Body Mechanics Training PLAN FOR [...] Tests: Apprehension, Biceps Load, Empty Can, Neer, [place] Apprehension: Right Negative Biceps Load: Right Negative Empty Can: Right Negative Neer: Right Negative [place]: Right Negative Education: Education Learning/educational needs: Home [...] Time : 948 HERMINIO Rubyally signed by Robert Suggs PT at 03/28/2024 12:43 PM EDT Program_ID:[id number] Access Code: [email or web address] URL: [email or web address] Date: 03-24-2024 Prepared By: Robert Suggs Program [...] - 10 reps documented in this encounter [facility] 03-17-2024 History of Presen t illness Narrative Kosta Francisco MD Department of Orthopaedics Orthopaedics [address] [facility] [address] Dept: [phone] Dept March 17, 2024 CHIEF COMPLAINT: New and Pain of the Right Shoulder and Referred by Dr. Burton HPI Patient here for evaluation right shoulder pain. Patient states in November he fell down about 6-7 steps and landed on the cement on his basement on that shoulder. He had xray's done at on 12/14/23 and again at [facility] on 12/14/23. Mri done on 01/31/24. Patient states he pain is in his shoulder blade area. Patient is right hand dominant. 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 ASSESSMENT: M75.111 Incomplete rotator cuff tear or [...] requesting physician via US mail. Willie Burton [address] [facility] [address] Willie Burton MD [address] [facility] [address] Kosta Francisco MD documented in this encounter [facility] 03-10-2024 Telephone encounter Note Patient notified of results, verbalizes understanding of instructions. The following approved medication requests have been transmitted electronically. Requested Prescriptions Signed Prescriptions Disp Refills glyBURIDE 5 mg tablet 30 tablet 11 Sig: Take 1 tablet by mouth daily with breakfast. Authorizing Provider: REAGAN GARCIA MA [facility] 03-10-2024 Miscellaneous Notes Patient notified of results, [...] REAGAN GARCIA APRN.CNP documented in this encounter [facility] 03-10-2024 Telephone encounter Note Please let the [...] daily with breakfast. Authorizing Provider: REAGAN GARCIA APRN.ANNEALING OPERATOR [facility] 03-06-2024 Instructions Cee Farias APRN.CNP - 03/06/2024 9:28 AM EDT Use steroid ointment as needed Keep skin clean and dry May use pepcid as needed for itching Follow up if no improvement. documented in this encounter [facility] 03-06-2024 History of Presen t illness Narrative [...] APRN.CNP This note was partially generated using [employer] voice recognition system. Note was reviewed for accuracy. There may be minor misspellings or grammar miscues with Dragon voice recognition. documented in this encounter [facility] 01-30-2024 Note HNO ID: [id number] Author: CEE ARAIZA RT(R) Service: ? Author [...] PATIENT PRESENTS WITH AN IMPLANTABLE OR ATTACHED DEVIL TENDER: No RADIOLOGY DEPARTMENT: MR; Exam(s) Completed: Upper MSK: Shoulder, right PERIPHERAL IV DATA: Not applicable SIGNED BY: Cee Araiza RDMS, RVT- Sheila ([facility]) January 30, 2024 2:52 PM [facility] 01-30-2024 History of Presen t illness [...] PATIENT PRESENTS WITH AN IMPLANTABLE OR ATTACHED DEVIL TENDER: No RADIOLOGY DEPARTMENT: MR; Exam(s) Completed: Upper MSK: Shoulder, right PERIPHERAL IV DATA: Not applicable SIGNED BY: Cee Araiza RDMS, RVT- Sheila ([facility]) January 30, 2024 2:52 PM documented in this encounter [facility] 01-15-2024 Telephone encounter Note Patient returned call and aware order in place in computer. Assisted with transfer to nursing scheduler to get MRI appt set up. [facility] 01-15-2024 Miscellaneous Notes Patient returned call and aware order in place in computer. Assisted with transfer to nursing scheduler to get MRI appt set up. Called [...] good. Please advise documented in this encounter [facility] 01-15-2024 Telephone encounter Note Called and left message on patients voicemail to return call to the office and ask to speak with a FM triage nurse. Aminata Black MA [facility] 01-15-2024 Telephone encounter Note MRI ordered Willie Burton MD [facility] 01-15-2024 Telephone encounter Note Does not look like pt has done any PT for shoulder. He did see Ortho Jul [address]22 Dr[address] Francisco. Margie Brooks MA [facility] 01-15-2024 Telephone encounter Note Pt called in requesting MRI for right shoulder. Chiropractor not doing any good. Please advise [facility] 12-14-2023 History of Presen t illness Narrative This note was created using Evalveriter. Subjective Dane Moran is a 53 year [...] severe 9/10 pain Cata Capellan TEACHING PROVIDER (Physician/PA/FORGING MACHINE OPERATOR) NOTE OF PERSONAL INVOLVEMENT IN CARE: I have personally seen and examined the patient and performed the medical decision-making components. I have reviewed the Advanced Practice Registered Nurse (FORGING MACHINE OPERATOR) Student's documentation and verified the findings in the note as written. Any additions or changes are noted in bold/italics. Signature: Daya Cook Date: 12/14/2023 Time: 11:09 AM documented in this encounter [facility] 12-04-2023 Miscellaneous Notes Phoned patient and given [...] REAGAN GARCIA APRN.CNP documented in this encounter [facility] 12-03-2023 Miscellaneous Notes Patient has tried Cialis [...] Zoya Decker MA documented in this encounter [facility] 12-03-2023 Miscellaneous Notes Addended by: REAGAN GARCIA on: 12/03/2023 09:16 AM Modules accepted: Orders documented in this encounter [facility] 12-03-2023 History of Presen t illness Narrative [...] PATIENT PRESENTS WITH AN IMPLANTABLE OR ATTACHED DEVIL TENDER: No RADIOLOGY DEPARTMENT: General X-ray: Exam(s) Completed: Spine X-Ray(s): Sacrum/Coccyx Lower Extremity X-Ray(s): Foot, Right and Wt. Bearing Upper Extremity X-Ray(s): Scapula, right PERIPHERAL IV DATA: Not applicable SIGNED BY: RT Patricia(R) December 03, 2023 9:05 AM documented in this encounter [facility] 12-03-2023 History of Presen t illness Narrative [...] fasciitis. Possible heel spur. Discussed orthotics or [id number] inserts. Patient wanted x-ray of the foot. [...] needed. This note was partly generated using [employer] voice recognition dictation and may contain some misspelled or inaccurate words missed on review. documented in this encounter [facility] 09-07-2023 Instructions Inge Rodrigues APRN.CNP - 09/07/2023 3:40 PM EST Rest, stretches, strengthening Naproxen one tablet twice a day with food for 2 weeks Flexeril at bedtimes Ice/Heat Report immediately to ER for foot drop, bowel or bladder loss, numbness or tingling of legs/feet or any new or worsening concerns if unable to get into PMD documented in this encounter [facility] 09-07-2023 History of Presen t illness Narrative Images from the original note were not included. Subjective The history is provided by the patient. No die trouble shooter was used. HPI Dane Moran is a [...] have confirmed and edited as necessary, the [facility] Review of Systems Constitutional: Negative for chills [...] detail warranting prompt ER evaluation. Inge Rodrigues APRN.ANNEALING OPERATOR documented in this encounter [facility] 05-30-2023 History of Presen t illness Narrative [...] from trapped OTC wax drops. Start - [id number] 3.5 MG-10,000 UNIT/ML-1 % EAR DROPS,SUSP while healing. Follow up if symptoms persist. 2. Heart murmur - ICD9: 785.2, ICD10: R01.1 No known past diagnosis of heart murmur. He is due for 6 month PCP follow up. Advised he schedule an appointment. FYI to primary care team. Jonathan Isabel MD documented in this encounter [facility] 03-27-2023 History of Presen t illness Narrative Images from the original note were not included. This note was created using Evalveriter. Subjective Dane Moran is a 52 year [...] Tara Bautista PA-C documented in this encounter [facility] 01-15-2023 Miscellaneous Notes Pharmacy request, pt needs to contact office. Ольга Fink MA documented in this encounter [facility] 12-19-2022 Miscellaneous Notes Letter mailed to pt notifying him of normal results and recommendation from Provider. Attached copy of lab results. If questions to contact the office. Aminata Black Ma Please let patient know that his labs look good. Hgb A1c 6.1%. No changes to medications. Return in 6 months, with labs prior. Reagan Garcia APRN.ANNEALING OPERATOR documented in this encounter [facility] 09-11-2022 Miscellaneous Notes OK to refill as [...] Hanny Mackey Pss documented in this encounter [facility] 07-31-2022 History of Presen t illness Narrative Kosta Francisco MD Department of Orthopaedics Orthopaedics [address] [place] [address] Dept: [phone] Dept July 31, 2022 CHIEF COMPLAINT: New [...] of degenerative changes in the acromioclavicular joint. Cabin Outfitter: PSCB Transcribe Date/Time: Jul 21 2022 10:16A [...] or electronic medical record. Daya Cook [address] [facility] [address] Willie Burton MD [address] [facility] [address] Kosta Francisco MD documented in this encounter [facility] 07-24-2022 History of Presen t illness Narrative 1. Type 2 diabetes mellitus without retinopathy (HCC) Risk of diabetic changes and vision loss can be minimized by tight control of blood sugar, blood pressure, and cholesterol levels. Educated patient to continue care with primary care doctor and/or tightener to maintain optimum levels as they are [...] 2022 2:09 PM documented in this encounter [facility] 07-21-2022 Instructions Daya Cook APRN.ANNEALING OPERATOR - 07/21/2022 10:26 AM EDT R.I.C.E. The [...] when lying down. documented in this encounter [facility] 07-21-2022 History of Presen t illness Narrative [...] 2022 9:52 AM documented in this encounter [facility] 07-21-2022 History of Presen t illness Narrative [...] history is provided by the patient. No die trouble shooter was used. Shoulder Injury The incident occurred [...] Daya Cook APRN.CHERI documented in this encounter [facility] 07-12-2022 Miscellaneous Notes Oliva with [facility] notified. Margie Brooks Ma OK to fill ativan prescription today Willie Burton MD [facility] called and asked if it was ok to fill the Ativan. They report he was only getting 20 pills to last 30 days, and it wouldn't be due until 07/21/22. Pt was increased to 30 pills over 30 days. Please call and advise. documented in this encounter [facility] 07-12-2022 Miscellaneous Notes Sent. PDMP website checked and validated. All prescriptions have been APPROPRIATELY filled. No suspicious activity was identified. 07/12/2022 by Raegan Garcia APRN.CNP The following approved medication requests [...] patient. 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 Please call in as soon as possible. Pharmacy verified in [facility] Patient has been identified by name and [...] Jocelyn Masters Pss documented in this encounter [facility] 06-19-2022 Instructions Reagan Garcia APRN.ANNEALING OPERATOR - 06/19/2022 9:54 AM EDT Flu shot given today Get labs in 6 months Work on getting diabetic eye exam Stop Glyburide Reagan Garcia APRN.CNP documented in this encounter [facility] 06-19-2022 History of Presen t illness Narrative [...] is helping with anxiousness. Was working at [facility] but it was stressful. Last day was [...] prior. This note was partly generated using ab&jb properties and services voice recognition dictation and may contain some misspelled or inaccurate words missed on review. documented in this encounter [facility] 04-27-2022 Miscellaneous Notes Approved. PDMP website checked [...] 03/28/22 Margie Brooks Ma Pharmacy verified in [facility] Patient has been identified by name and [...] Jocelyn Masters Pss documented in this encounter [facility] 03-28-2022 Miscellaneous Notes The following approved medication requests have been transmitted electronically. Signed Prescriptions Disp Refills LORazepam (ATIVAN) 0.5 mg 20 tablet 1 Sig: Take 1 tablet by mouth three times daily as needed (anxiety) for up to 30 days. JAZMINE Class: C-IV OTRY: No Authorizing Provider: WILLIE BURTON Ma OK [...] patient. Sulema Melton documented in this encounter [facility] 02-01-2022 Miscellaneous Notes Letter mailed to pt home of results. Margie Brooks MA ----- Message from Reagan Garcia APRN.CHERI sent at 01/31/2022 5:14 PM EDT ----- Please inform patient that his stool sample was normal. Reagan Garcia CNP documented in this encounter [facility] 01-30-2022 Miscellaneous Notes Pt called and notified [...] Reagan Garcia APRN.CNP documented in this encounter [facility] 05-02-2021 History of Presen t illness Narrative [...] 2021 4:34 PM documented in this encounter [facility] Evaluation note Diagnosis Controlled type 2 diabetes mellitus without complication, without long-term current use of insulin (HCC) [facility] Diagnosis Anxiety Anxiety state, unspecified [facility] Diagnosis Anxiety Anxiety state, unspecified [facility] Diagnosis Controlled type 2 diabetes mellitus without complication, without long-term current use of insulin (HCC)- Primary Need for influenza vaccination Need for prophylactic vaccination and inoculation against influenza Anxiety Anxiety state, unspecified Essential hypertension, benign Screening for diabetic retinopathy Screening for other eye conditions [facility] Anxiety Anxiety state, unspecified [facility] Diagnosis Anxiety Anxiety state, unspecified [facility] Diagnosis Acute pain of right shoulder- Primary [facility] Diagnosis Type 2 diabetes mellitus without retinopathy (HCC)- Primary Type II or unspecified type diabetes mellitus without mention of complication, not stated as uncontrolled 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, unspecified Myopia, bilateral Myopia Regular astigmatism of both eyes Regular astigmatism Presbyopia Combined forms of age-related cataract of both eyes Other and combined forms of senile cataract [facility]* Diagnosis Impingement syndrome of right shoulder- Primary Other affections of shoulder region, not elsewhere classified Acute pain of right shoulder [facility] Diagnosis Controlled type 2 diabetes mellitus without complication, without long-term current use of insulin (HCC) [facility] Diagnosis Controlled type 2 diabetes mellitus without complication, without long-term current use of insulin (HCC)- Primary [facility] Diagnosis Essential hypertension, benign [facility] Diagnosis Hordeolum externum of left lower eyelid- Primary Hordeolum externum [facility] Diagnosis Bilateral impacted cerumen- Primary Impacted cerumen Heart murmur Undiagnosed cardiac murmurs [facility] Diagnosis Acute right-sided low back pain without sciatica- Primary [facility] Diagnosis Controlled type 2 diabetes mellitus without complication, without long-term current use of insulin (HCC)- Primary Essential hypertension, benign Pain of right heel Pain in limb Pain of right scapula Disorder of bone and cartilage, unspecified Injury of coccyx, initial encounter Screening for colon cancer Special screening for malignant neoplasms, colon [facility] [place] [facility]* Diagnosis 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 [facility] Work Phone: Evaluation note* Diagnosis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
[2025-09-19 20:59] VITALS: BMI 26.6
[2025-09-19 21:00] VITALS: BP 98/58; PULSE 102; RESP 16; TEMP 37.1; O2SAT 98
[2025-09-19 21:08] LABS: Prothrombin Time (Protime)PT. 14.2 SECONDS (11.7-14.9)
[2025-09-19] MEDS: Insulin Glargine-YFGN 100 UNIT/ML Pen 20 UNIT SC (21:58)
[2025-09-19 22:22] LABS: Ammonia 62.4 umol/L (16-60)
[2025-09-20] MEDS: Lactated Ringers 1,000 ML 125 ML IV (02:03)
[2025-09-20 02:05] VITALS: BP 98/58; PULSE 100; RESP 18; TEMP 37.1; O2SAT 100
[2025-09-20 08:25] VITALS: BP 111/67; PULSE 101; RESP 18; TEMP 36.8; O2SAT 93
--- NOTE | 2025-09-20 09:38 | PCM.PN.HOSP ---
Subjective Subjective Doing well, still very thirsty Objective Data Objective Data Vital Signs: Vital Signs Temp Pulse Resp BP Pulse Ox O2 Del Method 98.2 F 101 H 18 111/67 93 Room Air 09/20/25 08:25 09/20/25 08:25 09/20/25 08:25 09/20/25 08:25 09/20/25 08:25 09/20/25 08:25 Oxygen Delivery Method Room Air Weight: 191 lb 2.252 oz Body Mass Index (BMI) 26.6 Intake & Output: Intake and Output for Last 24 Hours 09/19/25 09/20/25 09/21/25 03:59 03:59 03:59 Intake Total 1999 1193.75 / 1193.75 Balance 1999 1193.75 / 1193.75 Lab / Micro Data 09/19/25 15:20 09/19/25 15:20 Labs: Laboratory Results - last 24 hr 09/19/25 14:45: Urine Color Straw, Urine Clarity Clear, Urine pH 6.0, Ur Specific Rock 1.010, Urine Protein 15 H, Urine Glucose (UA) 1000 H, Urine Ketones 5 H, Urine Occult Blood Negative, Urine Nitrite Negative, Urine Bilirubin Negative, Urine Urobilinogen Normal, Ur Leukocyte Esterase Negative, Urine RBC 0-5 SEEN, Urine WBC 0-5 SEEN, Ur Squamous Epith Cells 0-5 SEEN, Urine Bacteria RARE, Urine Mucus 0 SEEN 09/19/25 15:20: WBC 9.4, RBC 3.68 L, Hgb 12.7 L, Hct 33.9 L, MCV 92.1, MCH 34.5 H, MCHC 37.5 H, RDW Std Deviation 45.3 H, RDW Coeff of Nelsy 13.3, Plt Count 102 L, MPV 11.6, Immature Gran % (Auto) 1.100 H, Neut % (Auto) 64.0, Lymph % (Auto) 19.1, Bacon % (Auto) 9.3, Eos % (Auto) 5.4 H, Baso % (Auto) 1.1 H, Absolute Neuts (auto) 6.0, Absolute Lymphs (auto) 1.79, Nucleated RBC % 0, PT 14.2, INR 1.1, Sodium 128 L, Potassium 4.2, Chloride 89 L, Carbon Dioxide 21.7, Anion Gap 17, BUN 51 H, Creatinine 1.66 H, Estim Creat Clear Calc 51.92, Est GFR (MDRD) Non-Af 48 L, BUN/Creatinine Ratio 30.8 H, Glucose 495 H*, Calcium 10.1, Total Bilirubin 2.28 H, AST 44 H, ALT 56 H, Alkaline Phosphatase 263 H, Total Protein 7.7, Albumin 3.7, Globulin 4.0, Albumin/Globulin Ratio 0.9, Lipase 189 H, b-Hydroxybutyric mmol/L 2.8 H 09/19/25 16:21: POC Glucose 419 H 09/19/25 17:59: POC Glucose 380 H 09/19/25 19:22: POC Glucose 255 H 09/19/25 20:08: POC Glucose 263 H 09/19/25 21:28: Ammonia 62.4 H 09/19/25 21:58: POC Glucose 361 H 09/20/25 05:49: POC Glucose 256 H 09/20/25 06:56: Hemoglobin A1c 13.4 H ABG Data ABG results: ABG 09/19/25 15:34 Specimen Type BRUCE Sample Site Not entered VBG pH 7.42 VBG pO2 26 VBG HCO3 21 L VBG Total CO2 22 L VBG O2 Sat (Calc) 49 L VBG Base Excess -3 L POC Mix VBG pCO2 Pt Tmp 33.1 L O2 Delivery Device Room Air Radiography Diagnostic Testing: Radiology Impression Brain CT 09/19/25 15:04 IMPRESSION: No intracranial hemorrhage. No mass effect or midline shift. Reading Location: [facility] Chest X-Ray 09/19/25 15:40 IMPRESSION: No acute cardiopulmonary process. Reading Location: [facility] Abdomen/Pelvis CT 09/19/25 16:41 IMPRESSION: 1. Fecal retention in the colon consistent with constipation. 2. Mild hepatosplenomegaly with splenic varices concerning for portal hypertension. Clinical correlation is recommended. 3. Colonic diverticulosis without acute diverticulitis. Reading Location: [facility] Physical Exam Narrative General: Alert, Oriented x3, Cooperative, No apparent distress HEENT: Atraumatic, PERRLA, EOMI, Normocephalic Oral: Moist Mucosa Neck: Supple, No JVD Lungs: Diminished, Normal air movement, No rhonchi, No wheeze, No rales Cardiovascular: Regular rate, Regular Rhythm, Normal S1, Normal S2, No murmurs Abdomen: Soft, Non Tender, Non-Distended, No Hepato-splenomegaly Extremities: No edema, Capillary Refill Less than 3 Seconds Skin: No rashes, No breakdown Musculoskeletal: No Tenderness to Palpation of Joints or Extremities Neurological: No focal neurological deficits, moves all extremities Psych/Mental Status: Normal Affect, Appropriate Assessment & Plan Assessment/Plan (1) Type 2 diabetes mellitus with hyperglycemia: QUALIFIERS: Diabetes mellitus buttermaker helper insulin use: without jail use Qualified Code(s): E11.65 - Type 2 diabetes mellitus with hyperglycemia (2) Acute kidney injury: PLAN: Plan 1. DM2 with hyperglycemia with possible FLY ? Continue with insulin ? Accu-Cheks ? Will monitor make adjustments as necessary ? Creatinine is 1.66 but no previous creatinine in our system ? May benefit from endocrinology as an outpatient 2. Liver disease with splenic varices ? Liver ultrasound is pending ? LFTs are slightly elevated ? CT of the abdomen was performed because of the elevated LFTs which showed splenic varices but no obvious cirrhosis or ascites 3. Essential HTN ? Continue with lisinopril ? Monitor make adjustments as necessary DVT: Lovenox Charges/Coding Visit Charges Inpatient E&M: 93421 Subs Hosp L2
[2025-09-20 14:15] VITALS: BP 97/60; PULSE 100; RESP 18; TEMP 36.8; O2SAT 96
[2025-09-20 20:49] VITALS: BP 94/54; PULSE 93; RESP 17; TEMP 36.6; O2SAT 98
[2025-09-20] MEDS: Insulin Glargine-YFGN 100 UNIT/ML Pen 40 UNIT SC (22:12)
[2025-09-21 02:30] VITALS: BP 99/60; PULSE 94; RESP 16; TEMP 36.8; O2SAT 96
[2025-09-21 06:52] LABS: Anion Gap 9 (7-18); BUN 24 mg/dL (4-19); BUN/Creat Ratio 22.4 RATIO (10-20); Calcium,Total 9.1 mg/dL (7.6-11.0); Carbon Dioxide 24.6 mmol/L (20.0-29.0); Chloride 102 mmol/L (96-106); Estimated Creatinine Clearance 84.66 ml/min (50-250); Glucose 174 mg/dL (70-99); Potassium 3.1 mmol/L (3.5-5.1)
[2025-09-21 07:01] LABS: Hematocrit 29.4 % (40-54); Hemoglobin 10.7 g/dL (13.0-16.5); Immature Granulocytes Count 0.100 X10^3/uL (0.0-0.0); Mean Corp Hgb Conc 36.4 g/dL (32-36); Mean Corpuscular Volume 92.2 fL (80-94); Mean Platelet Vol. 10.5 fl (6.2-12.0); NRBC Flagged by Analyzer 0 % (0-5); POSITIVE COUNT YES; Platelet Count 82 K/mm3 (150-450); RBC Distribution Width CV 13.2 % (11.6-14.6); RBC Distribution Width SD 44.2 fl (35.1-43.9); Red Blood Count 3.19 M/mm3 (4.6-6.2); White Blood Count 5.6 K/mm3 (4.4-11.0)
[2025-09-21 08:27] VITALS: BP 116/74; PULSE 91; RESP 17; TEMP 36.6; O2SAT 97
--- NOTE | 2025-09-21 08:46 | PCM.DC ---
Discharge Instructions DC O2, CPAP, BIPAP needs Home O2 Discharge instructions: No Dressing / Incision Discharge Activity: Return to Normal Activity Dressing / Incision Call your doctor if you observe: Fever of 101 or Higher, Shortness of breath, Dizziness, Fainting spells, Swelling in the ankles, Chest pain and Increased palpitations (irregular heartbeat) Follow Up Care Test Results: Test results from this visit will be discussed in further detail at your follow-up appointment, if applicable. Discharge Plan Admission Admit Date/Time: 09/19/25 20:02 Attending Provider: Donavan Arciniega Primary Care Provider: Reagan Perdomo NP Consulting Providers: Zachary Zaragoza Instructions Patient Instructions: Diabetes How to Use an Insulin ..., Diabetes Low Blood Sugar Ch, Diabetes Insulin Injection Ch Additional Instructions / Restrictions: He has elevated liver functions and these need to be followed up by your PCP as an outpatient for further evaluation and testing Discharge Orders/Prescriptions Prescriptions: New insulin glargine [Lantus Solostar U-100 Insulin] 100 unit/mL (3 mL) Insulin Pen 30 unit subcut HS 30 Days Qty: 9 0RF (DME) insulin admin supplies Insulin Pen See Rx Instructions .Route Qty: 1 0RF Rx Instructions: As directed Continued metformin 500 MG tablet 1,000 mg PO BIDCM lisinopril 5 MG tablet 5 mg PO DAILY Referrals / Follow Up: Reagan Perdomo NP, EQUIPMENT VALIDATION SPECIALIST-C [Primary Care Provider, Medical] - Within 1 Week Disposition Disposition (needs filled in before D/C Order can be placed): Home, Self Care
--- NOTE | 2025-09-21 09:43 | CASEMGMT ---
YORDY CM into pt room, pt lying in bed in no distress. Pt states he does not have a BGM any longer at home. He does not have insurance, discussed the Reli [employer] brand from [employer] which pt reports is affordable to him. Pt states he has given insulin before and denies any issues with administering this to himself. Pt is aware of Good Rx should he need for his rx. Pt states that he does not foresee issues with cost of rx. Pt does request metformin and lisinopril be called into [facility]. Requested this from the hospitalist. Pt reports he is indep in ADLs and denies any homegoing needs.
--- NOTE | 2025-09-21 09:45 | US_ITS ---
PROCEDURE: LIVER 09/21/2025 REASON FOR EXAM: PORTAL VEIN AND HEPATIC VEIN DOPPLER PROCEDURE: Liver measures 17.0 cm in greatest longitudinal dimension and exhibits hyperechogenicity, compatible with fatty infiltration. Normal hepatopetal flow in the portal vein. No intrahepatic biliary ductal dilation. Common bile duct 1 cm diameter. Gallbladder is normal-sized, thin-walled, and anechoic without tenderness, pericholecystic fluid, calculus or sludge. No pancreatic abnormality. Right kidney 12.2 x 5.6 x 6.2 cm. No evidence of mass, calculus, hydronephrosis, or cortical thinning. Normal color flow. No inferior vena caval abnormality. No other abnormality. US/Liver IMPRESSION: 1 cm common bile duct is mildly dilated. No clear obstructive etiology is iden tified. Clinical and possibly laboratory correlation is recommended. Hepatic steatosis. Reading Location: [facility]
--- NOTE | 2025-09-21 09:58 | DS.PCM_ITS ---
Providers Date of Admission: 09/19/25 Primary Care Physician: KRISTEN Roy Reason For Visit: hyperglycemia Diagnosis Discharge Diagnosis (1) Type 2 diabetes mellitus with hyperglycemia: Status: Acute Code(s): E11.65 - Type 2 diabetes mellitus with hyperglycemia Qualifiers: Diabetes mellitus half-way insulin use: without half-way use Q ualified Code(s): E11.65 - Type 2 diabetes mellitus with hyperglycemia (2) Acute kidney injury: Status: Acute Code(s): N17.9 - Acute kidney failure, unspecified Medications at Discharge Home Medications insulin admin supplies #1 ea 09/21/25 insulin glargine 100 unit/mL (3 mL) subcutaneous pen (Lantus Solostar U-100 Insulin) 30 unit (0.3 mL) subcut HS 30 days #9 mL 09/21/25 lisinopril 5 mg tablet 5 mg PO DAILY 30 days #30 tabs 09/21/25 metformin 500 mg tablet 1,000 mg (2 x 500 mg) PO BIDCM 30 days #120 tabs 09/21/25 Hospital Course Operations None Procedures None Summary of Care Provided Minutes Spent on Discharge: 35 Hospital Course: Per HPI: DANE MORAN, is a 54 M who presents frequent urination, polydipsia, weight loss, lethargy, intermittent confusion and generalized weakness. Patient has medical history of diabetes not on insulin, hypertension and heavy alcohol use until (last month). He has been on metformin but was taken off the glipizide 3 months ago because his sugars were normal or low. For more than a month now he has been frequently urinating, has been thirsty, has lost weight and feels tired, dizzy, lightheaded and lethargic. He never checked his blood sugars during these symptoms. He has been drinking alcohol every day for more than 25 years, he stopped last month after he was told he may develop cirrhosis after an ultrasound was done and showed some liver disease. He never had ascites or hematemesis but he describes episodes of altered sensorium where he has been occasionally acting weird at work or he forgets his way home while driving. No change in speech or sleep except that he wakes up to urinate. He was prescribed something to drink after his ammonia was checked as outpatient, it gave him too much gas, probably was lactulose. In the ED, he was in impending DKA his blood sugars was 495, beta-hydroxybutyrate was 2.8 (cutoff is 3 for DKA), anion gap 17 but normal bicarbonate of 21 possibly from vomiting. pH 7.42 on VBG, he had been vomiting which mixed his acid-base. A dramatic improvement in his hyperglycemia after couple of liters of normal saline and 10 units of insulin, his fingerstick glucose was 250 so he will not be managed as a full DKA protocol, will only manage with weight-based, both short and long-acting insulin regimen. He never had abdominal pain. CT abdomen done because of abnormal LFT showed splenic varices compatible with portal hypertension but no chuck cirrhosis no ascites ALT 56, AST 44, total bilirubin 2.28, alk phos 263, lipase 189 which is below 3 times the upper limit of normal. Creatinine 1.66 no baseline, BUN 51 Hospital Course: 1. Uncontrolled type 2 diabetes with FLY?54-year-old male presents to the hospital with polydipsia and polyuria and generalized weakness. He was found to be significantly hyperglycemic and states that he was recently taken off of his glipizide 3 months ago because his blood sugars were normal or low, on admission his A1c is 13.4. He is started on insulin and has had significant improvement and feels much better today. Ultimately he was discharged on the Lantus of 30 units nightly and restarted on his metformin 1000 mg p.o. twice daily. I discussed with him the possibility for discharge and he expressed understanding of the risks and benefits of going home and would like to go home today. He did also have an FLY on admission his initial creatinine was 1.66 on the day of discharge it was down to 1.03 consistent with an FLY. I do recommend outpatient follow-up. 2. Elevated LFTs?he was told years ago that he had fatty infiltration and at that time he was heavy drinker, he states his last drink was about a month ago when he was told that he could develop cirrhosis. Liver ultrasound today demonstrated steatosis with, bile duct of about 1 cm. No right upper quadrant abdominal pain. And his LFTs did improve today and his bilirubin came down and his alk phos normalized. He did have an elevated ammonia on admission and had been on lactulose in the past but he discontinued this due to bloating. I discussed with him the need for outpatient follow-up for this issue as well, he is changing PCPs so I do recommend that he follow-up with his new PCP and obtain repeat outpatient labs and if still elevated consider evaluation by hepatology. Physical Exam Narrative General: Alert, Oriented x3, Cooperative, No apparent distress HEENT: Atraumatic, PERRLA, EOMI, Normocephalic Oral: Moist Mucosa Neck: Supple, No JVD Lungs: Diminished, Normal air movement, No rhonchi, No wheeze, No rales Cardiovascular: Regular rate, Regular Rhythm, Normal S1, Normal S2, No murmurs Abdomen: Soft, Non Tender, Non-Distended, No Hepato-splenomegaly Extremities: No edema, Capillary Refill Less than 3 Seconds Skin: No rashes, No breakdown Musculoskeletal: No Tenderness to Palpation of Joints or Extremities Neurological: No focal neurological deficits, moves all extremities Psych/Mental Status: Normal Affect, Appropriate Weight / BMI Weight Weight: 191 lb 2.252 oz Body Mass Index (BMI) 26.6 ABG / Lab / Microbiology Data 09/21/25 05:54 09/21/25 05:54 Laboratory: Laboratory Results - last 24 hr 09/20/25 16:11: POC Glucose 413 H 09/20/25 22:10: POC Glucose 291 H 09/21/25 05:54: WBC 5.6, RBC 3.19 L, Hgb 10.7 L, Hct 29.4 L, MCV 92.2, MCH 33.5 H, MCHC 36.4 H, RDW Std Deviation 44.2 H, RDW Coeff of Nelsy 13.2, Plt Count 82 L, MPV 10.5, Immature Gran % (Auto) 1.800 H, Neut % (Auto) 52.4, Lymph % (Auto) 29.6, [place] % (Auto) 8.8, Eos % (Auto) 6.5 H, Baso % (Auto) 0.9, Absolute Neuts (auto) 2.9, Absolute Lymphs (auto) 1.65, Nucleated RBC % 0, Sodium 136, P otassium 3.1 L, Chloride 102, Carbon Dioxide 24.6, Anion Gap 9, BUN 24 H, Creatinine 1.05, Estim Creat Clear Calc 84.66, Est GFR (MDRD) Non-Af 84, B UN/Creatinine Ratio 22.4 H, Glucose 174 H, Calcium 9.1, Total Bilirubin 2.16 H, Direct Bilirubin 1.15 H, AST 52 H, ALT 48 H, Alkaline Phosphatase 109, Total Protein 6.3, Albumin 3.0 L, Globulin 3.3 09/21/25 06:22: POC Glucose 161 H 09/21/25 11:40: POC Glucose 147 H Radiography Diagnostic Testing: Radiology Impression Liver Ultrasound 09/21/25 09:45 IMPRESSION: 1 cm common bile duct is mildly dilated. No clear obstructive etiology is identified. Clinical and possibly laboratory correlation is recommended. Hepatic steatosis. [facility] Instructions Call your doctor if you observe: Fever of 101 or Higher, Shortness of breath, Dizziness, Fainting spells, Swelling in the ankles, Chest pain and Increased palpitations (irregular heartbeat) DC O2, CPAP, BIPAP Needs Home O2 Discharge instructions: No Meaningful Use Info Meaningful Use Meaningful Use Diagnoses (Choose all that apply): None applicable Discharge Plan Admission Admit Date/Time: 09/19/25 20:02 Attending Provider: Donavan Arciniega Primary Care Provider: Reagan Perdomo NP Consulting Providers: Zachary Zaragoza Instructions Patient Instructions: Diabetes How to Use an Insulin ..., Diabetes Low Blood Sugar Ch, Diabetes Insulin Injection Ch Additional Instructions / Restrictions: He has elevated liver functions and these need to be followed up by your PCP as an outpatient for further evaluation and testing Discharge Orders/Prescriptions Prescriptions: New insulin glargine [Lantus Solostar U-100 Insulin] 100 unit/mL (3 mL) Insulin Pen 30 unit subcut HS 30 Days Qty: 9 0RF (DME) insulin admin supplies Insulin Pen See Rx Instructions .Route Qty: 1 0RF Rx Instructions: As directed Continued metformin 500 MG tablet 1,000 mg PO BIDCM 30 Days Qty: 120 0RF lisinopril 5 MG tablet 5 mg PO DAILY 30 Days Qty: 30 0RF Referrals / Follow Up: Reagan Perdomo NP, [employer] [Primary Care Provider, Medical] - Within 1 Week Disposition Disposition (needs filled in before D/C Order can be placed): Home, Self Care Charges/Coding Visit Charges Inpatient E&M: 07749 Disch Hosp >30min
--- NOTE | 2025-09-21 10:48 | CASEMGMT ---
Social Work- SW met with pt to address self-pay status. Pt reports that his employer closed and he lost his insurance. Pt reports that he has a new job and insurance will begin 09/24/25. SW provided pt with [facility] and called [facility] to provide referral. Pt denies any other needs or resources at this time. Pt asked SW to update contacts to include BRANDY Mclean. SW requested documents for scan into chart. LU Lyle
[2025-09-21] MEDS: Potassium Chloride Oral Tablet 20 MEQ 60 MEQ PO (11:49)
--- NOTE | 2025-09-21 12:12 | PHA.DC.MC.R ---
Pharmacy [facility] Counseling Pharmacy Service has performed discharge medication reconciliation and counseling for this patient. 1. INSULIN GLARGINE 30UNITS SC QHS The patient's discharge medication list was reviewed for discrepancies and discrepancies were resolved. The patient was counseled on the following discharge medications and changes in medications for homegoing were reviewed. The Reason for Use, instructions for use, and potential side effects were reviewed for all new medications. The patient's questions regarding all of their medications were answered. The patient was able to verbally demonstrate an understanding of their discharge medications. Medications at Discharge Home Medications insulin admin supplies #1 ea 09/21/25 insulin glargine 100 unit/mL (3 mL) subcutaneous pen (Lantus Solostar U-100 Insulin) 30 unit (0.3 mL) subcut HS 30 days #9 mL 09/21/25 lisinopril 5 mg tablet 5 mg PO DAILY 30 days #30 tabs 09/21/25 metformin 500 mg tablet 1,000 mg (2 x 500 mg) PO BIDCM 30 days #120 tabs 09/21/25
[2025-09-21 13:33] LABS: AST(SGOT) 52 U/L (<=37); Alanine Aminotransfer ALT/SGPT 48 U/L (<=46); Albumin, Serum 3.0 g/dL (3.5-5.0); Alkaline Phosphatase 109 U/L (40-129); Bilirubin, Direct 1.15 mg/dL (0.00-0.30); Globulin 3.3 g/dL (2.2-4.2)
[2025-09-22 04:07] LABS: GGTP 275 IU/L (0-65)
== END 2025-09-21 14:28 | disposition home or self-care (01) | DRG 638 ==
LOC: ED 19:32 → MS3 20:31
PROVIDERS: Admitting Provider Internal Medicine; Emergency Provider Emergency Medicine; PCP Nurse Practitioner Family; Visit Provider Family Medicine
DX: E11.65 Type 2 diabetes mellitus with hyperglycemia (principal); N17.9 Acute kidney failure, unspecified; I10 Essential (primary) hypertension; K76.0 Fatty (change of) liver, not elsewhere classified; Z79.4 Long term (current) use of insulin; I86.8 Varicose veins of other specified sites; F10.90 Alcohol use, unspecified, uncomplicated; R01.1 Cardiac murmur, unspecified; Z79.84 Long term (current) use of oral hypoglycemic drugs; Z79.899 Other long term (current) drug therapy
CPT/HCPCS: 36415; 70450; 71046; 74177; 76705; 80048; 80053; 80076; 81001; 82010; 82140; 82803; 82962; 82977; 83036; 83690; 85025; 85610; 93005; 97802; 99285; Q9967; A4216